=== PATIENT | male | born 1970 | race Caucasian/White ===

== ENCOUNTER 2023-03-02 14:59 | Inpatient (IN) ==
[2023-03-02] MEDS ORDERED: ONDANSETRON INJ 2 MG/ML 2 ML VIAL IV STA (15:50)
[2023-03-02] MEDS ORDERED: SODIUM CHLORIDE 0.9% 1000ML 500 ML IV ONE (15:50)
--- NOTE | 2023-03-02 15:52 | Emergency Department Note ---
Impression & Plan Abnormal weight loss ADMIT ED Provider Note HPI: The patient is a 52-year-old gentleman who presents emergency department with multiple issues. Patient states that over about the past month he has had issues with nausea and vomiting. States he has dysphagia. Patient states he has also had constipation and lower abdominal pain. Patient states that he has lost approximately 30 pounds during this time, he had a low BMI at baseline and states he went from about 120 pounds to 90 pounds. Patient states that he has a lesion to the left scalp that he states "has not been healing" over the past several months since he sustained an abrasion. On arrival here to the ED the patient is mildly hypotensive at 94/65, he is not tachycardic, he is afebrile on arrival, he is saturating well on room air. He is overall very frail and cachectic appearing. States he is not currently on any medications and does not currently follow with a doctor. ROS: - Per HPI *Outpatient medications and allergy history reviewed. *Pertinent external medical records reviewed. PE: General: Alert, frail-appearing, cachectic HEENT: Normocephalic, trachea midline Eyes: Extraocular eye movement is intact, no scleral erythema Pulmonary: Clear to auscultation bilaterally, no wheezing Cardio: Regular rate and rhythm GI: Abdomen is soft to palpation : No suprapubic tenderness MSK: No evidence of trauma or malformation of the extremities, no edema Skin: No evidence of rash, there is a lesion to the area overlying the left temporal region approximately 1 cm in diameter, firm to palpation, no active bleeding Neuro: Alert, no focal deficits Psychiatric: Cooperative equipment monitor phototypesetting: (As interpreted by myself): - An order was placed for continuous cardiac monitoring - Patient was noted to be in sinus rhythm with a rate of 60 EKG: (As interpreted by myself): Rate: 85 Rhythm: Normal sinus rhythm Intervals: Within normal limits ST changes: No ST elevation Time: 1512 Interventions provided in ED: -IV fluid bolus, IV Zofran Differential Diagnosis: Esophageal motility disorder, metastatic disease, small bowel obstruction, acute colitis, diverticulitis flare, malabsorption disorder, critical electrolyte abnormality, amongst other potential pathologies. Medical Decision Making: The patient is a 52-year-old gentleman who does not normally follow with PCP, presented to the ED today with rapid weight loss, generalized weakness, states he has had difficulty swallowing and constipation, states at times he also gets diarrhea. On arrival here to the ED the patient is alert and hemodynamically stable however he is very frail appearing cachectic, he only weighs 41 kg, states he believes he lost about 30 pounds in the past month. He states this was unintentional. IV was established and lab work obtained, patient was given IV fluid bolus as well as Zofran for nausea. CT imaging of the chest as well as CT imaging of the abdomen pelvis were obtained given the patient's multiple complaints, CT imaging of the chest does not show any obvious evidence of tumor or metastatic disease, CT imaging of the abdomen pelvis shows mucosal thickening of the bowel and also enlargement of retroperitoneal and mesenteric as well as thoracic lymph nodes raising the possibility of lymphoproliferative disorder or possible systemic disease such as Whipple disease. Patient's lab work does not show any critical findings, there is no leukocytosis, hemoglobin is stable at 12.2, platelet count is within normal limits, no critical electrolyte abnormalities are noted on CMP although sodium is slightly low at 132. Lipase is within normal limits. Patient was given IV fluids here in the ED and his blood pressure did uptrend into the 140s systolic. Given findings on CT imaging in addition to the patient's recent rapid weight loss and GI symptoms, I did discuss the case with on-call gastroenterology, Dr. Mensah, states that if patient is to be admitted they are agreeable for consultation for further management and possibly further work-up such as endoscopy /colonoscopy to determine whether or not the patient may have an underlying disorder such as Whipple disease. Patient and his significant other at the bedside are in agreement to this plan. [facility] hospitalist service was consulted for admission. Patient was placed for admission in stable condition. Consultants: - Gastroenterology, Dr. Mensah - Hospitalist, Dr. Angeles Disposition discussion held by myself with: - Patient Diagnosis: 1. Rapid unintentional weight loss with low BMI 2. Possible malabsorptive disorder 3. Bowel thickening on CT imaging, nonspecific 4. Nonspecific intra-abdominal lymphadenopathy Disposition: Admission Scott Shah DO Emergency Medicine Past Med/Surg History Social History Smoking Status: Never smoker Feels Safe at Home: Yes Allergies Allergies Allergy/AdvReac Type Severity Reaction Status Date / Time No Known Allergies Allergy Verified 03/02/23 16:40 Home Meds Home Medications Medication Instructions Recorded Confirmed [id number]-[id number] tablet 1 tab PO DAILY 03/02/23 03/02/23 Results & Data (ED) Vital Signs Vital Signs - 24 hr 03/02/23 15:02 03/02/23 16:15 03/02/23 16:18 Temperature 36.5 C Temperature Source Temporal Artery Scan Pulse Rate 88 73 Pulse Rate [Apical] 73 Pulse Rhythm Regular Pulse Rhythm [Apical] Regular Respiratory Rate 20 16 Respiratory Effort / Characteristics Non-Labored Spontaneous Non-Labored Respiratory Depth Normal Normal Respiratory Pattern Regular Blood Pressure 94/65 L Blood Pressure [Left Arm] 149/72 H Blood Pressure Mean 74 Blood Pressure Mean [Left Arm] 97 Pulse Oximetry 100 100 Oxygen Delivery Method Room Air Room Air Sepsis Recent Fever Within 48 Hours No Sepsis New/Unexplained Change in Mental Status No Sepsis Action Taken by Nursing No Action Required Laboratory Data 03/02/23 Unknown Lab Results 03/02/23 03/02/23 Range/Units 15:50 Unknown WBC 10.51 (4.8-10.8) K/ul RBC 4.32 L (4.70-6.10) M/uL Hgb 12.2 L (14.0-18.0) g/dl Hct 35.8 L (42.0-52.0) % MCV 82.9 (80.0-100.0) fL MCH 28.2 (25.0-34.0) pg MCHC 34.1 (32.0-36.0) g/dL RDW Std Deviation 40.9 (36.4-46.3) fL RDW Coeff of Kingsley 13.5 (11.5-14.5) % Plt Count 379 (130-400) K/uL MPV 10.3 (9.4-12.4) fL Immature Gran % (Auto) 1.0 % Neut % (Auto) 77.6 % Lymph % (Auto) 10.9 % Crawford % (Auto) 4.4 % Eos % (Auto) 5.4 % Baso % (Auto) 0.7 % Neut # (Auto) 8.15 H (1.40-6.50) K/uL Lymph # (Auto) 1.15 L (1.2-3.4) K/uL Crawford # (Auto) 0.46 (0.11-0.59) K/uL Eos # (Auto) 0.57 H (0-0.50) K/uL Baso # (Auto) 0.07 (0-0.2) K/uL Immature Gran # (Auto) 0.11 (0.01-0.20) K/uL Platelet Estimate Increased H (Normal) Echinocytes 1+ Sodium 132 L (136-145) mmol/L Potassium 4.2 (3.5-5.1) mmol/L Chloride 104 (98-107) mmol/L Carbon Dioxide 23 (21-32) mmol/L Anion Gap 5 (3-11) BUN 19 (6-23) mg/dl Creatinine 0.88 (0.6-1.4) mg/dl Est Cr Clr Drug Dosing 58.7 ml/min Est GFR ( Amer) 116.1 ml/min Est GFR (Non-Af Amer) 100.2 ml/min BUN/Creatinine Ratio 21.6 H (10-20) Glucose 79 (70-99(Fasting)) mg/dl Calcium 8.8 (8.6-10.3) mg/dl Total Bilirubin 0.2 (0.2-1.0) mg/dl AST 25 (13-39) U/L ALT 16 (7-52) U/L Alkaline Phosphatase 53 (34-104) U/L Total Protein 6.2 (6.0-8.3) gm/dl Albumin 3.0 L (3.4-5.0) gm/dl Globulin 3.2 (2.5-4.0) gm/dl Albumin/Globulin Ratio 0.9 (0.9-2) Lipase 19 (11-82) U/L Administered Medications Discontinued Medications Sodium Chloride (Nss 1000ml) 500 mls @ 999 mls/hr IV .Q31M ONE Stop: 03/02/23 16:20 Last Infusion: 03/02/23 16:50 Dose: 0 mls/hr Documented By: Admin: 03/02/23 16:10 Dose: 999 mls/hr Documented By: CONY Ioversol (Optiray 320 100ml) 90 ml IV ONCE ONE Stop: 03/02/23 16:34 Last Admin: 03/02/23 16:33 Dose: 90 ml Documented By: NADINE Ondansetron HCl (Ondansetron Inj 2 Mg/Ml 2 Ml Vial) 4 mg IV NOW STA Stop: 03/02/23 15:51 Last Admin: 03/02/23 16:10 Dose: 4 mg Documented By: [facility] Imaging Data Radiologist's Impression: Abdomen/Pelvis CT 03/02/23 15:[address] WITH IV CONTRAST CT DOSE: 473.29 mGy.cm HISTORY: rapid weight loss, N/V, lower abd pain TECHNIQUE: Multiaxial CT images of the abdomen and pelvis were performed following the use of intravenous contrast. A dose lowering technique was utilized adhering to the principles of ALARA. COMPARISON STUDY: None. FINDINGS: The lung bases will be reported on the same day chest CT. No pneumoperitoneum. No pneumatosis. No pneumoperitoneum. No pneumatosis. Mild thickening of the distal esophagus. There is mild distal thoracic periaortic lymphadenopathy measuring up to 13 mm in short axis diameter. There is mild retroperitoneal lymphadenopathy. Multiple enlarged mesenteric lymph nodes with the dominant lymph node measuring 17 mm. The bladder is unremarkable. No pelvic free fluid. Normal caliber abdominal aorta. The main portal vein is patent. The liver, spleen, adrenal glands, gallbladder, and kidneys are unremarkable. No hydronephrosis. Multiple fluid-filled nondilated loops of large small bowel seen throughout the abdomen. Suspect mild mucosal thickening throughout the majority of the large and small bowel. No transition point to suggest a bowel obstruction. Normal appendix. IMPRESSION: 1. Mild mucosal thickening throughout the majority of the large and small bowel. This may represent a nonspecific enterocolitis. 2. There is also retroperitoneal, mesenteric, and lower thoracic lymphadenopathy. This raises the possibility of a lymphoproliferative disorder or could represent a systemic process such as Whipple's disease given the small/large bowel mucosal thickening. 3. The lung bases will be reported on the same day chest CT. 4. Additional findings as described above. ACT 112: Negative or not required by law. Electronically signed by: Abdelrahman Rod M.D. 03/02/2023 5:[address] 03/02/23 15:49 CT OF THE CHEST WITH IV CONTRAST CLINICAL HISTORY: dysphagia, rapid weight loss, eval for CA COMPARISON STUDY: No previous studies for comparison. TECHNIQUE: Following IV administration of 90 mL of Optiray, helical axial images of the chest were obtained. Sagittal and coronal reconstructions were viewed as well as maximal intensity projections on an independent 3-D workstation. Automated exposure control was utilized for the study. A dose lowering technique was utilized adhering to the principles of ALARA. FINDINGS: There are prominent retrocrural lymph nodes. Index right retrocrural/paravertebral lymph node on image 211 of 245 measures 1.3 x 0.9 cm. There are also prominent supraclavicular and axillary lymph nodes. None of these are pathologically enlarged. Mesenteric lymphadenopathy is depicted on the CT of the abdomen and pelvis which will be reported separately. Size of the heart is normal. There is no pericardial effusion. No pneumothorax or pleural effusion. Mild upper lobe predominant emphysema is present. There are a few bilateral lower lobes subtle groundglass opacities that measure up to 2.2 cm. These contain central lucencies. No suspicious lesions within the bony thorax are noted. IMPRESSION: 1. Prominent hypodense retrocrural lymph nodes. These are nonspecific. Mesenteric lymphadenopathy is depicted on the CT of the abdomen and pelvis. Please see that report for further description. 2. A few subtle bilateral lower lobe groundglass densities which contain central lucencies. Although not highly suggestive of malignancy, these are nonspecific and a short-term follow-up chest CT in 3 months is recommended. 3. Mild emphysema. ACT 112: Negative or not required by law. Electronically signed by: Gary Chau M.D. 03/02/2023 5:08 PM Discharge Plan Visit Data Chief Complaint: Vomiting Stated Complaint: VOMITING,BLOODY STOOL ED Provider: Scott Shah Discharge Problem: Abnormal weight loss Forms Stand Alone Forms: [employer] Prescriptions Prescriptions: No Action Centrum Silver Tablet 1 tab PO DAILY Referrals Referrals: PCP,NO [Primary Care Provider] -
[2023-03-02 16:20] LABS: Albumin Globulin Ratio 0.9 (0.9-2); BUN Creatinine Ratio 21.6 (10-20); Bilirubin,Total 0.2 mg/dl (0.2-1.0); Calcium 8.8 mg/dl (8.6-10.3); Creatinine Clr Calc Pharmacy 58.7 ml/min; Est GFR (African American) 116.1 ml/min; Est GFR (Non-African American) 100.2 ml/min; Globulin 3.2 gm/dl (2.5-4.0); Potassium 4.2 mmol/L (3.5-5.1); Total Protein 6.2 gm/dl (6.0-8.3)
[2023-03-02 16:26] LABS: Basophils # (auto) 0.07 K/uL (0-0.2); Basophils % (auto) 0.7 %; Echinocytes 1+; Eosinophils # (auto) 0.57 K/uL (0-0.50); Eosinophils % (auto) 5.4 %; Hematocrit (blood only) 35.8 % (42.0-52.0); Hemoglobin 12.2 g/dl (14.0-18.0); Immature Granulocytes # (auto) 0.11 K/uL (0.01-0.20); Lymphocytes # (auto) 1.15 K/uL (1.2-3.4); Lymphocytes % (auto) 10.9 %; Mean Corpuscular Hemoglobin 28.2 pg (25.0-34.0); Mean Corpuscular Hgb Conc 34.1 g/dL (32.0-36.0); Mean Corpuscular Volume 82.9 fL (80.0-100.0); Mean Platelet Volume 10.3 fL (9.4-12.4); Monocytes # (auto) 0.46 K/uL (0.11-0.59); Monocytes % (auto) 4.4 %; Neutrophils # (auto) 8.15 K/uL (1.40-6.50); Neutrophils % (auto) 77.6 %; Platelet Count 379 K/uL (130-400); Platelet Estimate Increased (Normal); RDW Coefficient of Variation 13.5 % (11.5-14.5); RDW Standard Deviation 40.9 fL (36.4-46.3); Red Blood Count 4.32 M/uL (4.70-6.10); White Blood Count 10.51 K/ul (4.8-10.8)
[2023-03-02] MEDS ORDERED: OPTIRAY 320 100ml IV ONE (16:33)
--- NOTE | 2023-03-02 17:10 | CT Scan Report ---
CT OF THE CHEST WITH IV CONTRAST CLINICAL HISTORY: dysphagia, rapid weight loss, eval for CA COMPARISON STUDY: No previous studies for comparison. TECHNIQUE: Following IV administration of 90 mL of Optiray, helical axial images of the chest were o btained. Sagittal and coronal reconstructions were viewed as well as maximal intensity projections o n an independent 3-D workstation. Automated exposure control was utilized for the study. A dose low ering technique was utilized adhering to the principles of ALARA. FINDINGS: There are prominent retrocrural lymph nodes. Index right retrocrural/paravertebral lymph n ode on image 211 of 245 measures 1.3 x 0.9 cm. There are also prominent supraclavicular and axillary lymph nodes. None of these are pathologically enlarged. Mesenteric lymphadenopathy is depicted on the CT of the abdomen and pelvis which will be reported separately. Size of the heart is normal. There i s no pericardial effusion. No pneumothorax or pleural effusion. Mild upper lobe predominant emphysema is present. There are a few bilateral lower lobes subtle groundglass opacities that measure up to 2. 2 cm. These contain central lucencies. No suspicious lesions within the bony thorax are noted. IMPRESSION: 1. Prominent hypodense retrocrural lymph nodes. These are nonspecific. Mesenteric lymphadenopathy is depicted on the CT of the abdomen and pelvis. Please see that report for further description. 2. A few subtle bilateral lower lobe groundglass densities which contain central lucencies. Although not highly suggestive of malignancy, these are nonspecific and a short-term follow-up chest CT in 3 [facility] is recommended. 3. Mild emphysema. ACT 112: Negative or not required by law. Electronically signed by: Gary Chau M.D. 03/02/2023 5:08 PM
--- NOTE | 2023-03-02 17:10 | CT Scan Report ---
ABDOMEN AND PELVIS CT WITH IV CONTRAST CT DOSE: 473.29 mGy.cm HISTORY: rapid weight loss, N/V, lower abd pain TECHNIQUE: Multiaxial CT images of the abdomen and pelvis were performed following the use of intrave nous contrast. A dose lowering technique was utilized adhering to the principles of ALARA. COMPARISON STUDY: None. FINDINGS: The lung bases will be reported on the same day chest CT. No pneumoperitoneum. No pneumatos is. No pneumoperitoneum. No pneumatosis. Mild thickening of the distal esophagus. There is mild dista l thoracic periaortic lymphadenopathy measuring up to 13 mm in short axis diameter. There is mild ret roperitoneal lymphadenopathy. Multiple enlarged mesenteric lymph nodes with the dominant lymph node m easuring 17 mm. The bladder is unremarkable. No pelvic free fluid. Normal caliber abdominal aorta. Th e main portal vein is patent. The liver, spleen, adrenal glands, gallbladder, and kidneys are unremar kable. No hydronephrosis. Multiple fluid-filled nondilated loops of large small bowel seen throughout the abdomen. Suspect mild mucosal thickening throughout the majority of the large and small bowel. N o transition point to suggest a bowel obstruction. Normal appendix. IMPRESSION: 1. Mild mucosal thickening throughout the majority of the large and small bowel. This may represent a nonspecific enterocolitis. 2. There is also retroperitoneal, mesenteric, and lower thoracic lymphadenopathy. This raises the pos sibility of a lymphoproliferative disorder or could represent a systemic process such as Whipple's di sease given the small/large bowel mucosal thickening. 3. The lung bases will be reported on the same day chest CT. 4. Additional findings as described above. ACT 112: Negative or not required by law. Electronically signed by: Abdelrahman Rod M.D. 03/02/2023 5:09 PM
[2023-03-02] MEDS ORDERED: cefTRIAXone SODIUM 2,000 MG/70 ML BAG IV STA (17:33)
--- NOTE | 2023-03-02 18:19 | History & Physical Report ---
Date of Service March 02, 2023 Assessment & Plan (1) Abnormal weight loss: (2) Anemia: (3) Dark stools: (4) Diarrhea: Plan Konstantin Desir is a 52 year old male who presented to the ED after worsening weakness for the past month. He has no significant past medical history and is on no medications. He was admitted due to rapid weight loss, dark stools, and concern of underlying malignancy. Diarrhea/Dark Stool -CT Abdomen/Pelvis: Mild mucosal thickening, could represent nonspecific enterocolitis. Retroperitoneal/Mesenteric/Lower thoracic lymphadenopathy -In setting of significant family history of colorectal cancer, malignancy is high on the differential. CT read also suggests possibility of systemic process including Whipple's disease, although is rare. -GI consulted, planning for EGD, colonoscopy with biopsy tomorrow. NPO at midnight. -Received Ceftriaxone in ED, continue Ceftriaxone 2g q24h empirically -Blood cultures pending -Will order TTG IgA for completeness. Will monitor daily BMP. -Patient is hemodynamically stable, given ongoing dark stools will start Protonix (80 IV bolus now, start 40 BID tomorrow) -Will work on finding pathology results from colonoscopy 2 years ago ([facility] in ) Anemia -Will check Iron Panel, Ferritin, B12, Folate -Monitor daily CBC w/diff -Ordered peripheral smear given eosinophilia, results pending Dyspnea -30 pack year history of smoking -Chest CT: nonspecific findings of prominent retrocrural and mesenteric lymph nodes as well as bilateral lower lobe groundglass densities -No current symptoms of dyspnea at rest, oxygen saturation has been 99-100% on room air Weakness/Rapid Weight Loss -Will consult qa tester for nutritional assessment -Concern that underlying etiology is malignancy -Will order prealbumin Diet: Clears, NPO at midnight. LR 80mL/hr VTE Prophylaxis: Heparin 5000u q12h Dispo: Med/Surg Code Status: Full Code History of Present Illness Primary Care Provider: NO PCP Konstantin Desir is a 52 year old male who presented to the ED after worsening weakness for the past month. He has no significant past medical history and is on no medications. He notes that for the past 1 year he has had gradually worsening difficulties with swallowing- it initially was only with carbohydrates/bread but has worsened to even liquids- can cause pain in her esophagus and can trigger vomiting in the past month. He has also had worsening diarrhea over the past 2-3 weeks and now his bowel movements are "dark brown/black" and "sludge" in consistency. He also has episodes of sharp pain from his rectum to his groin. He has had significant fatigue- is sleeping 10-14 hours per night and is unable to walk the 1 mile to his work without many breaks due to feeling winded. He has lost 20-25 pounds in the past month and has also had about 1 month of night sweats. He has no specific joint pain, but his arms and legs feel heavy with intermittent numbness and tingling. He denies chest pain, dizziness, headache. Mr. Desir has a home in [place] (where his family/kids live) but commutes to [place] for work where he rents a room. He has been a 1ppd smoker for 30 years but stopped within the past week due to worsening shortness of breath. He was a "social drinker" and would have a beer on occasion but lost the taste for since his symptoms have worsened. He has significant past medical history in his paternal family with 4 uncles and his paternal grandfather dying of colon cancer in 40s-50s. The patient recalls he had a colonoscopy at [facility] in about 2 years ago but is unsure of the results. 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 His father also had significant exposure to Agent [place] in [place] prior to the patient's . Allergies Allergy/AdvReac Type Severity Reaction Status Date / Time No Known Allergies Allergy Verified 03/02/23 16:40 Home Medications Medication Instructions Recorded Confirmed Type [id number] tablet 1 tab PO DAILY 03/02/23 03/02/23 History Past Med/Surg History Family History (Updated 03/02/23 @ 20:22 by Jenny uLtz DO) Father Colorectal cancer Grandfather (Paternal) Colorectal cancer Uncle Colorectal cancer Uncle Colorectal cancer Uncle Colorectal cancer Social History (Updated 03/02/23 @ 20:23 by Jenny Lutz DO) Smoking Status: Current every day smoker Tobacco Type: Cigarettes Age Started Using Tobacco: 22; packs per day: 1; Feels Safe at Home: Yes Review of Systems Review of Systems: As per HPI Physical Exam Constitutional: + cachectic and + malnourished; no acute distress Eyes: PERRL, conjunctivae normal, anicteric sclerae ENMT: external ear and nose normal, oropharynx normal Neck: trachea midline, no thyromegaly Respiratory: normal respiratory effort; no respiratory distress Lungs clear to auscultation bilaterally Cardiovascular: RRR, no murmur, no edema Gastrointestinal (Abdomen): Inspection/Auscultation: abdomen normal to inspection and normal bowel sounds Percussion/Palpation: abdomen nontender Musculoskeletal: Moves all limbs independently. 4/5 strength for bilateral plantarflexion, remainder 5/5 strength lower extremities Skin: Raised crusted 4cm lesion at left yarsani, no drainage or bleeding. Neurologic: normal touch/pain/proprioception and awake Psychiatric: A+Ox3, euthymic affect Results & Data Results & Data Vital Signs (Past 12 Hours) Vital Signs Temp Pulse Pulse Resp BP BP Pulse Ox 03/02/23 18:02 83 23 97/61 L 99 03/02/23 16:18 73 03/02/23 16:15 73 16 149/72 H 100 03/02/23 15:02 36.5 C 88 20 94/65 L 100 O2 Del Method 03/02/23 18:02 03/02/23 16:18 03/02/23 16:15 Room Air 03/02/23 15:02 Room Air Laboratory Results 03/02/23 03/02/23 03/02/23 Range/Units Unknown 17:59 15:50 WBC 10.51 (4.8-10.8) K/ul RBC 4.32 L (4.70-6.10) M/uL Hgb 12.2 L (14.0-18.0) g/dl Hct 35.8 L (42.0-52.0) % MCV 82.9 (80.0-100.0) fL MCH 28.2 (25.0-34.0) pg MCHC 34.1 (32.0-36.0) g/dL RDW Std Deviation 40.9 (36.4-46.3) fL RDW Coeff of Kingsley 13.5 (11.5-14.5) % Plt Count 379 (130-400) K/uL MPV 10.3 (9.4-12.4) fL Immature Gran % (Auto) 1.0 % Neut % (Auto) 77.6 % Lymph % (Auto) 10.9 % Wheeler % (Auto) 4.4 % Eos % (Auto) 5.4 % Baso % (Auto) 0.7 % Neut # (Auto) 8.15 H (1.40-6.50) K/uL Lymph # (Auto) 1.15 L (1.2-3.4) K/uL Wheeler # (Auto) 0.46 (0.11-0.59) K/uL Eos # (Auto) 0.57 H (0-0.50) K/uL Baso # (Auto) 0.07 (0-0.2) K/uL Immature Gran # (Auto) 0.11 (0.01-0.20) K/uL Platelet Estimate Increased H (Normal) Echinocytes 1+ Sodium 132 L (136-145) mmol/L Potassium 4.2 (3.5-5.1) mmol/L Chloride 104 (98-107) mmol/L Carbon Dioxide 23 (21-32) mmol/L Anion Gap 5 (3-11) BUN 19 (6-23) mg/dl Creatinine 0.88 (0.6-1.4) mg/dl Est Cr Clr Drug Dosing 58.7 ml/min Est GFR ( Amer) 116.1 ml/min Est GFR (Non-Af Amer) 100.2 ml/min BUN/Creatinine Ratio 21.6 H (10-20) Glucose 79 (70-99(Fasting)) mg/dl Calcium 8.8 (8.6-10.3) mg/dl Total Bilirubin 0.2 (0.2-1.0) mg/dl AST 25 (13-39) U/L ALT 16 (7-52) U/L Alkaline Phosphatase 53 (34-104) U/L Total Protein 6.2 (6.0-8.3) gm/dl Albumin 3.0 L (3.4-5.0) gm/dl Globulin 3.2 (2.5-4.0) gm/dl Albumin/Globulin Ratio 0.9 (0.9-2) Lipase 19 (11-82) U/L SARS-CoV-2, RNA, NAAT NEGATIVE (NEGATIVE) Diagnostic Findings Abdomen/Pelvis CT 03/02/23 15:[address] WITH IV CONTRAST CT DOSE: 473.29 mGy.cm HISTORY: rapid weight loss, N/V, lower abd pain TECHNIQUE: Multiaxial CT images of the abdomen and pelvis were performed following the use of intravenous contrast. A dose lowering technique was utilized adhering to the principles of ALARA. COMPARISON STUDY: None. FINDINGS: The lung bases will be reported on the same day chest CT. No pneumoperitoneum. No pneumatosis. No pneumoperitoneum. No pneumatosis. Mild thickening of the distal esophagus. There is mild distal thoracic periaortic lymphadenopathy measuring up to 13 mm in short axis diameter. There is mild retroperitoneal lymphadenopathy. Multiple enlarged mesenteric lymph nodes with the dominant lymph node measuring 17 mm. The bladder is unremarkable. No pelvic free fluid. Normal caliber abdominal aorta. The main portal vein is patent. The liver, spleen, adrenal glands, gallbladder, and kidneys are unremarkable. No hydronephrosis. Multiple fluid-filled nondilated loops of large small bowel seen throughout the abdomen. Suspect mild mucosal thickening throughout the majority of the large and small bowel. No transition point to suggest a bowel obst ruction. Normal appendix. IMPRESSION: 1. Mild mucosal thickening throughout the majority of the large and small bowel. This may represent a nonspecific enterocolitis. 2. There is also retroperitoneal, mesenteric, and lower thoracic lymphadenopathy. This raises the possibility of a lymphoproliferative disorder or could represent a systemic process such as Whipple's disease given the small/large bowel mucosal thickening. 3. The lung bases will be reported on the same day chest CT. 4. Additional findings as described above. ACT 112: Negative or not required by law. Electronically signed by: Abdelrahman Rod M.D. 03/02/2023 5:[address] 03/02/23 15:49 CT OF THE CHEST WITH IV CONTRAST CLINICAL HISTORY: dysphagia, rapid weight loss, eval for CA COMPARISON STUDY: No previous studies for comparison. TECHNIQUE: Following IV administration of 90 mL of Optiray, helical axial images of the chest were obtained. Sagittal and coronal reconstructions were viewed as well as maximal intensity projections on an independent 3-D workstation. Automated exposure control was utilized for the study. A dose lowering technique was utilized adhering to the principles of ALARA. FINDINGS: There are prominent retrocrural lymph nodes. Index right retrocrural/paravertebral lymph node on image 211 of 245 measures 1.3 x 0.9 cm. There are also prominent supraclavicular and axillary lymph nodes. None of these are pathologically enlarged. Mesenteric lymphadenopathy is depicted on the CT of the abdomen and pelvis which will be reported separately. Size of the heart is normal. There is no pericardial effusion. No pneumothorax or pleural effusion. Mild upper lobe predominant emphysema is present. There are a few bilateral lower lobes subtle groundglass opacities that measure up to 2.2 cm. These contain central lucencies. No suspicious lesions within the bony thorax are noted. IMPRESSION: 1. Prominent hypodense retrocrural lymph nodes. These are nonspecific. Mesenteric lymphadenopathy is depicted on the CT of the abdomen and pelvis. Please see that report for further description. 2. A few subtle bilateral lower lobe groundglass densities which contain central lucencies. Although not highly suggestive of malignancy, these are nonspecific and a short-term follow-up chest CT in 3 months is recommended. 3. Mild emphysema. ACT 112: Negative or not required by law. Electronically signed by: Gary Chau M.D. 03/02/2023 5:08 PM Supervising Physician Co-Signing Physician Notes Patient seen and examined, chart reviewed, case discussed with Jenny Lutz, and I agree with the assessment and plan as above except as otherwise noted. Labs and images reviewed Konstantin is a 52yo M who does not follow with a PCP, intermittently in [place]. Dysphagia, intermittent constipation, intermittent diarrhea who presents with rapid weight loss in the last month, cachexia, 30lb weight loss in 1 month and weak globally. Started w/ dysphasia gradual onset over the last year but much worse in last 4 weeks, weight loss, +night sweats, has not checked a temp but has been with body aches and intermittent chills. +diarrhea daily for 3 weeks progressively dark now 'black and sludgy'. No chest pain, but progressive fatigue with exertion and exercise intolerance. No syncope. He reports that he has extensive family history "every male in my family "has some form of colon or rectal cancer. Records are pending from [facility] to see if pathology results at that time were available. CT-C: 1. Prominent hypodense retrocrural lymph nodes. These are nonspecific. Mesenteric lymphadenopathy is depicted on the CT of the abdomen and pelvis. Please see that report for further description. 2. A few subtle bilateral lower lobe groundglass densities which contain central lucencies. Although not highly suggestive of malignancy, these are nonspecific and a short-term follow-up chest CT in 3 months is recommended.3. Mild emphysema. CT-A/P: 1. Mild mucosal thickening throughout the majority of the large and small bowel. This may represent a nonspecific enterocolitis. 2. There is also retroperitoneal, mesenteric, and lower thoracic lymphadenopathy. This raises the possibility of a lymphoproliferative disorder or could represent a systemic process such as Whipple's disease given the small/large bowel mucosal thickening. . The lung bases will be reported on the same day chest CT. 4. Additional findings as described above. Rapid weight loss, dysphagia, his constipation/diarrhea Initial concern for Whipple disease based on CT read, based on family history and presentation suspect that patient has colorectal cancer. Patient has had rapid weight loss, abdominal pain, diarrhea, although overall incidence of this is low/rare and has for myalgias than arthralgias. GI is consulted and patient will have EGD with biopsy. In the meantime we will cover empirically with Rocephin. Patient does have been eosinophilia which can be associated with a significant vasculitic involvement of Whipple's disease. Differential includes malignancy/lymphoma, pt has ane xtensive family history of colorectal cancer as noted above. Peripheral smear pending for eosinophilia, continue follow-up based on above. If GI biopsy evaluation is not diagnostic consult IR for IR biopsy of lymph nodes. Recommend colonoscopy for findings and high risk of colon cancer. Last colo 2 years ago in [place] reportedly with indeterminate appearance of something, but does not know the results of the path and did no follow up after that until now. Patient is with anemia borderline microcytic. Iron levels pending. Blood cultures pending. CBC trended daily. TTG pending. Continue Rocephin which covers for tubuli and with good [employer] coverage. Nutrition consult placed due to global malnutrition, no transaminitis to suggest poor synthetic f unction prealbumin added for completion. N.p.o. pending EGD. Given reports of black tarry stool with anemia will also place on protonix IV 80mg IV bolus + BID IV, BUN is not elevated Resident Activity Tracking Resident Involvement: Resident Care Provided Care Provided: [facility]
[2023-03-02] MEDS ORDERED: PANTOprazole 80 MG in DEXTROSE 5% 100 ML IV STA (20:06)
[2023-03-02 22:01] LABS: Appearance Urine Clear (Clear); Bacteria Urine Automated Negative (Negative); Bilirubin Urine Negative (Negative); Blood Urine Negative (Negative); Color Urine Dark Yellow; Glucose Urine UA Negative (Negative); Ketones Urine Negative (Negative); Leukocyte Esterase Urine Negative (Negative); Nitrite Urine Negative (Negative); Protein Urine Trace (Negative); RBC Urine Automated 0-4 /hpf (0-4); Specific Gravity Urine > 1.045 (1.000-1.030); Urobilinogen Urine Negative (Negative)
[2023-03-02] MEDS ORDERED: ONDANSETRON INJ 2 MG/ML 2 ML VIAL IV PRN (22:04)
[2023-03-02] MEDS ORDERED: ACETAMINOPHEN 325 MG TAB PO PRN (22:04)
[2023-03-02] MEDS ORDERED: HEPARIN SOD 5,000 UNIT/0.5 ML VIAL SQ SCH (22:04)
[2023-03-02] MEDS: LACTATED RINGER'S 1,000 ML IV SCH (22:10)
[2023-03-02 23:36] LABS: Ferritin 66.1 ng/ml (8-388)
[2023-03-03 07:34] LABS: Basophils # (auto) 0.07 K/uL (0-0.2); Basophils % (auto) 0.5 %; Eosinophils # (auto) 0.42 K/uL (0-0.50); Eosinophils % (auto) 3.1 %; Hematocrit (blood only) 32.2 % (42.0-52.0); Immature Granulocytes # (auto) 0.09 K/uL (0.01-0.20); Immature Granulocytes % (auto) 0.7 %; Lymphocytes # (auto) 0.65 K/uL (1.2-3.4); Lymphocytes % (auto) 4.8 %; Mean Corpuscular Hemoglobin 28.1 pg (25.0-34.0); Mean Corpuscular Hgb Conc 34.2 g/dL (32.0-36.0); Mean Corpuscular Volume 82.1 fL (80.0-100.0); Mean Platelet Volume 9.9 fL (9.4-12.4); Monocytes # (auto) 0.34 K/uL (0.11-0.59); Monocytes % (auto) 2.5 %; Neutrophils # (auto) 12.08 K/uL (1.40-6.50); Neutrophils % (auto) 88.4 %; Platelet Count 320 K/uL (130-400); RDW Coefficient of Variation 13.5 % (11.5-14.5); RDW Standard Deviation 40.6 fL (36.4-46.3); Red Blood Count 3.92 M/uL (4.70-6.10); White Blood Count 13.65 K/ul (4.8-10.8)
[2023-03-03 07:59] LABS: BUN Creatinine Ratio 16.9 (10-20); Calcium 8.4 mg/dl (8.6-10.3); Creatinine Clr Calc Pharmacy 58.3 ml/min; Est GFR (African American) 115.6 ml/min; Est GFR (Non-African American) 99.7 ml/min
--- NOTE | 2023-03-03 08:13 | Hospitalist Progress Note ---
Date of Service March 03, 2023 Assessment & Plan (1) Weight loss: Plan: Konstantin Desir is a 52 year old male who presented to the ED after worsening weakness for the past month, worse over past two weeks. Recently w/ progressive dysphagia to even liquids, strong family history of colon ca. Reporting rapid weight loss, night sweats, progressive shortness of breath, weakness. Concerns for underlying malignancy given strong family history of such CTAP on admission w/ Mild mucosal thickening, could represent nonspecific enterocolitis. There is also retroperitoneal, mesenteric, and lower thoracic lymphadenopathy. This raises the possibility of a lymphoproliferative disorder or could represent a systemic process such as Whipple's disease given the small/large bowel mucosal thickening. Possible Whipple's disease noted, although rares On ceftriaxone given such, continue Blood cultures pending GI on consult -- hopefully able to do EGD/c-scope however appears only doing EGD at present. Messaged to see if able to do both NPO currently Added stool studies/cdiff, celiac profile ordered by GI. also check fecal occult. 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 Pre-albumin LOW Also consulted speech therapy given dysphagia ID consulted given possible Whipples rarity, on ceftriaxone Monitor labs on repeat (2) Dysphagia: Plan: 30 pack year history of smoking Chest CT: nonspecific findings of prominent retrocrural and mesenteric lymph nodes as well as bilateral lower lobe groundglass densities NEEDS OUTPATIENT MONITORING OF SUCH No current symptoms of dyspnea at rest, oxygen saturation stable on room air Speech consulted NPO currently for EGD IVF as ordered -Will work on finding pathology results from colonoscopy 2 years ago ([facility] in [place], [place]) (3) Diarrhea: Plan: progressive diarrhea, contributing to dehydration/weakness as well, also suspect malingancy vs whipples bicarb low on labs, likely from diarrheal losses stool studies ordered -- monitor IVF for dehydration ordered (4) Anemia: Plan: iron panel checked -- iron/trans sat LOW -- consider IV venofer but will hold off for now and ensure blood cultures negative b12/folate levels acceptable peripheral smear pending hgb stable on IVF, fecal occult for eval but no active bleeding at present tsh wnl cbc in AM (5) Dark stools: Plan: check fecal occult as above continue PPI BID (6) Malnourished: Plan: 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 Did note nodules which will need f/u Iron panel w/ iron deficiency -- will need replacement No chest pain reported, no EKG Can consider CT chest for PE but not hypoxia at this time and will monitor for now. Was Sinus tachy w/ sinus arrhtymia on EKG on admit. 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 peripheral smear ordered continues on ceftriaxone for abx, ID consulted as above (11) Abnormal CT of the abdomen: Plan: as above (12) Abnormal CT scan, chest: Plan: A few subtle bilateral lower lobe groundglass densities which contain central lucencies. Although not highly suggestive of malignancy, --> these are nonspecific and a short-term follow-up chest CT in 3 months is recommended. stable on RA at present Plan DVT proph: holding chemoproph in setting possible GI bleeding -- heparin placed on hold as ordered on admission, continue SCDs Admission and Anticipated Discharge Date Admission Date: March 02, 2023 Supervising Physician Co-Signing Physician Notes The patient was not seen by me. The chart was reviewed. Case discussed with FLORIN Gottlieb. Agree with assessment and plan Subjective patient eval this morning, doing alright. recent progressive weight loss, worse over the past 2 weeks. progressive dysphagia. no family hx IBD but strong family hx colon cancer. On both maternal and paternal side. He notes almost every male on his father's side has been diagnosed. Has been having ongoing diarrhea and loosened darkened stools, shortness of breath with ambulation which has been worse. Discussed iron levels low on check. He notes no matter how much he had been eating,weight loss progressed. Worsened w/ worsening ability for swallowing which started out breads and now on occasions with fluids. Discussed speech eval as well. Updated significant other on phone. They are inquiring about why not both EGD/c-scope as discussed w/ them in the ER. Discussed I would message GI to inquire but per message this am was to be deferred to Berta/Dr Ayala per Dr Mensah. He has had fevers as well as joint pains, worsening abilty for ambulation due to weakness/weight loss. Physical Exam Physical Exam: General: thin, malnourished, cachectic male laying in bed on phone, NAD HEENT: bitemporal wasting, mm dry, trachea midline, no lymphadenopathy noted Resp: CTA, diminished in bases w/ associated crackles, no w/c, on room air CV: slightly tachycardic (rates 90-100s),regular, no obvious m/r/g, no pitting edema/calf tenderness GI: +BS, thin, no overy tenderness : no dowell MSK/Neuro: strength equal bilaterally mild joint pain reported to hands/elbows, no obvious lesion Psych: AOx3, cooperative with exam Skin: warm Results & Data Results & Data Vital Signs (Past 12 Hours) Vital Signs Temp Pulse Pulse Resp BP BP Pulse Ox 03/03/23 07:57 37.5 C 104 H 16 95/57 L 93 03/02/23 21:30 03/02/23 21:30 36.5 C 77 18 100/65 98 03/02/23 21:02 36.8 C 85 18 96/52 L 97 O2 Del Method 03/03/23 07:57 Room Air 03/02/23 21:30 Room Air 03/02/23 21:30 Room Air 03/02/23 21:02 Room Air Laboratory Results 03/03/23 03/03/23 03/03/23 Range/Units 06:54 06:54 06:54 WBC 13.65 H (4.8-10.8) K/ul RBC 3.92 L (4.70-6.10) M/uL Hgb 11.0 L (14.0-18.0) g/dl Hct 32.2 L (42.0-52.0) % MCV 82.1 (80.0-100.0) fL MCH 28.1 (25.0-34.0) pg MCHC 34.2 (32.0-36.0) g/dL RDW Std Deviation 40.6 (36.4-46.3) fL RDW Coeff of Kingsley 13.5 (11.5-14.5) % Plt Count 320 (130-400) K/uL MPV 9.9 (9.4-12.4) fL Immature Gran % (Auto) 0.7 % Neut % (Auto) 88.4 % Lymph % (Auto) 4.8 % Mcmullen % (Auto) 2.5 % Eos % (Auto) 3.1 % Baso % (Auto) 0.5 % Neut # (Auto) 12.08 H (1.40-6.50) K/uL Lymph # (Auto) 0.65 L (1.2-3.4) K/uL Mcmullen # (Auto) 0.34 (0.11-0.59) K/uL Eos # (Auto) 0.42 (0-0.50) K/uL Baso # (Auto) 0.07 (0-0.2) K/uL Immature Gran # (Auto) 0.09 (0.01-0.20) K/uL Platelet Estimate (Normal) Echinocytes Peripher Smr Path Cons Sodium 131 L (136-145) mmol/L Potassium 4.0 (3.5-5.1) mmol/L Chloride 108 H (98-107) mmol/L Carbon Dioxide 17 L (21-32) mmol/L Anion Gap 6 (3-11) BUN 15 (6-23) mg/dl Creatinine 0.89 (0.6-1.4) mg/dl Est Cr Clr Drug Dosing 58.3 ml/min Est GFR ( Amer) 115.6 ml/min Est GFR (Non-Af Amer) 99.7 ml/min BUN/Creatinine Ratio 16.9 (10-20) Glucose 85 (70-99(Fasting)) mg/dl Calcium 8.4 L (8.6-10.3) mg/dl Iron (35-175) mcg/dl TIBC (250-450) mcg/dl Unsaturated IBC (155-355) mcg/dl Transferrin (200-360) mg/dl Transferrin % Sat (20-50) % Ferritin (8-388) ng/ml Total Bilirubin (0.2-1.0) mg/dl AST (13-39) U/L ALT (7-52) U/L Alkaline Phosphatase (34-104) U/L Total Protein (6.0-8.3) gm/dl Albumin (3.4-5.0) gm/dl Globulin (2.5-4.0) gm/dl Albumin/Globulin Ratio (0.9-2) Prealbumin Pending Lipase (11-82) U/L Vitamin B12 (180-914) pg/ml Folate (>5.38) ng/ml Urine Color Urine Appearance (Clear) Urine pH (4.5-7.5) Ur Specific [place] (1.000-1.030) Urine Protein (Negative) Urine Glucose (UA) (Negative) Urine Ketones (Negative) Urine Blood (Negative) Urine Nitrite (Negative) Urine Bilirubin (Negative) Urine Urobilinogen (Negative) Ur Leukocyte Esterase (Negative) Urine WBC (Auto) (0-5) /hpf Urine RBC (Auto) (0-4) /hpf U Hyaline Cast (Auto) (0-5) /lpf U Epithel Cells (Auto) (0-5) /lpf Urine Bacteria (Auto) (Negative) Tiss Transglutamin IgA Pending SARS-CoV-2, RNA, NAAT (NEGATIVE) 03/02/23 03/02/23 03/02/23 Range/Units Unknown 21:40 17:59 WBC 10.51 (4.8-10.8) K/ul RBC 4.32 L (4.70-6.10) M/uL Hgb 12.2 L (14.0-18.0) g/dl Hct 35.8 L (42.0-52.0) % MCV 82.9 (80.0-100.0) fL MCH 28.2 (25.0-34.0) pg MCHC 34.1 (32.0-36.0) g/dL RDW Std Deviation 40.9 (36.4-46.3) fL RDW Coeff of Kingsley 13.5 (11.5-14.5) % Plt Count 379 (130-400) K/uL MPV 10.3 (9.4-12.4) fL Immature Gran % (Auto) 1.0 % Neut % (Auto) 77.6 % Lymph % (Auto) 10.9 % Mcmullen % (Auto) 4.4 % Eos % (Auto) 5.4 % Baso % (Auto) 0.7 % Neut # (Auto) 8.15 H (1.40-6.50) K/uL Lymph # (Auto) 1.15 L (1.2-3.4) K/uL Mcmullen # (Auto) 0.46 (0.11-0.59) K/uL Eos # (Auto) 0.57 H (0-0.50) K/uL Baso # (Auto) 0.07 (0-0.2) K/uL Immature Gran # (Auto) 0.11 (0.01-0.20) K/uL Platelet Estimate Increased H (Normal) Echinocytes 1+ Peripher Smr Path Cons Sodium (136-145) mmol/L Potassium (3.5-5.1) mmol/L Chloride (98-107) mmol/L Carbon Dioxide (21-32) mmol/L Anion Gap (3-11) BUN (6-23) mg/dl Creatinine (0.6-1.4) mg/dl Est Cr Clr Drug Dosing ml/min Est GFR ( Amer) ml/min Est GFR (Non-Af Amer) ml/min BUN/Creatinine Ratio (10-20) Glucose (70-99(Fasting)) mg/dl Calcium (8.6-10.3) mg/dl Iron (35-175) mcg/dl TIBC (250-450) mcg/dl Unsaturated IBC (155-355) mcg/dl Transferrin (200-360) mg/dl Transferrin % Sat (20-50) % Ferritin (8-388) ng/ml Total Bilirubin (0.2-1.0) mg/dl AST (13-39) U/L ALT (7-52) U/L Alkaline Phosphatase (34-104) U/L Total Protein (6.0-8.3) gm/dl Albumin (3.4-5.0) gm/dl Globulin (2.5-4.0) gm/dl Albumin/Globulin Ratio (0.9-2) Prealbumin Lipase (11-82) U/L Vitamin B12 (180-914) pg/ml Folate (>5.38) ng/ml Urine Color Dark Yellow Urine Appearance Clear (Clear) Urine pH 5.0 (4.5-7.5) Ur Specific [place] > 1.045 H (1.000-1.030) Urine Protein Trace H (Negative) Urine Glucose (UA) Negative (Negative) Urine Ketones Negative (Negative) Urine Blood Negative (Negative) Urine Nitrite Negative (Negative) Urine Bilirubin Negative (Negative) Urine Urobilinogen Negative (Negative) Ur Leukocyte Esterase Negative (Negative) Urine WBC (Auto) 1-5 (0-5) /hpf Urine RBC (Auto) 0-4 (0-4) /hpf U Hyaline Cast (Auto) 1-5 (0-5) /lpf U Epithel Cells (Auto) 10-20 H (0-5) /lpf Urine Bacteria (Auto) Negative (Negative) Tiss Transglutamin IgA SARS-CoV-2, RNA, NAAT NEGATIVE (NEGATIVE) 03/02/23 03/02/23 03/02/23 Range/Units 15:53 15:53 15:50 WBC (4.8-10.8) K/ul RBC (4.70-6.10) M/uL Hgb (14.0-18.0) g/dl Hct (42.0-52.0) % MCV (80.0-100.0) fL MCH (25.0-34.0) pg MCHC (32.0-36.0) g/dL RDW Std Deviation (36.4-46.3) fL RDW Coeff of Kingsley (11.5-14.5) % Plt Count (130-400) K/uL MPV (9.4-12.4) fL Immature Gran % (Auto) % Neut % (Auto) % Lymph % (Auto) % Mcmullen % (Auto) % Eos % (Auto) % Baso % (Auto) % Neut # (Auto) (1.40-6.50) K/uL Lymph # (Auto) (1.2-3.4) K/uL Mcmullen # (Auto) (0.11-0.59) K/uL Eos # (Auto) (0-0.50) K/uL Baso # (Auto) (0-0.2) K/uL Immature Gran # (Auto) (0.01-0.20) K/uL Platelet Estimate (Normal) Echinocytes Peripher Smr Path Cons Pending Sodium 132 L (136-145) mmol/L Potassium 4.2 (3.5-5.1) mmol/L Chloride 104 (98-107) mmol/L Carbon Dioxide 23 (21-32) mmol/L Anion Gap 5 (3-11) BUN 19 (6-23) mg/dl Creatinine 0.88 (0.6-1.4) mg/dl Est Cr Clr Drug Dosing 58.7 ml/min Est GFR ( Amer) 116.1 ml/min Est GFR (Non-Af Amer) 100.2 ml/min BUN/Creatinine Ratio 21.6 H (10-20) Glucose 79 (70-99(Fasting)) mg/dl Calcium 8.8 (8.6-10.3) mg/dl Iron 15 L (35-175) mcg/dl TIBC 292 (250-450) mcg/dl Unsaturated IBC 277 (155-355) mcg/dl Transferrin 235 (200-360) mg/dl Transferrin % Sat 5 L (20-50) % Ferritin 66.1 (8-388) ng/ml Total Bilirubin 0.2 (0.2-1.0) mg/dl AST 25 (13-39) U/L ALT 16 (7-52) U/L Alkaline Phosphatase 53 (34-104) U/L Total Protein 6.2 (6.0-8.3) gm/dl Albumin 3.0 L (3.4-5.0) gm/dl Globulin 3.2 (2.5-4.0) gm/dl Albumin/Globulin Ratio 0.9 (0.9-2) Prealbumin Lipase 19 (11-82) U/L Vitamin B12 547 (180-914) pg/ml Folate 15.67 (>5.38) ng/ml Urine Color Urine Appearance (Clear) Urine pH (4.5-7.5) Ur Specific [place] (1.000-1.030) Urine Protein (Negative) Urine Glucose (UA) (Negative) Urine Ketones (Negative) Urine Blood (Negative) Urine Nitrite (Negative) Urine Bilirubin (Negative) Urine Urobilinogen (Negative) Ur Leukocyte Esterase (Negative) Urine WBC (Auto) (0-5) /hpf Urine RBC (Auto) (0-4) /hpf U Hyaline Cast (Auto) (0-5) /lpf U Epithel Cells (Auto) (0-5) /lpf Urine Bacteria (Auto) (Negative) Tiss Transglutamin IgA SARS-CoV-2, RNA, NAAT (NEGATIVE) Diagnostic Findings Abdomen/Pelvis CT 03/02/23 15:[address] WITH IV CONTRAST CT DOSE: 473.29 mGy.cm HISTORY: rapid weight loss, N/V, lower abd pain TECHNIQUE: Multiaxial CT images of the abdomen and pelvis were performed following the use of intravenous contrast. A dose lowering technique was utilized adhering to the principles of ALARA. COMPARISON STUDY: None. FINDINGS: The lung bases will be reported on the same day chest CT. No pneumoperitoneum. No pneumatosis. No pneumoperitoneum. No pneumatosis. Mild th ickening of the distal esophagus. There is mild distal thoracic periaortic lymphadenopathy measuring up to 13 mm in short axis diameter. There is mild retroperitoneal lymphadenopathy. Multiple enlarged mesenteric lymph nodes with the dominant lymph node measuring 17 mm. The bladder is unremarkable. No pelvic free fluid. Normal caliber abdominal aorta. The main portal vein is patent. The liver, spleen, adrenal glands, gallbladder, and kidneys are unremarkable. No hydronephrosis. Multiple fluid-filled nondilated loops of large small bowel seen throughout the abdomen. Suspect mild mucosal thickening throughout the majority of the large and small bowel. No transition point to suggest a bowel obstruction. Normal appendix. IMPRESSION: 1. Mild mucosal thickening throughout the majority of the large and small bowel. This may represent a nonspecific enterocolitis. 2. There is also retroperitoneal, mesenteric, and lower thoracic lymphadenopathy. This raises the possibility of a lymphoproliferative disorder or could represent a systemic process such as Whipple's disease given the small/large bowel mucosal thickening. 3. The lung bases will be reported on the same day chest CT. 4. Additional findings as described above. ACT 112: Negative or not required by law. Electronically signed by: Abdelrahman Rod M.D. 03/02/2023 5:[address] 03/02/23 15:49 CT OF THE CHEST WITH IV CONTRAST CLINICAL HISTORY: dysphagia, rapid weight loss, eval for CA COMPARISON STUDY: No previous studies for comparison. TECHNIQUE: Following IV administration of 90 mL of Optiray, helical axial images of the chest were obtained. Sagittal and coronal reconstructions were viewed as well as maximal intensity projections on an independent 3-D workstation. Automated exposure control was utilized for the study. A dose lowering technique was utilized adhering to the principles of ALARA. FINDINGS: There are prominent retrocrural lymph nodes. Index right retrocrural/paravertebral lymph node on image 211 of 245 measures 1.3 x 0.9 cm. There are also prominent supraclavicular and axillary lymph nodes. None of these are pathologically enlarged. Mesenteric lymphadenopathy is depicted on the CT of the abdomen and pelvis which will be reported separately. Size of the heart is normal. There is no pericardial effusion. No pneumothorax or pleural effusion. Mild upper lobe predominant emphysema is present. There are a few bilateral lower lobes subtle groundglass opacities that measure up to 2.2 cm. These contain central lucencies. No suspicious lesions within the bony thorax are noted. IMPRESSION: 1. Prominent hypodense retrocrural lymph nodes. These are nonspecific. Mesenteric lymphadenopathy is depicted on the CT of the abdomen and pelvis. Please see that report for further description. 2. A few subtle bilateral lower lobe groundglass densities which contain central lucencies. Although not highly suggestive of malignancy, these are nonspecific and a short-term follow-up chest CT in 3 months is recommended. 3. Mild emphysema. ACT 112: Negative or not required by law. Electronically signed by: Gary Chau M.D. 03/02/2023 5:08 PM PG Care Time/CCT Total # of Minutes Spent Total Time Spent with Patient: Total time spent is greater than 50% in coordination of care (as documented) at patient's floor/unit and/or counseling patient: Coding Level of Care Code 30945 SUB INP/OBS CARE 3/50MIN Diagnoses Weight loss R63.4 Dysphagia R13.10 Diarrhea R19.7 Anemia D64.9 Dark stools R19.5 Malnourished E46 Dyspnea R06.00 Iron deficiency E61.1 Hypomagnesemia E83.42 Whipple's disease K90.[address] of the abdomen R93.[address] scan, chest R93.89
[2023-03-03] MEDS: PANTOprazole 40 MG in SYRINGE 0 ML IV SCH ×2 (08:16→20:19)
[2023-03-03 09:01] LABS: Magnesium 1.3 mg/dl (1.7-2.4); Phosphorus 2.3 mg/dl (2.5-4.9)
[2023-03-03 09:38] LABS: Prealbumin 8.1 mg/dl (20-40)
--- NOTE | 2023-03-03 09:57 | Gastrointestinal Consultation ---
Date of Consultation March 03, 2023 Assessment & Plan (1) Abnormal weight loss: (2) Diarrhea: (3) Anemia: (4) Abnormal CT of the abdomen: Plan Diff dx: PUD vs lymphoma vs Sprue vs Whipple dx or other viral/bacterial enteritis vs IBD vs other. 1. NPO for now. 2. Proceed with diagnostic EGD by Dr. Ayala today for further evaluation. 3. Await stool studies and Celiac profile as ordered. 4. Continue Protonix 40 mg IV BID. 5. Further recommendations will be made pending results of endoscopy. Thank you for allowing us to participate in the care of this patient. If you have any questions or concerns, please do not hesitate to contact us. Supervising Physician Co-Signing Physician Notes Agree with ELENA Arriaga as above Abd: Soft, tender throughout, ND, +BS Continue current therapy EGD now History of Present Illness Reason for Consultation: Weight loss, abnormal CT, ?Whipple Requesting Physician: Dr. Shah Attending Physician: Ministerio Johnson MD History of Present Illness Patient is a 52 y.o. male who recently moved into the area from [place] to be with his fiancee. He was evaluated by a project coach ~2 years ago due to strong family history of colon cancer per his report. No records of the endoscopic procedures are available to review but he endorses having both EGD and colonoscopy at that time which were unremarkable. States he was in his usual state of health until one month ago. Since that time, he has been having severe diarrhea "dozens of times a day". The stools are light yellow to dark and black in color. States the stool is always liquid. No bright red rectal bleeding. Denies any nausea or vomiting. No bloating. +Abdominal cramping. Since the onset, he has sustained an approximate 15 pound weight loss. On arrival, he was found to have a mild anemia with H&H of 12.2/35.8, no leukocytosis. Mild hypokalemia of 132, normal potassium of 4.2. Renal panel was normal as well as liver panel and lipase. B12 and folate were normal. CT a/p was obtained and revealed the following: "IMPRESSION: 1. Mild mucosal thickening throughout the majority of the large and small bowel. This may represent a nonspecific enterocolitis. 2. There is also retroperitoneal, mesenteric, and lower thoracic lymphadenopathy. This raises the possibility of a lymphoproliferative disorder or could represent a systemic process such as Whipple's disease given the small/large bowel mucosal thickening." Due to this, Dr. Shah did speak with Dr. Mensah senior front end developer last evening. Patient was placed on NPO status and started on a PPI ggt. H&H was noted to be 11.0/32.2 this morning. He denies any family history of Celiac disease or IBD. Reports diffuse joint pain. No rashes, eye pain/redness. Allergies Allergy/AdvReac Type Severity Reaction Status Date / Time No Known Allergies Allergy Verified 03/03/23 11:36 Home Medications Medication Instructions Recorded Confirmed Type ykfzceknejsg-cmthwdfa-wzwtin tablet 1 tab PO DAILY 03/02/23 03/02/23 History Patient History Medical History (Updated 03/03/23 @ 11:[address] PA-C) Encounter for pre-operative examination Family History Father Colorectal cancer Grandfather (Paternal) Colorectal cancer Uncle Colorectal cancer Uncle Colorectal cancer Uncle Colorectal cancer Social History Smoking Status: Former smoker Tobacco Type: Cigarettes Age Started Using Tobacco: 22; packs per day: 1; Cigarettes Per Day: 1PPD; Smoking End Date: LAST WEEK; Hx Alcohol Use: Yes Alcohol type: beer Hx Substance Use: Yes Last Used Substance Other:: LAST USED Monday02/25/23 Preferred Language: Croatian 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 Ability: Effective Binder Lockstitch Required: No Beliefs That Will Affect Care: None Current Living Situation: Alone Feels Safe at Home: Yes Safety Concerns: Feels Safe At This Time Assistive Devices: None Review of Systems Review of Systems: All systems reviewed & are unremarkable except as noted in HPI & below Physical Exam Constitutional: + thin; no acute distress Eyes: + anicteric sclerae and EOM intact bilaterally Neck: normal visual inspection Respiratory: normal respiratory effort, lungs clear to auscultation Cardiovascular: RRR, no murmur, no edema Gastrointestinal (Abdomen): Inspection/Auscultation: abdomen normal to inspection and normal bowel sounds; abdomen not distended Percussion/Palpation: abdomen soft; abdomen nontender, no guarding and abdomen not rigid Musculoskeletal: Extremities: extremities normal to inspection Psychiatric: A+Ox3, euthymic affect Results & Data Vital Signs (Past 12 Hours) Vital Signs Temp Pulse Resp BP Pulse Ox O2 Del Method 03/03/23 07:57 37.5 C 104 H 16 95/57 L 93 Room Air Diagnostic Findings Laboratory Results WBC 13.65 K/ul (4.8-10.8) H 03/03/23 06:54 RBC 3.92 M/uL (4.70-6.10) L 03/03/23 06:54 Hgb 11.0 g/dl (14.0-18.0) L 03/03/23 06:54 Hct 32.2 % (42.0-52.0) L 03/03/23 06:54 MCV 82.1 fL (80.0-100.0) 03/03/23 06:54 MCH 28.1 pg (25.0-34.0) 03/03/23 06:54 MCHC 34.2 g/dL (32.0-36.0) 03/03/23 06:54 RDW Std Deviation 40.6 fL (36.4-46.3) 03/03/23 06:54 RDW Coeff of Kingsley 13.5 % (11.5-14.5) 03/03/23 06:54 Plt Count 320 K/uL (130-400) 03/03/23 06:54 MPV 9.9 fL (9.4-12.4) 03/03/23 06:54 Immature Gran % (Auto) 0.7 % 03/03/23 06:54 Neut % (Auto) 88.4 % 03/03/23 06:54 Lymph % (Auto) 4.8 % 03/03/23 06:54 Kinney % (Auto) 2.5 % 03/03/23 06:54 Eos % (Auto) 3.1 % 03/03/23 06:54 Baso % (Auto) 0.5 % 03/03/23 06:54 Neut # (Auto) 12.08 K/uL (1.40-6.50) H 03/03/23 06:54 Lymph # (Auto) 0.65 K/uL (1.2-3.4) L 03/03/23 06:54 Kinney # (Auto) 0.34 K/uL (0.11-0.59) 03/03/23 06:54 Eos # (Auto) 0.42 K/uL (0-0.50) 03/03/23 06:54 Baso # (Auto) 0.07 K/uL (0-0.2) 03/03/23 06:54 Immature Gran # (Auto) 0.09 K/uL (0.01-0.20) 03/03/23 06:54 Platelet Estimate Increased (Normal) H 03/02/23 Unknown Echinocytes 1+ 03/02/23 Unknown Sodium 131 mmol/L (136-145) L 03/03/23 06:54 Potassium 4.0 mmol/L (3.5-5.1) 03/03/23 06:54 Chloride 108 mmol/L (98-107) H 03/03/23 06:54 Carbon Dioxide 17 mmol/L (21-32) L 03/03/23 06:54 Anion Gap 6 (3-11) 03/03/23 06:54 BUN 15 mg/dl (6-23) 03/03/23 06:54 Creatinine 0.89 mg/dl (0.6-1.4) 03/03/23 06:54 Est Cr Clr Drug Dosing 58.3 ml/min 03/03/23 06:54 Est GFR ( Amer) 115.6 ml/min 03/03/23 06:54 Est GFR (Non-Af Amer) 99.7 ml/min 03/03/23 06:54 BUN/Creatinine Ratio 16.9 (10-20) 03/03/23 06:54 Glucose 85 mg/dl (70-99(Fasting)) 03/03/23 06:54 Lactate 0.7 mmol/L (0.4-2.0) 03/03/23 08:17 Calcium 8.4 mg/dl (8.6-10.3) L 03/03/23 06:54 Phosphorus 2.3 mg/dl (2.5-4.9) L 03/03/23 08:17 Magnesium 1.3 mg/dl (1.7-2.4) L 03/03/23 08:17 Iron 15 mcg/dl (35-175) L 03/02/23 15:50 TIBC 292 mcg/dl (250-450) 03/02/23 15:50 Unsaturated IBC 277 mcg/dl (155-355) 03/02/23 15:50 Transferrin 235 mg/dl (200-360) 03/02/23 15:50 Transferrin % Sat 5 % (20-50) L 03/02/23 15:50 Ferritin 66.1 ng/ml (8-388) 03/02/23 15:50 Total Bilirubin 0.2 mg/dl (0.2-1.0) 03/02/23 15:50 AST 25 U/L (13-39) 03/02/23 15:50 ALT 16 U/L (7-52) 03/02/23 15:50 Alkaline Phosphatase 53 U/L (34-104) 03/02/23 15:50 Total Protein 6.2 gm/dl (6.0-8.3) 03/02/23 15:50 Albumin 3.0 gm/dl (3.4-5.0) L 03/02/23 15:50 Globulin 3.2 gm/dl (2.5-4.0) 03/02/23 15:50 Albumin/Globulin Ratio 0.9 (0.9-2) 03/02/23 15:50 Prealbumin 8.1 mg/dl (20-40) L 03/03/23 06:54 Lipase 19 U/L (11-82) 03/02/23 15:50 Carcinoembryonic Ag 2.4 ng/ml (0-2.5) 03/03/23 08:17 Vitamin B12 547 pg/ml (180-914) 03/02/23 15:53 Folate 15.67 ng/ml (>5.38) 03/02/23 15:53 Urine Color Dark Yellow 03/02/23 21:40 Urine Appearance Clear (Clear) 03/02/23 21:40 Urine pH 5.0 (4.5-7.5) 03/02/23 21:40 Ur Specific [place] > 1.045 (1.000-1.030) H 03/02/23 21:40 Urine Protein Trace (Negative) H 03/02/23 21:40 Urine Glucose (UA) Negative (Negative) 03/02/23 21:40 Urine Ketones Negative (Negative) 03/02/23 21:40 Urine Blood Negative (Negative) 03/02/23 21:40 Urine Nitrite Negative (Negative) 03/02/23 21:40 Urine Bilirubin Negative (Negative) 03/02/23 21:40 Urine Urobilinogen Negative (Negative) 03/02/23 21:40 Ur Leukocyte Esterase Negative (Negative) 03/02/23 21:40 Urine WBC (Auto) 1-5 /hpf (0-5) 03/02/23 21:40 Urine RBC (Auto) 0-4 /hpf (0-4) 03/02/23 21:40 U Hyaline Cast (Auto) 1-5 /lpf (0-5) 03/02/23 21:40 U Epithel Cells (Auto) 10-20 /lpf (0-5) H 03/02/23 21:40 Urine Bacteria (Auto) Negative (Negative) 03/02/23 21:40 SARS-CoV-2, RNA, NAAT NEGATIVE (NEGATIVE) 03/02/23 17:59 Impressions Abdomen/Pelvis CT 03/02/23 15:[address] WITH IV CONTRAST CT DOSE: 473.29 mGy.cm HISTORY: rapid weight loss, N/V, lower abd pain TECHNIQUE: Multiaxial CT images of the abdomen and pelvis were performed following the use of intravenous contrast. A dose lowering technique was utilized adhering to the principles of ALARA. COMPARISON STUDY: None. FINDINGS: The lung bases will be reported on the same day chest CT. No pneumoperitoneum. No pneumatosis. No pneumoperitoneum. No pneumatosis. Mild thickening of the distal esophagus. There is mild distal thoracic periaortic lymphadenopathy measuring up to 13 mm in short axis diameter. There is mild retroperitoneal lymphadenopathy. Multiple enlarged mesenteric lymph nodes with the dominant lymph node measuring 17 mm. The bladder is unremarkable. No pelvic free fluid. Normal caliber abdominal aorta. The main portal vein is patent. The liver, spleen, adrenal glands, gallbladder, and kidneys are unremarkable. No hydronephrosis. Multiple fluid-filled nondilated loops of large small bowel seen throughout the abdomen. Suspect mild mucosal thickening throughout the majority of the large and small bowel. No transition point to suggest a bowel obstruction. Normal appendix. IMPRESSION: 1. Mild mucosal thickening throughout the majority of the large and small bowel. This may represent a nonspecific enterocolitis. 2. There is also retroperitoneal, mesenteric, and lower thoracic lymphadenopathy. This raises the possibility of a lymphoproliferative disorder or could represent a systemic process such as Whipple's disease given the small/large bowel mucosal thickening. 3. The lung bases will be reported on the same day chest CT. 4. Additional findings as described above. ACT 112: Negative or not required by law. Electronically signed by: Abdelrahman Rod M.D. 03/02/2023 5:[address] 03/02/23 15:49 CT OF THE CHEST WITH IV CONTRAST CLINICAL HISTORY: dysphagia, rapid weight loss, eval for CA COMPARISON STUDY: No previous studies for comparison. TECHNIQUE: Following IV administration of 90 mL of Optiray, helical axial images of the chest were obtained. Sagittal and coronal reconstructions were viewed as well as maximal intensity projections on an independent 3-D workstation. Automated exposure control was utilized for the study. A dose lowering technique was utilized adhering to the principles of ALARA. FINDINGS: There are prominent retrocrural lymph nodes. Index right retrocrural/paravertebral lymph node on image 211 of 245 measures 1.3 x 0.9 cm. There are also prominent supraclavicular and axillary lymph nodes. None of these are pathologically enlarged. Mesenteric lymphadenopathy is depicted on the CT of the abdomen and pelvis which will be reported separately. Size of the heart is normal. There is no pericardial effusion. No pneumothorax or pleural effusion. Mild upper lobe predominant emphysema is present. There are a few bilateral lower lobes subtle groundglass opacities that measure up to 2.2 cm. These contain central lucencies. No suspicious lesions within the bony thorax are noted. IMPRESSION: 1. Prominent hypodense retrocrural lymph nodes. These are nonspecific. Mesenteric lymphadenopathy is depicted on the CT of the abdomen and pelvis. Please see that report for further description. 2. A few subtle bilateral lower lobe groundglass densities which contain central lucencies. Although not highly suggestive of malignancy, these are nonspecific and a short-term follow-up chest CT in 3 months is recommended. 3. Mild emphysema. ACT 112: Negative or not required by law. Electronically signed by: Gary Chau M.D. 03/02/2023 5:08 PM PG Care Time/CCT Total # of Minutes Spent Total Time Spent with Patient: Total time spent is greater than 50% in coordination of care (as documented) at patient's floor/unit and/or counseling patient: Coding Level of Care Code 83318 IN/OBS CONSULT LVL 3,45M Diagnoses Abnormal weight loss R63.4 Diarrhea R19.[address] of the abdomen R93.5
[2023-03-03] MEDS: MAGNESIUM SULFATE / D5W 1 GM/100 ML BAG IV SCH ×4 (10:02→21:05)
--- NOTE | 2023-03-03 10:13 | Anesthesiology Consultation ---
Date of Service March 03, 2023 Assessment & Plan (1) Encounter for pre-operative examination: Chart Review Chart Review: Acceptable Risk for Surgery, Patient NOT seen in Pre Admission Testing and tapper shank initiated Consults Requested none History Surgery Operation Date: 03/03/23 17:40 Proposed Procedures p Esophagogastroduodenoscopy Dr Jamie Felder Case, DO Height/Weight Height: 5 ft 5 in Weight: 41.5 kg Allergies Allergy/AdvReac Type Severity Reaction Status Date / Time No Known Allergies Allergy Verified 03/02/23 16:40 Medications Home Medications Medication Instructions Recorded Confirmed Last Taken wznvhdqgdhzp-hlhgryku-aloulp tablet 1 tab PO DAILY 03/02/23 03/02/23 03/02/23 Active Medications Generic Name Dose Route Start Last Admin Trade Name Freq PRN Reason Stop Dose Admin Heparin Sodium (Porcine) 5,000 units 03/02/23 22:04 03/02/23 22:40 Heparin Sod 5,000 Unit/0.5 Ml Vial SQ 04/01/23 22:03 5,000 units Q12 VIOLETA Administration Lactated Ringer's 1,000 mls @ 80 mls/hr 03/02/23 19:45 03/02/23 22:10 Lr IV 04/01/23 19:44 80 mls/hr .[id number] VIOLETA Administration Pantoprazole Sodium 40 mg/ 10 mls @ 5 mls/min 03/03/23 09:00 03/03/23 08:16 Syringe IV 04/02/23 08:59 5 mls/min BID VIOLETA Administration Magnesium Sulfate/Dextrose 1 gm in 100 mls @ 50 mls/hr 03/03/23 09:15 03/03/23 10:02 Magnesium Sulfate / D5w IV 03/03/23 17:14 50 mls/hr Q2H VIOLETA Administration Past Medical History Medical History (Updated 03/03/23 @ 10:10 by Finn Davis MD) Encounter for pre-operative examination Past Family History Family History Father Colorectal cancer Grandfather (Paternal) Colorectal cancer Uncle Colorectal cancer Uncle Colorectal cancer Uncle Colorectal cancer Social History Smoking Status: Former smoker tobacco type: cigarettes Smoking cigarettes per day: 1PPD Smoking End Date: LAST WEEK Hx Alcohol Use: Yes Alcohol type: beer alcohol intake frequency: a few times a month Hx Substance Use: Yes substance use type: marijuana Last Used Substance Other:: LAST USED Monday02/25/23 Physical Exam Vital Signs Last Vital Signs Temp 37.5 C 03/03/23 07:57 Pulse 104 H 03/03/23 07:57 Resp 16 03/03/23 07:57 BP 95/57 L 03/03/23 07:57 Pulse Ox 93 03/03/23 07:57 O2 Del Method Room Air 03/03/23 07:57 Testing Laboratory Results 03/03/23 06:54 03/03/23 06:54 Urine Color Dark Yellow 03/02/23 21:40 Urine Appearance Clear (Clear) 03/02/23 21:40 Urine pH 5.0 (4.5-7.5) 03/02/23 21:40 Ur Specific [place] > 1.045 (1.000-1.030) H 03/02/23 21:40 Urine Protein Trace (Negative) H 03/02/23 21:40 Urine Glucose (UA) Negative (Negative) 03/02/23 21:40 Urine Ketones Negative (Negative) 03/02/23 21:40 Urine Nitrite Negative (Negative) 03/02/23 21:40 Ur Leukocyte Esterase Negative (Negative) 03/02/23 21:40 Urine WBC (Auto) 1-5 /hpf (0-5) 03/02/23 21:40 Urine RBC (Auto) 0-4 /hpf (0-4) 03/02/23 21:40 U Hyaline Cast (Auto) 1-5 /lpf (0-5) 03/02/23 21:40 U Epithel Cells (Auto) 10-20 /lpf (0-5) H 03/02/23 21:40 Urine Bacteria (Auto) Negative (Negative) 03/02/23 21:40 Electrocardiogram Date: 03/02/2302-Mar-2023 15:12:12 [facility]-EDSTAT ROUTINE RETRIEVAL Normal sinus rhythm with sinus arrhythmia Normal ECG No previous ECGs available 25mm/s10mm/[id number] .0.912SL 243CID: 24Unconfirmed Vent. rate 85 BPM SD interval 132 ms QRS duration 90 ms QT/QTc 360/428 ms.
[2023-03-03] MEDS ORDERED: LIDOCAINE 2% 2 ML VIAL/AMP(20MG/ML) INFIL ONE (12:30)
[2023-03-03] MEDS ORDERED: PROPOFOL IV EMULSION 10 MG/ML 20 ML VIAL IV ONE (12:30)
--- NOTE | 2023-03-03 13:13 | GI REPORT ---
Patient Name: Konstantin Desir Procedure Date: 03/03/2023 12:26 PM Date of : 1970 Admit Type: Inpatient Age: 52 Gender: Male Attending MD: Syed Ayala DO, Procedure: Upper GI endoscopy Providers: Syed Ayala DO Referring MD: Ministerio Johnson Indications: Generalized abdominal pain, Weight loss Medicines: Monitored Anesthesia Care Complications: No immediate complications. Estimated Blood Loss: Estimated blood loss: none. Procedure: Pre-Anesthesia Assessment: - Prior to the procedure, a History and Physical was performed, and patient medications and allergies were reviewed. The patient's tolerance of previous anesthesia was also reviewed. The risks and benefits of the procedure and the sedation options and risks were discussed with the patient. All questions were answered, and informed consent was obtained. Prior Anticoagulants: The patient has taken no anticoagulant or antiplatelet agents. ASA Grade Assessment: III - A patient with severe systemic disease. After reviewing the risks and benefits, the patient was deemed in satisfactory condition to undergo the procedure. After obtaining informed consent, the endoscope was passed under direct vision. Throughout the procedure, the patient's blood pressure, pulse, and oxygen saturations were monitored continuously. The Endoscope was introduced through the mouth, and advanced to the second part of duodenum. The upper GI endoscopy was accomplished without difficulty. The patient tolerated the procedure well. Findings: A single 10 mm mucosal nodule with a localized distribution was found at the gastroesophageal junction, 38 cm from the incisors. Biopsies were taken with a cold forceps for histology. A small hiatal hernia was present. The entire examined stomach was normal. Biopsies were taken with a cold forceps for histology. The examined duodenum was normal. Biopsies for histology were taken with a cold forceps for evaluation of celiac disease. Impression: - Mucosal nodule found in the esophagus. Biopsied. - Small hiatal hernia. - Normal stomach. Biopsied. - Normal examined duodenum. Biopsied. Recommendation: - Return patient to [facility] for ongoing care. - Advance diet as tolerated. - Continue present medications. - Await pathology results. Syed Ayala DO 03/03/2023 1:12:25 PM This report has been signed electronically. Note Initiated On: 03/03/2023 12:26 PM Number of Addenda: 0 I attest to the content of the Intraoperative Record and orders documented therein, exceptions below {[id number]}
--- NOTE | 2023-03-03 13:35 | Infectious Disease Consult ---
Date of Consultation March 03, 2023 Assessment & Plan (1) Dysphagia: (2) Diarrhea: (3) Abnormal weight loss: (4) Lymphadenopathy: (5) Anemia: Plan 52 yo M with no significant PMH who presented on 03/02 with dysphagia, diarrhea, weight loss, lower abdominal pain, fatigue for the last month, with CT showing mild mucosal thickening throughout large and small bowel, mild thickening of distal esophagus, retroperitoneal, mesenteric, thoracic lymphadenopathy, raising concern for a lymphoproliferative disorder, Whipple's disease. On presentation, he was afebrile, VSS, WBC 10.5, HB 12.2, normal Cr and LFTs. 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 Denies fever, coughing, rash. S/p EGD 03/03 which showed mucosal nodule at gastroesophageal junction, normal stomach and duodenum. Biopsies sent for histology. tTG-IgA pending to evaluate for celiac disease. Micro: 03/02 BCx x2: pending Abx: Ceftriaxone 03/02 - present Problems: #Diarrhea #Dysphagia #Weight loss #Large/small bowel mucosal thickening #Lymphadenopathy #Anemia Recommendations: -Follow-up EGD biopsies for T. whipplei -Follow-up stool testing for infection: C diff, culture, O&P -Can continue ceftriaxone for now Will continue to follow. Please note that there will be no ID notes over the weekend. If questions or concerns arise, please contact the Infectious Disease Call Center and ask to speak with the covering ID physician. I will be back on service on Monday. Consultation Information Consultation was provided via telemedicine using two-way real-time interactive telecommunication between the patient and the telemedicine provider. For the duration of the visit, the provider was performing the assessment from a different facility than the patient. This includesuse of bluetooth stethoscope forauscultationperformed by the telepresenter that the telemedicine provider can hear if described in the physical exam. Education Assistant contact information: Please call [facility] . (Phone Number For Physician Use Only) After establishing a telemedicine visit, patient was: Patient was verified with two unique identifiers, Patient/authorized rep acknowledged consent and understanding and Gave permission to continue telehealth session Time Spent with Patient: Initial => 40 min History of Present Illness Reason for Consultation: Concern for Whipple's disease Requesting Physician: FLORIN Gottlieb Attending Physician: Ministerio Johnson MD History of Present Illness 52 yo M with no significant PMH who presented on 03/02 with nausea, dysphagia, diarrhea, lower abdominal pain, weight loss, fatigue for the last month. Pt reports that he has not been able to hold down food, and has not had a solid bowel movement in 3 weeks. He has noted some blood in his diarrhea at times, but the blood is on the tissue, he thinks from the frequency of his stools. Food goes right through him. He has also had difficulty swallowing over the last few weeks (both solids and liquids), and he can get violent chest pains while trying to swallow, such that he vomits. Has been having pain in his groin/rectum, which feels like an electric pulse shooting through him. He has lost ~25 lbs over the last few months. Has been very lethargic, sleeping 10-14 hours a day, and he gets winded from short walks--this is unlike him, as he used to be a very high energy person. He had a month of night sweats in November/December, which is now resolved. Denies coughing. He states he has had "stomach bugs" with bouts of diarrhea on/off since the holidays. 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 He has noted heaviness in his legs the last few weeks, feeling like pins/needles. Denies fevers, rash. On presentation, he was afebrile, VSS. Labs showed WBC 10.51, Hb 12.2, normal Cr and LFTs. CT A/P with contrast showed mild mucosal thickening throughout majority of large and small bowel, mild thickening of distal esophagus, retroperitoneal, mesenteric, and lower thoracic lymphadenopathy--raising possibility of a lymphoproliferative disorder or could represent a systemic process such as Whipple's disease. CT chest with contrast showed prominent hypodense retrocrural lymph nodes, a few subtle bilateral lower lobe groundglass densities which contain central lucencies. Pt spent his childhood up and down the [facility], because his parent was in the [place]. 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 Has also traveled outside of the country to [place]. He was a 1 ppd smoker for 30 years, but stopped within the past week due to worsening shortness of breath. 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 Allergies Allergy/AdvReac Type Severity Reaction Status Date / Time No Known Allergies Allergy Verified 03/03/23 11:36 Home Medications Medication Instructions Recorded Confirmed Type cyiiaagcnpfs-rjulreee-skgnts tablet 1 tab PO DAILY 03/02/23 03/02/23 History Patient History Medical History (Updated 03/03/23 @ 15:46 by Marely Garcia MD) Encounter for pre-operative examination Family History Father Colorectal cancer Grandfather (Paternal) Colorectal cancer Uncle Colorectal cancer Uncle Colorectal cancer Uncle Colorectal cancer Social History Smoking Status: Former smoker Tobacco Type: Cigarettes Age Started Using Tobacco: 22; packs per day: 1; Cigarettes Per Day: 1PPD; Smoking End Date: LAST WEEK; Hx Alcohol Use: Yes Alcohol type: beer Hx Substance Use: Yes Last Used Substance Other:: LAST USED Monday02/25/23 Preferred Language: Slovenian 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 Ability: Effective Can Runner Required: No Beliefs That Will Affect Care: None Current Living Situation: Alone Feels Safe at Home: Yes Safety Concerns: Feels Safe At This Time Assistive Devices: None Review of System A complete ROS was performed and is negative except as mentioned in the HPI. Physical Exam Physical Exam: GEN: very thin man sitting up in NAD HEENT: Raised lesion on L jain. Abrasion posterior to L ear. RESP: No increased work of breathing ABD: Soft, non-distended. Non-tender to palpation. EXT: No LE edema. Warm, well-perfused. SKIN: No areas of rash/hyperpigmentation seen. NEURO: Alert and oriented. Answers all questions appropriately. Speech not slurred. PSYCH: Normal mood, affect appropriate. Results & Data Vital Signs (Past 12 Hours) Vital Signs Temp Pulse Pulse Resp BP Pulse Ox O2 Del Method 03/03/23 11:28 37.3 C 99 H 16 97/53 L 94 Room Air 03/03/23 07:57 37.5 C 104 H 16 95/57 L 93 Room Air Laboratory Results Short CBC 03/02/23 03/03/23 Range/Units Unknown 06:54 WBC 10.51 13.65 H (4.8-10.8) K/ul Hgb 12.2 L 11.0 L (14.0-18.0) g/dl Hct 35.8 L 32.2 L (42.0-52.0) % Plt Count 379 320 (130-400) K/uL BMP 03/02/23 03/03/23 15:50 06:54 Sodium 132 L 131 L Potassium 4.2 4.0 Chloride 104 108 H Carbon Dioxide 23 17 L BUN 19 15 Creatinine 0.88 0.89 Glucose 79 85 Calcium 8.8 8.4 L Liver Function 03/02/23 Range/Units 15:50 Total Bilirubin 0.2 (0.2-1.0) mg/dl AST 25 (13-39) U/L ALT 16 (7-52) U/L Alkaline Phosphatase 53 (34-104) U/L Albumin 3.0 L (3.4-5.0) gm/dl Urine 03/02/23 Range/Units 21:40 Urine Color Dark Yellow Urine Appearance Clear (Clear) Urine pH 5.0 (4.5-7.5) Ur Specific Murray > 1.045 H (1.000-1.030) Urine Protein Trace H (Negative) Urine Glucose (UA) Negative (Negative) Diagnostic Findings Abdomen/Pelvis CT 03/02/23 15:[address] WITH IV CONTRAST CT DOSE: 473.29 mGy.cm HISTORY: rapid weight loss, N/V, lower abd pain TECHNIQUE: Multiaxial CT images of the abdomen and pelvis were performed following the use of intravenous contrast. A dose lowering technique was utilized adhering to the principles of ALARA. COMPARISON STUDY: None. FINDINGS: The lung bases will be reported on the same day chest CT. No pneum operitoneum. No pneumatosis. No pneumoperitoneum. No pneumatosis. Mild thickening of the distal esophagus. There is mild distal thoracic periaortic lymphadenopathy measuring up to 13 mm in short axis diameter. There is mild retroperitoneal lymphadenopathy. Multiple enlarged mesenteric lymph nodes with the dominant lymph node measuring 17 mm. The bladder is unremarkable. No pelvic free fluid. Normal caliber abdominal aorta. The main portal vein is patent. The liver, spleen, adrenal glands, gallbladder, and kidneys are unremarkable. No hydronephrosis. Multiple fluid-filled nondilated loops of large small bowel seen throughout the abdomen. Suspect mild mucosal thickening throughout the majority of the large and small bowel. No transition point to suggest a bowel obstruction. Normal appendix. IMPRESSION: 1. Mild mucosal thickening throughout the majority of the large and small bowel. This may represent a nonspecific enterocolitis. 2. There is also retroperitoneal, mesenteric, and lower thoracic lymphadenopathy. This raises the possibility of a lymphoproliferative disorder or could represent a systemic process such as Whipple's disease given the small/large bowel mucosal thickening. 3. The lung bases will be reported on the same day chest CT. 4. Additional findings as described above. ACT 112: Negative or not required by law. Electronically signed by: Abdelrahman Rod M.D. 03/02/2023 5:[address] 03/02/23 15:49 CT OF THE CHEST WITH IV CONTRAST CLINICAL HISTORY: dysphagia, rapid weight loss, eval for CA COMPARISON STUDY: No previous studies for comparison. TECHNIQUE: Following IV administration of 90 mL of Optiray, helical axial images of the chest were obtained. Sagittal and coronal reconstructions were viewed as well as maximal intensity projections on an independent 3-D workstation. Automated exposure control was utilized for the study. A dose lowering technique was utilized adhering to the principles of ALARA. FINDINGS: There are prominent retrocrural lymph nodes. Index right retrocrural/paravertebral lymph node on image 211 of 245 measures 1.3 x 0.9 cm. There are also prominent supraclavicular and axillary lymph nodes. None of these are pathologically enlarged. Mesenteric lymphadenopathy is depicted on the CT of the abdomen and pelvis which will be reported separately. Size of the heart is normal. There is no pericardial effusion. No pneumothorax or pleural effusion. Mild upper lobe predominant emphysema is present. There are a few bilateral lower lobes subtle groundglass opacities that measure up to 2.2 cm. These contain central lucencies. No suspicious lesions within the bony thorax are noted. IMPRESSION: 1. Prominent hypodense retrocrural lymph nodes. These are nonspecific. Me senteric lymphadenopathy is depicted on the CT of the abdomen and pelvis. Please see that report for further description. 2. A few subtle bilateral lower lobe groundglass densities which contain central lucencies. Although not highly suggestive of malignancy, these are nonspecific and a short-term follow-up chest CT in 3 months is recommended. 3. Mild emphysema. ACT 112: Negative or not required by law. Electronically signed by: Gary Chau M.D. 03/02/2023 5:08 PM Medications Administered Current Inpatient Medications Acetaminophen (Acetaminophen 325 Mg Tab) 650 mg PO Q4H PRN PRN Reason: pain/fever Stop: 04/01/23 22:03 Heparin Sodium (Porcine) (Heparin Sod 5,000 Unit/0.5 Ml Vial) 5,000 units SQ Q12 VIOLETA Stop: 04/01/23 22:03 Last Admin: 03/02/23 22:40 Dose: 5,000 units Lactated Ringer's (Lr) 1,000 mls @ 80 mls/hr IV .[id number] VIOLETA Stop: 04/01/23 19:44 Last Admin: 03/02/23 22:10 Dose: 80 mls/hr Ceftriaxone Sodium 2,000 mg/ (Dextrose) 70 mls @ 100 mls/hr IV Q24H VIOLETA; Protocol Stop: 03/05/23 17:59 Pantoprazole Sodium 40 mg/ (Syringe) 10 mls @ 5 mls/min IV BID VIOLETA Stop: 04/02/23 08:59 Last Admin: 03/03/23 08:16 Dose: 5 mls/min Magnesium Sulfate/Dextrose (Magnesium Sulfate / D5w) 1 gm in 100 mls @ 50 mls/hr IV Q2H VIOLETA Stop: 03/03/23 17:14 Last Infusion: 03/03/23 11:25 Dose: 0 mls/hr Ondansetron HCl (Ondansetron Inj 2 Mg/Ml 2 Ml Vial) 4 mg IV Q6H PRN PRN Reason: Nausea Stop: 04/01/23 22:03
[2023-03-03] MEDS: LACTATED RINGER'S 1,000 ML IV SCH (14:24)
--- NOTE | 2023-03-03 14:41 | Anesthesiology Progress Note ---
Date of Service March 03, 2023 Anesthesia Post Procedure Vital Signs Vital Signs: Temp Pulse Pulse Pulse Pulse Resp BP 03/03/23 14:07 37.2 C 94 H 16 03/03/23 13:43 87 16 03/03/23 13:28 89 16 03/03/23 13:21 101 H 16 03/03/23 11:28 37.3 C 99 H 16 03/03/23 07:57 37.5 C 104 H 16 03/02/23 21:30 03/02/23 21:30 36.5 C 77 18 03/02/23 21:02 36.8 C 85 18 96/52 L 03/02/23 18:30 95 H 18 96/72 L 03/02/23 18:02 83 23 97/61 L 03/02/23 16:18 73 03/02/23 16:15 73 16 03/02/23 15:02 36.5 C 88 20 94/65 L BP BP Pulse Ox O2 Del Method 03/03/23 14:07 93/61 L 96 Room Air 03/03/23 13:43 85/52 L 95 Room Air 03/03/23 13:28 85/53 L 96 Room Air 03/03/23 13:21 101/63 96 Room Air 03/03/23 11:28 97/53 L 94 Room Air 03/03/23 07:57 95/57 L 93 Room Air 03/02/23 21:30 Room Air 03/02/23 21:30 100/65 98 Room Air 03/02/23 21:02 97 Room Air 03/02/23 18:30 99 03/02/23 18:02 99 03/02/23 16:18 03/02/23 16:15 149/72 H 100 Room Air 03/02/23 15:02 100 Room Air Transfer of Care Handoff Completed per policy Notes Mental Status: alert / awake / arousable and participated in evaluation Patient Amnestic to Procedure: Yes Nausea / Vomiting: adequately controlled Pain: adequately controlled Airway Patency, RR, SpO2: stable & adequate BP & HR: stable & adequate Hydration State: stable & adequate Anesthetic Complications: no major complications apparent
--- NOTE | 2023-03-03 15:20 | Electrocardiogram Report ---
Test Reason : Blood Pressure : / mmHG Vent. Rate : 085 BPM Atrial Rate : 085 BPM P-R Int : 132 ms QRS Dur : 090 ms QT Int : 360 ms P-R-T Axes : 071 082 060 degrees QTc Int : 428 ms Normal sinus rhythm with sinus arrhythmia Normal ECG No previous ECGs available Confirmed by Finn Downey ([id number]) on 03/03/2023 3:19:52 PM Referred By: Confirmed By:Beka Downey
[2023-03-03] MEDS ORDERED: ACETAMINOPHEN 1,000 MG/100 ML VIAL IV PRN (16:32)
[2023-03-03 16:53] LABS: Adenovirus F 40/41 PCR Not Detected (NotDetected); Astrovirus PCR Not Detected (NotDetected); Campylobacter PCR Not Detected (NotDetected); Cryptosporidium PCR Not Detected (NotDetected); Cyclospora cayetanensis PCR Not Detected (NotDetected); Entamoeba histolytica PCR Not Detected (NotDetected); Enteroaggregative E.coli(EAEC) Not Detected (NotDetected); Enteropathogenic E.coli (EPEC) Not Detected (NotDetected); Enterotoxigenic E.coli (ETEC) Not Detected (NotDetected); Giardia lamblia PCR Not Detected (NotDetected); Norovirus GI/GII PCR Not Detected (NotDetected); Plesiomonas shigelloides PCR Not Detected (NotDetected); Rotavirus A PCR Not Detected (NotDetected); Salmonella PCR Not Detected (NotDetected); Sapovirus PCR Not Detected (NotDetected); Shiga-like Toxin E.coli (STEC) Not Detected (NotDetected); Shigella/Enteroinvasive E.coli Not Detected (NotDetected); Vibrio cholerae PCR Not Detected (NotDetected); Vibrio species PCR Not Detected (NotDetected); Yersinia enterocolitica PCR Not Detected (NotDetected)
[2023-03-03] MEDS ORDERED: ACETAMINOPHEN IV PRN ×2 (17:00)
[2023-03-03] MEDS: cefTRIAXone SODIUM 2,000 MG in DEXTROSE 5% 50 ML IV SCH (17:45)
[2023-03-03] MEDS: IRON SUCROSE 200 MG in 0.9 % SODIUM CHLORIDE 100 ML IV SCH (20:19)
[2023-03-04 06:40] LABS: Basophils # (auto) 0.04 K/uL (0-0.2); Basophils % (auto) 0.8 %; Eosinophils # (auto) 0.32 K/uL (0-0.50); Eosinophils % (auto) 6.3 %; Hematocrit (blood only) 28.7 % (42.0-52.0); Hemoglobin 9.9 g/dl (14.0-18.0); Immature Granulocytes # (auto) 0.06 K/uL (0.01-0.20); Immature Granulocytes % (auto) 1.2 %; Lymphocytes # (auto) 0.57 K/uL (1.2-3.4); Lymphocytes % (auto) 11.3 %; Mean Corpuscular Hemoglobin 27.6 pg (25.0-34.0); Mean Corpuscular Hgb Conc 34.5 g/dL (32.0-36.0); Mean Corpuscular Volume 79.9 fL (80.0-100.0); Monocytes # (auto) 0.48 K/uL (0.11-0.59); Monocytes % (auto) 9.5 %; Neutrophils # (auto) 3.57 K/uL (1.40-6.50); Neutrophils % (auto) 70.9 %; Platelet Count 250 K/uL (130-400); RDW Coefficient of Variation 13.2 % (11.5-14.5); RDW Standard Deviation 38.7 fL (36.4-46.3); Red Blood Count 3.59 M/uL (4.70-6.10); White Blood Count 5.04 K/ul (4.8-10.8)
[2023-03-04 06:52] LABS: BUN Creatinine Ratio 14.6 (10-20); Calcium 7.6 mg/dl (8.6-10.3); Est GFR (African American) 106.4 ml/min; Est GFR (Non-African American) 91.8 ml/min; Magnesium 1.9 mg/dl (1.7-2.4); Potassium 4.3 mmol/L (3.5-5.1)
--- NOTE | 2023-03-04 08:18 | Hospitalist Progress Note ---
Date of Service March 04, 2023 Assessment & Plan (1) Weight loss: Plan: Konstantin Desir is a 52 year old male who presented to the ED after worsening weakness for the past month, worse over past two weeks. Recently w/ progressive dysphagia to even liquids, strong family history of colon ca. CEA level obtained and only 2.4 Reporting rapid weight loss, night sweats, progressive shortness of breath, weakness. Concerns for underlying malignancy given strong family history of such CTAP on admission w/ Mild mucosal thickening, could represent nonspecific enterocolitis. There is also retroperitoneal, mesenteric, and lower thoracic lymphadenopathy. This raises the possibility of a lymphoproliferative disorder or could represent a systemic process such as Whipple's disease given the small/large bowel mucosal thickening. 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 ID consulted Blood cultures pending GI consulted s/p EGD on 03/03 w/ Dr Case which showed single 10mm mucosal nodule w/ localized distribution found at [facility]. Biopsy taken. Small hiatal hernia. Bx of duodenum for celiac obtained Stool PCR, cdiff negative +fecal occult blood holding heparin SQ for now, ambulation encouraged Iron panel w/ RENAE -- Venofer IV started while inpatient (day 2) PPI BID continued, convert to PO BID and would continue at d/c Guest Services Lead on consult Speech consulted for dysphagia -- diet modified. Can plan barrium swallow on Monday Will need outpt c-scope CM setting up new PCP at ar Remaining inpatient through the weekend EKG w/ sinus tachy/sinus arrhythmia on admission. Will check CTA for PE to r/o PE given hypotensive/tachycardia on admission. Na low, BNP elevated. +systolic murmur on exam. NO CHEST pain, but labored breathing at times. Check ECHO to r/o valvular heart disease (?murmur from anemia) (2) Dyspnea: Plan: CT chest w/o pneumonia or volume overload. Did note nodules which will need f/u Suspect combination of dysphagia/iron deficiency/likely malignancy but also w/ nodules on CT chest that will need follow up. Iron replacement w/ Venofer as above, hgb stable on repeat on IVF CHECKING CT Chest for PE for completeness given complaints of pressure w/ inspiration but no true pain but was hypotensive/tachy on admit w/ sinus arrythmia and given likely underlying malignancy risk for clot, but wanting to a void chemoproph if negative given positive fecal occult blood (3) Dysphagia: Plan: 30 pack year history of smoking Chest CT: nonspecific findings of prominent retrocrural and mesenteric lymph nodes as well as bilateral lower lobe groundglass densities NEEDS OUTPATIENT MONITORING OF SUCH No current symptoms of dyspnea at rest, oxygen saturation stable on room air Speech consulted, possible barium swallow for monday s/p EGD, pathology pending possible need ENT f/u pending pathology results IVF stopped as has been eating/drinking, BNP elevated as above (4) Diarrhea: Plan: progressive diarrhea, contributing to dehydration/weakness as well, also suspect malingancy vs whipples bicarb low on labs, likely from diarrheal losses -- improved w/ less diarrhea w/ abx treatment as above stool pcr/cdiff negative celiac panel pending (5) Anemia: Plan: iron panel checked -- iron/trans sat LOW --> started Venofer IV, continue while inpatient B12/folate wnl Peripheral smear w/o neoplastic or hemolytic process TSH wnl Hgb 11--> 9.9 on repeat, and while fecal occult positive he did receive continuous IVF while NPO for scope and will monitor on repeat now that he is off IVF and continue Venofer as above CBC in AM (6) Dark stools: Plan: check fecal occult as above -- POSITIVE continue PPI BID (7) Malnourished: Plan: edi analyst on consult, appreciate recs (8) Iron deficiency: Plan: on iron studies -- iron LOW 15, trans % sat 5--> venofer as above (9) Hypomagnesemia: Plan: checked w/ am labs -- 1.3 -- IV replacement ordered and normalized on repeat 1.9 (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 peripheral smear ordered continues on ceftriaxone for abx, ID consulted as above (11) Abnormal CT of the abdomen: Plan: as above (12) Abnormal CT scan, chest: Plan: A few subtle bilateral lower lobe groundglass densities which contain central lucencies. Although not highly suggestive of malignancy, --> these are nonspecific and a short-term follow-up chest CT in 3 months is recommended. stable on RA at present but getting ct to r/o PE given susp for malignancy (13) Hyponatremia: Plan: Na on admit 132, placed on continuous IVF while NPO --> 131 yesterday while aw aiting EGD and had been continued on fluids given prior poor PO intake 2nd to dysphagia Na lower at 128 today, no lightheaded/dizziness TSH wnl BNP checked and slightly elevated 158. Will check echo given murmur. Check urine/serum osm, urine na levels (14) Lymphadenopathy: Plan check ct chest r/o PE continued inpatient stay, continuing IV ceftriaxone and monitoring cultures. will touch base ID in AM continue venofer, monitor blood counts in AM diet advanced and tolerating will plan barium swallow for monday cm asssiting w/ new PCP at d/c Admission and Anticipated Discharge Date Admission Date: March 02, 2023 Supervising Physician Co-Signing Physician Notes The patient was not seen by me. The chart was reviewed. Case discussed with FLORIN Gottlieb. Agree with assessment and plan Subjective Eval this afternoon, finished his complete lunch, manicotti with sauce. Feeling much better than on admission. Actually had what appears like a possible formed bowel movement this morning. No lightheaded/dizziness, chest pain. Less SOB w/ activity but does feel a little labored. Seen by speech this morning, barium swallow if inpatient Monday. Discussed staying on IV abx and monitoring cultures through weekend and reaching back out to ID on Monday for recs/possible dc. Working on arranging PCP at dc for coordination of care. Questions/concerns addressed at this time. Physical Exam Physical Exam: General: thin, malnourished, cachectic male sitting up in bed, appears improved, NAD, eating lunch HEENT: bitemporal wasting, mm improved, trachea midline, no lymphadenopathy noted lesion to left gnosticism Resp: CTA, diminished in bases w/ associated crackles, no w/c, on room air CV: regular rate/rhythm, +systolic murmur, no rub/gallop, no pitting edema/calf tenderness GI: +BS, thin, no overt tenderness : no dowell MSK/Neuro: strength equal bilaterally, no focal deficit Psych: AOx3, cooperative with exam Skin: warm, perfused Results & Data Results & Data Vital Signs (Past 12 Hours) Vital Signs Temp Pulse Resp BP Pulse Ox O2 Del Method 03/03/23 23:23 37.5 C 90 16 91/54 L 95 Room Air 03/03/23 21:07 36.4 C L 79 18 81/45 L 98 Room Air 03/03/23 20:28 36.6 C 80 16 83/48 L 98 Room Air Laboratory Results 03/04/23 03/04/23 03/03/23 Range/Units 06:08 06:08 21:22 WBC 5.04 (4.8-10.8) K/ul RBC 3.59 L (4.70-6.10) M/uL Hgb 9.9 L (14.0-18.0) g/dl Hct 28.7 L (42.0-52.0) % MCV 79.9 L (80.0-100.0) fL MCH 27.6 (25.0-34.0) pg MCHC 34.5 (32.0-36.0) g/dL RDW Std Deviation 38.7 (36.4-46.3) fL RDW Coeff of Kingsley 13.2 (11.5-14.5) % Plt Count 250 (130-400) K/uL MPV 10.0 (9.4-12.4) fL Immature Gran % (Auto) 1.2 % Neut % (Auto) 70.9 % Lymph % (Auto) 11.3 % [place] % (Auto) 9.5 % Eos % (Auto) 6.3 % Baso % (Auto) 0.8 % Neut # (Auto) 3.57 (1.40-6.50) K/uL Lymph # (Auto) 0.57 L (1.2-3.4) K/uL [place] # (Auto) 0.48 (0.11-0.59) K/uL Eos # (Auto) 0.32 (0-0.50) K/uL Baso # (Auto) 0.04 (0-0.2) K/uL Immature Gran # (Auto) 0.06 (0.01-0.20) K/uL Peripher Smr Path Cons Sodium 128 L (136-145) mmol/L Potassium 4.3 (3.5-5.1) mmol/L Chloride 103 (98-107) mmol/L Carbon Dioxide 21 (21-32) mmol/L Anion Gap 4 (3-11) BUN 14 (6-23) mg/dl Creatinine 0.96 (0.6-1.4) mg/dl Est Cr Clr Drug Dosing 54.0 ml/min Est GFR ( Amer) 106.4 ml/min Est GFR (Non-Af Amer) 91.8 ml/min BUN/Creatinine Ratio 14.6 (10-20) Glucose 86 (70-99(Fasting)) mg/dl Lactate (0.4-2.0) mmol/L Calcium 7.6 L (8.6-10.3) mg/dl Phosphorus (2.5-4.9) mg/dl Magnesium 1.9 (1.7-2.4) mg/dl Prealbumin (20-40) mg/dl Carcinoembryonic Ag (0-2.5) ng/ml TSH (0.300-4.500) uIu/ml Stool Occult Bld Scrn Positive A Stl C. cayetanensis PCR (NotDetected) Stool Rotavirus A PCR (NotDetected) Stl Adenov F 40/41 PCR (NotDetected) Stool Astrovirus (PCR) (NotDetected) Stool Campylobacter PCR (NotDetected) Stl C. diff Tox B Gene (Neg) Stool Cryptosporidium PCR (NotDetected) Stl E.coli Shiga Tox PCR (NotDetected) Stl Enterotoxigenic E PCR (NotDetected) Stool EPEC (PCR) (NotDetected) Stool EAEC (PCR) (NotDetected) Stl E. histolytica PCR (NotDetected) Stool Giardia Lamblia PCR (NotDetected) Stool Salmonella PCR (NotDetected) Stool Sapovirus (PCR) (NotDetected) Stl P. shigelloides PCR (NotDetected) Stl Shigella/EIEC PCR (NotDetected) St Y.enterocolitica PCR (NotDetected) Stool Vibrio (PCR) (NotDetected) Stl Vibrio cholerae PCR (NotDetected) Stl Norovirus GI/GII PCR (NotDetected) Stool Comments 03/03/23 03/03/23 03/03/23 Range/Units 15:15 15:15 15:15 WBC (4.8-10.8) K/ul RBC (4.70-6.10) M/uL Hgb (14.0-18.0) g/dl Hct (42.0-52.0) % MCV (80.0-100.0) fL MCH (25.0-34.0) pg MCHC (32.0-36.0) g/dL RDW Std Deviation (36.4-46.3) fL RDW Coeff of Kingsley (11.5-14.5) % Plt Count (130-400) K/uL MPV (9.4-12.4) fL Immature Gran % (Auto) % Neut % (Auto) % Lymph % (Auto) % [place] % (Auto) % Eos % (Auto) % Baso % (Auto) % Neut # (Auto) (1.40-6.50) K/uL Lymph # (Auto) (1.2-3.4) K/uL [place] # (Auto) (0.11-0.59) K/uL Eos # (Auto) (0-0.50) K/uL Baso # (Auto) (0-0.2) K/uL Immature Gran # (Auto) (0.01-0.20) K/uL Peripher Smr Path Cons Sodium (136-145) mmol/L Potassium (3.5-5.1) mmol/L Chloride (98-107) mmol/L Carbon Dioxide (21-32) mmol/L Anion Gap (3-11) BUN (6-23) mg/dl Creatinine (0.6-1.4) mg/dl Est Cr Clr Drug Dosing ml/min Est GFR ( Amer) ml/min Est GFR (Non-Af Amer) ml/min BUN/Creatinine Ratio (10-20) Glucose (70-99(Fasting)) mg/dl Lactate (0.4-2.0) mmol/L Calcium (8.6-10.3) mg/dl Phosphorus (2.5-4.9) mg/dl Magnesium (1.7-2.4) mg/dl Prealbumin (20-40) mg/dl Carcinoembryonic Ag (0-2.5) ng/ml TSH (0.300-4.500) uIu/ml Stool Occult Bld Scrn Cancelled Stl C. cayetanensis PCR Not Detected (NotDetected) Stool Rotavirus A PCR Not Detected (NotDetected) Stl Adenov F 40/41 PCR Not Detected (NotDetected) Stool Astrovirus (PCR) Not Detected (NotDetected) Stool Campylobacter PCR Not Detected (NotDetected) Stl C. diff Tox B Gene (Neg) Stool Cryptosporidium PCR Not Detected (NotDetected) Stl E.coli Shiga Tox PCR Not Detected (NotDetected) Stl Enterotoxigenic E PCR Not Detected (NotDetected) Stool EPEC (PCR) Not Detected (NotDetected) Stool EAEC (PCR) Not Detected (NotDetected) Stl E. histolytica PCR Not Detected (NotDetected) Stool Giardia Lamblia PCR Not Detected (NotDetected) Stool Salmonella PCR Not Detected (NotDetected) Stool Sapovirus (PCR) Not Detected (NotDetected) Stl P. shigelloides PCR Not Detected (NotDetected) Stl Shigella/EIEC PCR Not Detected (NotDetected) St Y.enterocolitica PCR Not Detected (NotDetected) Stool Vibrio (PCR) Not Detected (NotDetected) Stl Vibrio cholerae PCR Not Detected (NotDetected) Stl Norovirus GI/GII PCR Not Detected (NotDetected) Stool Comments Pending 03/03/23 03/03/23 03/03/23 Range/Units 15:15 08:17 08:17 WBC (4.8-10.8) K/ul RBC (4.70-6.10) M/uL Hgb (14.0-18.0) g/dl Hct (42.0-52.0) % MCV (80.0-100.0) fL MCH (25.0-34.0) pg MCHC (32.0-36.0) g/dL RDW Std Deviation (36.4-46.3) fL RDW Coeff of Kingsley (11.5-14.5) % Plt Count (130-400) K/uL MPV (9.4-12.4) fL Immature Gran % (Auto) % Neut % (Auto) % Lymph % (Auto) % [place] % (Auto) % Eos % (Auto) % Baso % (Auto) % Neut # (Auto) (1.40-6.50) K/uL Lymph # (Auto) (1.2-3.4) K/uL [place] # (Auto) (0.11-0.59) K/uL Eos # (Auto) (0-0.50) K/uL Baso # (Auto) (0-0.2) K/uL Immature Gran # (Auto) (0.01-0.20) K/uL Peripher Smr Path Cons Sodium (136-145) mmol/L Potassium (3.5-5.1) mmol/L Chloride (98-107) mmol/L Carbon Dioxide (21-32) mmol/L Anion Gap (3-11) BUN (6-23) mg/dl Creatinine (0.6-1.4) mg/dl Est Cr Clr Drug Dosing ml/min Est GFR ( Amer) ml/min Est GFR (Non-Af Amer) ml/min BUN/Creatinine Ratio (10-20) Glucose (70-99(Fasting)) mg/dl Lactate (0.4-2.0) mmol/L Calcium (8.6-10.3) mg/dl Phosphorus (2.5-4.9) mg/dl Magnesium (1.7-2.4) mg/dl Prealbumin (20-40) mg/dl Carcinoembryonic Ag 2.4 (0-2.5) ng/ml TSH 2.847 (0.300-4.500) uIu/ml Stool Occult Bld Scrn Stl C. cayetanensis PCR (NotDetected) Stool Rotavirus A PCR (NotDetected) Stl Adenov F 40/41 PCR (NotDetected) Stool Astrovirus (PCR) (NotDetected) Stool Campylobacter PCR (NotDetected) Stl C. diff Tox B Gene Negative Cdiff Gene (Neg) Stool Cryptosporidium PCR (NotDetected) Stl E.coli Shiga Tox PCR (NotDetected) Stl Enterotoxigenic E PCR (NotDetected) Stool EPEC (PCR) (NotDetected) Stool EAEC (PCR) (NotDetected) Stl E. histolytica PCR (NotDetected) Stool Giardia Lamblia PCR (NotDetected) Stool Salmonella PCR (NotDetected) Stool Sapovirus (PCR) (NotDetected) Stl P. shigelloides PCR (NotDetected) Stl Shigella/EIEC PCR (NotDetected) St Y.enterocolitica PCR (NotDetected) Stool Vibrio (PCR) (NotDetected) Stl Vibrio cholerae PCR (NotDetected) Stl Norovirus GI/GII PCR (NotDetected) Stool Comments 03/03/23 03/03/23 03/03/23 Range/Units 08:17 08:17 06:54 WBC (4.8-10.8) K/ul RBC (4.70-6.10) M/uL Hgb (14.0-18.0) g/dl Hct (42.0-52.0) % MCV (80.0-100.0) fL MCH (25.0-34.0) pg MCHC (32.0-36.0) g/dL RDW Std Deviation (36.4-46.3) fL RDW Coeff of Kingsley (11.5-14.5) % Plt Count (130-400) K/uL MPV (9.4-12.4) fL Immature Gran % (Auto) % Neut % (Auto) % Lymph % (Auto) % [place] % (Auto) % Eos % (Auto) % Baso % (Auto) % Neut # (Auto) (1.40-6.50) K/uL Lymph # (Auto) (1.2-3.4) K/uL [place] # (Auto) (0.11-0.59) K/uL Eos # (Auto) (0-0.50) K/uL Baso # (Auto) (0-0.2) K/uL Immature Gran # (Auto) (0.01-0.20) K/uL Peripher Smr Path Cons Sodium (136-145) mmol/L Potassium (3.5-5.1) mmol/L Chloride (98-107) mmol/L Carbon Dioxide (21-32) mmol/L Anion Gap (3-11) BUN (6-23) mg/dl Creatinine (0.6-1.4) mg/dl Est Cr Clr Drug Dosing ml/min Est GFR ( Amer) ml/min Est GFR (Non-Af Amer) ml/min BUN/Creatinine Ratio (10-20) Glucose (70-99(Fasting)) mg/dl Lactate 0.7 (0.4-2.0) mmol/L Calcium (8.6-10.3) mg/dl Phosphorus 2.3 L (2.5-4.9) mg/dl Magnesium 1.3 L (1.7-2.4) mg/dl Prealbumin 8.1 L (20-40) mg/dl Carcinoembryonic Ag (0-2.5) ng/ml TSH (0.300-4.500) uIu/ml Stool Occult Bld Scrn Stl C. cayetanensis PCR (NotDetected) Stool Rotavirus A PCR (NotDetected) Stl Adenov F PCR (NotDetected) Stool Astrovirus (PCR) (NotDetected) Stool Campylobacter PCR (NotDetected) Stl C. diff Tox B Gene (Neg) Stool Cryptosporidium PCR (NotDetected) Stl E.coli Shiga Tox PCR (NotDetected) Stl Enterotoxigenic E PCR (NotDetected) Stool EPEC (PCR) (NotDetected) Stool EAEC (PCR) (NotDetected) Stl E. histolytica PCR (NotDetected) Stool Giardia Lamblia PCR (NotDetected) Stool Salmonella PCR (NotDetected) Stool Sapovirus (PCR) (NotDetected) Stl P. shigelloides PCR (NotDetected) Stl Shigella/EIEC PCR (NotDetected) St Y.enterocolitica PCR (NotDetected) Stool Vibrio (PCR) (NotDetected) Stl Vibrio cholerae PCR (NotDetected) Stl Norovirus GI/GII PCR (NotDetected) Stool Comments 03/03/23 Range/Units 06:54 WBC (4.8-10.8) K/ul RBC (4.70-6.10) M/uL Hgb (14.0-18.0) g/dl Hct (42.0-52.0) % MCV (80.0-100.0) fL MCH (25.0-34.0) pg MCHC (32.0-36.0) g/dL RDW Std Deviation (36.4-46.3) fL RDW Coeff of Kingsley (11.5-14.5) % Plt Count (130-400) K/uL MPV (9.4-12.4) fL Immature Gran % (Auto) % Neut % (Auto) % Lymph % (Auto) % [place] % (Auto) % Eos % (Auto) % Baso % (Auto) % Neut # (Auto) (1.40-6.50) K/uL Lymph # (Auto) (1.2-3.4) K/uL [place] # (Auto) (0.11-0.59) K/uL Eos # (Auto) (0-0.50) K/uL Baso # (Auto) (0-0.2) K/uL Immature Gran # (Auto) (0.01-0.20) K/uL Peripher Smr Path Cons Sodium (136-145) mmol/L Potassium (3.5-5.1) mmol/L Chloride (98-107) mmol/L Carbon Dioxide (21-32) mmol/L Anion Gap (3-11) BUN (6-23) mg/dl Creatinine (0.6-1.4) mg/dl Est Cr Clr Drug Dosing ml/min Est GFR ( Amer) ml/min Est GFR (Non-Af Amer) ml/min BUN/Creatinine Ratio (10-20) Glucose (70-99(Fasting)) mg/dl Lactate (0.4-2.0) mmol/L Calcium (8.6-10.3) mg/dl Phosphorus (2.5-4.9) mg/dl Magnesium (1.7-2.4) mg/dl Prealbumin (20-40) mg/dl Carcinoembryonic Ag (0-2.5) ng/ml TSH (0.300-4.500) uIu/ml Stool Occult Bld Scrn Stl C. cayetanensis PCR (NotDetected) Stool Rotavirus A PCR (NotDetected) Stl Adenov F 40/41 PCR (NotDetected) Stool Astrovirus (PCR) (NotDetected) Stool Campylobacter PCR (NotDetected) Stl C. diff Tox B Gene (Neg) Stool Cryptosporidium PCR (NotDetected) Stl E.coli Shiga Tox PCR (NotDetected) Stl Enterotoxigenic E PCR (NotDetected) Stool EPEC (PCR) (NotDetected) Stool EAEC (PCR) (NotDetected) Stl E. histolytica PCR (NotDetected) Stool Giardia Lamblia PCR (NotDetected) Stool Salmonella PCR (NotDetected) Stool Sapovirus (PCR) (NotDetected) Stl P. shigelloides PCR (NotDetected) Stl Shigella/EIEC PCR (NotDetected) St Y.enterocolitica PCR (NotDetected) Stool Vibrio (PCR) (NotDetected) Stl Vibrio cholerae PCR (NotDetected) Stl Norovirus GI/GII PCR (NotDetected) Stool Comments PG Care Time/CCT Total # of Minutes Spent Total Time Spent with Patient: Total time spent is greater than 50% in coordination of care (as documented) at patient's floor/unit and/or counseling patient: Coding Level of Care Code 57181 SUB INP/OBS CARE 3/50MIN Diagnoses Weight loss R63.4 Dyspnea R06.00 Dysphagia R13.10 Diarrhea R19.7 Anemia D64.9 Dark stools R19.5 Malnourished E46 Iron deficiency E61.1 Hypomagnesemia E83.42 Whipple's disease K90.[address] of the abdomen R93.[address] scan, chest R93.89 Hyponatremia E87.1 Lymphadenopathy R59.1
[2023-03-04] MEDS: LACTATED RINGER'S 1,000 ML IV SCH (08:24)
[2023-03-04] MEDS: PANTOprazole 40 MG in SYRINGE 0 ML IV SCH ×2 (08:43→19:43)
[2023-03-04] MEDS ORDERED: FUROSEMIDE INJ 20 MG/2 ML VIAL IV ONE ×3 (09:26→17:17)
[2023-03-04] MEDS: IRON SUCROSE 200 MG in 0.9 % SODIUM CHLORIDE 100 ML IV SCH (10:14)
[2023-03-04] MEDS ORDERED: OPTIRAY 320 500ml IV ONE (15:27)
--- NOTE | 2023-03-04 15:46 | CT Scan Report ---
CHEST CTA for PULMONARY ARTERIES CT DOSE: 272.86 mGy.cm HISTORY: Atypical chest pain. TECHNIQUE: Multiaxial CT images of the chest were performed following the intravenous administration of contrast to evaluate the pulmonary arteries. Maximal intensity projection images were also obtaine d. A dose lowering technique was utilized adhering to the principles of ALARA. COMPARISON STUDY: Chest CT 03/02/2023. FINDINGS: Normal caliber thoracic aorta with no evidence for a dissection. No filling defects within the pulmonary arteries to suggest a pulmonary embolus. No acute fractures identified. No suspicious l ytic or blastic osseous lesions. The central airways are patent. No pneumothorax. Subtle groundglass densities with central lucency within the left lower lobe measuring up to 1.9 cm on images 90 and 98 are again noted. Interval development of trace bilateral pleural effusions. Patchy densities within t he lungs posteriorly favor subsegmental atelectasis. No evidence for pulmonary edema. There is mild e mphysema. Redemonstration of the low density mildly enlarged retrocrural lymph nodes. This is similar to the prior study. The thyroid gland enhances normally. There are multiple prominent axillary lymph nodes, unchanged. No hilar lymphadenopathy. The heart is normal in size. No pericardial effusion. IMPRESSION: 1. No evidence for a pulmonary embolus. 2. Interval development of trace bilateral pleural effusions. 3. Subtle groundglass densities with central lucency within the left lower lobe which measure up to 1 .9 cm. 3-[address] follow-up recommended to exclude the possibility of a low-grade malignancy. 4. Mild emphysema. 5. Mildly enlarged hypodense retrocrural lymph nodes again noted. ACT 112: Negative or not required by law. Electronically signed by: Abdelrahman Rod M.D. 03/04/2023 3:44 PM
[2023-03-04] MEDS: cefTRIAXone SODIUM 2,000 MG in DEXTROSE 5% 50 ML IV SCH (17:34)
--- NOTE | 2023-03-04 20:23 | XCELERA ---
[id number]
[2023-03-05 07:36] LABS: Basophils # (auto) 0.06 K/uL (0-0.2); Basophils % (auto) 1.1 %; Eosinophils # (auto) 0.78 K/uL (0-0.50); Eosinophils % (auto) 14.9 %; Hematocrit (blood only) 31.1 % (42.0-52.0); Hemoglobin 10.5 g/dl (14.0-18.0); Immature Granulocytes # (auto) 0.07 K/uL (0.01-0.20); Immature Granulocytes % (auto) 1.3 %; Lymphocytes # (auto) 1.16 K/uL (1.2-3.4); Lymphocytes % (auto) 22.2 %; Mean Corpuscular Hemoglobin 27.7 pg (25.0-34.0); Mean Corpuscular Hgb Conc 33.8 g/dL (32.0-36.0); Mean Corpuscular Volume 82.1 fL (80.0-100.0); Mean Platelet Volume 10.3 fL (9.4-12.4); Monocytes # (auto) 0.55 K/uL (0.11-0.59); Monocytes % (auto) 10.5 %; Platelet Count 267 K/uL (130-400); RDW Coefficient of Variation 13.8 % (11.5-14.5); RDW Standard Deviation 41.1 fL (36.4-46.3); Red Blood Count 3.79 M/uL (4.70-6.10); White Blood Count 5.22 K/ul (4.8-10.8)
[2023-03-05 07:47] LABS: BUN Creatinine Ratio 23.7 (10-20); Calcium 8.2 mg/dl (8.6-10.3); Creatinine Clr Calc Pharmacy 68.3 ml/min; Est GFR (African American) 123.3 ml/min; Est GFR (Non-African American) 106.4 ml/min; Magnesium 1.7 mg/dl (1.7-2.4)
--- NOTE | 2023-03-05 08:00 | Hospitalist Progress Note ---
Date of Service March 05, 2023 Assessment & Plan (1) Weight loss: Plan: Konstantin Desir is a 52 year old male who presented to the ED after worsening weakness for the past month, worse over past two weeks. Recently w/ progressive dysphagia to even liquids, strong family history of colon ca. CEA level obtained and only 2.4 Reporting rapid weight loss, night sweats, progressive shortness of breath, weakness. Concerns for underlying malignancy given strong family history of such CTAP on admission w/ Mild mucosal thickening, could represent nonspecific enterocolitis. There is also retroperitoneal, mesenteric, and lower thoracic lymphadenopathy. This raises the possibility of a lymphoproliferative disorder or could represent a systemic process such as Whipple's disease given the small/large bowel mucosal thickening. 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 Biopsy taken. Small hiatal hernia. * Bx of duodenum for celiac obtained Blood cultures pending -- NGTD Stool PCR, cdiff negative POSITIVE fecal occult blood --> holding heparin SQ for now, ambulation encouraged. No evidence for DVT. Hgb stable after lasix provided Iron panel w/ RENAE -- Venofer IV started while inpatient (day 35) PPI BID continued Bowel prep ordered for today, as was unable to complete c-scope on monday as was not given prep. NPO at midnight GI re-consulted for AM Insurance Claims Adjuster on consult Monitor results from endoscopy CM arranging outpt PCP for follow up. Needs new PCP. Also will need f/u derm for skin lesion, GI, heme/onc pending pathology Monitor labs on repeat (2) Anemia: Plan: iron panel checked -- iron/trans sat LOW --> started Venofer IV, continue while inpatient (day 3/5) B12/folate wnl Peripheral smear w/o neoplastic or hemolytic process TSH wnl Hgb 11--> 9.9 on repeat, and while fecal occult positive he did receive continuous IVF while NPO for scope and elevated BNP/effusions on imaging which have resolved w/ lasix and hgb stable at 10.5 Holding chemoproph given positive fecal occult blood. No evidence for DVT on exam, CT chest NEGATIVE for PE yesterday GI on consult Remains on PPI BID NPO at midnight for c-scope eval, prep ordered to start today STRONG family hx colon ca, but could be esophageal/lung/skin possibly based on exam but CTAP findings warranting c-scope as discussed w/ provider air conditioning engineer over the weekend and will plan for scope tomorrow as GI allows in their schedule as he will now be prepped He has a VERY strong family history of colon ca. Interestingly his CEA level is normal however which raises suspicion for alternative primary source Monitor CBC (3) Dysphagia: Plan: 30 pack year history of smoking CT chest imaging w/ concerns for malignancy and will need f/u outpatient / possible pulm consultation and repeat imaging. NEGATIVE for DVT Speech consulted - diet modified Tolerating diet at present Can plan for barium swallow tomorrow along w/ c-scope -- NPO at midnight (4) Dyspnea: Plan: CT chest w/o pneumonia or volume overload. Did note nodules which will need f/u Given hypotension/tachycaria, EKG w/ sinus tachy/sinus arrythmia on admission w/o trop, CTA for PE obtained: CT chest for PE NEGATIVE (does note subtle groundglass densities with central lucency within the left lower lobe which measure up to 1.9 cm. 3-[address] follow-up recommended to exclude the possibility of a low-grade malignancy) -- can have pulm f/u arranged as well Suspect dyspnea multifactoral due to RENAE, hx smoking/possible underlying malignancy, pulm overload from IVF yesterday which has improved w/ dose lasix (na also normalized w/ such) Iron panel w/ significant iron deficiency -- ordered 200mg daily given low BPs and on day 3/5 currently. Would complete course while inpatient ECHO w/o wma or significant valvular heart disease Monitor on exam, no further lasix at present (5) Diarrhea: Plan: progressive diarrhea, contributing to dehydration/weakness as well, also suspect malingancy vs whipples bicarb low on labs, likely from diarrheal losses -- improved w/ less diarrhea w/ abx treatment as above stool pcr/cdiff negative celiac panel pending (6) Dark stools: Plan: check fecal occult as above -- POSITIVE holding off chemoprophylaxis at present given such continue PPI BID (7) Malnourished: Plan: laser cutter on consult, appreciate recs (8) Iron deficiency: Plan: on iron studies -- iron LOW 15, trans % sat 5--> venofer as above (9) Hypomagnesemia: Plan: checked w/ am labs -- 1.3 -- IV replacement ordered and normalized on repeat 1.9 --> 1.7 and will monitor given PPI use (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 peripheral smear ordered -- no evidence at present continues on ceftriaxone for abx, ID consulted as above (11) Abnormal CT of the abdomen: Plan: as above (12) Abnormal CT scan, chest: Plan: A few subtle bilateral lower lobe groundglass densities which contain central lucencies. Although not highly suggestive of malignancy does have raised suspcision on CTA chest obtained to r/o PE which was negative Will need outpt f/u Messaged CM navigator to help arrange for at discharge (13) Hyponatremia: Plan: Na on admit 132, placed on continuous IVF while NPO --> 131 5/20 while awaiting EGD and had been continued on fluids given prior poor PO intake 2nd to dysphagia and Na dropped to 128 Chest imaging w/ effusions/congestion, Lasix IV x 1 provided, improvement in breathing and Na level improved to 136 TSH wnl (14) Lymphadenopathy: Plan continued inpatient stay bowel prep, NPO at midnight hopeful c-scope tomorrow, speech on for barium swallow as able as well (if not could be done monday) continue venofer IV, PPI BID CM helping to arrange for new PCP at d/c as well as Derm (skin lesion to L scalp/buddhism concerning for malignancy) as well as pulm for nodules concerning for low grade malignancy as well). Will need outpt GI f/u as well Admission and Anticipated Discharge Date Admission Date: March 02, 2023 Supervising Physician Co-Signing Physician Notes The patient was not seen by me. The chart was reviewed. Case discussed with FLORIN Gottlieb. Agree with assessment and plan Subjective eval this morning, doing alright breathing improved with lasix.. no CP. CT negative for PE tolerating diet. stools forming up. discussed bowel prep for tonight in hopes for c-scope tomorrow. will also see about dermatology followup for the lesion to his left buddhism. Physical Exam Physical Exam: General: thin, malnourished, cachectic male sitting up in bed, appears improved, NAD HEENT: bitemporal wasting, lesion to left scalp approximately 3-4mm in diameter, ?squamous cell carcinoma in appearance, no cervical lymphadenopathy appreciated Resp: CTA, improvement in air entry, slightly diminished in the bases, on room air, no w/c CV: regular rate/rhythm, +faint systolic murmur more difficult to hear today, no rub/gallop, no pitting edema/calf tenderness GI: +BS, thin, no overt tenderness : no dowell MSK/Neuro: strength equal bilaterally, no focal deficit Psych: AOx3, cooperative with exam Skin: warm, perfused Results & Data Results & Data Vital Signs (Past 12 Hours) Vital Signs Temp Pulse Pulse Resp BP Pulse Ox O2 Del Method 03/05/23 07:40 36.9 C 72 16 91/52 L 94 Room Air 03/04/23 21:28 37.1 C 89 18 97/61 L 94 Room Air Laboratory Results 03/05/23 03/05/23 03/05/23 Range/Units 06:36 06:36 06:36 WBC 5.22 (4.8-10.8) K/ul RBC 3.79 L (4.70-6.10) M/uL Hgb 10.5 L (14.0-18.0) g/dl Hct 31.1 L (42.0-52.0) % MCV 82.1 (80.0-100.0) fL MCH 27.7 (25.0-34.0) pg MCHC 33.8 (32.0-36.0) g/dL RDW Std Deviation 41.1 (36.4-46.3) fL RDW Coeff of Kingsley 13.8 (11.5-14.5) % Plt Count 267 (130-400) K/uL MPV 10.3 (9.4-12.4) fL Immature Gran % (Auto) 1.3 % Neut % (Auto) 50.0 % Lymph % (Auto) 22.2 % Jack % (Auto) 10.5 % Eos % (Auto) 14.9 % Baso % (Auto) 1.1 % Neut # (Auto) 2.60 (1.40-6.50) K/uL Lymph # (Auto) 1.16 L (1.2-3.4) K/uL Jack # (Auto) 0.55 (0.11-0.59) K/uL Eos # (Auto) 0.78 H (0-0.50) K/uL Baso # (Auto) 0.06 (0-0.2) K/uL Immature Gran # (Auto) 0.07 (0.01-0.20) K/uL Sodium 136 (136-145) mmol/L Potassium 4.0 (3.5-5.1) mmol/L Chloride 105 (98-107) mmol/L Carbon Dioxide 27 (21-32) mmol/L Anion Gap 4 (3-11) BUN 18 (6-23) mg/dl Creatinine 0.76 (0.6-1.4) mg/dl Est Cr Clr Drug Dosing 68.3 ml/min Est GFR ( Amer) 123.3 ml/min Est GFR (Non-Af Amer) 106.4 ml/min BUN/Creatinine Ratio 23.7 H (10-20) Glucose 95 (70-99(Fasting)) mg/dl Osmolality (280-300) mOsm/kg Calcium 8.2 L (8.6-10.3) mg/dl Ionized Calcium (1.12-1.32) mmol/L Magnesium 1.7 (1.7-2.4) mg/dl B-Natriuretic Peptide (0-100) pg/ml Cortisol AM Sample 11.80 (6.2-22.6) mcg/dl Urine Osmolality (500-800) mOsm/kg Ur Random Sodium mmol/L 03/04/23 03/04/23 03/04/23 Range/Units 13:40 13:40 09:58 WBC (4.8-10.8) K/ul RBC (4.70-6.10) M/uL Hgb (14.0-18.0) g/dl Hct (42.0-52.0) % MCV (80.0-100.0) fL MCH (25.0-34.0) pg MCHC (32.0-36.0) g/dL RDW Std Deviation (36.4-46.3) fL RDW Coeff of Kingsley (11.5-14.5) % Plt Count (130-400) K/uL MPV (9.4-12.4) fL Immature Gran % (Auto) % Neut % (Auto) % Lymph % (Auto) % Jack % (Auto) % Eos % (Auto) % Baso % (Auto) % Neut # (Auto) (1.40-6.50) K/uL Lymph # (Auto) (1.2-3.4) K/uL Jack # (Auto) (0.11-0.59) K/uL Eos # (Auto) (0-0.50) K/uL Baso # (Auto) (0-0.2) K/uL Immature Gran # (Auto) (0.01-0.20) K/uL Sodium (136-145) mmol/L Potassium (3.5-5.1) mmol/L Chloride (98-107) mmol/L Carbon Dioxide (21-32) mmol/L Anion Gap (3-11) BUN (6-23) mg/dl Creatinine (0.6-1.4) mg/dl Est Cr Clr Drug Dosing ml/min Est GFR ( Amer) ml/min Est GFR (Non-Af Amer) ml/min BUN/Creatinine Ratio (10-20) Glucose (70-99(Fasting)) mg/dl Osmolality (280-300) mOsm/kg Calcium (8.6-10.3) mg/dl Ionized Calcium (1.12-1.32) mmol/L Magnesium (1.7-2.4) mg/dl B-Natriuretic Peptide 158 H (0-100) pg/ml Cortisol AM Sample (6.2-22.6) mcg/dl Urine Osmolality 425 L (500-800) mOsm/kg Ur Random Sodium 62 mmol/L 03/04/23 03/04/23 Range/Units 08:26 08:26 WBC (4.8-10.8) K/ul RBC (4.70-6.10) M/uL Hgb (14.0-18.0) g/dl Hct (42.0-52.0) % MCV (80.0-100.0) fL MCH (25.0-34.0) pg MCHC (32.0-36.0) g/dL RDW Std Deviation (36.4-46.3) fL RDW Coeff of Kingsley (11.5-14.5) % Plt Count (130-400) K/uL MPV (9.4-12.4) fL Immature Gran % (Auto) % Neut % (Auto) % Lymph % (Auto) % Jack % (Auto) % Eos % (Auto) % Baso % (Auto) % Neut # (Auto) (1.40-6.50) K/uL Lymph # (Auto) (1.2-3.4) K/uL Jack # (Auto) (0.11-0.59) K/uL Eos # (Auto) (0-0.50) K/uL Baso # (Auto) (0-0.2) K/uL Immature Gran # (Auto) (0.01-0.20) K/uL Sodium (136-145) mmol/L Potassium (3.5-5.1) mmol/L Chloride (98-107) mmol/L Carbon Dioxide (21-32) mmol/L Anion Gap (3-11) BUN (6-23) mg/dl Creatinine (0.6-1.4) mg/dl Est Cr Clr Drug Dosing ml/min Est GFR ( Amer) ml/min Est GFR (Non-Af Amer) ml/min BUN/Creatinine Ratio (10-20) Glucose (70-99(Fasting)) mg/dl Osmolality 273 L (280-300) mOsm/kg Calcium (8.6-10.3) mg/dl Ionized Calcium 1.22 (1.12-1.32) mmol/L Magnesium (1.7-2.4) mg/dl B-Natriuretic Peptide (0-100) pg/ml Cortisol AM Sample (6.2-22.6) mcg/dl Urine Osmolality (500-800) mOsm/kg Ur Random Sodium mmol/L Diagnostic Findings Chest CTA 03/04/23 13:06 CHEST CTA for PULMONARY ARTERIES CT DOSE: 272.86 mGy.cm HISTORY: Atypical chest pain. TECHNIQUE: Multiaxial CT images of the chest were performed following the intravenous administration of contrast to evaluate the pulmonary arteries. Maximal intensity projection images were also obtained. A dose lowering technique was utilized adhering to the principles of ALARA. COMPARISON STUDY: Chest CT 03/02/2023. FINDINGS: Normal caliber thoracic aorta with no evidence for a dissection. No filling defects within the pulmonary arteries to suggest a pulmonary embolus. No acute fractures identified. No suspicious lytic or blastic osseous lesions. The central airways are patent. No pneumothorax. Subtle groundglass densities with central lucency within the left lower lobe measuring up to 1.9 cm on images 90 and 98 are again noted. Interval development of trace bilateral pleural effusions. Patchy densities within the lungs posteriorly favor subsegmental atelectasis. No evidence for pulmonary edema. There is mild emphysema. Redemonstration of the low density mildly enlarged retrocrural lymph nodes. This is similar to the prior study. The thyroid gland enhances normally. There are multiple prominent axillary lymph nodes, unchanged. No hilar lymphadenopathy. The heart is normal in size. No pericardial effusion. IMPRESSION: 1. No evidence for a pulmonary embolus. 2. Interval development of trace bilateral pleural effusions. 3. Subtle groundglass densities with central lucency within the left lower lobe which measure up to 1.9 cm. 3-[address] follow-up recommended to exclude the possibility of a low-grade malignancy. 4. Mild emphysema. 5. Mildly enlarged hypodense retrocrural lymph nodes again noted. ACT 112: Negative or not required by law. Electronically signed by: Abdelrahman Rod M.D. 03/04/2023 3:44 PM PG Care Time/CCT Total # of Minutes Spent Total Time Spent with Patient: Total time spent is greater than 50% in coordination of care (as documented) at patient's floor/unit and/or counseling patient: Coding Level of Care Code 13645 SUB INP/OBS CARE 3/50MIN Diagnoses Weight loss R63.4 Anemia D64.9 Dysphagia R13.10 Dyspnea R06.00 Diarrhea R19.7 Dark stools R19.5 Malnourished E46 Iron deficiency E61.1 Hypomagnesemia E83.42 Whipple's disease K90.[address] of the abdomen R93.[address] scan, chest R93.89 Hyponatremia E87.1 Lymphadenopathy R59.1
[2023-03-05] MEDS: IRON SUCROSE 200 MG in 0.9 % SODIUM CHLORIDE 100 ML IV SCH (09:04)
[2023-03-05] MEDS: PANTOprazole 40 MG in SYRINGE 0 ML IV SCH ×2 (11:29→20:48)
[2023-03-05] MEDS ORDERED: POLYETHYLENE (MIRALAX) 17 GM PACK PO SCH (18:00)
[2023-03-05] MEDS ORDERED: LAVAGE SOLUTION 4000ML PO SCH (18:00)
[2023-03-05] MEDS: POLYETHYLENE (MIRALAX) 17 GM PACK PO SCH (18:24)
[2023-03-06] MEDS: POLYETHYLENE (MIRALAX) 17 GM PACK PO SCH (05:51)
[2023-03-06 06:22] LABS: Basophils # (auto) 0.06 K/uL (0-0.2); Basophils % (auto) 0.8 %; Eosinophils # (auto) 0.96 K/uL (0-0.50); Eosinophils % (auto) 12.3 %; Hemoglobin 10.3 g/dl (14.0-18.0); Immature Granulocytes # (auto) 0.08 K/uL (0.01-0.20); Lymphocytes # (auto) 1.49 K/uL (1.2-3.4); Lymphocytes % (auto) 19.1 %; Mean Corpuscular Hemoglobin 27.4 pg (25.0-34.0); Mean Corpuscular Hgb Conc 34.3 g/dL (32.0-36.0); Mean Corpuscular Volume 79.8 fL (80.0-100.0); Mean Platelet Volume 10.2 fL (9.4-12.4); Monocytes # (auto) 0.52 K/uL (0.11-0.59); Monocytes % (auto) 6.7 %; Neutrophils # (auto) 4.69 K/uL (1.40-6.50); Neutrophils % (auto) 60.1 %; Platelet Count 315 K/uL (130-400); RDW Coefficient of Variation 13.5 % (11.5-14.5); Red Blood Count 3.76 M/uL (4.70-6.10)
[2023-03-06 06:33] LABS: BUN Creatinine Ratio 24.1 (10-20); Calcium 8.4 mg/dl (8.6-10.3); Creatinine Clr Calc Pharmacy 65.7 ml/min; Est GFR (African American) 121.4 ml/min; Est GFR (Non-African American) 104.7 ml/min; Magnesium 1.5 mg/dl (1.7-2.4); Potassium 4.1 mmol/L (3.5-5.1)
[2023-03-06] MEDS: PANTOprazole 40 MG in SYRINGE 0 ML IV SCH ×2 (08:34→21:40)
[2023-03-06] MEDS: IRON SUCROSE 200 MG in 0.9 % SODIUM CHLORIDE 100 ML IV SCH (08:34)
--- NOTE | 2023-03-06 09:42 | Fluoroscopy Report ---
FL barium swallow CLINICAL HISTORY: Assess for esophageal dysfunction COMPARISON STUDY: Chest CT March 04, 2023. FLUOROSCOPY TIME: 1.21 minutes FLUOROSCOPY IMAGES: 14. Ka,r: 7.87 mGy FINDINGS: Esophageal motility was within normal limits. No esophageal mass or stricture was identifie d. However, there was transient holdup of a 13 mm barium tablet within the midesophagus and persisten t holdup within the distal esophagus/GE junction. The pill did not pass into the stomach during this examination with holdup at the distal cervical esophagus/GE junction. No hiatal hernia was identified . No reflux was elicited. IMPRESSION: 1. Normal esophageal motility. 2. Transient holdup of a 13 mm barium tablet within the midesophagus and persistent holdup of the tab let within the distal esophagus/GE junction. Although no definite stricture identified on the remaind er of the images, GI consultation for consideration for endoscopy to exclude a stricture is recommend ed. ACT 112: Negative or not required by law. Electronically signed by: Gary Chau M.D. 03/06/2023 9:41 AM
[2023-03-06] MEDS: cefTRIAXone SODIUM 2,000 MG in DEXTROSE 5% 50 ML IV SCH (09:43)
--- NOTE | 2023-03-06 10:07 | Hospitalist Progress Note ---
Date of Service March 06, 2023 Assessment & Plan (1) Weight loss: Plan: Konstantin Desir is a 52 year old male who presented to the ED after worsening weakness for the past month, worse over past two weeks. Recently w/ progressive dysphagia to even liquids, strong family history of colon ca. CEA level obtained and only 2.4 Reporting rapid weight loss, night sweats, progressive shortness of breath, weakness. Concerns for underlying malignancy given strong family history of such CTAP on admission w/ Mild mucosal thickening, could represent nonspecific enterocolitis. There is also retroperitoneal, mesenteric, and lower thoracic lymphadenopathy. This raises the possibility of a lymphoproliferative disorder or could represent a systemic process such as Whipple's disease given the small/large bowel mucosal thickening. Possible Whipple's disease noted, although rare --> On ceftriaxone to cover for Whipplei (diarrhea slowing since starting and will continue) --> ID consulted, f/u Monday Awaiting the biopsy results to look for T. whipplei If + will need LP and treatment is usually 2 weeks IV ceftriaxone followed by one year oral therapy GI consulted * s/p EGD on 03/03 w/ Dr Case which showed single 10mm mucosal nodule (biopsied) w/ localized distribution found at GEJ. Biopsy taken. Small hiatal hernia. * Bx of duodenum for celiac obtained * tTG-IgA pending to evaluate for celiac disease. Blood cultures pending -- NGTD Stool PCR, cdiff negative POSITIVE fecal occult blood --> holding heparin SQ for now, ambulation encouraged. No evidence for DVT. 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 Needs new PCP. Also will need f/u derm for skin lesion, GI, heme/onc pending pathology Did place a derm consult since awaiting bx results and continuing with IV ceftriaxone Monitor labs on repeat (2) Anemia: Plan: iron panel checked -- iron/trans sat LOW --> started Venofer IV, continue while inpatient (day 3/5) B12/folate wnl Peripheral smear w/o neoplastic or hemolytic process TSH wnl Hgb 11--> 9.9 on repeat, and while fecal occult positive he did receive continuous IVF while NPO for scope and elevated BNP/effusions on imaging which have resolved w/ lasix and hgb stable at 10.5 Holding chemoproph given positive fecal occult blood. No evidence for DVT on exam, CT chest NEGATIVE for PE yesterday GI on consult Remains on PPI BID STRONG family hx colon ca, but could be esophageal/lung/skin possibly based on exam but CTAP findings warranting c-scope Spoke today with [facility] and they stated they want to wait until the results of the biopsy are back before proceeding with a colonoscopy. I spoke then with patient and his girlfriend Ana via the phone regarding this He has a VERY strong family history of colon ca. Interestingly his CEA level is normal however which raises suspicion for alternative primary source Monitor CBC (3) Dysphagia: Plan: 30 pack year history of smoking CT chest imaging w/ concerns for malignancy and will need f/u outpatient / possible pulm consultation and repeat imaging. NEGATIVE for DVT Speech consulted - diet modified Tolerating diet at present (4) Dyspnea: Plan: CT chest w/o pneumonia or volume overload. Did note nodules which will need f/u Given hypotension/tachycaria, EKG w/ sinus tachy/sinus arrythmia on admission w/o trop, CTA for PE obtained: CT chest for PE NEGATIVE (does note subtle groundglass densities with central lucency within the left lower lobe which measure up to 1.9 cm. 3-[address] follow-up recommended to exclude the possibility of a low-grade malignancy) -- can have pulm f/u arranged as well Suspect dyspnea multifactoral due to RENAE, hx smoking/possible underlying malignancy, pulm overload from IVF yesterday which has improved w/ dose lasix (na also normalized w/ such) Iron panel w/ significant iron deficiency -- ordered 200mg daily given low BPs and on day 3/5 currently. 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 peripheral smear ordered -- no evidence at present continues on ceftriaxone for abx, ID consulted as above (11) Abnormal CT of the abdomen: Plan: as above (12) Abnormal CT scan, chest: Plan: A few subtle bilateral lower lobe groundglass densities which contain central lucencies. Although not highly suggestive of malignancy does have raised suspcision on CTA chest obtained to r/o PE which was negative Will need outpt f/u Messaged CM navigator to help arrange for at discharge (13) Hyponatremia: Plan: Chest imaging w/ effusions/congestion, Lasix IV x 1 provided, improvement in breathing and Na level improved to 136 Currently Na 134, will repeat in AM TSH wnl Plan continued inpatient stay continue venofer IV, PPI BID continue IV ceftriaxone and wait for biopsy results CM helping to arrange for new PCP at d/c as well as Derm (skin lesion to L scalp/shinto concerning for malignancy) as well as pulm for nodules concerning for low grade malignancy as well). Will need outpt GI f/u as well Admission and Anticipated Discharge Date Admission Date: March 02, 2023 Subjective Patient seen this afternoon. He ia awake and restin in bed in NAD, but appears cachectic and thin He states he is upset that he had a colon prep and did not get a colonoscopy today. I spoke with [facility] who stated that they awant to wait for the biopsy results from the EGD before proceeding with a colonoscopy. They feel since he had improvement in his diarrhea with the IV Ceftriaxone he may in fact have Whipples although extremely rare. I also spoke with ID Dr Umaña today who stated we should continue the IV Ceftriaxone until we have the path results andif + will need 2 weeks of the IV ceftriaxone, also a LP and then oral therapy for up to a year. I placed a dermatology consult for the lesion to his left shinto. Review of Systems Constitutional: + fatigue, + malaise, + weakness and + weight loss Eyes: + corrective lenses; no blind spots, no diplopia, no loss of peripheral vision and no problem reported Ear, Nose, Mouth, Throat: + facial pain; no hearing loss and no epistaxis Respiratory: no cough, no chest congestion and no hemoptysis Cardiovascular: no chest pain, no syncope, no edema and no calf pain Gastrointestinal: + diarrhea/loose stools; no nausea and no vomiting Integumentary: + lesions and + new lesions lesion left shinto per patient began with a contusion cut, now sore and question of Whipple Psychiatric: no confusion, no hallucinations and no problem reported Physical Exam Constitutional: + ill appearing, + thin and + frail appearing Neck: trachea midline, no thyromegaly Cardiovascular: Rate/Rhythm: regular rate and regular rhythm Heart Sounds: normal S1, normal S2 and + murmur Extremities: normal capillary refill; no calf tenderness and no edema Skin: 10mm hard raised irregular boarder lesion tender to palpation Psychiatric: A+Ox3, euthymic affect Lymphatic: no cervical or axillary lymphadenopathy Results & Data Results & Data Vital Signs (Past 12 Hours) Vital Signs Temp Pulse Resp BP Pulse Ox O2 Del Method 03/06/23 07:27 36.6 C 54 L 18 99/60 L 100 Room Air Laboratory Results Abnormal lab results 03/06/23 03/06/23 Range/Units 05:53 05:53 RBC 3.76 L (4.70-6.10) M/uL Hgb 10.3 L (14.0-18.0) g/dl Hct 30.0 L (42.0-52.0) % MCV 79.8 L (80.0-100.0) fL Eos # (Auto) 0.96 H (0-0.50) K/uL Sodium 134 L (136-145) mmol/L Anion Gap 2 L (3-11) BUN/Creatinine Ratio 24.1 H (10-20) Calcium 8.4 L (8.6-10.3) mg/dl Magnesium 1.5 L (1.7-2.4) mg/dl Diagnostic Findings Barium Swallow X-Ray 03/06/23 09:22 FL barium swallow CLINICAL HISTORY: Assess for esophageal dysfunction COMPARISON STUDY: Chest CT March 04, 2023. FLUOROSCOPY TIME: 1.21 minutes FLUOROSCOPY IMAGES: 14. Ka,r: 7.87 mGy FINDINGS: Esophageal motility was within normal limits. No esophageal mass or stricture was identified. However, there was transient holdup of a 13 mm barium tablet within the midesophagus and persistent holdup within the distal esophagus/GE junction. The pill did not pass into the stomach during this examination with holdup at the distal cervical esophagus/GE junction. No hiatal hernia was identified. No reflux was elicited. IMPRESSION: 1. Normal esophageal motility. 2. Transient holdup of a 13 mm barium tablet within the midesophagus and persistent holdup of the tablet within the distal esophagus/GE junction. Although no definite stricture identified on the remainder of the images, GI consultation for consideration for endoscopy to exclude a stricture is recommended. ACT 112: Negative or not required by law. Electronically signed by: Gary Chau M.D. 03/06/2023 9:41 AM PG Care Time/CCT Total # of Minutes Spent Total Time Spent with Patient: Total time spent is greater than 50% in coordination of care (as documented) at patient's floor/unit and/or counseling patient: Coding Level of Care Code 83748 SUB INP/OBS CARE 2/35MIN Diagnoses Weight loss R63.4 Anemia D64.9 Dysphagia R13.10 Dyspnea R06.00 Diarrhea R19.7 Dark stools R19.5 Malnourished E46 Iron deficiency E61.1 Hypomagnesemia E83.42 Whipple's disease K90.[address] of the abdomen R93.[address] scan, chest R93.89 Hyponatremia E87.1
--- NOTE | 2023-03-06 10:50 | Gastroenterology Progress Note ---
Date of Service March 06, 2023 Assessment & Plan (1) Diarrhea: (2) Anemia: (3) Abnormal CT of the abdomen: (4) Abnormal weight loss: Plan Discussed case with Dr. Mensah who advised on plan. Patient is feeling better at this time. hgb stable. diarrhea resolved prior to being given bowel prep. - discussed with Dr. Mensah, no plan for inpatient colonoscopy at this time since the patient has had improvement in symptoms. hgb stable. Would recommend outpatient colonoscopy. - await pathology from EGD. - continue with protonix 40mg IV BID. - continue with zofran 4mg q 6 hours prn nausea. Admission and Anticipated Discharge Date Admission Date: March 02, 2023 Subjective Patient tells me that he is feeling much better today. He feels that over the weekend that stools were forming until he was given a bowel prep. he feels nausea has improved as well. He admits to doing better with oral intake. he denies any heartburn, abdominal pain, brbpr, or melena. hgb stable at 10.3. Physical Exam Constitutional: thin appearing Respiratory: normal respiratory effort, lungs clear to auscultation Cardiovascular: RRR, no murmur, no edema Gastrointestinal (Abdomen): normal bowel sounds, soft, nontender, no hepatosplenomegaly Skin: no rashes, warm and dry Psychiatric: Orientation: alert and oriented x 3 Affect: euthymic affect Results & Data Results & Data Vital Signs (Past 12 Hours) Vital Signs Temp Pulse Resp BP Pulse Ox O2 Del Method 03/06/23 07:27 97.9 F 54 L 18 99/60 L 100 Room Air PG Care Time/CCT Total # of Minutes Spent Total Time Spent with Patient: Total time spent is greater than 50% in coordination of care (as documented) at patient's floor/unit and/or counseling patient: Coding Level of Care Code 01795 SUB INP/OBS CARE 1/25MIN Diagnoses Diarrhea R19.[address] of the abdomen R93.5 Abnormal weight loss R63.4 Time Spent (min) 30
--- NOTE | 2023-03-06 14:54 | Infectious Disease Progress Nt ---
Date of Service March 06, 2023 No plan for inpatient colonoscopy given improvement Path is pending Assessment & Plan (1) Dysphagia: (2) Diarrhea: (3) Abnormal weight loss: (4) Lymphadenopathy: (5) Anemia: Plan 52 yo M with no significant PMH who presented on 03/02 with dysphagia, diarrhea, weight loss, lower abdominal pain, fatigue for the last month, with CT showing mild mucosal thickening throughout large and small bowel, mild thickening of distal esophagus, retroperitoneal, mesenteric, thoracic lymphadenopathy, raising concern for a lymphoproliferative disorder, Whipple's disease. On presentation, he was afebrile, VSS, WBC 10.5, HB 12.2, normal Cr and LFTs. 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 Denies fever, coughing, rash. S/p EGD 03/03 which showed mucosal nodule at gastroesophageal junction, normal stomach and duodenum. Biopsies sent for histology. tTG-IgA pending to evaluate for celiac disease. Micro: 03/02 BCx x2: NG Abx: Ceftriaxone 03/02 - present Problems: #Diarrhea #Dysphagia #Weight loss #Large/small bowel mucosal thickening #Lymphadenopathy #Anemia Recommendations: -Follow-up EGD biopsies for T. whipplei -Follow-up stool testing for infection: C diff, culture, O&P--> none sent -Can continue ceftriaxone for now, While Whipples is uncommon, he has had improvement on Ceftriaxone, Typical therapy includes 2 weeks of IV followed by oral regimen for a year. Saira Xavier MD Admission and Anticipated Discharge Date Admission Date: March 02, 2023 Subjective This patient recommendation is based on a telemedicine consult request which was completed asynchronously through chart review and information provided by the primary physician. The patient was not seen or examined today. The evaluation is consultative in nature and all patient care and treatment decisions can either be accepted or rejected by the patient's primary hospital-based treating physician using their own independent medical judgment for their patient. Time Spent Reviewing Chart: 31+ minutes Results & Data Vital Signs (Past 12 Hours) Vital Signs Temp Pulse Resp BP Pulse Ox O2 Del Method 03/06/23 07:27 36.6 C 54 L 18 99/60 L 100 Room Air Laboratory Results Laboratory Results - last 48 hr 03/05/23 03/05/23 03/05/23 06:36 06:36 06:36 WBC 5.22 RBC 3.79 L Hgb 10.5 L Hct 31.1 L MCV 82.1 MCH 27.7 MCHC 33.8 RDW Std Deviation 41.1 RDW Coeff of Kingsley 13.8 Plt Count 267 MPV 10.3 Immature Gran % (Auto) 1.3 Neut % (Auto) 50.0 Lymph % (Auto) 22.2 [place] % (Auto) 10.5 Eos % (Auto) 14.9 Baso % (Auto) 1.1 Neut # (Auto) 2.60 Lymph # (Auto) 1.16 L [place] # (Auto) 0.55 Eos # (Auto) 0.78 H Baso # (Auto) 0.06 Immature Gran # (Auto) 0.07 Sodium 136 Potassium 4.0 Chloride 105 Carbon Dioxide 27 Anion Gap 4 BUN 18 Creatinine 0.76 Est Cr Clr Drug Dosing 68.3 Est GFR ( Amer) 123.3 Est GFR (Non-Af Amer) 106.4 BUN/Creatinine Ratio 23.7 H Glucose 95 Calcium 8.2 L Magnesium 1.7 Cortisol AM Sample 11.80 03/06/23 03/06/23 05:53 05:53 WBC 7.80 RBC 3.76 L Hgb 10.3 L Hct 30.0 L MCV 79.8 L MCH 27.4 MCHC 34.3 RDW Std Deviation 39.0 RDW Coeff of Kingsley 13.5 Plt Count 315 MPV 10.2 Immature Gran % (Auto) 1.0 Neut % (Auto) 60.1 Lymph % (Auto) 19.1 [place] % (Auto) 6.7 Eos % (Auto) 12.3 Baso % (Auto) 0.8 Neut # (Auto) 4.69 Lymph # (Auto) 1.49 [place] # (Auto) 0.52 Eos # (Auto) 0.96 H Baso # (Auto) 0.06 Immature Gran # (Auto) 0.08 Sodium 134 L Potassium 4.1 Chloride 105 Carbon Dioxide 27 Anion Gap 2 L BUN 19 Creatinine 0.79 Est Cr Clr Drug Dosing 65.7 Est GFR ( Amer) 121.4 Est GFR (Non-Af Amer) 104.7 BUN/Creatinine Ratio 24.1 H Glucose 86 Calcium 8.4 L Magnesium 1.5 L Cortisol AM Sample
[2023-03-06] MEDS: MAGNESIUM SULFATE / D5W 1 GM/100 ML BAG IV SCH ×2 (17:05→20:21)
[2023-03-07 07:07] LABS: Basophils # (auto) 0.06 K/uL (0-0.2); Basophils % (auto) 0.6 %; Eosinophils # (auto) 0.98 K/uL (0-0.50); Eosinophils % (auto) 10.5 %; Hematocrit (blood only) 32.9 % (42.0-52.0); Hemoglobin 11.1 g/dl (14.0-18.0); Immature Granulocytes # (auto) 0.06 K/uL (0.01-0.20); Immature Granulocytes % (auto) 0.6 %; Lymphocytes # (auto) 1.34 K/uL (1.2-3.4); Lymphocytes % (auto) 14.4 %; Mean Corpuscular Hemoglobin 27.3 pg (25.0-34.0); Mean Corpuscular Hgb Conc 33.7 g/dL (32.0-36.0); Mean Corpuscular Volume 80.8 fL (80.0-100.0); Mean Platelet Volume 10.1 fL (9.4-12.4); Monocytes % (auto) 6.5 %; Neutrophils # (auto) 6.25 K/uL (1.40-6.50); Neutrophils % (auto) 67.4 %; Platelet Count 364 K/uL (130-400); RDW Coefficient of Variation 13.5 % (11.5-14.5); RDW Standard Deviation 39.8 fL (36.4-46.3); Red Blood Count 4.07 M/uL (4.70-6.10); White Blood Count 9.29 K/ul (4.8-10.8)
[2023-03-07 07:31] LABS: BUN Creatinine Ratio 22.4 (10-20); Calcium 8.4 mg/dl (8.6-10.3); Creatinine Clr Calc Pharmacy 68.3 ml/min; Est GFR (African American) 123.3 ml/min; Est GFR (Non-African American) 106.4 ml/min; Magnesium 1.9 mg/dl (1.7-2.4); Potassium 4.3 mmol/L (3.5-5.1)
--- NOTE | 2023-03-07 09:11 | 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 Note ---
Date of Service: March 07, 2023 Pathology returned from his EGD suggesting whipple disease. He has been feeling better since starting ceftriaxone therapy. He feels he has more energy. stools solid now. Discussed case with Dr. Mensah who helped advise on plan. - Will defer to ID on treatment for Whipple. Per ID note, suspect he will need two weeks of IV antibiotics and then a year of oral. - would recommend that he have a colonoscopy done as an outpatient given family history of CRC. It is reassuring that recent CEA was normal. Can be done in a few weeks once he is better recovered. - patient requested I contact his girlfriend Ana Silvestre ([phone]) however there was no answer when I called.
[2023-03-07] MEDS: cefTRIAXone SODIUM 2,000 MG in DEXTROSE 5% 50 ML IV SCH (09:14)
[2023-03-07] MEDS: PANTOprazole 40 MG in SYRINGE 0 ML IV SCH ×2 (09:15→20:27)
[2023-03-07] MEDS: IRON SUCROSE 200 MG in 0.9 % SODIUM CHLORIDE 100 ML IV SCH (10:05)
--- NOTE | 2023-03-07 12:53 | Dermatology Consultation ---
Date of Consultation March 07, 2023 Assessment & Plan (1) Neoplasm of unspecified behavior of bone, soft tissue, and skin: Neoplasm of uncertain behavior on the left baptism, left upper cutaneous lip, nasal dorsum - Likely SCC vs. BCC. - D/w patient that these are likely non-melanoma skin cancers. They are not related to his current diagnosis of Whipple's disease. They need to be biopsied to confirm diagnosis for definitive treatment plan. This can be done as an outpatient once his overall health is stabilized and he has been discharged from the hospital. Patient is agreeable. Please set up outpatient follow-up with dermatology at the time of discharge. Thank you for the consult. Call with any questions. 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 I have been consulted for evaluation of a few skin lesions on the face. They have been present for months, but they have increased in size slightly over time. They are sometimes sensitive. No bleeding. No prior treatment. He denies any prior history of skin cancer. There is a family history of unknown type of skin cancer in his father. He reports a history of sun exposure in the past while in the . He currently works at Work in [employer] in [employer]. He is concerned that his skin lesions are related to his Whipple's disease. No other complaints today. Allergies Allergy/AdvReac Type Severity Reaction Status Date / Time No Known Allergies Allergy Verified 03/03/23 11:36 Home Medications Medication Instructions Recorded Confirmed Type lkbscdiczhgm-iqikidho-piaewk tablet 1 tab PO DAILY 03/02/23 03/02/23 History Patient History Medical History (Updated 03/07/23 @ 12:49 by Keanu Hartman MD) Encounter for pre-operative examination Neoplasm of unspecified behavior of bone, soft tissue, and skin Family History Father Colorectal cancer Grandfather (Paternal) Colorectal cancer Uncle Colorectal cancer Uncle Colorectal cancer Uncle Colorectal cancer Social History Smoking Status: Former smoker Tobacco Type: Cigarettes Age Started Using Tobacco: 22; packs per day: 1; Cigarettes Per Day: 1PPD; Smoking End Date: LAST WEEK; Hx Alcohol Use: Yes Alcohol type: beer Hx Substance Use: Yes Last Used Substance Other:: LAST USED Monday02/25/23 Preferred Language: Central African 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 Ability: Effective Trimmer And Reinforcer Required: No Beliefs That Will Affect Care: None Current Living Situation: Alone Feels Safe at Home: Yes Safety Concerns: Feels Safe At This Time Assistive Devices: None Review of Systems Review of Systems: All systems reviewed & are unremarkable except as noted in HPI & below Constitutional: no fever and no chills Integumentary: as per Subjective / HPI Hematologic / Lymphatic: no easy bleeding and no easy bruising Physical Exam Physical Exam: General Appearance:Cachectic and in no acute distress Psych:Alert, Oriented and Appropriate Skin Type:2 Face: [id number] hyperkeratotic plaque on the left baptism; hyperkeratotic plaque on the nasal dorsum Eyelids/Ocular Mucosa: no abnormalities noted. Lips/Teeth/Gums: 12x8mm eroded, erythematous plaque with pearly border on the left upper cutaneous lip Results & Data Vital Signs (Past 12 Hours) Vital Signs Temp Pulse Resp BP Pulse Ox O2 Del Method 03/07/23 07:45 Room Air 03/07/23 08:20 36.5 C 77 18 95/57 L 96 Room Air PG Care Time/CCT Total # of Minutes Spent Total Time Spent with Patient: Total time spent is greater than 50% in coordination of care (as documented) at patient's floor/unit and/or counseling patient: Coding Level of Care Code 00704 IN/OBS CONSULT LVL 2,35M Diagnoses Neoplasm of unspecified behavior of bone, soft tissue, and skin D49.2
--- NOTE | 2023-03-07 17:15 | Infectious Disease Progress Nt ---
Date of Service March 07, 2023 Assessment & Plan (1) Dysphagia: (2) Diarrhea: (3) Abnormal weight loss: (4) Lymphadenopathy: (5) Anemia: Plan 52 yo M with no significant PMH who presented on 03/02 with dysphagia, diarrhea, weight loss, lower abdominal pain, fatigue for the last month, with CT showing mild mucosal thickening throughout large and small bowel, mild thickening of distal esophagus, retroperitoneal, mesenteric, thoracic lymphadenopathy, raising concern for a lymphoproliferative disorder, Whipple's disease. On presentation, he was afebrile, VSS, WBC 10.5, HB 12.2, normal Cr and LFTs. 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 Denies fever, coughing, rash. S/p EGD 03/03 which showed mucosal nodule at gastroesophageal junction, normal stomach and duodenum. Biopsies sent for histology. tTG-IgA pending to evaluate for celiac disease. Duodenal biopsy: diffuse staining with CD163, PAS and PASD consistent with whipples. Micro: 03/02 BCx x2: NG Abx: Ceftriaxone 03/02 - present Problems: #Diarrhea #Dysphagia #Weight loss #Large/small bowel mucosal thickening #Lymphadenopathy #Anemia Discussion: Whipples diagnosis based on duodenal biopsy will need to evaluate for CASHIER GAMBLING involvement. Patient will need T. whippleiPCR on blood specimens and CSF, will need a LP cell count diff/glucose/protein gram stain, culture, observation that PCR of the cerebrospinal fluid is often positive in patients without neurologic symptoms suggests that late CASHIER GAMBLING symptoms probably reflect progression of initially occult infection Recommendations: -Continue with Ceftriaxone, Typical therapy includes 2 weeks of IV followed by oral regimen for a year. Spoke with primary team. Saira Xavier MD Admission and Anticipated Discharge Date Admission Date: March 02, 2023 Subjective This patient recommendation is based on a telemedicine consult request which was completed asynchronously through chart review and information provided by the primary physician. The patient was not seen or examined today. The evaluation is consultative in nature and all patient care and treatment decisions can either be accepted or rejected by the patient's primary hospital-based treating physician using their own independent medical judgment for their patient. Time Spent Reviewing Chart: 31+ minutes Results & Data Vital Signs (Past 12 Hours) Vital Signs Temp Pulse Resp BP Pulse Ox O2 Del Method 05/23/23 14:19 36.6 C 84 18 91/53 L 94 Room Air 03/07/23 07:45 Room Air 03/07/23 08:20 36.5 C 77 18 95/57 L 96 Room Air
--- NOTE | 2023-03-07 21:32 | Hospitalist Progress Note ---
Date of Service March 07, 2023 Assessment & Plan (1) Weight loss: Plan: Konstantin Desir is a 52 year old male who presented to the ED after worsening weakness for the past month, worse over past two weeks. Recently w/ progressive dysphagia to even liquids, strong family history of colon ca. CEA level obtained and only 2.4 Reporting rapid weight loss, night sweats, progressive shortness of breath, weakness. Concerns for underlying malignancy given strong family history of such CTAP on admission w/ Mild mucosal thickening, could represent nonspecific enterocolitis. There is also retroperitoneal, mesenteric, and lower thoracic lymphadenopathy. This raises the possibility of a lymphoproliferative disorder or could represent a systemic process such as Whipple's disease given the small/large bowel mucosal thickening. Possible Whipple's disease noted, although rare --> On ceftriaxone to cover for Whipplei (diarrhea slowing since starting and will continue) --> ID consulted, f/u Monday Awaiting the biopsy results to look for T. whipplei LP will be ordered, patient has positive Whipple Disease. D/W ID GI consulted * s/p EGD on 03/03 w/ Dr Case which showed single 10mm mucosal nodule (biopsied) w/ localized distribution found at GEJ. Biopsy taken. Small hiatal hernia. * Bx of duodenum for celiac obtained * tTG-IgA pending to evaluate for celiac disease. Blood cultures pending -- NGTD Stool PCR, cdiff negative POSITIVE fecal occult blood --> holding heparin SQ for now, ambulation encouraged. No evidence for DVT. Hgb stable after lasix provided Iron panel w/ RENAE -- Venofer IV started while inpatient (day 4/5) PPI BID continued GI re-consulted this AM and stated they want to wait until after the path reports are back from EGD before proceeding with a colonoscopy Construction Consultant on consult Monitor results from endoscopy CM arranging outpt PCP for follow up. Needs new PCP. Also will need f/u derm for skin lesion, GI, heme/onc pending pathology Did place a derm consult since awaiting bx results and continuing with IV ceftriaxone Monitor labs on repeat (2) Anemia: Plan: iron panel checked -- iron/trans sat LOW --> started Venofer IV, continue while inpatient (day 3/5) B12/folate wnl Peripheral smear w/o neoplastic or hemolytic process TSH wnl Hgb 11--> 9.9 on repeat, and while fecal occult positive he did receive continuous IVF while NPO for scope and elevated BNP/effusions on imaging which have resolved w/ lasix and hgb stable at 10.5 Holding chemoproph given positive fecal occult blood. No evidence for DVT on exam, CT chest NEGATIVE for PE yesterday GI on consult Remains on PPI BID STRONG family hx colon ca, but could be esophageal/lung/skin possibly based on exam but CTAP findings warranting c-scope Spoke today with JOHNNY and they stated they want to wait until the results of the biopsy are back before proceeding with a colonoscopy. I spoke then with patient and his girlfriend Ana via the phone regarding this He has a VERY strong family history of colon ca. Interestingly his CEA level is normal however which raises suspicion for alternative primary source Monitor CBC (3) Dysphagia: Plan: 30 pack year history of smoking CT chest imaging w/ concerns for malignancy and will need f/u outpatient / possible pulm consultation and repeat imaging. NEGATIVE for DVT Speech consulted - diet modified Tolerating diet at present (4) Dyspnea: Plan: CT chest w/o pneumonia or volume overload. Did note nodules which will need f/u Given hypotension/tachycaria, EKG w/ sinus tachy/sinus arrythmia on admission w/o trop, CTA for PE obtained: CT chest for PE NEGATIVE (does note subtle groundglass densities with central lucency within the left lower lobe which measure up to 1.9 cm. 3-[address] follow-up recommended to exclude the possibility of a low-grade malignancy) -- can have pulm f/u arranged as well Suspect dyspnea multifactoral due to RENAE, hx smoking/possible underlying malignancy, pulm overload from IVF yesterday which has improved w/ dose lasix (na also normalized w/ such) Iron panel w/ significant iron deficiency -- ordered 200mg daily given low BPs and on day 3/5 currently. 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 peripheral smear ordered -- no evidence at present continues on ceftriaxone for abx, ID consulted as above (11) Abnormal CT of the abdomen: Plan: as above (12) Abnormal CT scan, chest: Plan: A few subtle bilateral lower lobe groundglass densities which contain central lucencies. Although not highly suggestive of malignancy does have raised suspcision on CTA chest obtained to r/o PE which was negative Will need outpt f/u Messaged CM navigator to help arrange for at discharge (13) Hyponatremia: Plan: Chest imaging w/ effusions/congestion, Lasix IV x 1 provided, improvement in breathing and Na level improved to 136 Currently Na 134, will repeat in AM TSH wnl Plan continued inpatient stay continue venofer IV, PPI BID continue IV ceftriaxone and wait for biopsy results CM helping to arrange for new PCP at d/c as well as Derm (skin lesion to L scalp/confucianism concerning for malignancy) as well as pulm for nodules concerning for low grade malignancy as well). Will need outpt GI f/u as well Admission and Anticipated Discharge Date Admission Date: March 02, 2023 Subjective 52 yo male reports feeling well. Review of Systems Review of Systems: All systems reviewed & are unremarkable except as noted in HPI & below Physical Exam Physical Exam: Constitutional: comfortable, lying in bed, + thin and + frail appearing Neck: trachea midline, no thyromegaly Cardiovascular: Rate/Rhythm: regular rate and regular rhythm Heart Sounds: normal S1, normal S2 and + murmur Extremities: normal capillary refill; no calf tenderness and no edema Skin: 10mm hard raised irregular boarder lesion tender to palpation Psychiatric: A+Ox3, euthymic affect Lymphatic: no cervical or axillary lymphadenopathy Results & Data Results & Data Vital Signs (Past 12 Hours) Vital Signs Temp Pulse Resp BP Pulse Ox O2 Del Method 03/07/23 20:05 36.8 C 42 L 16 94/57 L 97 Room Air 03/07/23 14:19 36.6 C 84 18 91/53 L 94 Room Air PG Care Time/CCT Total # of Minutes Spent Total Time Spent with Patient: Total time spent is greater than 50% in coordination of care (as documented) at patient's floor/unit and/or counseling patient: Coding Level of Care Code 13738 SUB INP/OBS CARE 3/50MIN Diagnoses Weight loss R63.4 Anemia D64.9 Dysphagia R13.10 Dyspnea R06.00 Diarrhea R19.7 Dark stools R19.5 Malnourished E46 Iron deficiency E61.1 Hypomagnesemia E83.42 Whipple's disease K90.[address] of the abdomen R93.[address] scan, chest R93.89 Hyponatremia E87.1 Time Spent (min) 50
[2023-03-08 08:24] LABS: Hematocrit (blood only) 32.1 % (42.0-52.0); Hemoglobin 10.8 g/dl (14.0-18.0); Mean Corpuscular Hemoglobin 27.9 pg (25.0-34.0); Mean Corpuscular Hgb Conc 33.6 g/dL (32.0-36.0); Mean Corpuscular Volume 82.9 fL (80.0-100.0); Mean Platelet Volume 10.1 fL (9.4-12.4); Platelet Count 358 K/uL (130-400); RDW Standard Deviation 41.3 fL (36.4-46.3); Red Blood Count 3.87 M/uL (4.70-6.10); White Blood Count 11.08 K/ul (4.8-10.8)
[2023-03-08 08:38] LABS: BUN Creatinine Ratio 18.5 (10-20); Calcium 8.6 mg/dl (8.6-10.3); Est GFR (African American) 120.1 ml/min; Est GFR (Non-African American) 103.6 ml/min; Potassium 4.3 mmol/L (3.5-5.1)
[2023-03-08 08:45] LABS: Total Protein CSF 35.2 mg/dl (15-45)
[2023-03-08 08:57] LABS: Appearance CSF Clear; CSF Count Tube # 3; CSF Xanthrochromic No xanthochromia; Color CSF Colorless
[2023-03-08] MEDS: cefTRIAXone SODIUM 2,000 MG in DEXTROSE 5% 50 ML IV SCH (08:57)
[2023-03-08] MEDS: PANTOprazole 40 MG in SYRINGE 0 ML IV SCH ×2 (08:57→21:59)
[2023-03-08] MEDS: IRON SUCROSE 200 MG in 0.9 % SODIUM CHLORIDE 100 ML IV SCH (09:50)
--- NOTE | 2023-03-08 09:55 | Infectious Disease Progress Nt ---
Date of Service March 08, 2023 24 hours GREG IV Ceftriaxone S/P Lumbar puncture today - Assessment & Plan (1) Dysphagia: (2) Diarrhea: (3) Abnormal weight loss: (4) Lymphadenopathy: (5) Anemia: Plan 52 yo M with no significant PMH who presented on 03/02 with dysphagia, diarrhea, weight loss, lower abdominal pain, fatigue for the last month, Symptoms; Chronic diarrhea, weight loss, diffuse arthralgias, decreased concentration/focus, night sweats CT showing mild mucosal thickening throughout large and small bowel, mild thickening of distal esophagus, retroperitoneal, mesenteric, thoracic lymphadenopathy, raising concern for a lymphoproliferative disorder, Whipple's disease. On presentation, he was afebrile, VSS, WBC 10.5, HB 12.2, normal Cr and LFTs. 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 Denies fever, coughing, rash. 2DE shows no valvular or heard dysfunction S/p EGD 03/03 which showed mucosal nodule at gastroesophageal junction, normal stomach and duodenum. Biopsies sent for histology. tTG-IgA pending to evaluate for celiac disease. Duodenal biopsy: diffuse staining with CD163, PAS and PASD consistent with whipples. Micro: 03/02 BCx x2: NG Abx: Ceftriaxone 03/02 - present Problems: #Diarrhea #Dysphagia #Weight loss #Large/small bowel mucosal thickening #Lymphadenopathy #Anemia Discussion: Whipples disease is a relatively rare diagnosis but is associated with bowel thickening, Lymphadenopathy, arthralgias, weight loss. Disease can affect GI tract, Lymph nodes, Heart and SUPERVISOR PAINTING. In addition to several other organs. Diagnosis based on duodenal biopsy and we will need to evaluate for SUPERVIS[employer] involvement s/p LP 03/08. Duodenal Biopsy results with PAS+ and CT imaging suggests Whipples disease is likely diagnosis. I am asking Pathology to see if they can run PCR test on tissue. We have ordered T. whippleiPCR on blood specimens and CSF. On 03/08 he underwent LP cell count diff/glucose/protein gram stain, culture, observation that PCR of the cerebrospinal fluid is often positive in patients without neurologic symptoms suggests that late SUPER[employer] symptoms probably reflect progression of initially occult infection Follow up: He will need Infectious diseases follow up in outpatient setting - Pending: CSF T whipplei PCR, Serum T whipplei PCR I have tried to contact Pathology several times to add T whipplei PCR to duodental tissue He will need a repeat CT Chest Abd Pelvis in 4 weeks Treatment includes at least 2 weeks of IV Ceftriaxone 2G IV daily (rather than BID dosing). Given we dont have follow up with ID and CSF labs adrian be pending Recommend extending Ceftriaxone for 4 weeks (this can be dcd sooner when results are abck and he has seen ID) after IV Ceftriaxone he needs to transitioned to oral abx such as Bactrim. Recommendations: -Continue with Ceftriaxone, Plan for 4 weeks at this time 03/06- 04/03/23 -Weekly CBCD, CMP -Follow T Whipplei PCR on serum, csf (I am trying to add PCR to duodenal tissue) At end of IV therapy he will need to be changed to po regimen, typically Bactrim for at least 1 year -Recommend repeat CT C/A/P in 1 month with IV contrast to follow LAD to ensure improvement and no underlying lymphoproliferative disorder I spoke with patient in depth of diagnosis as well as Primary, I have paged Pathology service re PCR of tissue Saira Xavier MD Infectious Diseases Saira Xavier MD Admission and Anticipated Discharge Date Admission Date: March 02, 2023 Subjective Subsequent visit was provided via telemedicine using two-way real-time interactive telecommunication between the patient and the telemedicine provider. For the duration of the visit, the provider was performing the assessment from a different facility than the patient. This includesuse of bluetooth stethoscope forauscultationperformed by the telepresenter that the telemedicine provider can hear if described in the physical exam. Web 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s Specialist contact information: Please call [facility] Call Center . (Phone Number For Physician Use Only) After establishing a telemedicine visit, patient was: Patient was verified with two unique identifiers, Patient/authorized rep acknowledged consent and understanding and Gave permission to continue telehealth session Time Spent with Patient: Subsequent => 35 min Patient is feeling better Results & Data Vital Signs (Past 12 Hours) Vital Signs Temp Pulse Resp BP Pulse Ox O2 Del Method 03/08/23 08:50 36.6 C 75 18 92/53 L 96 Room Air 03/08/23 08:20 36.8 C 80 18 95/61 L 94 Room Air 03/07/23 23:30 Room Air Laboratory Results Laboratory Results - last 48 hr 03/03/23 03/07/23 03/07/23 06:54 06:41 06:41 WBC 9.29 RBC 4.07 L Hgb 11.1 L Hct 32.9 L MCV 80.8 MCH 27.3 MCHC 33.7 RDW Std Deviation 39.8 RDW Coeff of Kingsley 13.5 Plt Count 364 MPV 10.1 Immature Gran % (Auto) 0.6 Neut % (Auto) 67.4 Lymph % (Auto) 14.4 [place] % (Auto) 6.5 Eos % (Auto) 10.5 Baso % (Auto) 0.6 Neut # (Auto) 6.25 Lymph # (Auto) 1.34 [place] # (Auto) 0.60 H Eos # (Auto) 0.98 H Baso # (Auto) 0.06 Immature Gran # (Auto) 0.06 Sodium 134 L Potassium 4.3 Chloride 101 Carbon Dioxide 30 Anion Gap 3 BUN 17 Creatinine 0.76 Est Cr Clr Drug Dosing 68.3 Est GFR ( Amer) 123.3 Est GFR (Non-Af Amer) 106.4 BUN/Creatinine Ratio 22.4 H Glucose 95 Calcium 8.4 L Magnesium 1.9 Fluid Comment CSF Appearance CSF Color Xanthrochromic CSF WBC CSF RBC CSF Cell Count Tube # CSF Chemistry Tube # CSF Glucose CSF Total Protein Tiss Transglutamin IgA <1.0 Miscellaneous Test 03/07/23 03/08/23 03/08/23 12:27 07:31 07:31 WBC 11.08 H RBC 3.87 L Hgb 10.8 L Hct 32.1 L MCV 82.9 MCH 27.9 MCHC 33.6 RDW Std Deviation 41.3 RDW Coeff of [place] 14.0 Plt Count 358 MPV 10.1 Immature Gran % (Auto) Neut % (Auto) Lymph % (Auto) [place] % (Auto) Eos % (Auto) Baso % (Auto) Neut # (Auto) Lymph # (Auto) [place] # (Auto) Eos # (Auto) Baso # (Auto) Immature Gran # (Auto) Sodium 137 Potassium 4.3 Chloride 104 Carbon Dioxide 30 Anion Gap 3 BUN 15 Creatinine 0.81 Est Cr Clr Drug Dosing 64.0 Est GFR ( Amer) 120.1 Est GFR (Non-Af Amer) 103.6 BUN/Creatinine Ratio 18.5 Glucose 85 95 Calcium 8.6 Magnesium Fluid Comment CSF Appearance CSF Color Xanthrochromic CSF WBC CSF RBC CSF Cell Count Tube # CSF Chemistry Tube # CSF Glucose CSF Total Protein Tiss Transglutamin IgA Miscellaneous Test 03/08/23 03/08/23 03/08/23 08:03 08:03 08:03 WBC RBC Hgb Hct MCV MCH MCHC RDW Std Deviation RDW Coeff of [place] Plt Count MPV Immature Gran % (Auto) Neut % (Auto) Lymph % (Auto) [place] % (Auto) Eos % (Auto) Baso % (Auto) Neut # (Auto) Lymph # (Auto) [place] # (Auto) Eos # (Auto) Baso # (Auto) Immature Gran # (Auto) Sodium Potassium Chloride Carbon Dioxide Anion Gap BUN Creatinine Est Cr Clr Drug Dosing Est GFR ( Amer) Est GFR (Non-Af Amer) BUN/Creatinine Ratio Glucose Calcium Magnesium Fluid Comment CSF Appearance Clear CSF Color Colorless Xanthrochromic No xanthochromia CSF WBC 1 CSF RBC 0 CSF Cell Count Tube # 3 CSF Chemistry Tube # 1 CSF Glucose 61 CSF Total Protein 35.2 Tiss Transglutamin IgA Miscellaneous Test Cancelled 03/08/23 08:03 WBC RBC Hgb Hct MCV MCH MCHC RDW Std Deviation RDW Coeff of [place] Plt Count MPV Immature Gran % (Auto) Neut % (Auto) Lymph % (Auto) [place] % (Auto) Eos % (Auto) Baso % (Auto) Neut # (Auto) Lymph # (Auto) [place] # (Auto) Eos # (Auto) Baso # (Auto) Immature Gran # (Auto) Sodium Potassium Chloride Carbon Dioxide Anion Gap BUN Creatinine Est Cr Clr Drug Dosing Est GFR ( Amer) Est GFR (Non-Af Amer) BUN/Creatinine Ratio Glucose Calcium Magnesium Fluid Comment CSF Appearance CSF Color Xanthrochromic CSF WBC CSF RBC CSF Cell Count Tube # CSF Chemistry Tube # CSF Glucose CSF Total Protein Cancelled Tiss Transglutamin IgA Miscellaneous Test Diagnostic Findings Barium Swallow X-Ray 03/06/23 09:22 FL barium swallow CLINICAL HISTORY: Assess for esophageal dysfunction COMPARISON STUDY: Chest CT March 04, 2023. FLUOROSCOPY TIME: 1.21 minutes FLUOROSCOPY IMAGES: 14. Ka,r: 7.87 mGy FINDINGS: Esophageal motility was within normal limits. No esophageal mass or stricture was identified. However, there was transient holdup of a 13 mm barium tablet within the midesophagus and persistent holdup within the distal esophagus/GE junction. The pill did not pass into the stomach during this examination with holdup at the distal cervical esophagus/GE junction. No hiatal hernia was identified. No reflux was elicited. IMPRESSION: 1. Normal esophageal motility. 2. Transient holdup of a 13 mm barium tablet within the midesophagus and persistent holdup of the tablet within the distal esophagus/GE junction. Although no definite stricture identified on the remainder of the images, GI consultation for consideration for endoscopy to exclude a stricture is recomm ended. ACT 112: Negative or not required by law. Electronically signed by: Gary Chau M.D. 03/06/2023 9:41 AM
--- NOTE | 2023-03-08 10:08 | Infectious Disease Consult ---
Date of Consultation March 08, 2023 Consultation Information This patient recommendation is based on a telemedicine consult request which was completed asynchronously through chart review and information provided by the primary physician. The patient was not seen or examined today. The evaluation is consultative in nature and all patient care and treatment decisions can either be accepted or rejected by the patient's primary hospital-based treating physician using their own independent medical judgment for their patient. Drop Pit Worker contact information: Please call [facility] Call Center . (Phone Number For Physician Use Only) History of Present Illness Attending Physician: Dov Martinez Allergies Allergy/AdvReac Type Severity Reaction Status Date / Time No Known Allergies Allergy Verified 03/03/23 11:36 Home Medications Medication Instructions Recorded Confirmed Type jvnzjuvumzcp-ewvtdiwl-drochv tablet 1 tab PO DAILY 03/02/23 03/02/23 History Patient History Medical History (Updated 03/07/23 @ 12:49 by Keanu Hartman MD) Encounter for pre-operative examination Neoplasm of unspecified behavior of bone, soft tissue, and skin Family History Father Colorectal cancer Grandfather (Paternal) Colorectal cancer Uncle Colorectal cancer Uncle Colorectal cancer Uncle Colorectal cancer Social History Smoking Status: Former smoker Tobacco Type: Cigarettes Age Started Using Tobacco: 22; packs per day: 1; Cigarettes Per Day: 1PPD; Smoking End Date: LAST WEEK; Hx Alcohol Use: Yes Alcohol type: beer Hx Substance Use: Yes Last Used Substance Other:: LAST USED Monday02/25/23 Preferred Language: Malay 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 Ability: Effective Consumer Safety Officer Required: No Beliefs That Will Affect Care: None Current Living Situation: Alone Feels Safe at Home: Yes Safety Concerns: Feels Safe At This Time Assistive Devices: None Results & Data Vital Signs (Past 12 Hours) Vital Signs Temp Pulse Resp BP Pulse Ox O2 Del Method 03/08/23 08:50 36.6 C 75 18 92/53 L 96 Room Air 03/08/23 08:20 36.8 C 80 18 95/61 L 94 Room Air 03/07/23 23:30 Room Air
--- NOTE | 2023-03-08 15:01 | Fluoroscopy Report ---
Lumbar puncture under fluoroscopy INDICATION: Evaluate for Whipple's disease PROCEDURE: Procedure and risks were explained. Informed consent was obtained. A final timeout was com pleted. The patient was placed prone on the fluoroscopic exam table. The lower lumbar region was prep ped and draped in sterile fashion. 1% buffered lidocaine was utilized for skin anesthesia. Utilizing fluoroscopic guidance, a 22-gauge spinal needle was advanced into the intrathecal space at the L4-5 disc space level. 2 spot images were obtained. Approximately 8 mL of clear CSF was removed a nd sent to the lab for analysis. The needle was removed and Band-Aid applied. The patient tolerated t he procedure well. Total fluoroscopy time was 25 seconds. DAP is 3.51 mcGy/m2. IMPRESSION: Lumbar puncture as above. Performed, dictated, and signed by Keanu Fowler PA-C; to be co-signed by Dr. Edin Sanabria. Electronically signed by: Edin Sanabria M.D. 03/08/2023 4:55 PM
--- NOTE | 2023-03-08 23:06 | Hospitalist Progress Note ---
Date of Service March 08, 2023 Assessment & Plan (1) Weight loss: Plan: Konstantin Desir is a 52 year old male who presented to the ED after worsening weakness for the past month, worse over past two weeks. Recently w/ progressive dysphagia to even liquids, strong family history of colon ca. CEA level obtained and only 2.4 Reporting rapid weight loss, night sweats, progressive shortness of breath, weakness. Concerns for underlying malignancy given strong family history of such CTAP on admission w/ Mild mucosal thickening, could represent nonspecific enterocolitis. There is also retroperitoneal, mesenteric, and lower thoracic lymphadenopathy. This raises the possibility of a lymphoproliferative disorder or could represent a systemic process such as Whipple's disease given the small/large bowel mucosal thickening. 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 Patient has positive Whipple Disease. D/W ID: will complete 4 weeks of IV ceftriaxone starting from 03/06. Last dose will be 04/02 US guided peripheral line is placed. set up with ID. GI consulted * s/p EGD on 03/03 w/ Dr Case which showed single 10mm mucosal nodule (biopsied) w/ localized distribution found at GE[facility]. Biopsy taken. Small hiatal hernia. * Bx of duodenum for celiac obtained * tTG-IgA pending to evaluate for celiac disease. Blood cultures pending -- NGTD Stool PCR, cdiff negative POSITIVE fecal occult blood --> holding heparin SQ for now, ambulation encouraged. No evidence for DVT. Hgb stable after lasix provided Iron panel w/ RENAE -- Venofer IV started while inpatient (day 4/5) PPI BID continued Plan for outpatient GI appointment, given his symptoms likely due to Whipple. Radio Message Router on consult Monitor results from endoscopy CM arranging outpt PCP for follow up. Needs new PCP. Also will need f/u derm for skin lesion, GI, heme/onc pending pathology Did place a derm consult since awaiting bx results and continuing with IV ceftriaxone (2) Anemia: Plan: iron panel checked -- iron/trans sat LOW --> started Venofer IV, continue while inpatient (day 3/5) B12/folate wnl Peripheral smear w/o neoplastic or hemolytic process TSH wnl Hgb 11--> 9.9 on repeat, and while fecal occult positive he did receive continuous IVF while NPO for scope and elevated BNP/effusions on imaging which have resolved w/ lasix and hgb stable at 10.5 Holding chemoproph given positive fecal occult blood. No evidence for DVT on exam, CT chest NEGATIVE for PE yesterday GI on consult Remains on PPI BID STRONG family hx colon ca Outpatient colonoscopy (3) Dysphagia: Plan: 30 pack year history of smoking CT chest imaging w/ concerns for malignancy and will need f/u outpatient / possible pulm consultation and repeat imaging. NEGATIVE for DVT Speech consulted - diet modified Tolerating diet at present (4) Dyspnea: Plan: CT chest w/o pneumonia or volume overload. Did note nodules which will need f/u Given hypotension/tachycaria, EKG w/ sinus tachy/sinus arrythmia on admission w/o trop, CTA for PE obtained: CT chest for PE NEGATIVE (does note subtle groundglass densities with central lucency within the left lower lobe which measure up to 1.9 cm. 3-[address] follow-up recommended to exclude the possibility of a low-grade malignancy) -- can have pulm f/u arranged as well Suspect dyspnea multifactoral due to RENAE, hx smoking/possible underlying malignancy, pulm overload from IVF yesterday which has improved w/ dose lasix (na also normalized w/ such) Iron panel w/ significant iron deficiency -- ordered 200mg daily given low BPs and on day 3/5 currently. Would complete course while inpatient ECHO w/o wma or significant valvular heart disease Monitor on exam, no further lasix at present (5) Diarrhea: Plan: progressive diarrhea, contributing to dehydration/weakness as well, also suspect malingancy vs whipples bicarb low on labs, likely from diarrheal losses -- improved w/ less diarrhea w/ abx treatment as above stool pcr/cdiff negative (6) Dark stools: Plan: check fecal occult as above -- POSITIVE holding off chemoprophylaxis at present given such continue PPI BID (7) Malnourished: Plan: psychiatry physician on consult, appreciate recs (8) Iron deficiency: Plan: on iron studies -- iron LOW 15, trans % sat 5--> venofer as above (9) Hypomagnesemia: Plan: 1.5 today replace with IV x 2 bags (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 peripheral smear ordered -- no evidence at present continues on ceftriaxone for abx, ID consulted as above (11) Abnormal CT of the abdomen: Plan: as above (12) Abnormal CT scan, chest: Plan: A few subtle bilateral lower lobe groundglass densities which contain central lucencies. Although not highly suggestive of malignancy does have raised suspcision on CTA chest obtained to r/o PE which was negative Will need outpt f/u Messaged CM navigator to help arrange for at discharge (13) Hyponatremia: Plan: Chest imaging w/ effusions/congestion, Lasix IV x 1 provided, improvement in breathing and Na level improved to 136 Currently Na 134, will repeat in AM TSH wnl Plan continued inpatient stay continue venofer IV, PPI BID continue IV ceftriaxone and wait for biopsy results CM helping to arrange for new PCP at d/c as well as Derm (skin lesion to L scalp/mormon concerning for malignancy) as well as pulm for nodules concerning for low grade malignancy as well). Will need outpt GI f/u as well Admission and Anticipated Discharge Date Admission Date: March 02, 2023 Subjective Patient reports feeling well, has no new complaints. Review of Systems Review of Systems: All systems reviewed & are unremarkable except as noted in HPI & below Physical Exam Physical Exam: Constitutional: comfortable, lying in bed, + thin and + frail appearing Neck: trachea midline, no thyromegaly Cardiovascular: Rate/Rhythm: regular rate and regular rhythm Heart Sounds: normal S1, normal S2 and + murmur Extremities: normal capillary refill; no calf tenderness and no edema Skin: 10mm hard raised irregular boarder lesion tender to palpation Psychiatric: A+Ox3, euthymic affect Lymphatic: no cervical or axillary lymphadenopathy Results & Data Results & Data Vital Signs (Past 12 Hours) Vital Signs Temp Pulse Resp BP Pulse Ox O2 Del Method 03/08/23 20:00 37.0 C 89 18 95/59 L 96 Room Air 03/08/23 15:46 36.6 C 84 18 105/70 94 Room Air PG Care Time/CCT Total # of Minutes Spent Total Time Spent with Patient: Total time spent is greater than 50% in coordination of care (as documented) at patient's floor/unit and/or counseling patient: Prolonged Care Time Prolonged Care Time: Yes Total Prolonged Care Time: 65 15:30 to 16:35 Coding Level of Care Code 77034 SUB INP/OBS CARE 3/50MIN (25 - SIGNIFICANT, SEPARATELY IDENTIFIABLE ) Diagnoses Weight loss R63.4 Anemia D64.9 Dysphagia R13.10 Dyspnea R06.00 Diarrhea R19.7 Dark stools R19.5 Malnourished E46 Iron deficiency E61.1 Hypomagnesemia E83.42 Whipple's disease K90.[address] of the abdomen R93.[address] scan, chest R93.89 Hyponatremia E87.1 Additional Codes Prolonged Care Time - Prolonged Care Time: Yes ([id number]) Time Spent (min) 65
[2023-03-08] MEDS ORDERED: ACETAMINOPHEN 325 MG TAB PO PRN (23:34)
--- NOTE | 2023-03-09 01:25 | Ultrasound Report ---
Exam(s): US VENOUS RIGHT UPPER EXTREMITY EXAM: US Duplex Right Upper Extremity Veins CLINICAL HISTORY: r/o DVT. TECHNIQUE: Real-time duplex ultrasound scan of the right upper extremity veins integrating B-mode two-dimensional vascular structure, Doppler spectral analysis, color flow Doppler imaging and compression. COMPARISON: No relevant prior studies available. FINDINGS: Deep veins: Unremarkable. No DVT in the internal jugular, subclavian, axillary, or brachial veins. The veins demonstrate normal color flow, are normally compressible, with normal phasic flow and/or augmentation response. Superficial veins: Eccentric echogenic material noted in the mid to distal right cephalic vein, presumably in the region of the reported venous access site. No thrombus in the visualized basilic vein. Soft tissues: No acute findings. IMPRESSION: 1. Eccentric echogenic material noted in the mid to distal right cephalic vein, presumably in the region of the reported venous access site. Findings are most consistent with superficial thrombosis of the distal right cephalic vein. 2. No evidence for deep vein thrombosis of the right upper extremity. Electronically signed by: Keanu Rendon MD 03/09/23 01:24 AM
--- NOTE | 2023-03-09 08:22 | Infectious Disease Progress Nt ---
Date of Service March 09, 2023 24 hours No acute events I spoke with Pathology and they will attempt to add T whipplei PCR to duodenal tissue Assessment & Plan (1) Dysphagia: (2) Diarrhea: (3) Abnormal weight loss: (4) Lymphadenopathy: (5) Anemia: Plan 52 yo M with no significant PMH who presented on 03/02 with dysphagia, diarrhea, weight loss, lower abdominal pain, fatigue for the last month, Symptoms; Chronic diarrhea, weight loss, diffuse arthralgias, decreased concentration/focus, night sweats CT showing mild mucosal thickening throughout large and small bowel, mild thickening of distal esophagus, retroperitoneal, mesenteric, thoracic lymphadenopathy, raising concern for a lymphoproliferative disorder, Whipple's disease. On presentation, he was afebrile, VSS, WBC 10.5, HB 12.2, normal Cr and LFTs. 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 Denies fever, coughing, rash. 2DE shows no valvular or heard dysfunction S/p EGD 03/03 which showed mucosal nodule at gastroesophageal junction, normal stomach and duodenum. Biopsies sent for histology. tTG-IgA pending to evaluate for celiac disease. Duodenal biopsy: diffuse staining with CD163, PAS and PASD consistent with whipples. Micro: 03/02 BCx x2: NG Abx: Ceftriaxone 03/02 - present Problems: #Diarrhea #Dysphagia #Weight loss #Large/small bowel mucosal thickening #Lymphadenopathy #Anemia Discussion: Whipples disease is a relatively rare diagnosis but is associated with bowel thickening, Lymphadenopathy, arthralgias, weight loss. Disease can affect GI tract, Lymph nodes, Heart and MATERIAL PLANNER. In addition to several other organs. Diagnosis based on duodenal biopsy and we will need to evaluate for MATERIAL PLANNER involvement s/p LP 03/08 with T whipplei PCR sent out to [facility] for evaluation. Duodenal Biopsy results with PAS+ and CT imaging suggests Whipples disease is likely diagnosis. I spoke with Pathology 03/08 and they will attemptto run PCR test on tissue. We have ordered T. whippleiPCR on blood specimens and CSF. On 03/08 he underwent LP cell count diff/glucose/protein gram stain, culture, observation that PCR of the cerebrospinal fluid is often positive in patients without neurologic symptoms suggests that late MATERIAL PLANNER symptoms probably reflect progression of initially occult infection Treatment typically involves 2-4 weeks of IV Ceftriaxone followed by oral regimen for at least 1 year. Follow up: He will need Infectious diseases follow up in outpatient setting - Pending: CSF T whipplei PCR, Serum T whipplei PCR He will need a repeat CT Chest Abd Pelvis in 4 weeks Treatment includes at least 2 weeks of IV Ceftriaxone 2G IV daily (rather than BID dosing). Given we dont have follow up with ID and CSF labs may be pending Recommend extending Ceftriaxone for 4 weeks (this can be dcd sooner when results are abck and he has seen ID) after IV Ceftriaxone he needs to transitioned to oral abx such as Bactrim. Recommendations: -Continue with Ceftriaxone, Plan for 4 weeks at this time 03/06- 04/03/23 -Weekly CBCD, CMP -Follow T Whipplei PCR on serum, csf (I am trying to add PCR to duodenal tissue) At end of IV therapy he will need to be changed to po regimen, typically Bactrim for at least 1 year -Recommend repeat CT C/A/P in 1 month with IV contrast to follow LAD to ensure improvement and no underlying lymphoproliferative disorder I spoke with patient in depth of diagnosis as well as Primary and answered patients questions Saira Xavier MD Infectious Diseases [facility], [facility] Admission and Anticipated Discharge Date Admission Date: March 02, 2023 Subjective This patient recommendation is based on a telemedicine consult request which was completed asynchronously through chart review and information provided by the primary physician. The patient was not seen or examined today. The evaluation is consultative in nature and all patient care and treatment decisions can either be accepted or rejected by the patient's primary hospital-based treating physician using their own independent medical judgment for their patient. Time Spent Reviewing Chart: 21 - 30 minutes Results & Data Vital Signs (Past 12 Hours) Vital Signs Temp Pulse Resp BP Pulse Ox O2 Del Method 03/09/23 07:20 Room Air 03/09/23 07:41 36.9 C 83 18 91/54 L 95 Room Air Laboratory Results Laboratory Results - last 48 hr 03/03/23 03/07/23 03/08/23 06:54 12:27 07:31 WBC 11.08 H RBC 3.87 L Hgb 10.8 L Hct 32.1 L MCV 82.9 MCH 27.9 MCHC 33.6 RDW Std Deviation 41.3 RDW Coeff of Kingsley 14.0 Plt Count 358 MPV 10.1 Sodium Potassium Chloride Carbon Dioxide Anion Gap BUN Creatinine Est Cr Clr Drug Dosing Est GFR ( Amer) Est GFR (Non-Af Amer) BUN/Creatinine Ratio Glucose 85 Calcium Fluid Comment CSF Appearance CSF Color Xanthrochromic CSF WBC CSF RBC CSF Cell Count Tube # CSF Chemistry Tube # CSF Glucose CSF Total Protein Tiss Transglutamin IgA <1.0 Miscellaneous Test 03/08/23 03/08/23 03/08/23 07:31 08:03 08:03 WBC RBC Hgb Hct MCV MCH MCHC RDW Std Deviation RDW Coeff of Kingsley Plt Count MPV Sodium 137 Potassium 4.3 Chloride 104 Carbon Dioxide 30 Anion Gap 3 BUN 15 Creatinine 0.81 Est Cr Clr Drug Dosing 64.0 Est GFR ( Amer) 120.1 Est GFR (Non-Af Amer) 103.6 BUN/Creatinine Ratio 18.5 Glucose 95 Calcium 8.6 Fluid Comment CSF Appearance Clear CSF Color Colorless Xanthrochromic No xanthochromia CSF WBC 1 CSF RBC 0 CSF Cell Count Tube # 3 CSF Chemistry Tube # 1 CSF Glucose 61 CSF Total Protein 35.2 Tiss Transglutamin IgA Miscellaneous Test 03/08/23 03/08/23 08:03 08:03 WBC RBC Hgb Hct MCV MCH MCHC RDW Std Deviation RDW Coeff of Kingsley Plt Count MPV Sodium Potassium Chloride Carbon Dioxide Anion Gap BUN Creatinine Est Cr Clr Drug Dosing Est GFR ( Amer) Est GFR (Non-Af Amer) BUN/Creatinine Ratio Glucose Calcium Fluid Comment CSF Appearance CSF Color Xanthrochromic CSF WBC CSF RBC CSF Cell Count Tube # CSF Chemistry Tube # CSF Glucose CSF Total Protein Cancelled Tiss Transglutamin IgA Miscellaneous Test Cancelled Microbiology 03/08/23 08:03 Cerebral Spinal Fluid Gram Stain - Final 03/02/23 17:49 Blood Aerobic Blood Culture - Final No growth in Aerobic bottle after 5 days. 03/02/23 17:49 Blood Anaerobic Blood Culture - Final No growth in Anaerobic bottle after 5 days. 03/02/23 17:49 Blood Aerobic Blood Culture - Final No growth in Aerobic bottle after 5 days. 03/02/23 17:49 Blood Anaerobic Blood Culture - Final No growth in Anaerobic bottle after 5 days. Diagnostic Findings Barium Swallow X-Ray 03/06/23 09:22 FL barium swallow CLINICAL HISTORY: Assess for esophageal dysfunction COMPARISON STUDY: Chest CT March 04, 2023. FLUOROSCOPY TIME: 1.21 minutes FLUOROSCOPY IMAGES: 14. Ka,r: 7.87 mGy FINDINGS: Esophageal motility was within normal limits. No esophageal mass or stricture was identified. However, there was transient holdup of a 13 mm barium tablet within the midesophagus and persistent holdup within the distal esophagus/GE junction. The pill did not pass into the stomach during this examination with holdup at the distal cervical esophagus/GE junction. No hiatal hernia was identified. No reflux was elicited. IMPRESSION: 1. Normal esophageal motility. 2. Transient holdup of a 13 mm barium tablet within the midesophagus and persistent holdup of the tablet within the distal esophagus/GE junction. Although no definite stricture identified on the remainder of the images, GI consultation for consideration for endoscopy to exclude a stricture is recommended. ACT 112: Negative or not required by law. Electronically signed by: Gary Chau M.D. 03/06/2023 9:41 AM Lumbar Puncture 03/08/23 07:45 Lumbar puncture under fluoroscopy INDICATION: Evaluate for Whipple's disease PROCEDURE: Procedure and risks were explained. Informed consent was obtained. A final timeout was completed. The patient was placed prone on the fluoroscopic exam table. The lower lumbar region was prepped and draped in sterile fashion. 1% buffered lidocaine was utilized for skin anesthesia. Utilizing fluoroscopic guidance, a 22-gauge spinal needle was advanced into the intrathecal space at the L4-5 disc space level. 2 spot images were obtained. Approximately 8 mL of clear CSF was removed and sent to the lab for analysis. The needle was removed and Band-Aid applied. The patient tolerated the procedure well. Total fluoroscopy time was 25 seconds. DAP is 3.51 mcGy/m2. IMPRESSION: Lumbar puncture as above. Performed, dictated, and signed by Keanu Fowler PA-C; to be co-signed by Dr. Edin Sanabria. Electronically signed by: Edin Sanabria M.D. 03/08/2023 4:55 PM Venous Doppler Study 03/08/23 23:29 Exam(s): US VENOUS RIGHT UPPER EXTREMITY EXAM: US Duplex Right Upper Extremity Veins CLINICAL HISTORY: r/o DVT. TECHNIQUE: Real-time duplex ultrasound scan of the right upper extremity veins integrating B-mode two-dimensional vascular structure, Doppler spectral analysis, color flow Doppler imaging and compression. COMPARISON: No relevant prior studies available. FINDINGS: Deep veins: Unremarkable. No DVT in the internal jugular, subclavian, axillary, or brachial veins. The veins demonstrate normal color flow, are normally compressible, with normal phasic flow and/or augmentation response. Superficial veins: Eccentric echogenic material noted in the mid to distal right cephalic vein, presumably in the region of the reported venous access site. No thrombus in the visualized basilic vein. Soft tissues: No acute findings. IMPRESSION: 1. Eccentric echogenic material noted in the mid to distal right cephalic vein, presumably in the region of the reported venous access site. Findings are most consistent with superficial thrombosis of the distal right cephalic vein. 2. No evidence for deep vein thrombosis of the right upper extremity. Electronically signed by: Keanu Rendon MD 03/09/23 01:24 AM
[2023-03-09] MEDS: PANTOprazole 40 MG in SYRINGE 0 ML IV SCH ×2 (09:22→19:47)
[2023-03-09] MEDS: cefTRIAXone SODIUM 2,000 MG in DEXTROSE 5% 50 ML IV SCH (09:22)
--- NOTE | 2023-03-09 15:52 | Hospitalist Progress Note ---
Date of Service March 09, 2023 Assessment & Plan (1) Weight loss: Plan: Acute/unstable with profound protein calorie malnutrition - Reporting rapid weight loss, night sweats, progressive shortness of breath, weakness. - CTAP on admission w/ Mild mucosal thickening, could represent nonspecific enterocolitis. There is also retroperitoneal, mesenteric, and lower thoracic lymphadenopathy. This raises the possibility of a lymphoproliferative disorder or could represent a systemic process such as Whipple's disease given the small/large bowel mucosal thickening. - Whipple's disease noted on EGD biopsy - On ceftriaxone 2g IV daily to cover for T. whipplei (diarrhea slowing since starting and will continue) - LP completed to exclude HEEL COVER SOFTENER involvement - ID consulted, literature recommends minimum of 2 weeks up to 4 weeks and ID supports but main concern is f/u with ID as outpatient & waiting for HEEL COVER SOFTENER PCR to come back followed by one year of oral abx (typically Bactrim) - ultrasound guided line is in place - Will need outpatient GI follow up - Gill Net Stringer on consult (2) Anemia: Plan: Unspecified chronicity - stable - iron panel checked -- iron/trans sat LOW, completed 5 days of IV Venofer - B12/folate wnl - Peripheral smear w/o neoplastic or hemolytic process - TSH wnl - GI on consult, completed EGD, will need o/p colo given strong fmhx of colon ca - Remains on PPI BID - Did have a positive fecal occult blood but H&H remains stable - no evidence of gross bleeding - avoiding chemoppx for DVT (3) Dysphagia: Plan: Acute/stable - 30 pack year history of smoking - CT chest imaging w/ concerns for malignancy and will need f/u outpatient / possible pulm consultation and repeat imaging. NEGATIVE for DVT - Speech consulted - diet modified, tolerating (4) Dyspnea: Plan: Acute/stable - resolved - Given hypotension/tachycaria, EKG w/ sinus tachy/sinus arrhythmia on admission w/o trop, CTA for PE obtained: - CT chest for PE NEGATIVE (does note subtle groundglass densities with central lucency within the left lower lobe which measure up to 1.9 cm. 3-[address] follow-up recommended to exclude the possibility of a low-grade malignancy) - can have pulm f/u arranged as well - Suspect dyspnea multifactoral due to RENAE, hx smoking/possible underlying malignancy, pulm overload from IVF yesterday which has improved w/ dose lasix (na also normalized w/ such) - ECHO w/o wma or significant valvular heart disease - Sats 95% on room air (5) Diarrhea: Plan: Acute/stable - low to moderate risk - progressive diarrhea, contributing to dehydration/weakness as well, also suspect malignancy vs whipples - bicarb low on labs, likely from diarrheal losses -- improved w/ less diarrhea w/ abx treatment as above - stool pcr/cdiff negative (6) Hypomagnesemia: Plan: Acute/stable - resolved - 1.5 on 03/06, replaced with 2g of Mag Sulfate - Repeat mag 1.9 on 03/07 Plan CM helping to arrange for new PCP at d/c as well as Derm (skin lesion to L scalp/bahai concerning for malignancy) as well as pulm for nodules concerning for low grade malignancy as well). Will need outpt GI f/u as well. There are multiple logistical issues regarding his discharge. His GF is unwilling to transport him daily to [facility] for Rocephin. Home health agency unwilling to accept due to insurance with exception of [facility] home health but will not accept until he is seen by a PCP. He is not old enough to be eligible for free or reduced public transport and is unwilling to pay for an uber. Will reach out to critical access hospital to determine if they would be agreeable to having the patient be taught in house how to hook himself up to IV antibiotic and he would only require transport to the hospital once a week for labs and dressing changes. MAHESH is working on this. Hopefully will also having an accepting ID physician and appt tomorrow. Hopeful to arrange dc home tomorrow. Plan d/w Dr. Villar. Admission and Anticipated Discharge Date Admission Date: March 02, 2023 Subjective Patient was seen on rounds this morning. He is resting comfortably in bed and offers no complaints. Denies n/v/d, f/c, headache, or gu symptoms. No abd pain, chest pain, or dyspnea. Physical Exam Physical Exam: GENERAL: 52 yo well-developed but thin/frail severely underweight M. AAOx4. NAD. LUNGS: Clear to auscultation bilaterally w/o w/r/r. CARDIOVASCULAR: Regular rate and rhythm. ABDOMEN: Soft, non-tender and non-distended. No palpable masses. BS normoactive x 4 quad. EXTREMITIES: No edema. Non-tender. Peripheral pulses +2/4. NEUROLOGIC: Nonfocal. CN II-XII grossly intact. Results & Data Results & Data Vital Signs (Past 12 Hours) Vital Signs Temp Pulse Resp BP BP Pulse Ox O2 Del Method 03/09/23 15:01 36.9 C 94 H 16 96/55 L 95 Room Air 03/09/23 07:20 Room Air 03/09/23 07:41 36.9 C 83 18 91/54 L 95 Room Air Laboratory Results 03/08/23 07:31 03/08/23 07:31 PG Care Time/CCT Total # of Minutes Spent Total Time Spent with Patient: Total time spent is greater than 50% in coordination of care (as documented) at patient's floor/unit and/or counseling patient: Coding Level of Care Code 36746 SUB INP/OBS CARE 2/35MIN Diagnoses Weight loss R63.4 Anemia D64.9 Dysphagia R13.10 Dyspnea R06.00 Diarrhea R19.7 Hypomagnesemia E83.42
[2023-03-10 07:36] LABS: Basophils % (auto) 0.8 %; Eosinophils # (auto) 0.86 K/uL (0-0.50); Eosinophils % (auto) 7.2 %; Immature Granulocytes # (auto) 0.18 K/uL (0.01-0.20); Immature Granulocytes % (auto) 1.5 %; Lymphocytes # (auto) 1.52 K/uL (1.2-3.4); Lymphocytes % (auto) 12.8 %; Mean Corpuscular Hemoglobin 27.6 pg (25.0-34.0); Mean Corpuscular Hgb Conc 33.3 g/dL (32.0-36.0); Mean Corpuscular Volume 82.9 fL (80.0-100.0); Mean Platelet Volume 9.8 fL (9.4-12.4); Monocytes # (auto) 0.92 K/uL (0.11-0.59); Monocytes % (auto) 7.7 %; Neutrophils # (auto) 8.32 K/uL (1.40-6.50); Platelet Count 410 K/uL (130-400); RDW Coefficient of Variation 14.5 % (11.5-14.5); RDW Standard Deviation 41.1 fL (36.4-46.3); Red Blood Count 3.62 M/uL (4.70-6.10)
[2023-03-10 08:02] LABS: BUN Creatinine Ratio 15.7 (10-20); Calcium 8.7 mg/dl (8.6-10.3); Creatinine Clr Calc Pharmacy 62.5 ml/min; Est GFR (African American) 118.9 ml/min; Est GFR (Non-African American) 102.6 ml/min; Magnesium 1.8 mg/dl (1.7-2.4); Potassium 4.1 mmol/L (3.5-5.1)
[2023-03-10] MEDS: PANTOprazole 40 MG in SYRINGE 0 ML IV SCH (08:26)
[2023-03-10] MEDS: cefTRIAXone SODIUM 2,000 MG in DEXTROSE 5% 50 ML IV SCH (08:59)
--- NOTE | 2023-03-10 16:19 | Discharge Summary ---
Date of Service March 10, 2023 Admission HPI Per Admitting Provider Konstantin Desir is a 52 year old male who presented to the ED after worsening weakness for the past month. He has no significant past medical history and is on no medications. He notes that for the past 1 year he has had gradually worsening difficulties with swallowing- it initially was only with carbohydrates/bread but has worsened to even liquids- can cause pain in her esophagus and can trigger vomiting in the past month. He has also had worsening diarrhea over the past 2-3 weeks and now his bowel movements are "dark brown/black" and "sludge" in consistency. He also has episodes of sharp pain from his rectum to his groin. He has had significant fatigue- is sleeping 10-14 hours per night and is unable to walk the 1 mile to his work without many breaks due to feeling winded. He has lost 20-25 pounds in the past month and has also had about 1 month of night sweats. He has no specific joint pain, but his arms and legs feel heavy with intermittent numbness and tingling. He denies chest pain, dizziness, headache. Mr. Desir has a home in [place] (where his family/kids live) but commutes to [employer] for work where he rents a room. He has been a 1ppd smoker for 30 years but stopped within the past week due to worsening shortness of breath. He was a "social drinker" and would have a beer on occasion but lost the taste for since his symptoms have worsened. He has significant past medical history in his paternal family with 4 uncles and his paternal grandfather dying of colon cancer in 40s-50s. The patient recalls he had a colonoscopy at [facility] in [place], [place] about 2 years ago but is unsure of the results. 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 His father also had significant exposure to Agent [place] in [place] prior to the patient's . Principal Diagnosis Whipple's Disease Discharge Exam GENERAL: 52 yo cachectic appearing/severely underweight M. AAOx4. NAD. LUNGS: Clear to auscultation bilaterally w/o w/r/r. CARDIOVASCULAR: Regular rate and rhythm. ABDOMEN: Soft, non-tender and non-distended. No palpable masses. BS normoactive x 4 quad. EXTREMITIES: No edema. Non-tender. Peripheral pulses +2/4. NEUROLOGIC: Nonfocal. Discharge Data Allergies Allergy/AdvReac Type Severity Reaction Status Date / Time No Known Allergies Allergy Verified 03/03/23 11:36 Consultations 03/02/23 17:43 ED Decision to Admit Stat 03/02/23 17:44 Consult Gastroenterology Routine 03/03/23 09:11 Consult Infectious Diseases Routine 03/06/23 07:00 Consult Gastroenterology Routine 03/06/23 14:52 Consult Dermatology Routine 03/07/23 19:14 Consult Gastroenterology Routine Procedures Performed Operation Date: 03/03/23 17:40 Actual Procedures p EGD Biopsy Cytology - Syed G. Case, DO Ordered Studies Abdomen/Pelvis CT 03/02/23 15:[address] WITH IV CONTRAST CT DOSE: 473.29 mGy.cm HISTORY: rapid weight loss, N/V, lower abd pain TECHNIQUE: Multiaxial CT images of the abdomen and pelvis were performed following the use of intravenous contrast. A dose lowering technique was utilized adhering to the principles of ALARA. COMPARISON STUDY: None. FINDINGS: The lung bases will be reported on the same day chest CT. No pneumoperitoneum. No pneumatosis. No pneumoperitoneum. No pneumatosis. Mild thickening of the distal esophagus. There is mild distal thoracic periaortic lymphadenopathy measuring up to 13 mm in short axis diameter. There is mild retroperitoneal lymphadenopathy. Multiple enlarged mesenteric lymph nodes with the dominant lymph node measuring 17 mm. The bladder is unremarkable. No pelvic free fluid. Normal caliber abdominal aorta. The main portal vein is patent. The liver, spleen, adrenal glands, gallbladder, and kidneys are unremarkable. No hydronephrosis. Multiple fluid-filled nondilated loops of large small bowel seen throughout the abdomen. Suspect mild mucosal thickening throughout the majority of the large and small bowel. No transition point to suggest a bowel obstruction. Normal appendix. IMPRESSION: 1. Mild mucosal thickening throughout the majority of the large and small bowel. This may represent a nonspecific enterocolitis. 2. There is also retroperitoneal, mesenteric, and lower thoracic lymphadenopathy. This raises the possibility of a lymphoproliferative disorder or could represent a systemic process such as Whipple's disease given the small/large bowel mucosal thickening. 3. The lung bases will be reported on the same day chest CT. 4. Additional findings as described above. ACT 112: Negative or not required by law. Electronically signed by: Abdelrahman Rod M.D. 03/02/2023 5:[address] 03/02/23 15:49 CT OF THE CHEST WITH IV CONTRAST CLINICAL HISTORY: dysphagia, rapid weight loss, eval for CA COMPARISON STUDY: No previous studies for comparison. TECHNIQUE: Following IV administration of 90 mL of Optiray, helical axial images of the chest were obtained. Sagittal and coronal reconstructions were viewed as well as maximal intensity projections on an independent 3-D workstation. Automated exposure control was utilized for the study. A dose lowering technique was utilized adhering to the principles of ALARA. FINDINGS: There are prominent retrocrural lymph nodes. Index right retrocrural/paravertebral lymph node on image 211 of 245 measures 1.3 x 0.9 cm. There are also prominent supraclavicular and axillary lymph nodes. None of these are pathologically enlarged. Mesenteric lymphadenopathy is depicted on the CT of the abdomen and pelvis which will be reported separately. Size of the heart is normal. There is no pericardial effusion. No pneumothorax or pleural effusion. Mild upper lobe predominant emphysema is present. There are a few bilateral lower lobes subtle groundglass opacities that measure up to 2.2 cm. These contain central lucencies. No suspicious lesions within the bony thorax are noted. IMPRESSION: 1. Prominent hypodense retrocrural lymph nodes. These are nonspecific. Mesenteric lymphadenopathy is depicted on the CT of the abdomen and pelvis. Please see that report for further description. 2. A few subtle bilateral lower lobe groundglass densities which contain central lucencies. Although not highly suggestive of malignancy, these are nonspecific and a short-term follow-up chest CT in 3 months is recommended. 3. Mild emphysema. ACT 112: Negative or not required by law. Electronically signed by: Gary Chau M.D. 03/02/2023 5:08 PM Chest CTA 03/04/23 13:06 CHEST CTA for PULMONARY ARTERIES CT DOSE: 272.86 mGy.cm HISTORY: Atypical chest pain. TECHNIQUE: Multiaxial CT images of the chest were performed following the intravenous administration of contrast to evaluate the pulmonary arteries. Maximal intensity projection images were also obtained. A dose lowering technique was utilized adhering to the principles of ALARA. COMPARISON STUDY: Chest CT 03/02/2023. FINDINGS: Normal caliber thoracic aorta with no evidence for a dissection. No filling defects within the pulmonary arteries to suggest a pulmonary embolus. No acute fractures identified. No suspicious lytic or blastic osseous lesions. The central airways are patent. No pneumothorax. Subtle groundglass densities with central lucency within the left lower lobe measuring up to 1.9 cm on images 90 and 98 are again noted. Interval development of trace bilateral pleural effusions. Patchy densities within the lungs posteriorly favor subsegmental atelectasis. No evidence for pulmonary edema. There is mild emphysema. Redemonstration of the low density mildly enlarged retrocrural lymph nodes. This is similar to the prior study. The thyroid gland enhances normally. There are multiple prominent axillary lymph nodes, unchanged. No hilar lymphadenopathy. The heart is normal in size. No pericardial effusion. IMPRESSION: 1. No evidence for a pulmonary embolus. 2. Interval development of trace bilateral pleural effusions. 3. Subtle groundglass densities with central lucency within the left lower lobe which measure up to 1.9 cm. 3-[address] follow-up recommended to exclude the possibility of a low-grade malignancy. 4. Mild emphysema. 5. Mildly enlarged hypodense retrocrural lymph nodes again noted. ACT 112: Negative or not required by law. Electronically signed by: Abdelrahman Rod M.D. 03/04/2023 3:44 PM Barium Swallow X-Ray 03/06/23 09:22 FL barium swallow CLINICAL HISTORY: Assess for esophageal dysfunction COMPARISON STUDY: Chest CT March 04, 2023. FLUOROSCOPY TIME: 1.21 minutes FLUOROSCOPY IMAGES: 14. Ka,r: 7.87 mGy FINDINGS: Esophageal motility was within normal limits. No esophageal mass or stricture was identified. However, there was transient holdup of a 13 mm barium tablet within the midesophagus and persistent holdup within the distal e sophagus/GE junction. The pill did not pass into the stomach during this examination with holdup at the distal cervical esophagus/GE junction. No hiatal hernia was identified. No reflux was elicited. IMPRESSION: 1. Normal esophageal motility. 2. Transient holdup of a 13 mm barium tablet within the midesophagus and persistent holdup of the tablet within the distal esophagus/GE junction. Alth ough no definite stricture identified on the remainder of the images, GI consultation for consideration for endoscopy to exclude a stricture is recommended. ACT 112: Negative or not required by law. Electronically signed by: Gary Chau M.D. 03/06/2023 9:41 AM Lumbar Puncture 03/08/23 07:45 Lumbar puncture under fluoroscopy INDICATION: Evaluate for Whipple's disease PROCEDURE: Procedure and risks were explained. Informed consent was obtained. A final timeout was completed. The patient was placed prone on the fluoroscopic exam table. The lower lumbar region was prepped and draped in sterile fashion. 1% buffered lidocaine was utilized for skin anesthesia. Utilizing fluoroscopic guidance, a 22-gauge spinal needle was advanced into the intrathecal space at the L4-5 disc space level. 2 spot images were obtained. Approximately 8 mL of clear CSF was removed and sent to the lab for analysis. The needle was removed and Band-Aid applied. The patient tolerated the procedure well. Total fluoroscopy time was 25 seconds. DAP is 3.51 mcGy/m2. IMPRESSION: Lumbar puncture as above. Performed, dictated, and signed by Keanu Fowler PA-C; to be co-signed by Dr. Edin Sanabria. Electronically signed by: Edin Sanabria M.D. 03/08/2023 4:55 PM Venous Doppler Study 03/08/23 23:29 Exam(s): US VENOUS RIGHT UPPER EXTREMITY EXAM: US Duplex Right Upper Extremity Veins CLINICAL HISTORY: r/o DVT. TECHNIQUE: Real-time duplex ultrasound scan of the right upper extremity veins integrating B-mode two-dimensional vascular structure, Doppler spectral analysis, color flow Doppler imaging and compression. COMPARISON: No relevant prior studies available. FINDINGS: Deep veins: Unremarkable. No DVT in the internal jugular, subclavian, axillary, or brachial veins. The veins demonstrate normal color flow, are normally compressible, with normal phasic flow and/or augmentation response. Superficial veins: Eccentric echogenic material noted in the mid to distal right cephalic vein, presumably in the region of the reported venous access site. No thrombus in the visualized basilic vein. Soft tissues: No acute findings. IMPRESSION: 1. Eccentric echogenic material noted in the mid to distal right cephalic vein, presumably in the region of the reported venous access site. Findings are most consistent with superficial thrombosis of the distal right cephalic vein. 2. No evidence for deep vein thrombosis of the right upper extremity. Electronically signed by: Keanu Rendon MD 03/09/23 01:24 AM Hospital Course (1) Weight loss: Acute/unstable with profound protein calorie malnutrition - Reporting rapid weight loss, night sweats, progressive shortness of breath, weakness. - CTAP on admission w/ Mild mucosal thickening, could represent nonspecific enterocolitis. There is also retroperitoneal, mesenteric, and lower thoracic lymphadenopathy. This raises the possibility of a lymphoproliferative disorder or could represent a systemic process such as Whipple's disease given the small/large bowel mucosal thickening. - Whipple's disease noted on EGD biopsy - On ceftriaxone 2g IV daily to cover for T. whipplei (diarrhea slowing since starting and will continue) - LP completed to exclude BLIND HOOKER involvement - ID consulted, literature recommends minimum of 2 weeks up to 4 weeks and ID supports but main concern is f/u with ID as outpatient & waiting for BL[facility] HOOKER PCR to come back followed by one year of oral abx (typically Bactrim) - ultrasound guided line is in place - Will follow up closely with PCP, scheduled appt on 03/14 who will monitor weekly labs and also f/u on the CSF PCR for t. whipplei which will dictate longer duration of IV abx therapy (2) Anemia: Unspecified chronicity - stable - iron panel checked -- iron/trans sat LOW, completed 5 days of IV Venofer - B12/folate wnl - Peripheral smear w/o neoplastic or hemolytic process - TSH wnl - GI on consult, completed EGD, will need o/p colo given strong fmhx of colon ca - Remains on PPI BID - Did have a positive fecal occult blood but H&H remains stable - no evidence of gross bleeding (3) Dysphagia: Acute/stable - 30 pack year history of smoking - CT chest imaging w/ concerns for malignancy and will need f/u outpatient - Speech consulted - diet modified simply as "easy to chew" would continue this at home (4) Dyspnea: Acute/stable - resolved - Given hypotension/tachycaria, EKG w/ sinus tachy/sinus arrhythmia on admission w/o trop, CTA for PE obtained: - CT chest for PE NEGATIVE (does note subtle groundglass densities with central lucency within the left lower lobe which measure up to 1.9 cm. 3-[address] follow-up recommended to exclude the possibility of a low-grade malignancy) - can have pulm f/u arranged as well - Suspect dyspnea multifactoral due to RENAE, hx smoking/possible underlying malignancy, pulm overload from IVF yesterday which has improved w/ dose lasix (na also normalized w/ such) - ECHO w/o wma or significant valvular heart disease - Sats 95% on room air (5) Diarrhea: Acute/stable - low to moderate risk - progressive diarrhea, contributing to dehydration/weakness as well, also suspect malignancy vs whipples - bicarb low on labs, likely from diarrheal losses -- improved w/ less diarrhea w/ abx treatment as above - stool pcr/cdiff negative (6) Hypomagnesemia: Acute/stable - resolved - 1.5 on 03/06, replaced with 2g of Mag Sulfate - Repeat mag 1.9 on 03/07 Plan Patient has an appointment scheduled with new PCP, Dr. Greenfield with [facility] on Wednesday 03/14. GF is adamant that they stay with [facility] providers. Subsequently, since he is becoming established with [facility] PCP, will leave to her discretion regarding pulmonology referral and GI. Patient received teaching regarding administering self IV infusions of Rocephin and feels comfortable doing so. [facility] to deliver IV abx and supplies to patient's home either this evening or tomorrow. He will come to [facility] weekly for labs and IV dressing changes. He is medically and hemodynamically stable for discharge home today. Plan has been d/w Dr. Villar who is in agreement with aforementioned. Total Time Total Time Spent Total Time Spent (In Minutes): 45 minutes Discharge Plan Discharge Items Patient Disposition: Home - Self-Care Reason For Visit: WEAKNESS Discharge Diagnosis: whipple disease Activity: Resume your previous activity Non-emergency contact: Primary Care Provider Call non-emergency contact if: you have any medication questions Follow-up/Referrals: Nhi Greenfield MD [Outside Practitioners] - 03/14/23 11:00 am (Please arrive 15 minutes prior to appointment time. Please bring ID and insurance cards) Keanu Hartman MD [Physician] - (Dermatology office is aware of appointment need- They will reach out directly to you to schedule. If you do not hear anything by MondayMarch 14 please call the office directly. ) Deejay Coffman MD [Physician] - (Office will reach out to you to schedule. Also if you don't hear anything by March 14 please call the office) PCP,NO [Primary Care Provider] - Diet: Regular Addtl Attending Provider Instructions: You were hospitalized due to weakness with weight loss and diarrhea. You were found to have a rare disorder called Whipple disease which is a rare bacterial infection that most often affects your joints and digestive system. In order to appropriately treat this, you will require 2 weeks up to 4 weeks of IV Rocephin which is an antibiotic to eradicate the bacteria that is causing your symptoms. The total duration will be dependent on labs and at the discretion of your primary care physician. You will need to keep your weekly appointments at [facility] at [facility] to change the dressing on/around your IV as well as obtain lab work which will be faxed for monitoring to your primary care provider's office. Please keep your scheduled appointment with Dr. Greenfield on 03/14/23 as scheduled. Failure to show up to this appointment could alter your current treatment course. Please keep your appointment as scheduled with Dr. Coffman from the [facility] Infectious Disease team. You will be followed along closely by their group. Following completion of your IV antibiotics, you will be placed on oral antibiotics for a minimum of one year to suppress recurrent bacterial growth. Compliance to these medications is of the utmost importance. If you have any questions or concerns following your discharge from the hospital, please call the nonemergency number listed on your discharge paperwork. In the event of a medical emergency, call 911. Pending Studies at Discharge: No Stand-Alone Forms: My [facility], Smoking Cessation Medications and DC Order Prescriptions: New ceftriaxone 2 gram recon soln 2 g IV DAILY Qty: 10 0RF Rx Instructions: x2-4 weeks. Complete duration will be at discretion of primary care. Continued Centrum Silver Tablet 1 tab PO DAILY Discharge Orders: Discharge Order (Routine); Ordered 03/10/23 Ordered By: Eve Castillo Admission Data Admit Date/Time: 03/02/23 19:38 Attending Provider: Stu Villar Admit Provider: Jenny Lutz Primary Care Provider: PCP,NO Other Providers: Bao Aragon ; Eligio Mensah ; Charlene Olivarez ; Ramiro Stallworth ; Marely Garcia ; Ashlee De Los Santos ; Lori Cortez ; Saira Xavier ; Sarah Causey ; Iva Moyer ; Angela Cote ; Syed Ayala ; Deb Jacobs ; Keanu Hartman ; Juan A Peraza ; Rema Dillon ; Hallie Redd ; Berta Galvan ; Patti Hansen ; Jamal Loera ; Kaya Whitfield ; Beatris Lujan ; Marko Avila ; Hanh Casas ; Denice Sanchez ; Darling Pulliam ; Alicia Lara ; Luz Palmer ; Sj Coyle ; Srinivas Thompson ; Catherine Cyr ; Lance Ybarra Jr ; [facility] ; [facility] Other Interventions: Discharge Summary Assessment (RN) Last Done: 03/03/23 13:37 Coding Level of Care Code 51411 INP/OBS DISCH >30 MIN Diagnoses Weight loss R63.4 Anemia D64.9 Dysphagia R13.10 Dyspnea R06.00 Diarrhea R19.7 Hypomagnesemia E83.42
--- NOTE | 2023-03-11 06:40 | Coding Query ---
MALNUTRITION To promote full compliance with coding requirements relating to patient care, physician participation is requested in all cases of rubber insulator uncertainty. Please assist us with the question(s) below: Please place an X within the parenthesis (x). If other, please document: "Malnutrition" is documented in this record. If possible, please check the box that provides a more specific diagnosis: ( ) Mild malnutrition ( xx) Moderate malnutrition ( ) Severe malnutrition ( ) Protein malnutrition (kwashiorkor) ( ) Severe protein calorie malnutrition ( ) Protein calorie malnutrition, unspecified ( ) Other (please specify): Was this diagnosis present on admission? Please place an X within the parenthesis (x). ( ) Present on admission ( ) Not present on admission ( ) Unable to be clinically determined Thank you RAGHU Valle [facility]
== END 2023-03-10 17:55 | disposition home or self-care (01) | DRG 394 ==
LOC: ED 14:59 → 3N 19:38 → SUATTDRO 19:38 → 3N 21:02

== ENCOUNTER 2023-04-04 16:42 | Inpatient (IN) ==
[2023-04-04 18:05] LABS: Albumin Globulin Ratio 0.7 (0.9-2); Albumin Level 3.8 gm/dl (3.4-5.0); BUN Creatinine Ratio 19.4 (10-20); Bilirubin,Total 0.3 mg/dl (0.2-1.0); Calcium 9.7 mg/dl (8.6-10.3); Creatinine Clr Calc Pharmacy 22.5 ml/min; Est GFR (African American) 38.6 ml/min; Est GFR (Non-African American) 33.3 ml/min; Globulin 5.6 gm/dl (2.5-4.0); Potassium 3.3 mmol/L (3.5-5.1); Total Protein 9.4 gm/dl (6.0-8.3)
[2023-04-04 18:16] LABS: Hematocrit (blood only) 38.7 % (42.0-52.0); Hemoglobin 13.3 g/dl (14.0-18.0); Mean Corpuscular Hemoglobin 28.5 pg (25.0-34.0); Mean Corpuscular Hgb Conc 34.4 g/dL (32.0-36.0); Mean Corpuscular Volume 82.9 fL (80.0-100.0); Platelet Count 392 K/uL (130-400); RDW Coefficient of Variation 16.4 % (11.5-14.5); RDW Standard Deviation 49.5 fL (36.4-46.3); Red Blood Count 4.67 M/uL (4.70-6.10)
[2023-04-04 18:17] LABS: Basophils # (auto) 0.11 K/uL (0-0.2); Basophils % (auto) 0.4 %; Immature Granulocytes # (auto) 0.52 K/uL (0.01-0.20); Immature Granulocytes % (auto) 1.7 %; Lymphocytes # (auto) 0.93 K/uL (1.2-3.4); Monocytes # (auto) 1.27 K/uL (0.11-0.59); Monocytes % (auto) 4.1 %; Neutrophils # (auto) 28.17 K/uL (1.40-6.50); Neutrophils % (auto) 90.8 %
[2023-04-04] MEDS ORDERED: SODIUM CHLORIDE 0.9% 1000ML 2,000 ML IV ONE (18:19)
[2023-04-04] MEDS ORDERED: PIPERACILLIN/TAZOBACTAM 4.5 GM/120 ML BAG IV ONE (18:26)
[2023-04-04] MEDS ORDERED: ONDANSETRON INJ 2 MG/ML 2 ML VIAL IV STA (18:26)
[2023-04-04] MEDS ORDERED: fentaNYL citrate PF 100 MCG/2 ML VIAL IV STA (18:29)
--- NOTE | 2023-04-04 18:34 | Emergency Department Note ---
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 Patient spent approximately 8 days in the hospital was receiving IV fluids had a GI consult and was discharged home past few days he has Been complaining of upper abdominal pain and a sore throat occasional left rib pain and decreased p.o. intake. Patient also states diarrhea patient denies fever. Patient states that he is losing weight rapidly. Patient's is at bedside and is very concerned due to the fact that she feels that he was dehydrated and is worse than he was last week. Home Medications Medication Instructions Recorded Confirmed Type [id number]-dklxxbnw-[id number] tablet 1 tab PO DAILY 03/02/23 04/04/23 History ceftriaxone 2 gram intravenous 2 g IV DAILY #10 ea 03/10/23 04/04/23 Rx solution sodium sul 1.479 gram-potas ch See Rx Instructions PO .COMPLEX 03/16/23 04/04/23 Rx 0.188 gram-magnes sul 0.225 gram #24 tabs tablet (Sutab) omeprazole 20 mg capsule,delayed 20 mg PO DAILYBB 04/04/23 04/04/23 History release sulfamethoxazole 800 1 tab PO AMHS 04/04/23 04/04/23 History mg-trimethoprim 160 mg tablet Allergies Allergy/AdvReac Type Severity Reaction Status Date / Time No Known Allergies Allergy Verified 03/16/23 11:11 Past Med/Surg History Medical History Bipolar 1 disorder Encounter for pre-operative examination Neoplasm of unspecified behavior of bone, soft tissue, and skin Surgical History No history of previous surgery Family History Father Colorectal cancer Grandfather (Paternal) Colorectal cancer Uncle Colorectal cancer Uncle Colorectal cancer Uncle Colorectal cancer Social History Smoking Status: Former smoker Tobacco Type: Cigarettes Age Started Using Tobacco: 22; packs per day: 1; Cigarettes Per Day: 1PPD; Hx Alcohol Use: Yes Alcohol type: beer Hx Substance Use: Yes Last Used Substance Other:: LAST USED Monday02/25/23 Preferred Language: Argentine 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 Ability: Effective 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 Beliefs That Will Affect Care: None Current Living Situation: Alone Feels Safe at Home: Yes Assistive Devices: None Review of Systems A total of 10 systems reviewed and were otherwise negative Constitutional: no fever Respiratory: no cough Gastrointestinal: + nausea, + vomiting and + diarrhea/loose stools Musculoskeletal: + muscle weakness; no myalgia Physical Exam Vital Signs Vital Signs - 24 hr 04/04/23 16:52 04/04/23 18:20 04/04/23 19:00 Temperature 36.3 C L Temperature Source Temporal Artery Scan Pulse Rate 110 H 83 82 Pulse Rate from SpO2 Sensor 82 Respiratory Rate 18 23 Respiratory Effort / Characteristics Non-Labored Blood Pressure 106/72 102/67 Blood Pressure Mean 83 78 Pulse Oximetry 98 99 Oxygen Delivery Method Room Air Room Air Sepsis Recent Fever Within 48 Hours No Sepsis New/Unexplained Change in Mental Status N/A Sepsis Action Taken by Nursing No Action Required GENERAL: Patient is awake alert; appears very cachectic EYES: The conjunctivae are clear. The pupils are round and reactive. EARS, NOSE, MOUTH AND THROAT: The nose is without any evidence of any deformity. Mucous membranes are moist. Tongue is midline. Oropharynx mild uvula edema NECK: The neck is nontender and supple. No meningismus RESPIRATORY: Normal respiratory effort is noted there is no evidence of wheezing rhonchi or rales CARDIOVASCULAR: Regular rate and rhythm noted there no murmurs rubs or gallops normal S1 normal S2. GASTROINTESTINAL: The abdomen is soft. Abdomen is tenderness in the midepigastrium; decreased bowel sounds BACK: No midline tenderness or or step-off noted range of motion in flexion extension as well as rotation no signs of muscle spasm noted MUSCULOSKELETAL/EXTREMITIES: There is no evidence of gross deformity full range of motion is noted in the hips and shoulders. SKIN: There is no obvious evidence of any rash. There are no petechiae, pallor or cyanosis noted. Very cachectic NEUROLOGIC: Patient is awake alert and oriented x3 strength is symmetric Course Reevaluation(s) Reevaluation #1: Patient was started on IV fluids IV Zofran IV opiates, patient had a CT, patient is dehydrated has new LISS hyponatremia and leukocytosis Time: 19:28 Consultations [facility] #1: [facility] Time: : Administered Medications Discontinued Medications Fentanyl Citrate (Fentanyl Citrate Pf 100 Mcg/2 Ml Vial) 50 mcg IV NOW STA Stop: 04/04/23 18:30 Last Admin: 04/04/23 19:15 Dose: 50 mcg Documented By: CLINTON Sodium Chloride (Nss 1000ml) 2,000 mls @ 999 mls/hr IV .Q2H1M ONE Stop: 04/04/23 20:19 Last Admin: 04/04/23 19:16 Dose: 999 mls/hr Documented By: CLINTON Piperacillin Sod/Tazobactam Sod (Zosyn) 4.5 gm in 120 mls @ 240 mls/hr IV NOW ONE Stop: 04/04/23 18:55 Last Admin: 04/04/23 19:16 Dose: 240 mls/hr Documented By: CLINTON Ondansetron HCl (Ondansetron Inj 2 Mg/Ml 2 Ml Vial) 4 mg IV NOW STA Stop: 04/04/23 18:27 Last Admin: 04/04/23 18:55 Dose: 4 mg Documented By: CLINTON Critical Care Time Critical Care Time: Yes Total Critical Care Time: 35 I have personally spent greater than 35 minutes of critical care time in the direct management of this patient. This includes bedside care, interpretation of diagnostic studies, and testing, discussion with consultants, patient, and family members, and other required patient management activities. These minutes are in excess of all separately billable procedures. Medical Decision Making Medical Records Attestation: I reviewed the patient's medical records. Home Medications Current Medication List: was personally reviewed by me Laboratory Data Attestation: I reviewed the patient's lab results. Patient has an elevated white blood cell count, low sodium, increased BUN and creatinine in comparison to prior with interpretation by me of severe dehydration hyponatremia and leukocytosis 04/04/23 17:28 04/04/23 17:28 Lab Results 04/04/23 04/04/23 04/04/23 Range/Units 17:28 17:28 18:15 WBC 31.00 H* (4.8-10.8) K/ul RBC 4.67 L (4.70-6.10) M/uL Hgb 13.3 L (14.0-18.0) g/dl Hct 38.7 L (42.0-52.0) % MCV 82.9 (80.0-100.0) fL MCH 28.5 (25.0-34.0) pg MCHC 34.4 (32.0-36.0) g/dL RDW Std Deviation 49.5 H (36.4-46.3) fL RDW Coeff of Kingsley 16.4 H (11.5-14.5) % Plt Count 392 (130-400) K/uL MPV 10.0 (9.4-12.4) fL Immature Gran % (Auto) 1.7 % Neut % (Auto) 90.8 % Lymph % (Auto) 3.0 % Carroll % (Auto) 4.1 % Eos % (Auto) 0.0 % Baso % (Auto) 0.4 % Neut # (Auto) 28.17 H (1.40-6.50) K/uL Lymph # (Auto) 0.93 L (1.2-3.4) K/uL Carroll # (Auto) 1.27 H (0.11-0.59) K/uL Eos # (Auto) 0.00 (0-0.50) K/uL Baso # (Auto) 0.11 (0-0.2) K/uL Immature Gran # (Auto) 0.52 H (0.01-0.20) K/uL Sodium 124 L (136-145) mmol/L Potassium 3.3 L (3.5-5.1) mmol/L Chloride 93 L (98-107) mmol/L Carbon Dioxide 17 L (21-32) mmol/L Anion Gap 14 H (3-11) BUN 43 H (6-23) mg/dl Creatinine 2.22 H (0.6-1.4) mg/dl Est Cr Clr Drug Dosing 22.5 ml/min Est GFR ( Amer) 38.6 ml/min Est GFR (Non-Af Amer) 33.3 ml/min BUN/Creatinine Ratio 19.4 (10-20) Glucose 114 H (70-99(Fasting)) mg/dl Lactate (0.4-2.0) mmol/L Calcium 9.7 (8.6-10.3) mg/dl Magnesium 2.5 H (1.7-2.4) mg/dl Total Bilirubin 0.3 (0.2-1.0) mg/dl AST 25 (13-39) U/L ALT 17 (7-52) U/L Alkaline Phosphatase 87 (34-104) U/L Total Protein 9.4 H (6.0-8.3) gm/dl Albumin 3.8 (3.4-5.0) gm/dl Globulin 5.6 H (2.5-4.0) gm/dl Albumin/Globulin Ratio 0.7 L (0.9-2) SARS-CoV-2, RNA, NAAT (NEGATIVE) Group A Strep (PCR) NOT DETECTED (NotDetected) 04/04/23 04/04/23 Range/Units 19:00 19:10 WBC (4.8-10.8) K/ul RBC (4.70-6.10) M/uL Hgb (14.0-18.0) g/dl Hct (42.0-52.0) % MCV (80.0-100.0) fL MCH (25.0-34.0) pg MCHC (32.0-36.0) g/dL RDW Std Deviation (36.4-46.3) fL RDW Coeff of Kingsley (11.5-14.5) % Plt Count (130-400) K/uL MPV (9.4-12.4) fL Immature Gran % (Auto) % Neut % (Auto) % Lymph % (Auto) % Carroll % (Auto) % Eos % (Auto) % Baso % (Auto) % Neut # (Auto) (1.40-6.50) K/uL Lymph # (Auto) (1.2-3.4) K/uL Carroll # (Auto) (0.11-0.59) K/uL Eos # (Auto) (0-0.50) K/uL Baso # (Auto) (0-0.2) K/uL Immature Gran # (Auto) (0.01-0.20) K/uL Sodium (136-145) mmol/L Potassium (3.5-5.1) mmol/L Chloride (98-107) mmol/L Carbon Dioxide (21-32) mmol/L Anion Gap (3-11) BUN (6-23) mg/dl Creatinine (0.6-1.4) mg/dl Est Cr Clr Drug Dosing ml/min Est GFR ( Amer) ml/min Est GFR (Non-Af Amer) ml/min BUN/Creatinine Ratio (10-20) Glucose (70-99(Fasting)) mg/dl Lactate 1.6 (0.4-2.0) mmol/L Calcium (8.6-10.3) mg/dl Magnesium (1.7-2.4) mg/dl Total Bilirubin (0.2-1.0) mg/dl AST (13-39) U/L ALT (7-52) U/L Alkaline Phosphatase (34-104) U/L Total Protein (6.0-8.3) gm/dl Albumin (3.4-5.0) gm/dl Globulin (2.5-4.0) gm/dl Albumin/Globulin Ratio (0.9-2) SARS-CoV-2, RNA, NAAT NEGATIVE (NEGATIVE) Group A Strep (PCR) (NotDetected) Imaging Data Attestation: I personally reviewed and interpreted this imaging study as follows: My Impression: CT abdomen pelvis interpreted by me negative for bowel obstruction Radiologist's Impression: Abdomen/Pelvis CT 04/04/23 18:[address] WITHOUT CONTRAST CT DOSE: 379.94 mGy.cm HISTORY: Acute generalized abdominal pain abd pain TECHNIQUE: Multiaxial CT images of the abdomen and pelvis were performed without contrast. A dose lowering technique was utilized adhering to the principles of ALARA. COMPARISON STUDY: 03/02/2023 FINDINGS: The lung bases. No pneumatosis or pneumoperitoneum. Study without the use of contrast. The unenhanced spleen, pancreas, adrenal glands contracted gallbladder and liver appear unremarkable. Kidneys are within normal limits. No hydronephrosis. Urinary bladder wall thickening with partial distention. Prostatomegaly. Atherosclerosis of the aorta. There is persistent lymphadenopathy identified within the lower chest, retroperitoneum and mesentery with a 1.6 cm index mesenteric node on image 161. Stable from prior. No bowel obstruction. Fluid-filled loops of large and small bowel without obstruction or significant wall thickening. The visualized appendix is noninflamed. No acute fracture. No destructive bone lesion. IMPRESSION: 1. Large and small bowel air-fluid levels may be physiologic or represent a nonspecific enteritis/diarrheal illness. 2. There is improvement of the previously described bowel wall thickening. 3. Persistent adenopathy of the lower chest, retroperitoneum and mesentery, stable from 03/02/2023. 4. Normal appendix. ACT 112: Negative or not required by law. The above report was generated using voice recognition software. It may contain grammatical, syntax or spelling errors. Electronically signed by: Mukul Martinez M.D. 04/04/2023 7:02 PM ECG Data Attestation: I personally reviewed and interpreted this ECG as follows: Additional Comments: EKG interpreted by me normal sinus rhythm rate of [address]-T abnormality no obvious ST segment elevation or depression normal intervals normal axis Telemetry was ordered by me interpreted as normal sinus rhythm rate of 80 MDM Narrative Medical decision making differential diagnosis includes sepsis, metabolic derangement, dehydration, electrolyte abnormality, viral syndrome Plan is to check labs, CT, give IV fluids, Zofran, pain medicine, admit External medical records were reviewed the patient's prior presentation Case was discussed at bedside with the family was provided me history as well Patient has an elevated white blood cell count elevated creatinine which is new, low sodium, patient will be started on IV fluids, patient could be septic he was started empirically on Zosyn. The case was discussed with the [facility] hospitalist for admission Impression & Plan Sepsis, LISS (acute kidney injury), Acute hyponatremia, Abdominal pain Discharge Plan Visit Data Chief Complaint: Illness Stated Complaint: WHIPPLE'S DISEASE,GETTING WORSE ED Provider: Francisco Beebe Discharge Problem: Sepsis, LISS (acute kidney injury), Acute hyponatremia, Abdominal pain Patient Disposition: Admitted As Inpatient Forms Stand Alone Forms: My [place] Prescriptions Prescriptions: No Action Sutab 1.479-0.188- 0.225 gram tablet See Rx Instructions PO .COMPLEX Qty: 24 0RF Rx Instructions: TAKE DIRECTED PER SPLIT DOSE INSTRUCTIONS. PLEASE USE COUPON BIN: [id number] PCN: ZENIA GROUP#: [id number] Tablet 1 tab PO DAILY ceftriaxone 2 gram recon soln 2 g IV DAILY Qty: 10 0RF Rx Instructions: x2-4 weeks. Complete duration will be at discretion of primary care. sulfamethoxazole-trimethoprim 800-160 mg tablet 1 tab PO AMHS omeprazole 20 mg capsule,delayed release(DR/EC) 20 mg PO DAILYBB Referrals Referrals: Nhi Greenfield MD [Primary Care Provider] -
--- NOTE | 2023-04-04 19:04 | CT Scan Report ---
ABDOMEN AND PELVIS CT WITHOUT CONTRAST CT DOSE: 379.94 mGy.cm HISTORY: Acute generalized abdominal pain abd pain TECHNIQUE: Multiaxial CT images of the abdomen and pelvis were performed without contrast. A dose lo wering technique was utilized adhering to the principles of ALARA. COMPARISON STUDY: 03/02/2023 FINDINGS: The lung bases. No pneumatosis or pneumoperitoneum. Study without the use of contrast. The unenhanced spleen, pancreas, adrenal glands contracted gallbladder and liver appear unremarkable. Kid neys are within normal limits. No hydronephrosis. Urinary bladder wall thickening with partial disten tion. Prostatomegaly. Atherosclerosis of the aorta. There is persistent lymphadenopathy identified wi thin the lower chest, retroperitoneum and mesentery with a 1.6 cm index mesenteric node on image 161. Stable from prior. No bowel obstruction. Fluid-filled loops of large and small bowel without obstruction or significant wall thickening. The visualized appendix is noninflamed. No acute fracture. No destructive bone lesio n. IMPRESSION: 1. Large and small bowel air-fluid levels may be physiologic or represent a nonspecific enteritis/lloyd rrheal illness. 2. There is improvement of the previously described bowel wall thickening. 3. Persistent adenopathy of the lower chest, retroperitoneum and mesentery, stable from 03/02/2023. 4. Normal appendix. ACT 112: Negative or not required by law. The above report was generated using voice recognition software. It may contain grammatical, syntax o r spelling errors. Electronically signed by: Mukul Martinez M.D. 04/04/2023 7:02 PM
[2023-04-04 19:13] LABS: Magnesium 2.5 mg/dl (1.7-2.4)
[2023-04-04] MEDS ORDERED: POTASSIUM CHLORIDE PWD 20 MEQ PACK PO STA (19:31)
[2023-04-04] MEDS ORDERED: LACTATED RINGER'S 1,000 ML IV ONE (19:45)
[2023-04-04] MEDS ORDERED: PROMETHAZINE HCL 6.25 MG in SODIUM CHLORIDE 0.9% 50 ML IV PRN (20:40)
[2023-04-04] MEDS ORDERED: metroNIDAZOLE 500 MG/100 ML BAG IV STA (20:49)
[2023-04-04] MEDS ORDERED: PROMETHAZINE 6.25 MG/50.25 ML NSS IV ONE (20:59)
[2023-04-04] MEDS ORDERED: PANTOprazole 80 MG in DEXTROSE 5% 100 ML IV ONE (21:00)
[2023-04-04 22:21] LABS: Appearance Urine Cloudy (Clear); Bacteria Urine Automated Negative (Negative); Bilirubin Urine Negative (Negative); Blood Urine Negative (Negative); Color Urine Dark Yellow; Epithelial Cell Urine Auto >30 /lpf (0-5); Glucose Urine UA Negative (Negative); Ketones Urine Negative (Negative); Leukocyte Esterase Urine Negative (Negative); Nitrite Urine Negative (Negative); Protein Urine 2+ (Negative); RBC Urine Automated 0-4 /hpf (0-4); Specific Gravity Urine 1.024 (1.000-1.030); Urobilinogen Urine Negative (Negative); pH Urine 5.5 (4.5-7.5)
[2023-04-04 22:40] LABS: Estimated Average Glucose 111 mg/dl; Hemoglobin A1C 5.5 % (4.5-5.6)
[2023-04-04] MEDS ORDERED: DOXYCYCLINE HYCLATE 100 MG in DEXTROSE 5% 100 ML IV STA (22:43)
[2023-04-04 23:14] LABS: HCO3 VBG 18 mmol/L; Oxygen Saturation VBG < 60.0 %; PCO2 VBG 42 mmHg (38-50); PO2 VBG 21 mmHg; pH VBG 7.24 (7.36-7.41)
[2023-04-04 23:35] LABS: BUN Creatinine Ratio 21.7 (10-20); Calcium 8.4 mg/dl (8.6-10.3); Creatinine Clr Calc Pharmacy 27.8 ml/min; Est GFR (African American) 49.8 ml/min; Est GFR (Non-African American) 42.9 ml/min; Potassium 3.6 mmol/L (3.5-5.1)
[2023-04-05] MEDS: HYDROXYCHLOROQUINE SULFATE 200 MG TAB PO SCH ×4 (00:05→19:59)
[2023-04-05] MEDS: PIPERACILLIN/TAZOBACTAM 4.5 GM in DEXTROSE 5% 100 ML IV SCH ×3 (03:11→18:01)
[2023-04-05] MEDS: ACETAMINOPHEN 325 MG TAB PO PRN (03:11)
[2023-04-05] MEDS: SODIUM CHLORIDE 0.9% 1000ML 1,000 ML IV ONE ×2 (03:16→05:52)
--- NOTE | 2023-04-05 03:30 | History & Physical Report ---
Date of Service April 04, 2023 Assessment & Plan (1) Severe sepsis: Plan: SIRS plus ARF Elevated procalcitonin History Whipple disease status post ceftriaxone Rx ongoing antibiotic Rx ? Complicated UTI Rule out C. difficile given recent antibiotic Rx/recent endoscopic procedure/hospital stay Hypovolemic hyponatremia AGMA secondary to kidney dysfunction UGIB secondary to emesis History GERD Patient's hemoglobin better than baseline likely secondary to hemoconcentration skin cancer, outpatient Dermatology work-up and management contemplated anxiety/mood disorder, at baseline Hyperglycemia rule out DM Malnutrition RE low BMI past tobacco abuse Medical telemetry CS, stool C. difficile Flagyl 1 dose for presumptive C. difficile given sepsis criteria oral vancomycin if stool C. difficile positive Monitor creatinine response to IVF Hold Bactrim for now Consider Doxycycline and Hydroxychloroquine for Whipple disease while Bactrim on hold due to kidney dysfunction [facility] ID consult Re: Whipple disease on Bactrim Rx, currently with kidney dysfunction (Case discussed with Dr. Taylor who agrees with Doxycycline and hydroxychloroquine for patient's Whipple disease while Bactrim on hold. He recommends consulting nephrology for patient's kidney dysfunction and continuing Zosyn given patient's sepsis and elevated procalcitonin.) IV PPI for UGIB Clear liquid for now, n.p.o. if with gilda hematemesis/coffee-ground emesis/melanotic stools GI consult re: UGIB Check hemoglobin A1c Nutrition consult Re: Low BMI DVT prophylaxis. SCDs Re: GI bleed Full code Patient partner requesting updates from providers. Ms. Ana Castano, contact #[phone]. Text document was generated using [employer] voice recognition software. It may contain grammatical or spelling errors. Kindly contact undersigned for clarification of any documentation item in question. History of Present Illness Chief Complaint: Abdominal pain, hematemesis, diarrhea Primary Care Provider: Nhi Greenfield MD History obtained from patient, family, and records. 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 Recent confinement March 02 to 2022 for Whipple disease. Patient presented with 1 month history of weight loss,, night sweats and diarrhea symptoms. CT imaging showed enterocolitis, possible disease. CT chest showed subtle groundglass densities left lower lobe for which 3 to 6- month chest CT follow-up recommended to exclude possibility of low-grade malignancy. Whipple disease noted on EGD biopsy. CSF PCR obtained via LP excluded BACK LINE COOK involvement. ID recommended 4 week course of IV ceftriaxone and 1 year course of Bactrim. Repeat CT chest abdomen pelvis recommended after 1 month to follow-up on lymphadenopathy on imaging. Diarrhea symptoms resolved at time of discharge. Arrangements made to follow-up with [facility] specialists on discharge as per patient/family preference. Inpatient Dermatology consultation for skin lesion on patient's left hoahaoism done during confinement. Impression was nonmelanoma skin cancer unrelated to patient's Whipple disease. Outpatient dermatology recommended. Patient currently scheduled to see local [facility] garment looper June,. [facility] ID specialist on consultation 3 weeks ago recommended stopping ceftriaxone after completing 3 weeks of therapy with subsequent removal of midline catheter. Outpatient screening colonoscopy at [facility] 2 weeks ago showed internal hemorrhoids. Few days ago, patient noted achy upper abdominal pain with nausea, blood-tinged emesis and watery diarrhea. Poor appetite. No fever, some chills. No chest pain, no cough, no SOB. No OTC NSAID intake. Patient brought to the ER for evaluation. IV Zosyn administered for sepsis. 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 Allergies Allergy/AdvReac Type Severity Reaction Status Date / Time No Known Allergies Allergy Verified 03/16/23 11:11 Home Medications Medication Instructions Recorded Confirmed Type [id number] tablet 1 tab PO DAILY 03/02/23 04/04/23 History sodium sul 1.479 gram-potas ch See Rx Instructions PO .COMPLEX 03/16/23 04/04/23 Rx 0.188 gram-magnes sul 0.225 gram #24 tabs tablet (Sutab) omeprazole 20 mg capsule,delayed 20 mg PO DAILYBB 04/04/23 04/04/23 History release sulfamethoxazole 800 1 tab PO AMHS 04/04/23 04/04/23 History mg-trimethoprim 160 mg tablet Past Med/Surg History Medical History Bipolar 1 disorder Encounter for pre-operative examination Neoplasm of unspecified behavior of bone, soft tissue, and skin Surgical History No history of previous surgery Family History Father Colorectal cancer Grandfather (Paternal) Colorectal cancer Uncle Colorectal cancer Uncle Colorectal cancer Uncle Colorectal cancer Social History Smoking Status: Former smoker Tobacco Type: Cigarettes Age Started Using Tobacco: 22; packs per day: 1; Cigarettes Per Day: 1PPD; Hx Alcohol Use: No Hx Substance Use: No Preferred Language: Setswana 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 Ability: Effective Cassandra Architect Required: No Beliefs That Will Affect Care: None Current Living Situation: Alone Other Information That Helps Us Care for You: No Feels Safe at Home: Yes Safety Concerns: Feels Safe At This Time Assistive Devices: Glasses Review of Systems Review of Systems: As per HPI, all other systems reviewed and negative Physical Exam Physical Exam: GENERAL: Comfortable, pleasant, underweight, no respiratory distress SKIN: Pallor, warm HEENT: Bespectacled, pink palpebral conjunctivae, no ptosis, dry buccal mucosa, crusty lesion left hoahaoism NECK : Supple, no tenderness CHEST : Decreased breath sounds, no tenderness HEART : RRR, no obvious murmurs ABDOMEN: Some distention, minimal epigastric tenderness EXTREMITIES : No LE swelling/tenderness, no other conspicuous deformities noted NEUROLOGIC : Coherent, no facial asymmetry, no other gross focality Results & Data Results & Data Vital Signs (Past 12 Hours) Vital Signs Temp Pulse Resp BP Pulse Ox O2 Del Method 04/04/23 20:00 86 19 99/62 L 97 04/04/23 19:00 82 23 102/67 99 Room Air 04/04/23 18:20 83 04/04/23 16:52 36.3 C L 110 H 18 106/72 98 Room Air Diagnostic Findings 04/04/23 04/04/23 04/04/23 17:28 17:28 17:28 WBC 31.00 H* RBC 4.67 L Hgb 13.3 L Hct 38.7 L MCV 82.9 MCH 28.5 MCHC 34.4 RDW Std Deviation 49.5 H RDW Coeff of Kingsley 16.4 H Plt Count 392 MPV 10.0 Immature Gran % (Auto) 1.7 Neut % (Auto) 90.8 Lymph % (Auto) 3.0 [place] % (Auto) 4.1 Eos % (Auto) 0.0 Baso % (Auto) 0.4 Neut # (Auto) 28.17 H Lymph # (Auto) 0.93 L [place] # (Auto) 1.27 H Eos # (Auto) 0.00 Baso # (Auto) 0.11 Immature Gran # (Auto) 0.52 H VBG pH VBG pCO2 VBG pO2 VBG HCO3 VBG O2 Saturation VBG Base Excess Sodium 124 L Potassium 3.3 L Chloride 93 L Carbon Dioxide 17 L Anion Gap 14 H BUN 43 H Creatinine 2.22 H Est Cr Clr Drug Dosing 22.5 Est GFR ( Amer) 38.6 Est GFR (Non-Af Amer) 33.3 BUN/Creatinine Ratio 19.4 Glucose 114 H Estimat Average Glucose Hemoglobin A1c Osmolality Lactate Calcium 9.7 Magnesium 2.5 H Total Bilirubin 0.3 AST 25 ALT 17 Alkaline Phosphatase 87 Total Protein 9.4 H Albumin 3.8 Globulin 5.6 H Albumin/Globulin Ratio 0.7 L Procalcitonin 6.48 H Urine Color Urine Appearance Urine pH Ur Specific [place] Urine Protein Urine Glucose (UA) Urine Ketones Urine Blood Urine Nitrite Urine Bilirubin Urine Urobilinogen Ur Leukocyte Esterase Urine WBC (Auto) Urine RBC (Auto) U Hyaline Cast (Auto) U Epithel Cells (Auto) Urine Bacteria (Auto) Ur Renal Epithelial Cell Granular Casts Urine Yeast Urine Osmolality Ur Random Sodium SARS-CoV-2, RNA, NAAT Group A Strep (PCR) Blood Type Antibody Screen 04/04/23 04/04/23 04/04/23 17:28 17:28 18:15 WBC RBC Hgb Hct MCV MCH MCHC RDW Std Deviation RDW Coeff of Kingsley Plt Count MPV Immature Gran % (Auto) Neut % (Auto) Lymph % (Auto) [place] % (Auto) Eos % (Auto) Baso % (Auto) Neut # (Auto) Lymph # (Auto) [place] # (Auto) Eos # (Auto) Baso # (Auto) Immature Gran # (Auto) VBG pH VBG pCO2 VBG pO2 VBG HCO3 VBG O2 Saturation VBG Base Excess Sodium Potassium Chloride Carbon Dioxide Anion Gap BUN Creatinine Est Cr Clr Drug Dosing Est GFR ( Amer) Est GFR (Non-Af Amer) BUN/Creatinine Ratio Glucose Estimat Average Glucose 111 Hemoglobin A1c 5.5 Osmolality 281 Lactate Calcium Magnesium Total Bilirubin AST ALT Alkaline Phosphatase Total Protein Albumin Globulin Albumin/Globulin Ratio Procalcitonin Urine Color Urine Appearance Urine pH Ur Specific [place] Urine Protein Urine Glucose (UA) Urine Ketones Urine Blood Urine Nitrite Urine Bilirubin Urine Urobilinogen Ur Leukocyte Esterase Urine WBC (Auto) Urine RBC (Auto) U Hyaline Cast (Auto) U Epithel Cells (Auto) Urine Bacteria (Auto) Ur Renal Epithelial Cell Granular Casts Urine Yeast Urine Osmolality Ur Random Sodium SARS-CoV-2, RNA, NAAT Group A Strep (PCR) NOT DETECTED Blood Type Antibody Screen 04/04/23 04/04/23 04/04/23 19:00 19:10 21:40 WBC RBC Hgb Hct MCV MCH MCHC RDW Std Deviation RDW Coeff of Kingsley Plt Count MPV Immature Gran % (Auto) Neut % (Auto) Lymph % (Auto) [place] % (Auto) Eos % (Auto) Baso % (Auto) Neut # (Auto) Lymph # (Auto) [place] # (Auto) Eos # (Auto) Baso # (Auto) Immature Gran # (Auto) VBG pH VBG pCO2 VBG pO2 VBG HCO3 VBG O2 Saturation VBG Base Excess Sodium Potassium Chloride Carbon Dioxide Anion Gap BUN Creatinine Est Cr Clr Drug Dosing Est GFR ( Amer) Est GFR (Non-Af Amer) BUN/Creatinine Ratio Glucose Estimat Average Glucose Hemoglobin A1c Osmolality Lactate 1.6 Calcium Magnesium Total Bilirubin AST ALT Alkaline Phosphatase Total Protein Albumin Globulin Albumin/Globulin Ratio Procalcitonin Urine Color Dark Yellow Urine Appearance Cloudy A Urine pH 5.5 Ur Specific [place] 1.024 Urine Protein 2+ H Urine Glucose (UA) Negative Urine Ketones Negative Urine Blood Negative Urine Nitrite Negative Urine Bilirubin Negative Urine Urobilinogen Negative Ur Leukocyte Esterase Negative Urine WBC (Auto) 5-10 H Urine RBC (Auto) 0-4 U Hyaline Cast (Auto) 1-5 U Epithel Cells (Auto) >30 H Urine Bacteria (Auto) Negative Ur Renal Epithelial Cell Not Reportable Granular Casts 5-10 H Urine Yeast Not Reportable Urine Osmolality Ur Random Sodium SARS-CoV-2, RNA, NAAT NEGATIVE Group A Strep (PCR) Blood Type Antibody Screen 04/04/23 04/04/23 04/04/23 21:40 21:40 22:49 WBC RBC Hgb Hct MCV MCH MCHC RDW Std Deviation RDW Coeff of Kingsley Plt Count MPV Immature Gran % (Auto) Neut % (Auto) Lymph % (Auto) [place] % (Auto) Eos % (Auto) Baso % (Auto) Neut # (Auto) Lymph # (Auto) [place] # (Auto) Eos # (Auto) Baso # (Auto) Immature Gran # (Auto) VBG pH VBG pCO2 VBG pO2 VBG HCO3 VBG O2 Saturation VBG Base Excess Sodium Potassium Chloride Carbon Dioxide Anion Gap BUN Creatinine Est Cr Clr Drug Dosing Est GFR ( Amer) Est GFR (Non-Af Amer) BUN/Creatinine Ratio Glucose Estimat Average Glucose Hemoglobin A1c Osmolality Lactate Calcium Magnesium Total Bilirubin AST ALT Alkaline Phosphatase Total Protein Albumin Globulin Albumin/Globulin Ratio Procalcitonin Urine Color Urine Appearance Urine pH Ur Specific [place] Urine Protein Urine Glucose (UA) Urine Ketones Urine Blood Urine Nitrite Urine Bilirubin Urine Urobilinogen Ur Leukocyte Esterase Urine WBC (Auto) Urine RBC (Auto) U Hyaline Cast (Auto) U Epithel Cells (Auto) Urine Bacteria (Auto) Ur Renal Epithelial Cell Granular Casts Urine Yeast Urine Osmolality 615 Ur Random Sodium 36 SARS-CoV-2, RNA, NAAT Group A Strep (PCR) Blood Type A Positive Antibody Screen NEGATIVE 04/04/23 04/04/23 04/04/23 22:49 22:49 22:49 WBC RBC Hgb 11.0 L Hct 32.0 L MCV MCH MCHC RDW Std Deviation RDW Coeff of Kingsley Plt Count MPV Immature Gran % (Auto) Neut % (Auto) Lymph % (Auto) [place] % (Auto) Eos % (Auto) Baso % (Auto) Neut # (Auto) Lymph # (Auto) [place] # (Auto) Eos # (Auto) Baso # (Auto) Immature Gran # (Auto) VBG pH 7.24 L VBG pCO2 42 VBG pO2 21 VBG HCO3 18 VBG O2 Saturation < 60.0 VBG Base Excess -9.0 Sodium 127 L Potassium 3.6 Chloride 101 Carbon Dioxide 17 L Anion Gap 9 BUN 39 H Creatinine 1.80 H D Est Cr Clr Drug Dosing 27.8 Est GFR ( Amer) 49.8 Est GFR (Non-Af Amer) 42.9 BUN/Creatinine Ratio 21.7 H Glucose 109 H Estimat Average Glucose Hemoglobin A1c Osmolality Lactate Calcium 8.4 L Magnesium Total Bilirubin AST ALT Alkaline Phosphatase Total Protein Albumin Globulin Albumin/Globulin Ratio Procalcitonin Urine Color Urine Appearance Urine pH Ur Specific [place] Urine Protein Urine Glucose (UA) Urine Ketones Urine Blood Urine Nitrite Urine Bilirubin Urine Urobilinogen Ur Leukocyte Esterase Urine WBC (Auto) Urine RBC (Auto) U Hyaline Cast (Auto) U Epithel Cells (Auto) Urine Bacteria (Auto) Ur Renal Epithelial Cell Granular Casts Urine Yeast Urine Osmolality Ur Random Sodium SARS-CoV-2, RNA, NAAT Group A Strep (PCR) Blood Type Antibody Screen CT abdomen pelvis: 1. Large and small bowel air-fluid levels may be physiologic or represent a nonspecific enteritis/diarrheal illness. 2. There is improvement of the previously described bowel wall thickening. 3. Persistent adenopathy of the lower chest, retroperitoneum and mesentery, stable from 03/02/2023. 4. Normal appendix Chest x-ray as per my interpretation hyperinflation EKG as per my interpretation : Rate 80, NSR, normal axis, T wave abnormalities septal leads
[2023-04-05 07:13] LABS: Hematocrit (blood only) 30.4 % (42.0-52.0); Hemoglobin 10.3 g/dl (14.0-18.0); Mean Corpuscular Hemoglobin 28.5 pg (25.0-34.0); Mean Corpuscular Hgb Conc 33.9 g/dL (32.0-36.0); Mean Platelet Volume 10.4 fL (9.4-12.4); Platelet Count 316 K/uL (130-400); RDW Coefficient of Variation 16.6 % (11.5-14.5); RDW Standard Deviation 51.3 fL (36.4-46.3); Red Blood Count 3.62 M/uL (4.70-6.10); White Blood Count 25.64 K/ul (4.8-10.8)
[2023-04-05 07:33] LABS: Calcium 8.7 mg/dl (8.6-10.3); Creatinine Clr Calc Pharmacy 34.5 ml/min; Est GFR (African American) 59.6 ml/min; Est GFR (Non-African American) 51.4 ml/min; Potassium 3.4 mmol/L (3.5-5.1)
[2023-04-05 07:42] LABS: Basophils % (auto) 0.4 %; Echinocytes 2+; Eosinophils # (auto) 0.08 K/uL (0-0.50); Eosinophils % (auto) 0.3 %; Immature Granulocytes # (auto) 0.45 K/uL (0.01-0.20); Immature Granulocytes % (auto) 1.8 %; Lymphocytes # (auto) 1.24 K/uL (1.2-3.4); Lymphocytes % (auto) 4.8 %; Monocytes # (auto) 1.38 K/uL (0.11-0.59); Monocytes % (auto) 5.4 %; Neutrophils # (auto) 22.39 K/uL (1.40-6.50); Neutrophils % (auto) 87.3 %; Polychromasia 1+
--- NOTE | 2023-04-05 07:43 | XRay Report ---
XR chest 1V portable HISTORY: 52 years-old Male renal failure acute shortness breath with renal failure COMPARISON: CTA chest 03/04/2023 TECHNIQUE: AP view of the chest FINDINGS: Cardiomediastinal and hilar silhouettes are within normal limits. No pneumothorax, large pleural effu rudy, or overt pulmonary edema or lobar airspace consolidation. Mild levoscoliosis of the upper thora cic spine. Bones appear grossly intact. IMPRESSION: No acute process. ACT 112: Negative or not required by law. The above report was generated using voice recognition software. It may contain grammatical, syntax o r spelling errors. Electronically signed by: Mukul Martinez M.D. 04/05/2023 7:42 AM
[2023-04-05] MEDS ORDERED: POTASSIUM CHLORIDE CRTAB 20 MEQ TABCR PO ONE (07:55)
[2023-04-05] MEDS: CEROVITE ADV FORMULA TAB PO SCH (07:59)
[2023-04-05] MEDS: DOXYCYCLINE HYCLATE 100 MG CAP PO SCH ×2 (07:59→19:59)
--- NOTE | 2023-04-05 09:36 | Gastrointestinal Consultation ---
Date of Consultation April 05, 2023 Assessment & Plan (1) Anemia: Patient recently diagnosed with Whipple's Disease. No overt GI bleeding at present. He had an EGD on 03/03/23 and reports a colonoscopy last week with a different GI group. After the visit, I was able to obtain a colonoscopy report from 03/24/2023 that indicated an unremarkable colon and ileum. This was performed by [facility]. -Continue to monitor for overt GI bleeding -Continue to monitor H/H -See #2 regarding ruling out C diff infection -Patient has a known reason to have anemia and has not completed his treatment at this point. EGD & colonoscopy unremarkable for acute GI bleeding within the past 1 month. (2) Abnormal CT of the abdomen: CT shows concern for diarrheal illness. -Given recent antibiotic use, would advise C diff study. Will also obtain stool PCR for other infectious etiologies. Plan Moving forward, patient needs to determine who will be providing his GI care as he was initially diagnosed with Whipple's by our group, but then proceeded with a colonoscopy with [facility] last week. Our group has now been involved for this hospitalization. This is poor continuity of care and it would benefit him to pick a GI group and stay with them. Supervising Physician Co-Signing Physician Notes Agree with AURELIA Mejia as above Gen: Ill-appearing, cachectic Abd: Soft, NT, ND, +BS Continue current therapy and supportive care ID following via telehealth History of Present Illness Reason for Consultation: Anemia Attending Physician: Ryne Starkey MD History of Present Illness Patient is a 52 yo male with known anemia found to be related to Whipple's Disease on duodenal biopsy on 03/03/23. He is currently undergoing treatment guided by infectious disease. Current H/H 10.3/30.4. No overt GI bleeding. GI consulted due to concern for GI bleeding. Patient reported abdominal discomfort. A CTabd/pelvis from 04/04/23 showed improvement of his bowel thickening, but noted fluid levels suspicious of a diarrheal illness. He notes frequent diarrhea worsening over the past week. He notes midabdominal pain. WBC count was 31,000 on admission. He was taking Bactrim at home for his Whipple's Disease. Procalcitonin is 6.48. He was admitted with severe sepsis. Patient notes he had a colonoscopy last week with a different GI group (he says [facility]) and that the colonoscopy was unremarkable. I did not have records of this at the time of the patient's visit. Allergies Allergy/AdvReac Type Severity Reaction Status Date / Time No Known Allergies Allergy Verified 03/16/23 11:11 Home Medications Medication Instructions Recorded Confirmed Type ptmsgfquripk-pcnhsqas-trqzlx tablet 1 tab PO DAILY 03/02/23 04/04/23 History sodium sul 1.479 gram-potas ch See Rx Instructions PO .COMPLEX 03/16/23 04/04/23 Rx 0.188 gram-magnes sul 0.225 gram #24 tabs tablet (Sutab) omeprazole 20 mg capsule,delayed 20 mg PO DAILYBB 04/04/23 04/04/23 History release sulfamethoxazole 800 1 tab PO AMHS 04/04/23 04/04/23 History mg-trimethoprim 160 mg tablet Patient History Medical History (Updated 04/05/23 @ 13:12 by Christina Rogel MD, PhD) Bipolar 1 disorder Encounter for pre-operative examination Neoplasm of unspecified behavior of bone, soft tissue, and skin Whipple's disease Surgical History No history of previous surgery Family History Father Colorectal cancer Grandfather (Paternal) Colorectal cancer Uncle Colorectal cancer Uncle Colorectal cancer Uncle Colorectal cancer Social History Smoking Status: Former smoker Tobacco Type: Cigarettes Age Started Using Tobacco: 22; packs per day: 1; Cigarettes Per Day: 1PPD; Hx Alcohol Use: No Hx Substance Use: No Preferred Language: Austrian 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 Ability: Effective Purler Required: No Beliefs That Will Affect Care: None Current Living Situation: Alone Other Information That Helps Us Care for You: No Feels Safe at Home: Yes Safety Concerns: Feels Safe At This Time Assistive Devices: None Review of Systems Constitutional: no fever and no chills Respiratory: no cough and no dyspnea Cardiovascular: no chest pain Gastrointestinal: + abdominal pain and + change in bowel habits Psychiatric: no problem reported Hematologic / Lymphatic: no unexplained weight loss Physical Exam Constitutional: well developed Respiratory: normal respiratory effort Cardiovascular: Rate/Rhythm: regular rate Gastrointestinal (Abdomen): normal bowel sounds, soft, nontender, no hepatosplenomegaly Psychiatric: Orientation: alert and oriented x 3 Results & Data Vital Signs (Past 12 Hours) Vital Signs Temp Pulse Pulse Resp BP Pulse Ox O2 Del Method 04/05/23 07:46 36.4 C L 67 16 93/56 L 99 Room Air 04/05/23 03:19 38.2 C H 96 H 18 102/60 95 Room Air 04/04/23 22:00 36.9 C 77 18 95/59 L 99 Room Air 04/04/23 22:55 86 PG Care Time/CCT Total # of Minutes Spent Total Time Spent with Patient: Total time spent is greater than 50% in coordination of care (as documented) at patient's floor/unit and/or counseling patient: Coding Level of Care Code 42777 IN/OBS CONSULT LVL 4,60M Diagnoses Anemia D64.[address] of the abdomen R93.5
[2023-04-05] MEDS: PANTOprazole 40 MG in SYRINGE 0 ML IV SCH ×2 (09:42→19:58)
[2023-04-05 11:47] LABS: Adenovirus F 40/41 PCR Not Detected (NotDetected); Astrovirus PCR Not Detected (NotDetected); Campylobacter PCR Not Detected (NotDetected); Cryptosporidium PCR Not Detected (NotDetected); Cyclospora cayetanensis PCR Not Detected (NotDetected); Entamoeba histolytica PCR Not Detected (NotDetected); Enteroaggregative E.coli(EAEC) Not Detected (NotDetected); Enteropathogenic E.coli (EPEC) Not Detected (NotDetected); Enterotoxigenic E.coli (ETEC) Not Detected (NotDetected); Giardia lamblia PCR Not Detected (NotDetected); Norovirus GI/GII PCR Not Detected (NotDetected); Plesiomonas shigelloides PCR Not Detected (NotDetected); Rotavirus A PCR Not Detected (NotDetected); Salmonella PCR Not Detected (NotDetected); Sapovirus PCR Not Detected (NotDetected); Shiga-like Toxin E.coli (STEC) Not Detected (NotDetected); Shigella/Enteroinvasive E.coli Not Detected (NotDetected); Vibrio cholerae PCR Not Detected (NotDetected); Vibrio species PCR Not Detected (NotDetected); Yersinia enterocolitica PCR Not Detected (NotDetected)
[2023-04-05] MEDS: oxyCODONE HCL IR 5 MG TAB (IMMEDIATE RELEASE) PO PRN (12:12)
[2023-04-05 13:15] LABS: Hematocrit (blood only) 34.1 % (42.0-52.0); Hemoglobin 11.4 g/dl (14.0-18.0)
--- NOTE | 2023-04-05 13:17 | Nephrology Consultation ---
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 He presented with a few days of upper abdominal pain, watery diarrhea, blood tinged emesis; inability to swallow solid food. 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 Also noted to have LLL ground glass pulmonary densities on CT for 3-6 mo f/u imaging; LAD on CT scans last month for [address] a/p. He completed 3 wks of ceftriaxone therapy for Whipples and was prior to admissoin on bactrim w/ 1 year course planned. His d/c creatinine was 0.8; presented w/ creatinine 2.2 and w/ sNa 124 last evening 1800. This AM sNa is 128, creatinine is 1.6. He is receiving NS at 60 mL hourly as well as zosyn, as well as doxycycline and plaquenil. C diff studies are negative as is a stool PCR for multiple other pathogens. Ongoing signficant diarrhea w/ "dozens" of BM in first half of day today adn w/ urgency. Denies f/c, chest pain, palptiations, cough, dyspnea. ongoing poor appetite and inbility to swallow d/t neck/throat pain. has several emerging les ions on his scalp no curren voiding sx but hx of strainging to empty and remote hx of gross hemauria. signfiicant wt loss w/ in a few days. no F. Allergies Allergy/AdvReac Type Severity Reaction Status Date / Time No Known Allergies Allergy Verified 03/16/23 11:11 Home Medications Medication Instructions Recorded Confirmed Type wbgimoonrode-vppcutqx-clqvps tablet 1 tab PO DAILY 03/02/23 04/04/23 History sodium sul 1.479 gram-potas ch See Rx Instructions PO .COMPLEX 03/16/23 04/04/23 Rx 0.188 gram-magnes sul 0.225 gram #24 tabs tablet (Sutab) omeprazole 20 mg capsule,delayed 20 mg PO DAILYBB 04/04/23 04/04/23 History release sulfamethoxazole 800 1 tab PO AMHS 04/04/23 04/04/23 History mg-trimethoprim 160 mg tablet Patient History Medical History (Updated 04/05/23 @ 13:12 by Christina Rogel MD, PhD) Bipolar 1 disorder Encounter for pre-operative examination Neoplasm of unspecified behavior of bone, soft tissue, and skin Whipple's disease Surgical History No history of previous surgery Family History Father Colorectal cancer Grandfather (Paternal) Colorectal cancer Uncle Colorectal cancer Uncle Colorectal cancer Uncle Colorectal cancer Social History Smoking Status: Former smoker Tobacco Type: Cigarettes Age Started Using Tobacco: 22; packs per day: 1; Cigarettes Per Day: 1PPD; Hx Alcohol Use: No Hx Substance Use: No Preferred Language: Cambodian 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 Ability: Effective Logistics Support Required: No Beliefs That Will Affect Care: None Current Living Situation: Alone Other Information That Helps Us Care for You: No Feels Safe at Home: Yes Safety Concerns: Feels Safe At This Time Assistive Devices: Glasses Review of Systems Review of Systems: All systems reviewed & are unremarkable except as noted in HPI & below Physical Exam Constitutional: well developed, + cachectic, + frail appearing and cooperative; no acute distress Eyes: EOM intact bilaterally ENMT: Ears: no external ear abnormality Nose: no external nose abnormality Mouth: + dry oral mucous membranes Neck: no nuchal rigidity tender lymphadenopathy ant/post cervical chains, submental Respiratory: normal respiratory effort Auscultation: + diminished lung sounds and + crackles (fine bibasilar) Cardiovascular: RRR, no murmur, no edema Gastrointestinal (Abdomen): Inspection/Auscultation: normal bowel sounds Percussion/Palpation: abdomen soft; abdomen nontender Musculoskeletal: Extremities: strength 5/5 throughout Skin: no rashes, warm and dry dime sized cornified oval 3 x 2 cm lesion L spiritism Neurologic: abad, fluent speech, no tremor Psychiatric: Orientation: alert and oriented x 3 Results & Data Vital Signs (Past 12 Hours) Vital Signs Temp Pulse Pulse Resp BP Pulse Ox O2 Del Method 04/05/23 11:57 36.4 C L 93 H 18 91/54 L 96 Room Air 04/05/23 07:00 65 04/05/23 07:46 36.4 C L 67 16 93/56 L 99 Room Air 04/05/23 03:19 38.2 C H 96 H 18 102/60 95 Room Air Laboratory Results 04/05/23 06:15 Dark yellow cloudy urine specific gravity 1024 with 2+ protein and granular casts and greater than 30 epithelial cells per low powered field; other indices negative Urine osmolality 615, urine sodium 36 urine, blood cxs pending Diagnostic Findings CT a/p FINDINGS: The lung bases. No pneumatosis or pneumoperitoneum. Study without the use of contrast. The unenhanced spleen, pancreas, adrenal glands contracted gallbladder and liver appear unremarkable. Kidneys are within normal limits. No hydronephrosis. Urinary bladder wall thickening with partial distention. Prostatomegaly. Atherosclerosis of the aorta. There is persistent l ymphadenopathy identified within the lower chest, retroperitoneum and mesentery with a 1.6 cm index mesenteric node on image 161. Stable from prior. No bowel obstruction. Fluid-filled loops of large and small bowel without obstruction or significant wall thickening. The visualized appendix is noninf lamed. No acute fracture. No destructive bone lesion. IMPRESSION: 1. Large and small bowel air-fluid levels may be physiologic or represent a nonspecific enteritis/diarrheal illness. 2. There is improvement of the previously described bowel wall thickening. 3. Persistent adenopathy of the lower chest, retroperitoneum and mesentery, stable from 03/02/2023. 4. Normal appendix. cxr no acute process
--- NOTE | 2023-04-05 14:25 | Hospitalist Progress Note ---
Date of Service April 05, 2023 Assessment & Plan (1) Severe sepsis: Plan: Severe Sepsis Possible sources: Enteritis H/O Whipple disease ongoing antibiotic Rx with Bactrim --CT ABD:Large and small bowel air-fluid levels may be physiologic or represent a nonspecific enteritis/diarrheal illness. There is improvement of the previously described bowel wall thickening. Persistent adenopathy of the lower chest, retroperitoneum and mesentery, stable from 03/02/2023. Normal appendix. --Elevated procalcitonin --CXR:No acute process. --Blood Cx:pending --Urine Cx:Negative to date --Stool PCR:Negative Continue Zosyn, Doxy for now ID consult pending Whipple's disease Severe protein calorie malnutrition BMI 15.7 on Bactrim chronically ? Bactrim failure Continue doxycycline, hydroxychloroquine per ID Dietitian consulted ID Consulted Acute kidney injury Anion gap metabolic acidosis Cr:2.2>1.8>1.5 Continue bicarbonate drip as per nephrology Monitor renal function Avoid nephrotoxic agents as able Appreciate nephrology input Acute on chronic hypovolemic hypoosmolar hyponatremia Urine osmolality 615, urine sodium 36 Sodium levels 128 today Monitor sodium levels Appreciate nephrology input Suspected upper GI bleed -EGD On 03/03/23:Mucosal nodule found in the esophagus. Biopsied. Small hiatal hernia. Normal stomach. Biopsied. Normal examined duodenum. Biopsied. (Path negative for H. pylori, malignancy) -Continue PPI Monitor H&H and transfuse as needed GI on board Dysphagia H/O GERD Patient reports having dysphagia predominantly to solids On clear liquid diet currently Speech therapy consulted GI following as well Continue PPI H/O Skin cancer Follows with dermatology as outpatient Anxiety/mood disorder Currently not on any meds DVT Px: SCDs for now Code Status Full code Admission and Anticipated Discharge Date Admission Date: April 04, 2023 Subjective Patient is seen and examined at bedside States having chills, left lower quadrant abdominal pain, nausea associated with diarrhea, Also reports having dysphagia to solids Admits to having low BP usually Denies any chest pain, dyspnea, dizziness No other complaints Review of Systems Review of Systems: All systems reviewed & are unremarkable except as noted in Subjective Physical Exam Physical Exam: Physical Exam: Vitals signs as noted above General Appearance:Thin, frail, ill appearing, no apparent distress Head: normocephalic, Atraumatic Eyes: normal inspection, EOMI Neck: supple, Trachea midline Respiratory/Chest: Normal breath sounds, CTA, No accessory muscle use Cardiovascular: S1, S2, No murmur Abdomen/GI:Soft, Non tender, Bowel sounds present Extremities/Musculoskeletal:normal inspection, no edema Neurologic/Psych:AAOX3, grossly no focal neurological deficits Skin: normal color, warm Results & Data Results & Data Vital Signs (Past 12 Hours) Vital Signs Temp Pulse Pulse Resp BP Pulse Ox O2 Del Method 04/05/23 11:57 36.4 C L 93 H 18 91/54 L 96 Room Air 04/05/23 07:00 65 04/05/23 07:46 36.4 C L 67 16 93/56 L 99 Room Air 04/05/23 03:19 38.2 C H 96 H 18 102/60 95 Room Air Laboratory Results Short CBC 04/04/23 04/04/23 04/05/23 Range/Units 17:28 22:49 06:15 WBC 31.00 H* 25.64 H (4.8-10.8) K/ul Hgb 13.3 L 11.0 L 10.3 L (14.0-18.0) g/dl Hct 38.7 L 32.0 L 30.4 L (42.0-52.0) % Plt Count 392 316 (130-400) K/uL 04/05/23 Range/Units 12:41 WBC (4.8-10.8) K/ul Hgb 11.4 L (14.0-18.0) g/dl Hct 34.1 L (42.0-52.0) % Plt Count (130-400) K/uL BMP 04/04/23 04/04/23 04/05/23 17:28 22:49 06:15 Sodium 124 L 127 L 128 L Potassium 3.3 L 3.6 3.4 L Chloride 93 L 101 104 Carbon Dioxide 17 L 17 L 18 L BUN 43 H 39 H 31 H Creatinine 2.22 H 1.80 H D 1.55 H Glucose 114 H 109 H 109 H Calcium 9.7 8.4 L 8.7 Liver Function 04/04/23 Range/Units 17:28 Total Bilirubin 0.3 (0.2-1.0) mg/dl AST 25 (13-39) U/L ALT 17 (7-52) U/L Alkaline Phosphatase 87 (34-104) U/L Albumin 3.8 (3.4-5.0) gm/dl Urine 04/04/23 Range/Units 21:40 Urine Color Dark Yellow Urine Appearance Cloudy A (Clear) Urine pH 5.5 (4.5-7.5) Ur Specific [place] 1.024 (1.000-1.030) Urine Protein 2+ H (Negative) Urine Glucose (UA) Negative (Negative)
[2023-04-05] MEDS: D5W IV SCH (15:10)
[2023-04-05] MEDS: POTASSIUM CHLORIDE IV SCH (15:10)
[2023-04-05] MEDS: [UNRECOGNIZED DRUG - OTHER] IV SCH (15:10)
[2023-04-05] MEDS: SODIUM BICARBONATE IV SCH (15:10)
--- NOTE | 2023-04-05 15:35 | Electrocardiogram Report ---
Test Reason : Blood Pressure : / mmHG Vent. Rate : 080 BPM Atrial Rate : 080 BPM P-R Int : 136 ms QRS Dur : 100 ms QT Int : 370 ms P-R-T Axes : 064 086 063 degrees QTc Int : 426 ms Normal sinus rhythm Nonspecific ST abnormality Abnormal ECG When compared with ECG of 02-MAR-2023 15:12, No significant change was found Confirmed by Chaim Rivera [id number]) on 04/05/2023 3:35:08 PM Referred By: REFERRED SELF Confirmed By:Chaim Rivera
[2023-04-05] MEDS ORDERED: COUGH DROP (SUGAR FREE) LOZ 24 LOZ/1 BOX BUCCAL PRN (20:09)
[2023-04-05 20:27] LABS: Hematocrit (blood only) 30.1 % (42.0-52.0); Hemoglobin 10.2 g/dl (14.0-18.0)
[2023-04-05 20:43] LABS: BUN Creatinine Ratio 16.1 (10-20); Calcium 8.2 mg/dl (8.6-10.3); Creatinine Clr Calc Pharmacy 47.8 ml/min; Est GFR (African American) 88.3 ml/min; Est GFR (Non-African American) 76.2 ml/min; Potassium 3.1 mmol/L (3.5-5.1)
[2023-04-06] MEDS: PIPERACILLIN/TAZOBACTAM 4.5 GM in DEXTROSE 5% 100 ML IV SCH ×3 (01:41→18:17)
[2023-04-06] MEDS: POTASSIUM CHLORIDE IV SCH (03:30)
[2023-04-06] MEDS: SODIUM BICARBONATE IV SCH (03:30)
[2023-04-06] MEDS: [UNRECOGNIZED DRUG - OTHER] IV SCH (03:30)
[2023-04-06] MEDS: D5W IV SCH (03:30)
[2023-04-06 07:29] LABS: Basophils # (auto) 0.09 K/uL (0-0.2); Basophils % (auto) 0.5 %; Eosinophils # (auto) 0.17 K/uL (0-0.50); Eosinophils % (auto) 0.9 %; Hematocrit (blood only) 27.7 % (42.0-52.0); Hemoglobin 9.6 g/dl (14.0-18.0); Immature Granulocytes # (auto) 0.23 K/uL (0.01-0.20); Immature Granulocytes % (auto) 1.2 %; Lymphocytes # (auto) 1.18 K/uL (1.2-3.4); Lymphocytes % (auto) 6.3 %; Mean Corpuscular Hemoglobin 28.7 pg (25.0-34.0); Mean Corpuscular Hgb Conc 34.7 g/dL (32.0-36.0); Mean Corpuscular Volume 82.9 fL (80.0-100.0); Mean Platelet Volume 9.9 fL (9.4-12.4); Monocytes # (auto) 1.16 K/uL (0.11-0.59); Monocytes % (auto) 6.2 %; Neutrophils % (auto) 84.9 %; Platelet Count 345 K/uL (130-400); RDW Coefficient of Variation 16.9 % (11.5-14.5); Red Blood Count 3.34 M/uL (4.70-6.10); White Blood Count 18.83 K/ul (4.8-10.8)
[2023-04-06 07:50] LABS: BUN Creatinine Ratio 10.1 (10-20); Calcium 8.6 mg/dl (8.6-10.3); Est GFR (African American) 102.5 ml/min; Est GFR (Non-African American) 88.4 ml/min; Magnesium 1.6 mg/dl (1.7-2.4)
[2023-04-06] MEDS ORDERED: MAGNESIUM SULFATE / D5W 1 GM/100 ML BAG IV ONE (08:33)
[2023-04-06] MEDS: POTASSIUM CHLORIDE / WTR 10 MEQ/100 ML PLCT IV SCH ×4 (08:51→13:29)
[2023-04-06] MEDS: HYDROXYCHLOROQUINE SULFATE 200 MG TAB PO SCH ×3 (08:52→19:16)
[2023-04-06] MEDS: PANTOprazole 40 MG in SYRINGE 0 ML IV SCH ×2 (08:52→19:17)
[2023-04-06] MEDS: CEROVITE ADV FORMULA TAB PO SCH (08:52)
[2023-04-06] MEDS: DOXYCYCLINE HYCLATE 100 MG CAP PO SCH ×2 (08:52→19:16)
[2023-04-06] MEDS: POTASSIUM CHLORIDE 20 MEQ/15 ML UDC PO ONE ×2 (10:03→10:51)
--- NOTE | 2023-04-06 10:51 | Nephrology Progress Note ---
Date of Service April 06, 2023 Assessment & Plan (1) Hyponatremia: Plan: improving; responded initially as hypovolemic now more a euvolemic picture >>must have eukalemia to correct this >> gave 20 mEq IV K more in addition to 20 mEq already ordered IV and 40 mEq po he took this am; will also continue K rich fluids and d/c bicarb -recheck bmp 1800 ordered -would not start lasix yet given hypotension but may need to -consider urea (2) LISS (acute kidney injury): Plan: resolved nonoliguric stage 2 LISS > prerenal versus ATN (granular casts noted) in the setting of severe sepsis w/ NAGMA and hypokalemia -f/u pending blood /urine cxs > NGTD -Assess proteinuria status when more stable clinically -consider HIV test (3) Whipple's disease: Plan: per inf dzs; low threshold for oncology eval if not done last admission ? LN biopsy and/or neck CT Admission and Anticipated Discharge Date Admission Date: April 04, 2023 Subjective moved to PCU for K; very tired; N; no po Review of Systems Review of Systems: All systems reviewed & are unremarkable except as noted in Subjective Physical Exam Constitutional: well developed, + cachectic, + frail appearing and cooperative; no acute distress Eyes: EOM intact bilaterally ENMT: Ears: no external ear abnormality Nose: no external nose abnormality Mouth: + dry oral mucous membranes Neck: no nuchal rigidity Respiratory: normal respiratory effort Auscultation: + diminished lung s ounds and + crackles (fine bibasilar) Cardiovascular: RRR, no murmur, no edema Gastrointestinal (Abdomen): Inspection/Auscultation: normal bowel sounds Percussion/Palpation: abdomen soft; abdomen nontender Musculoskeletal: Extremities: strength 5/5 throughout Skin: no rashes, warm and dry Psychiatric: Orientation: alert and oriented x 3 Results & Data Vital Signs (Past 12 Hours) Vital Signs Temp Pulse Pulse Resp BP Pulse Ox O2 Del Method 04/06/23 07:09 36.9 C 96 H 18 94/58 L 98 Room Air 04/06/23 07:37 Room Air 04/06/23 07:22 83 04/06/23 04:00 37.7 C H 89 18 101/61 95 Room Air Laboratory Results 04/06/23 07:14 04/06/23 07:14
[2023-04-06] MEDS: POTASSIUM CHLORIDE 40 MEQ in LACTATED RINGER'S 1,000 ML IV SCH ×2 (12:29→23:52)
--- NOTE | 2023-04-06 13:41 | CT Scan Report ---
CT soft tissue neck wo con HISTORY: 52 years-old Male dysphagia COMPARISON: Chest CT 03/02/2023 TECHNIQUE: Multiple axial CT images of the soft tissues of the neck were obtained without the use of IV contrast. A dose lowering technique was used consistent with the principals of ALARA. FINDINGS: The imaged intracranial structures demonstrate no acute abnormality. Unremarkable orbits. Patent airw ay. Preserved parapharyngeal fat planes without acute inflammatory changes. Unremarkable appearance o f the parotid, subarticular and thyroid glands. Subcentimeter upper mediastinal lymph nodes. Supracla vicular and cervical chain lymph nodes measure up to 8-9 mm. No pathologically enlarged lymph nodes i dentified. Unremarkable appearance of the glottis and subglottic airway. No pneumothorax. Mild pulmonary emphysema. No acute fracture. Mastoid air cells are clear. Minimal mu cosal thickening of the paranasal sinuses. Leftward bowing and spurring of the nasal septum. Numerous dental caries with periapical cysts. IMPRESSION: 1. No acute inflammatory changes. 2. Subcentimeter lymph nodes of the neck and upper chest. 3. Extensive odontogenic disease. 4. Mild pulmonary emphysema. ACT 112: Negative or not required by law. The above report was generated using voice recognition software. It may contain grammatical, syntax o r spelling errors. Electronically signed by: Mukul Martinez M.D. 04/06/2023 1:38 PM
--- NOTE | 2023-04-06 15:20 | Hospitalist Progress Note ---
Date of Service April 06, 2023 Assessment & Plan (1) Severe sepsis: Plan: Severe Sepsis Possible sources: Enteritis H/O Whipple disease ongoing antibiotic Rx with Bactrim --CT ABD:Large and small bowel air-fluid levels may be physiologic or represent a nonspecific enteritis/diarrheal illness. There is improvement of the previously described bowel wall thickening. Persistent adenopathy of the lower chest, retroperitoneum and mesentery, stable from 03/02/2023. Normal appendix. --Elevated procalcitonin --CXR:No acute process. --Blood Cx: No growth to date --Urine Cx:Negative --Stool PCR:Negative Continue Zosyn, Doxy for now Appreciate ID input: Recommends to continue Zosyn, doxycycline, hydroxychloroquine. If clinically deteriorates, plan to start on vancomycin or daptomycin HIV screen pending Given persistent lymphadenopathy, consulted IR for US biopsy to rule out malignancy Leukocytosis trending down Whipple's disease Severe protein calorie malnutrition BMI 15.7 on Bactrim chronically ? Bactrim failure Continue doxycycline, hydroxychloroquine per ID Dietitian consulted Appreciate ID input Acute kidney injury Anion gap metabolic acidosis Cr:2.2>1.8>1.5>0.99 Continue IV fluids as per nephrology Monitor renal function Avoid nephrotoxic agents as able Appreciate nephrology input Metabolic acidosis resolved Hypokalemia Replete electrolytes as needed Acute on chronic hypovolemic hypoosmolar hyponatremia Urine osmolality 615, urine sodium 36 Sodium levels 129 today Monitor sodium levels Appreciate nephrology input Suspected upper GI bleed -EGD On 03/03/23:Mucosal nodule found in the esophagus. Biopsied. Small hiatal hernia. Normal stomach. Biopsied. Normal examined duodenum. Biopsied. (Path negative for H. pylori, malignancy) -Continue PPI Monitor H&H and transfuse as needed GI on board Dysphagia H/O GERD --CT neck:No acute inflammatory changes. Subcentimeter lymph nodes of the neck and upper chest. Extensive odontogenic disease. Patient reports having dysphagia predominantly to solids Speech therapy consulted Continue PPI Advance diet as tolerated Consider barium swallow if needed H/O Skin cancer Follows with dermatology as outpatient Anxiety/mood disorder Currently not on any meds DVT Px: SCDs for now Code Status Full code Admission and Anticipated Discharge Date Admission Date: April 04, 2023 Subjective Patient is seen and examined at bedside States feeling better today Was nauseous earlier today, later improved Reports having diarrhea Denies any significant abdominal pain today Chills resolved Discussed with nephrology, GI and interventional radiology today Denies any chest pain, dyspnea, dizziness Review of Systems Review of Systems: All systems reviewed & are unremarkable except as noted in Subjective Physical Exam Physical Exam: Physical Exam: Vitals signs as noted above General Appearance:Thin, frail, ill appearing, no apparent distress Head: normocephalic, Atraumatic Eyes: normal inspection, EOMI Neck: supple, Trachea midline Respiratory/Chest: Normal breath sounds, CTA, No accessory muscle use Cardiovascular: S1, S2, No murmur Abdomen/GI:Soft, Non tender, Bowel sounds present Extremities/Musculoskeletal:normal inspection, no edema Neurologic/Psych:AAOX3, grossly no focal neurological deficits Skin: normal color, warm Results & Data Results & Data Vital Signs (Past 12 Hours) Vital Signs Temp Pulse Pulse Resp BP Pulse Ox O2 Del Method 04/06/23 12:34 91 H 04/06/23 12:33 36.8 C 87 20 95/53 L 99 Room Air 04/06/23 11:19 36.7 C 93 H 16 104/66 97 Room Air 04/06/23 07:09 36.9 C 96 H 18 94/58 L 98 Room Air 04/06/23 07:37 Room Air 04/06/23 07:22 83 04/06/23 04:00 37.7 C H 89 18 101/61 95 Room Air Laboratory Results Short CBC 04/05/23 04/06/23 Range/Units 19:57 07:14 WBC 18.83 H (4.8-10.8) K/ul Hgb 10.2 L 9.6 L (14.0-18.0) g/dl Hct 30.1 L 27.7 L (42.0-52.0) % Plt Count 345 (130-400) K/uL BMP 04/05/23 04/06/23 19:57 07:14 Sodium 129 L 129 L Potassium 3.1 L 3.0 L Chloride 103 102 Carbon Dioxide 19 L 21 BUN 18 10 Creatinine 1.12 D 0.99 Glucose 88 128 H Calcium 8.2 L 8.6
[2023-04-06 18:34] LABS: BUN Creatinine Ratio 8.4 (10-20); Calcium 9.3 mg/dl (8.6-10.3); Creatinine Clr Calc Pharmacy 64.5 ml/min; Est GFR (African American) 118.9 ml/min; Est GFR (Non-African American) 102.6 ml/min; Potassium 3.4 mmol/L (3.5-5.1)
[2023-04-07] MEDS: PIPERACILLIN/TAZOBACTAM 4.5 GM in DEXTROSE 5% 100 ML IV SCH ×2 (03:12→09:04)
[2023-04-07] MEDS: ACETAMINOPHEN 325 MG TAB PO PRN (04:06)
[2023-04-07 07:26] LABS: Hematocrit (blood only) 29.9 % (42.0-52.0); Hemoglobin 10.2 g/dl (14.0-18.0); Mean Corpuscular Hemoglobin 27.9 pg (25.0-34.0); Mean Corpuscular Hgb Conc 34.1 g/dL (32.0-36.0); Mean Corpuscular Volume 81.7 fL (80.0-100.0); Mean Platelet Volume 9.9 fL (9.4-12.4); Platelet Count 437 K/uL (130-400); RDW Coefficient of Variation 17.2 % (11.5-14.5); RDW Standard Deviation 51.2 fL (36.4-46.3); Red Blood Count 3.66 M/uL (4.70-6.10)
--- NOTE | 2023-04-07 07:30 | Nephrology Progress Note ---
Date of Service April 07, 2023 Assessment & Plan (1) Hyponatremia: Plan: improving; responded initially as hypovolemic now more a euvolemic picture c/w emphysema/COPD hx. >>must have eukalemia to correct this >> gave 20 mEq IV K more in addition to 80 mEq already given po; will also continue K rich fluids -recheck bmp in AM -would not start lasix yet given hypotension but may need to -continues to behave as hypovolemic (2) LISS (acute kidney injury): Plan: resolved nonoliguric stage 2 LISS > prerenal versus ATN (granular casts noted) in the setting of severe sepsis w/ NAGMA and hypokalemia -f/u pending blood /urine cxs > NGTD -Assess proteinuria status when more stable clinically >> 2+ dipstick proteinuria; will quantify (pending) (3) Whipple's disease: Plan: per inf dzs and hospitalist; abtx changed 04/07; low threshold for oncology eval if not done last admission ? LN biopsy and/or neck CT -f/u LN Bx > deferred; ?gen surg eval for same -f/u HIV test Admission and Anticipated Discharge Date Admission Date: April 04, 2023 Subjective febrile HS again 38.4 tmax; had 40 mEQ x 2 doses po k; hsoptialist adjusting abtx in conjuenction w/ ID; throat pain better; >20 bm daily; ongoing struggle w/ po Review of Systems Review of Systems: All systems reviewed & are unremarkable except as noted in Subjective Physical Exam Constitutional: well developed, + cachectic, + frail appearing and cooperative; no acute distress Eyes: EOM intact bilaterally ENMT: Ears: no external ear abnormality Nose: no external nose abnormality Mouth: + dry oral mucous membranes Neck: no nuchal rigidity Respiratory: normal respiratory effort Auscultation: + diminished lung sounds and + crackles (fine bibasilar) Cardiovascular: Rate/Rhythm: regular rhythm and + tachycardic Extremities: no edema Gastrointestinal (Abdomen): Inspection/Auscultation: normal bowel sounds Percussion/Palpation: abdomen soft; abdomen nontender Musculoskeletal: Extremities: strength 5/5 throughout Skin: no rashes, warm and dry Neurologic: abad, fluent speech, no tremor Psychiatric: Orientation: alert and oriented x 3 Results & Data Vital Signs (Past 12 Hours) Vital Signs Temp Pulse Pulse Resp BP Pulse Ox O2 Del Method 04/07/23 03:00 38.3 C H 90 29 H 81/55 L 98 Room Air 04/07/23 01:17 96 H 04/06/23 23:00 38.3 C H 100 H 27 H 91/61 L 97 Room Air Laboratory Results 04/07/23 06:39 04/07/23 06:[address] neck reviewed
[2023-04-07] MEDS ORDERED: SODIUM CHLORIDE 0.9% 1000ML 500 ML IV ONE (07:40)
--- NOTE | 2023-04-07 07:40 | Hospitalist Progress Note ---
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 There is improvement of the previously described bowel wall thickening. Persistent adenopathy of the lower chest, retroperitoneum and mesentery, stable from 03/02/2023. Normal appendix. --Leukocytosis with left shift and elevated procalcitonin on admission in support of bacterial sepsis --CXR:No acute process. --Blood Cx: No growth to date --Urine Cx:Negative --Stool PCR:Negative Zosyn was started empirically and per ID doxycycline and HCQ were added in place of Bactrim which also may have somewhat contributed to LISS HIV screen pending but per patient this was negative just 6 months ago. Given persistent lymphadenopathy, consulted IR for US biopsy to rule out malignancy which was unsuccessful today. No clear inciting infection at this time. Transitioning Zosyn to Rocephin which is helpful in the initial phase for relapse of Whipples Holding Doxycycline and HCQQ at this time to see how the Rocephin helps him If he worsens, consider carbapenem. Reconsult ID if no improvement after the weekend. Severe protein calorie malnutrition 2/2 poor PO intake in the last few weeks and ongoing diarrhea (poor absorption) BMI 15.7 Nutrition is following Acute kidney injury Cr:2.2>1.8>1.5>0.99 Continue IV fluids as per nephrology Monitor renal function Avoid nephrotoxic agents as able LISS resolved NAGMA 2/2 ongoing diarrhea that is severe. Cont supportive IVF and electrolyte replacement/bicarbonate drip per nephro as needed Importantly, he is now starting to tolerate food and this will help Started some Imodium and Powerade PO Gave phosphate replacement and potassium supplements today Cont treatment of #1 which is likely driving the diarrhea Probiotics started, also. Hypokalemia/Hypophosphatemia Replete electrolytes as needed Anemia-likely related to chronic disease and recent hospitalization with frequent phlebotomy. Suspected upper GI bleed -EGD On 03/03/23:Mucosal nodule found in the esophagus. Biopsied. Small hiatal hernia. Normal stomach. Biopsied. Normal examined duodenum. Biopsied. (Path negative for H. pylori, malignancy) -Continue PPI Monitor H&H and transfuse as needed No active bleeding or further workup per [facility] who was initially consulted. Dysphagia H/O GERD --CT neck:No acute inflammatory changes. Subcentimeter lymph nodes of the neck and upper chest. Extensive odontogenic disease. Patient reports having dysphagia predominantly to solids Speech therapy consulted Continue PPI Advance diet as tolerated Patient feels this is improving but likes the idea of trying some Chloroseptic for pain Painful LAD noted today in submandibular region poss 2/2 dental disease? vs other. ENT exam is otherwise unremarkable. H/O Skin cancer Follows with dermatology as outpatient DVT Px: No active bleeding to date and anemia is present but stable. Given high risk of DVT in setting of pro-inflammatory disorder will start chemoprophylaxis with heparin now Full Code Dispo-to home once tolerating food and diarrheal illness has resolved/stabilized. I spoke with spouse by phone who shared her concerns, also. All questions were answered to her satisfaction. Maria E Sanchez DO [facility] Hospitalist Admission and Anticipated Discharge Date Admission Date: April 04, 2023 Subjective 52 yo M admitted for sepsis 2/2 GI illness. Known Whipples infection and has been on Bactrim since diagnosis in late February Was doing well on the Bactrim and was eating but went for a c-scope, describes coming out of anesthesia with a sore throat Approx 1 week later ate chilk [place] A and developed diarrheal illness after this limiting his PO intake He reported still taking meds on an empty stomach which caused things to be poor in his his mind Throat pain and swollen submandibular lymph nodes are ongoing Diarrhea is ongoing at 10-20 BMs daily including today. He is not able to get sleep because of so many BMs. Febrile overnight Underwent an attempt at LN biopsy this afternoon which was unable to be performed. Review of Systems Review of Systems: All systems were reviewed and negative except as indicated on HPI above. Physical Exam Physical Exam: CONSTITUTIONAL: thin, cachectic, vitals as above, generally well-appearing EYES: EOMI bilaterally, PERRL, normal conjunctivae, no scleral icterus ENT: external ear and nose normal, oropharynx clear, no TM abnormality on the left, right external auditory canal was blocked wtih cerumen, no maxillary or ethmoid sinus tenderness, painful LAD in bilateral submandibular area. Poor dentition wtih multiple cracked/chipped teeth and decay present. NECK: trachea midline RESPIRATORY: clear to auscultation bilaterally, no crackles, rales or wheezes, normal respiratory effort CARDIOVASCULAR: regular rate and rhythm, S1 and 2 heard without murmurs, gallops or rubs, no JVD, no peripheral edema CHEST: inspection of chest was normal GASTROINTESTINAL: soft, generalized TTP throughout R>L, no hepatomegaly, no guarding, ND MUSCULOSKELETAL: strength 5/5 throughout, head is normocephalic and atraumatic, neck supple SKIN: warm and dry, erythematous raised rash along upper back without any confl uent redness, Papular but no pustules seen. NEUROLOGIC: CN 2-12 grossly intact, no sensory deficit, normal cognition, normal speech, no tremor PSYCHIATRIC: alert cooperative and oriented to person, place and time. Euthymic mood, makes good eye contact, language grossly intact, recent and remote memory grossly intact. Results & Data Results & Data Vital Signs (Past 12 Hours) Vital Signs Temp Pulse Pulse Resp BP Pulse Ox O2 Del Method 04/07/23 03:00 38.3 C H 90 29 H 81/55 L 98 Room Air 04/07/23 01:17 96 H 04/06/23 23:00 38.3 C H 100 H 27 H 91/61 L 97 Room Air Laboratory Results Short CBC 04/07/23 Range/Units 06:39 WBC 21.60 H (4.8-10.8) K/ul Hgb 10.2 L (14.0-18.0) g/dl Hct 29.9 L (42.0-52.0) % Plt Count 437 H (130-400) K/uL BMP 04/06/23 04/06/23 07:14 17:47 Sodium 129 L 129 L Potassium 3.0 L 3.4 L Chloride 102 101 Carbon Dioxide 21 20 L BUN 10 7 Creatinine 0.99 0.83 Glucose 128 H 133 H Calcium 8.6 9.3 Medications Administered Current Inpatient Medications Acetaminophen (Acetaminophen 325 Mg Tab) 650 mg PO Q4H PRN PRN Reason: Pain or Fever Stop: 05/04/23 22:03 Last Admin: 04/07/23 04:06 Dose: 650 mg Doxycycline Hyclate (Doxycycline Hyclate 100 Mg Cap) 100 mg PO BID [facility] Stop: 04/15/23 08:59 Last Admin: 04/06/23 19:16 Dose: 100 mg Hydroxychloroquine Sulfate (Hydroxychloroquine Sulfate 200 Mg Tab) 200 mg PO TID [facility] Stop: 05/04/23 22:44 Last Admin: 04/06/23 19:16 Dose: 200 mg Promethazine HCl 6.25 mg/ (Sodium Chloride) 50.25 mls @ 201 mls/hr IV Q6H PRN PRN Reason: Nausea And Vomiting Stop: 05/04/23 20:39 Pantoprazole Sodium 40 mg/ (Syringe) 10 mls @ 5 mls/min IV BID [facility] Stop: 05/05/23 08:59 Last Admin: 04/06/23 19:17 Dose: 5 mls/min Piperacillin Sod/Tazobactam (Sod 4.5 gm/ Dextrose) 120 mls @ 30 mls/hr IV Q8H [facility]; Protocol Stop: 04/15/23 01:59 Last Admin: 04/07/23 03:12 Dose: 30 mls/hr Potassium Chloride 40 meq/ (Lactated Ringer's) 1,020 mls @ 80 mls/hr IV .[id number] [facility] Stop: 05/06/23 10:59 Last Admin: 04/06/23 23:52 Dose: 80 mls/hr Menthol (Cough Drop (Sugar Free) Darren 24 Darren/1 Box) 1 darren BUCCAL Q8H PRN PRN Reason: Sore Throat Stop: 05/05/23 20:08 Last Admin: 04/05/23 20:32 Dose: 1 darren Multivitamins/Minerals (Cerovite Adv Formula Tab) 1 tab PO DAILY [facility] Stop: 05/05/23 08:59 Last Admin: 04/06/23 08:52 Dose: 1 tab Oxycodone HCl (Oxycodone Hcl Ir 5 Mg Tab (Immediate Release)) 5 mg PO Q4H PRN PRN Reason: Pain Stop: 04/18/23 20:39 Last Admin: 04/05/23 12:12 Dose: 5 mg
[2023-04-07 07:58] LABS: Basophils # (auto) 0.08 K/uL (0-0.2); Basophils % (auto) 0.4 %; Eosinophils # (auto) 0.28 K/uL (0-0.50); Eosinophils % (auto) 1.3 %; Immature Granulocytes # (auto) 0.37 K/uL (0.01-0.20); Immature Granulocytes % (auto) 1.7 %; Lymphocytes # (auto) 1.79 K/uL (1.2-3.4); Lymphocytes % (auto) 8.3 %; Monocytes # (auto) 1.32 K/uL (0.11-0.59); Monocytes % (auto) 6.1 %; Neutrophils # (auto) 17.76 K/uL (1.40-6.50); Neutrophils % (auto) 82.2 %
[2023-04-07 08:00] LABS: Calcium 8.8 mg/dl (8.6-10.3); Creatinine Clr Calc Pharmacy 62.6 ml/min; Est GFR (African American) 116.6 ml/min; Est GFR (Non-African American) 100.6 ml/min; Magnesium 1.7 mg/dl (1.7-2.4); Phosphorus 1.8 mg/dl (2.5-4.9); Potassium 3.2 mmol/L (3.5-5.1)
[2023-04-07] MEDS: DOXYCYCLINE HYCLATE 100 MG CAP PO SCH (09:00)
[2023-04-07] MEDS: HYDROXYCHLOROQUINE SULFATE 200 MG TAB PO SCH ×2 (09:01→15:30)
[2023-04-07] MEDS: PANTOprazole 40 MG in SYRINGE 0 ML IV SCH ×2 (09:01→21:13)
[2023-04-07] MEDS: CEROVITE ADV FORMULA TAB PO SCH (09:01)
[2023-04-07] MEDS: POTASSIUM CHLORIDE CRTAB 20 MEQ TABCR PO SCH ×2 (10:02→15:31)
[2023-04-07] MEDS: POT PHOSPHATE MONOBASIC W/ SOD TAB PO SCH ×3 (12:25→21:12)
[2023-04-07] MEDS: POTASSIUM CHLORIDE 40 MEQ in LACTATED RINGER'S 1,000 ML IV SCH (12:25)
--- NOTE | 2023-04-07 14:05 | Ultrasound Report ---
LEFT AXILLARY ULTRASOUND CLINICAL HISTORY: Lymphadenopathy. COMPARISON STUDY: Chest CT March 04, 2023. FINDINGS: The patient presented today for possible biopsy of left axillary lymph nodes. Sonography of the left axilla demonstrated several benign-appearing left axillary lymph nodes. Each node contained a fatty hilum. Index node measured 1.1 x 0.5 x 0.9 cm. No suspicious nodes were identified by sonogr aphy. Therefore, no biopsy was performed at this time. This was discussed with the patient. IMPRESSION: No suspicious left axillary lymph nodes, as described above. Therefore, no biopsy was per formed. These nodes can be assessed on follow-up exams to ensure stability. ACT 112: Negative or not required by law. Electronically signed by: Gary Chau M.D. 04/07/2023 2:04 PM
[2023-04-07] MEDS: CHLORASEPTIC 1.4% SOLN 180 ML BTL MT SCH ×2 (16:37→21:14)
[2023-04-07] MEDS: LOPERAMIDE HCL 2 MG CAP PO PRN ×2 (16:39→21:13)
[2023-04-07] MEDS: cefTRIAXone SODIUM 2,000 MG in DEXTROSE 5% 50 ML IV SCH (17:30)
[2023-04-07] MEDS: SACCHAROMYCES BOULARDII 250 MG CAP PO SCH (17:51)
[2023-04-07] MEDS: oxyCODONE HCL IR 5 MG TAB (IMMEDIATE RELEASE) PO PRN (21:11)
[2023-04-07] MEDS: HEPARIN SOD 5,000 UNIT/0.5 ML VIAL SQ SCH (21:14)
[2023-04-08] MEDS: POTASSIUM CHLORIDE 40 MEQ in LACTATED RINGER'S 1,000 ML IV SCH ×2 (05:09→15:41)
--- NOTE | 2023-04-08 07:17 | Hospitalist Progress Note ---
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 There is improvement of the previously described bowel wall thickening. Persistent adenopathy of the lower chest, retroperitoneum and mesentery, stable from 03/02/2023. Normal appendix. --Leukocytosis with left shift and elevated procalcitonin on admission in support of bacterial sepsis --CXR:No acute process. --Blood Cx: No growth to date --Urine Cx:Negative --Stool PCR:Negative Zosyn was started empirically and per ID doxycycline and HCQ were added in place of Bactrim which also may have somewhat contributed to LISS HIV screen pending but per patient this was negative just 6 months ago. Given persistent lymphadenopathy, consulted IR for US biopsy to rule out malignancy which was unsuccessful today. No clear inciting infection at this time. Transitioning Zosyn to Rocephin which is helpful in the initial phase for relapse of Whipples Holding Doxycycline and HCQ at this time to see how the Rocephin helps him If he worsens, consider carbapenem. Reconsult ID if no improvement after the weekend. At discharge may want to reconsider Bactrim for maintenance phase with close treatment versus doxycycline/hydroxychloroquine Severe protein calorie malnutrition 2/2 poor PO intake in the last few weeks and ongoing diarrhea (poor absorption) BMI 15.7 Patient is now reliably eating and diarrhea has slowed down. Nutrition is following Acute kidney injury Cr:2.2>1.8>1.5>0.99 Continue IV fluids as per nephrology Monitor renal function Avoid nephrotoxic agents as able LISS resolved NAGMA 2/2 ongoing diarrhea that is severe. resolved Cont supportive IVF and electrolyte replacement/bicarbonate drip per nephro as needed Importantly, he is now starting to tolerate food and this will help Started some Imodium and Powerade PO Gave phosphate replacement and potassium supplements today Cont treatment of #1 which is likely driving the diarrhea Probiotics started, also. Hypokalemia/Hypophosphatemia Replete electrolytes as needed Anemia-likely related to chronic disease and recent hospitalization with frequent phlebotomy. Suspected upper GI bleed -EGD On 03/03/23:Mucosal nodule found in the esophagus. Biopsied. Small hiatal hernia. Normal stomach. Biopsied. Normal examined duodenum. Biopsied. (Path negative for H. pylori, malignancy) -Continue PPI Monitor H&H and transfuse as needed No active bleeding or further workup per [facility] who was initially consulted. Dysphagia H/O GERD --CT neck:No acute inflammatory changes. Subcentimeter lymph nodes of the neck and upper chest. Extensive odontogenic disease. Patient reports having dysphagia predominantly to solids Speech therapy consulted Continue PPI Advance diet as tolerated Patient feels this is improving but likes the idea of trying some Chloroseptic for pain Painful LAD noted today in submandibular region poss 2/2 dental disease? vs other. ENT exam is otherwise unremarkable. H/O Skin cancer Follows with dermatology as outpatient DVT Px: Heparin Full Code Dispo-to home once tolerating food and diarrheal illness has re solved/stabilized. Although patient had an unsuccessful lymph node biopsy on Monday, if lymph node sampling is desired, may consider performing this as outpatient. Maria E Sanchez DO [facility] Hospitalist Admission and Anticipated Discharge Date Admission Date: April 04, 2023 Subjective 52 yo M admitted for sepsis 2/2 GI illness. Diarrhea is improved Throat pain improved with improvement in submandibular LAD. He was able to sleep overnight last night Tolerating p.o. pretty reliably today Tmax overnight was 39.1 C at 8 PM Review of Systems Review of Systems: All systems were reviewed and negative except as indicated on HPI above. Physical Exam Physical Exam: CONSTITUTIONAL: thin, cachectic, vitals as above, generally well-appearing EYES: normal conjunctivae, no scleral icterus ENT: external ear and nose normal, oropharynx clear, painful LAD in bilateral submandibular area has resolved. Poor dentition wtih multiple cracked/chipped teeth and decay present. NECK: trachea midline RESPIRATORY: clear to auscultation bilaterally, no crackles, rales or wheezes, normal respiratory effort CARDIOVASCULAR: regular rate and rhythm, S1 and 2 heard without murmurs, gallops or rubs, no JVD, no peripheral edema CHEST: inspection of chest was normal GASTROINTESTINAL: soft, generalized TTP throughout R>L, no hepatomegaly, no guarding, ND MUSCULOSKELETAL: strength 5/5 throughout, head is normocephalic and atraumatic, neck supple SKIN: warm and dry, erythematous raised rash along upper back without any confluent redness, Papular but no pustules seen-seen but not course today. NEUROLOGIC: CN 2-12 grossly intact, no sensory deficit, normal cognition, normal speech, no tremor PSYCHIATRIC: alert cooperative and oriented to person, place and time. Euthymic mood, makes good eye contact, language grossly intact, recent and remote memory grossly intact. Results & Data Results & Data Vital Signs (Past 12 Hours) Vital Signs Temp Pulse Pulse Resp BP Pulse Ox Pulse Ox 04/07/23 22:04 99 H 04/08/23 05:50 98/62 L 04/08/23 02:32 36.7 C 84 16 90/56 L 98 04/07/23 22:00 96 04/07/23 21:14 37.2 C 04/07/23 23:00 36.5 C 95 H 20 99/61 L 96 04/07/23 20:08 39.1 C H 107 H 20 101/62 97 O2 Del Method O2 Del Method 04/07/23 22:04 04/08/23 05:50 04/08/23 02:32 Room Air 04/07/23 22:00 Room Air 04/07/23 21:14 04/07/23 23:00 Room Air 04/07/23 20:08 Room Air Laboratory Results Short CBC 04/07/23 Range/Units 06:39 WBC 21.60 H (4.8-10.8) K/ul Hgb 10.2 L (14.0-18.0) g/dl Hct 29.9 L (42.0-52.0) % Plt Count 437 H (130-400) K/uL BMP 04/07/23 06:39 Sodium 131 L Potassium 3.2 L Chloride 105 Carbon Dioxide 19 L BUN 7 Creatinine 0.87 Glucose 94 Calcium 8.8 Medications Administered Current Inpatient Medications Acetaminophen (Acetaminophen 325 Mg Tab) 650 mg PO Q4H PRN PRN Reason: Pain or Fever Stop: 05/04/23 22:03 Last Admin: 04/07/23 04:06 Dose: 650 mg Doxycycline Hyclate (Doxycycline Hyclate 100 Mg Cap) 100 mg PO BID [facility] Stop: 04/15/23 08:59 Last Admin: 04/07/23 09:00 Dose: 100 mg Heparin Sodium (Porcine) (Heparin Sod 5,000 Unit/0.5 Ml Vial) 5,000 units SQ Q12 [facility] Stop: 05/07/23 20:59 Last Admin: 04/07/23 21:14 Dose: 5,000 units Hydroxychloroquine Sulfate (Hydroxychloroquine Sulfate 200 Mg Tab) 200 mg PO TID [facility] Stop: 05/04/23 22:44 Last Admin: 04/07/23 15:30 Dose: 200 mg Promethazine HCl 6.25 mg/ (Sodium Chloride) 50.25 mls @ 201 mls/hr IV Q6H PRN PRN Reason: Nausea And Vomiting Stop: 05/04/23 20:39 Pantoprazole Sodium 40 mg/ (Syringe) 10 mls @ 5 mls/min IV BID [facility] Stop: 05/05/23 08:59 Last Admin: 04/07/23 21:13 Dose: 5 mls/min Potassium Chloride 40 meq/ (Lactated Ringer's) 1,020 mls @ 80 mls/hr IV .[id number] [facility] Stop: 05/06/23 10:59 Last Admin: 04/08/23 05:09 Dose: 80 mls/hr Ceftriaxone Sodium 2,000 mg/ (Dextrose) 70 mls @ 100 mls/hr IV Q24H [facility]; Protocol Stop: 04/17/23 16:59 Last Infusion: 04/07/23 20:10 Dose: Infused Loperamide HCl (Loperamide Hcl 2 Mg Cap) 2 mg PO UD PRN PRN Reason: Diarrhea Stop: 05/07/23 15:50 Last Admin: 04/07/23 21:13 Dose: 2 mg Menthol (Cough Drop (Sugar Free) Darren 24 Darren/1 Box) 1 darren BUCCAL Q8H PRN PRN Reason: Sore Throat Stop: 05/05/23 20:08 Last Admin: 04/05/23 20:32 Dose: 1 darren Multivitamins/Minerals (Cerovite Adv Formula Tab) 1 tab PO DAILY [facility] Stop: 05/05/23 08:59 Last Admin: 04/07/23 09:01 Dose: 1 tab Oxycodone HCl (Oxycodone Hcl Ir 5 Mg Tab (Immediate Release)) 5 mg PO Q4H PRN PRN Reason: Pain Stop: 04/18/23 20:39 Last Admin: 04/07/23 21:11 Dose: 5 mg Phenol (Chloraseptic 1.4% Soln 180 Ml Btl) 2 sprays MT QID [facility] Stop: 05/07/23 16:59 Last Admin: 04/07/23 21:14 Dose: 2 sprays Potassium Phosphate (Pot Phosphate Monobasic W/ Sod Tab) 2 tab PO QID [facility] Stop: 04/09/23 12:59 Last Admin: 04/07/23 21:12 Dose: 2 tab Saccharomyces Boulardii (Saccharomyces Boulardii 250 Mg Cap) 250 mg PO Q24H [facility] Stop: 05/07/23 16:59 Last Admin: 04/07/23 17:51 Dose: 250 mg
[2023-04-08 07:22] LABS: BUN Creatinine Ratio 7.1 (10-20); C Reactive Protein 15.31 mg/dl (0-0.5); Calcium 8.6 mg/dl (8.6-10.3); Creatinine Clr Calc Pharmacy 64.9 ml/min; Est GFR (African American) 118.3 ml/min; Est GFR (Non-African American) 102.1 ml/min; Magnesium 1.4 mg/dl (1.7-2.4); Phosphorus 2.5 mg/dl (2.5-4.9); Potassium 3.6 mmol/L (3.5-5.1)
[2023-04-08 08:55] LABS: Basophils % (auto) 0.6 %; Eosinophils # (auto) 0.64 K/uL (0-0.50); Eosinophils % (auto) 3.6 %; Hematocrit (blood only) 29.4 % (42.0-52.0); Immature Granulocytes % (auto) 2.3 %; Lymphocytes # (auto) 1.78 K/uL (1.2-3.4); Lymphocytes % (auto) 10.1 %; Mean Corpuscular Volume 85.2 fL (80.0-100.0); Mean Platelet Volume 9.9 fL (9.4-12.4); Monocytes % (auto) 6.2 %; Neutrophils # (auto) 13.59 K/uL (1.40-6.50); Neutrophils % (auto) 77.2 %; Platelet Count 518 K/uL (130-400); RDW Standard Deviation 55.4 fL (36.4-46.3); Red Blood Count 3.45 M/uL (4.70-6.10); White Blood Count 17.61 K/ul (4.8-10.8)
[2023-04-08] MEDS: HEPARIN SOD 5,000 UNIT/0.5 ML VIAL SQ SCH ×2 (09:11→21:03)
[2023-04-08] MEDS: CEROVITE ADV FORMULA TAB PO SCH (09:11)
[2023-04-08] MEDS: PANTOprazole 40 MG in SYRINGE 0 ML IV SCH ×2 (09:11→21:06)
[2023-04-08] MEDS: CHLORASEPTIC 1.4% SOLN 180 ML BTL MT SCH ×4 (09:12→21:07)
[2023-04-08] MEDS: MAGNESIUM SULFATE / D5W 1 GM/100 ML BAG IV SCH ×4 (09:17→15:41)
[2023-04-08] MEDS: LOPERAMIDE HCL 2 MG CAP PO PRN ×3 (09:17→21:07)
[2023-04-08] MEDS: SACCHAROMYCES BOULARDII 250 MG CAP PO SCH (16:39)
[2023-04-08] MEDS: cefTRIAXone SODIUM 2,000 MG in DEXTROSE 5% 50 ML IV SCH (16:43)
[2023-04-08] MEDS: oxyCODONE HCL IR 5 MG TAB (IMMEDIATE RELEASE) PO PRN (21:06)
[2023-04-08] MEDS: ACETAMINOPHEN 325 MG TAB PO PRN (23:08)
[2023-04-09] MEDS: POTASSIUM CHLORIDE 40 MEQ in LACTATED RINGER'S 1,000 ML IV SCH ×2 (05:16→17:11)
[2023-04-09 06:38] LABS: Basophils # (auto) 0.08 K/uL (0-0.2); Basophils % (auto) 0.6 %; Eosinophils # (auto) 0.73 K/uL (0-0.50); Eosinophils % (auto) 5.9 %; Hematocrit (blood only) 31.2 % (42.0-52.0); Hemoglobin 10.5 g/dl (14.0-18.0); Immature Granulocytes # (auto) 0.28 K/uL (0.01-0.20); Immature Granulocytes % (auto) 2.3 %; Lymphocytes # (auto) 2.18 K/uL (1.2-3.4); Lymphocytes % (auto) 17.7 %; Mean Corpuscular Hemoglobin 28.3 pg (25.0-34.0); Mean Corpuscular Hgb Conc 33.7 g/dL (32.0-36.0); Mean Corpuscular Volume 84.1 fL (80.0-100.0); Mean Platelet Volume 9.4 fL (9.4-12.4); Monocytes # (auto) 0.91 K/uL (0.11-0.59); Monocytes % (auto) 7.4 %; Neutrophils # (auto) 8.15 K/uL (1.40-6.50); Neutrophils % (auto) 66.1 %; Platelet Count 546 K/uL (130-400); RDW Coefficient of Variation 17.9 % (11.5-14.5); RDW Standard Deviation 54.9 fL (36.4-46.3); Red Blood Count 3.71 M/uL (4.70-6.10); White Blood Count 12.33 K/ul (4.8-10.8)
[2023-04-09 07:03] LABS: BUN Creatinine Ratio 6.8 (10-20); C Reactive Protein 11.76 mg/dl (0-0.5); Calcium 8.2 mg/dl (8.6-10.3); Creatinine Clr Calc Pharmacy 74.5 ml/min; Est GFR (African American) 125.4 ml/min; Est GFR (Non-African American) 108.2 ml/min; Potassium 4.7 mmol/L (3.5-5.1)
[2023-04-09] MEDS: busPIRone 5 MG TAB PO SCH ×2 (08:58→21:20)
[2023-04-09] MEDS: HEPARIN SOD 5,000 UNIT/0.5 ML VIAL SQ SCH ×2 (08:59→21:19)
[2023-04-09] MEDS: PANTOprazole 40 MG in SYRINGE 0 ML IV SCH ×2 (08:59→21:19)
[2023-04-09] MEDS: CEROVITE ADV FORMULA TAB PO SCH (08:59)
[2023-04-09] MEDS: CHLORASEPTIC 1.4% SOLN 180 ML BTL MT SCH ×4 (08:59→21:21)
--- NOTE | 2023-04-09 13:28 | Hospitalist Progress Note ---
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 There is improvement of the previously described bowel wall thickening. Persistent adenopathy of the lower chest, retroperitoneum and mesentery, stable from 03/02/2023. Normal appendix. --Leukocytosis with left shift and elevated procalcitonin on admission in support of bacterial sepsis --CXR:No acute process. --Blood Cx: No growth to date --Urine Cx:Negative --Stool PCR:Negative --HIV: Nonreactive Zosyn was started empirically and per ID doxycycline and HCQ were added in place of Bactrim which also may have somewhat contributed to LISS Given persistent lymphadenopathy, consulted IR for US biopsy to rule out malignancy which was unsuccessful 04/08 No clear inciting infection at this time. Transitioning Zosyn, Doxy and hydroxychloroquine-> Rocephin 04/08; If he worsens, consider carbapenem. Reconsult ID if no improvement after the weekend. At discharge may want to reconsider Bactrim for maintenance phase with close treatment versus doxycycline/hydroxychloroquine Severe protein calorie malnutrition 2/2 poor PO intake in the last few weeks and ongoing diarrhea (poor absorption) BMI now 16, Patient is now reliably eating and diarrhea has slowed down. Acute kidney injury-resolved, creatinine back to baseline Cr:2.2>1.8>1.5>0.99 NAGMA 2/2 ongoing diarrhea- resolved Anemia-likely related to chronic disease and recent hospitalization with frequent phlebotomy. Hb relatively stable -EGD On 03/03/23: Mucosal nodule found in the esophagus. Biopsied. Small hiatal hernia. Normal stomach. Biopsied. Normal examined duodenum. Biopsied. (Path negative for H. pylori, malignancy) H/O Skin cancer- Follows with dermatology as outpatient DVT Px: sc Heparin Dispo-to home once tolerating food and diarrheal illness has resolved/stabilized. Although patient had an unsuccessful lymph node biopsy on Monday, if lymph node sampling is desired, may consider performing this as o utpatient. Admission and Anticipated Discharge Date Admission Date: April 04, 2023 Subjective Patient was seen and examined at bedside. He is feeling better. His appetite is improved. He is eating solid food. Had regular bowel movement. No fever today. No nausea, vomiting, shortness of breath chest pain. Review of Systems Review of Systems: All systems reviewed & are unremarkable except as noted in Subjective Physical Exam Physical Exam: General: Thin, cachectic, sitting comfortably in bed, not in distress, on room air HEENT: EOMI, KAREN, MMM, poor dentition Chest: Clear breath sounds bilaterally, no wheezes or crackles CVS: Regular rate and rhythm, normal heart sounds, no murmur Abdomen: Soft, tender, not distended, normal bowel sounds Neuro: Awake, alert, oriented, conversing well, non focal Extremities: No cyanosis, clubbing or edema Results & Data Results & Data Vital Signs (Past 12 Hours) Vital Signs Temp Pulse Pulse Resp BP Pulse Ox O2 Del Method 04/09/23 12:42 36.7 C 75 18 87/55 L 96 Room Air 04/09/23 08:33 36.8 C 76 18 94/60 L 96 Room Air 04/09/23 08:03 69 04/09/23 02:56 36.6 C 64 18 90/56 L 97 Room Air Laboratory Results Short CBC 04/09/23 Range/Units 06:07 WBC 12.33 H (4.8-10.8) K/ul Hgb 10.5 L (14.0-18.0) g/dl Hct 31.2 L (42.0-52.0) % Plt Count 546 H (130-400) K/uL [facility] 04/09/23 06:07 Sodium 132 L Potassium 4.7 D Chloride 102 Carbon Dioxide 25 BUN 5 L Creatinine 0.73 Glucose 96 Calcium 8.2 L Medications Administered Current Inpatient Medications Acetaminophen (Acetaminophen 325 Mg Tab) 650 mg PO Q4H PRN PRN Reason: Pain or Fever Stop: 05/04/23 22:03 Last Admin: 04/08/23 23:08 Dose: 650 mg Buspirone HCl (Buspirone 5 Mg Tab) 10 mg PO BID [facility] Stop: 05/09/23 08:59 Last Admin: 04/09/23 08:58 Dose: 10 mg Doxycycline Hyclate (Doxycycline Hyclate 100 Mg Cap) 100 mg PO BID [facility] Stop: 04/15/23 08:59 Last Admin: 04/07/23 09:00 Dose: 100 mg Heparin Sodium (Porcine) (Heparin Sod 5,000 Unit/0.5 Ml Vial) 5,000 units SQ Q12 [facility] Stop: 05/07/23 20:59 Last Admin: 04/09/23 08:59 Dose: 5,000 units Hydroxychloroquine Sulfate (Hydroxychloroquine Sulfate 200 Mg Tab) 200 mg PO TID [facility] Stop: 05/04/23 22:44 Last Admin: 04/07/23 15:30 Dose: 200 mg Promethazine HCl 6.25 mg/ (Sodium Chloride) 50.25 mls @ 201 mls/hr IV Q6H PRN PRN Reason: Nausea And Vomiting Stop: 05/04/23 20:39 Pantoprazole Sodium 40 mg/ (Syringe) 10 mls @ 5 mls/min IV BID [facility] Stop: 05/05/23 08:59 Last Admin: 04/09/23 08:59 Dose: 5 mls/min Potassium Chloride 40 meq/ (Lactated Ringer's) 1,020 mls @ 80 mls/hr IV .[id number] [facility] Stop: 05/06/23 10:59 Last Admin: 04/09/23 05:16 Dose: 80 mls/hr Ceftriaxone Sodium 2,000 mg/ (Dextrose) 70 mls @ 100 mls/hr IV Q24H [facility]; Protocol Stop: 04/17/23 16:59 Last Infusion: 04/08/23 17:31 Dose: Infused Lamotrigine (Lamotrigine 25 Mg Tab) 25 mg PO HS [facility] Stop: 05/09/23 20:59 Loperamide HCl (Loperamide Hcl 2 Mg Cap) 2 mg PO UD PRN PRN Reason: Diarrhea Stop: 05/07/23 15:50 Last Admin: 04/08/23 21:07 Dose: 2 mg Menthol (Cough Drop (Sugar Free) Darren 24 Darren/1 Box) 1 darren BUCCAL Q8H PRN PRN Reason: Sore Throat Stop: 05/05/23 20:08 Last Admin: 04/05/23 20:32 Dose: 1 darren Mirtazapine (Mirtazapine Tab 15 Mg Tab) 30 mg PO HS [facility] Stop: 07/25/23 20:59 Multivitamins/Minerals (Cerovite Adv Formula Tab) 1 tab PO DAILY [facility] Stop: 05/05/23 08:59 Last Admin: 04/09/23 08:59 Dose: 1 tab Oxycodone HCl (Oxycodone Hcl Ir 5 Mg Tab (Immediate Release)) 5 mg PO Q4H PRN PRN Reason: Pain Stop: 04/18/23 20:39 Last Admin: 04/08/23 21:06 Dose: 5 mg Phenol (Chloraseptic 1.4% Soln 180 Ml Btl) 2 sprays MT QID [facility] Stop: 05/07/23 16:59 Last Admin: 04/09/23 12:31 Dose: 2 sprays Saccharomyces Boulardii (Saccharomyces Boulardii 250 Mg Cap) 250 mg PO Q24H [facility] Stop: 05/07/23 16:59 Last Admin: 04/08/23 16:39 Dose: 250 mg
[2023-04-09] MEDS: cefTRIAXone SODIUM 2,000 MG in DEXTROSE 5% 50 ML IV SCH (17:10)
[2023-04-09] MEDS: SACCHAROMYCES BOULARDII 250 MG CAP PO SCH (17:11)
[2023-04-09] MEDS: lamoTRIgine 25 MG TAB PO SCH (21:20)
[2023-04-09] MEDS: MIRTAZAPINE TAB 15 MG TAB PO SCH (21:20)
[2023-04-09] MEDS: oxyCODONE HCL IR 5 MG TAB (IMMEDIATE RELEASE) PO PRN (22:12)
[2023-04-10 04:35] LABS: Total Protein Urine Random < 4.0 mg/dl (0-11.9)
[2023-04-10 04:41] LABS: Creatinine Urine Random 41.1 mg/dl
[2023-04-10] MEDS: POTASSIUM CHLORIDE 40 MEQ in LACTATED RINGER'S 1,000 ML IV SCH (06:59)
[2023-04-10 07:03] LABS: Hematocrit (blood only) 29.7 % (42.0-52.0); Hemoglobin 9.8 g/dl (14.0-18.0); Mean Corpuscular Volume 84.9 fL (80.0-100.0); Platelet Count 627 K/uL (130-400); RDW Coefficient of Variation 18.2 % (11.5-14.5); RDW Standard Deviation 54.6 fL (36.4-46.3); White Blood Count 12.37 K/ul (4.8-10.8)
[2023-04-10 07:50] LABS: Albumin Globulin Ratio 0.7 (0.9-2); Albumin Level 2.3 gm/dl (3.4-5.0); BUN Creatinine Ratio 8.5 (10-20); Bilirubin,Total 0.1 mg/dl (0.2-1.0); C Reactive Protein 8.41 mg/dl (0-0.5); Calcium 8.4 mg/dl (8.6-10.3); Creatinine Clr Calc Pharmacy 57.7 ml/min; Est GFR (African American) 109.1 ml/min; Est GFR (Non-African American) 94.2 ml/min; Globulin 3.5 gm/dl (2.5-4.0); Magnesium 1.7 mg/dl (1.7-2.4); Potassium 4.6 mmol/L (3.5-5.1); Total Protein 5.8 gm/dl (6.0-8.3)
[2023-04-10] MEDS: busPIRone 5 MG TAB PO SCH ×2 (09:06→20:47)
[2023-04-10] MEDS: CHLORASEPTIC 1.4% SOLN 180 ML BTL MT SCH ×4 (09:06→20:47)
[2023-04-10] MEDS: CEROVITE ADV FORMULA TAB PO SCH (09:06)
[2023-04-10] MEDS: PANTOprazole 40 MG in SYRINGE 0 ML IV SCH ×2 (09:06→20:47)
[2023-04-10] MEDS: HEPARIN SOD 5,000 UNIT/0.5 ML VIAL SQ SCH (09:51)
[2023-04-10] MEDS: ENOXAPARIN INJ 40 MG/0.4 ML SYR SQ SCH (10:38)
--- NOTE | 2023-04-10 10:56 | Nephrology Progress Note ---
Date of Service April 10, 2023 Assessment & Plan (1) Hyponatremia: Plan: improving and all but resolved; responded initially as hypovolemic now more a euvolemic picture c/w emphysema/COPD hx. >continue daily bmp >continue to maintain eukalemia -no further therapy indicated at this time Will sign off; pls call if ? 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 LN biopsy and/or neck CT -f/u LN Bx > deferred; ?gen surg eval for same -f/u HIV test Admission and Anticipated Discharge Date Admission Date: April 04, 2023 Physical Exam Constitutional: well developed, + cachectic, + frail appearing and cooperative; no acute distress Eyes: EOM intact bilaterally ENMT: Ears: no external ear abnormality Nose: no external nose abnormality Mouth: + dry oral mucous membranes Neck: no nuchal rigidity Respiratory: normal respiratory effort Auscultation: + diminished lung so unds and + crackles (fine bibasilar) Cardiovascular: RRR, no murmur, no edema Rate/Rhythm: regular rhythm and + tachycardic Extremities: no edema Gastrointestinal (Abdomen): Inspection/Auscultation: normal bowel sounds Percussion/Palpation: abdomen soft; abdomen nontender Musculoskeletal: Extremities: strength 5/5 throughout Skin: no rashes, warm and dry Psychiatric: Orientation: alert and oriented x 3 Results & Data Vital Signs (Past 12 Hours) Vital Signs Temp Pulse Pulse Resp BP Pulse Ox O2 Del Method 04/10/23 08:05 36.8 C 80 18 102/66 94 Room Air 04/09/23 23:00 71 04/10/23 03:04 36.5 C 75 18 90/55 L 95 Room Air 04/09/23 23:12 36.7 C 73 18 91/59 L 94 Room Air Laboratory Results 04/10/23 06:30 04/10/23 06:30
--- NOTE | 2023-04-10 14:00 | Hospitalist Progress Note ---
Date of Service April 10, 2023 Assessment & Plan (1) Severe sepsis: Plan: Severe Sepsis likely 2/2 enteritis in setting of Whipple's disease H/O Whipple disease ongoing antibiotic Rx with Bactrim prior to getting worse with sepsis --CT ABD:Large and small bowel air-fluid levels may be physiologic or represent a nonspecific enteritis/diarrheal illness. There is improvement of the previously described bowel wall thickening. Persistent adenopathy of the lower chest, retroperitoneum and mesentery, stable from 03/02/2023. Normal appendix. --Leukocytosis with left shift and elevated procalcitonin on admission in support of bacterial sepsis --CXR:No acute process. --Blood Cx: No growth to date --Urine Cx:Negative --Stool PCR:Negative --HIV: Nonreactive Zosyn was started empirically and per ID doxycycline and HCQ were added in place of Bactrim which also may have somewhat contributed to LISS Given persistent lymphadenopathy, consulted IR for US biopsy to rule out malignancy which was unsuccessful 04/08 No clear inciting infection at this time. Transitioning Zosyn, Doxy and hydroxychloroquine-> Rocephin 04/08; If he worsens, consider carbapenem. Will consult ID for further antibiotic recommendation for discharge- Bactrim for maintenance phase with close treatment versus doxycycline/hydroxychloroquine Severe protein calorie malnutrition 2/2 poor PO intake in the last few weeks and ongoing diarrhea (poor absorption) BMI now 16, Patient is now reliably eating and diarrhea has slowed down. Acute kidney injury-resolved, creatinine back to baseline Cr:2.2>1.8>1.5>0.99 NAGMA 2/2 ongoing diarrhea- resolved Anemia-likely related to chronic disease and recent hospitalization with frequent phlebotomy. Hb relatively stable -EGD On 03/03/23: Mucosal nodule found in the esophagus. Biopsied. Small hiatal hernia. Normal stomach. Biopsied. Normal examined duodenum. Biopsied. (Path negative for H. pylori, malignancy) Thrombocytosis- Plt count noted to be increasing. Will monitor. Will consider hematology eval if continues to worsen Basal cell carcinoma, suspected- Seen by derm in past. Has OP appt with dermatology DVT Px: sc Heparin Dispo-Anticipate discharge home in the next 2-3 days if remains stable. Admission and Anticipated Discharge Date Admission Date: April 04, 2023 Subjective Patient was seen and examined at bedside. He continues to feel better. Tolerating oral intake without issues. Also having solid bowel movements. No fever, chills, shortness of breath, nausea or vomiting. Review of Systems Review of Systems: All systems reviewed & are unremarkable except as noted in Subjective Physical Exam Physical Exam: General: Thin, cachectic, sitting comfortably in bed, not in distress, on room air HEENT: EOMI, KAREN, MMM, poor dentition Chest: Clear breath sounds bilaterally, no wheezes or crackles CVS: Regular rate and rhythm, normal heart sounds, no murmur Abdomen: Soft, nontender, not distended, normal bowel sounds Neuro: Awake, alert, oriented, conversing well, non focal Extremities: No cyanosis, clubbing or edema Skin: Nodules suspected to be BCC noted on face Results & Data Results & Data Vital Signs (Past 12 Hours) Vital Signs Temp Pulse Resp BP Pulse Ox O2 Del Method 04/10/23 11:46 37.3 C 46 L 16 96/66 L 97 Room Air 04/10/23 08:05 36.8 C 80 18 102/66 94 Room Air 04/10/23 03:04 36.5 C 75 18 90/55 L 95 Room Air Laboratory Results Short CBC 04/10/23 Range/Units 06:30 WBC 12.37 H (4.8-10.8) K/ul Hgb 9.8 L (14.0-18.0) g/dl Hct 29.7 L (42.0-52.0) % Plt Count 627 H (130-400) K/uL BMP 04/10/23 06:30 Sodium 135 L Potassium 4.6 Chloride 102 Carbon Dioxide 29 BUN 8 Creatinine 0.94 Glucose 93 Calcium 8.4 L Liver Function 04/10/23 Range/Units 06:30 Total Bilirubin 0.1 L (0.2-1.0) mg/dl AST 11 L (13-39) U/L ALT 7 (7-52) U/L Alkaline Phosphatase 38 (34-104) U/L Albumin 2.3 L (3.4-5.0) gm/dl Medications Administered Current Inpatient Medications Acetaminophen (Acetaminophen 325 Mg Tab) 650 mg PO Q4H PRN PRN Reason: Pain or Fever Stop: 05/04/23 22:03 Last Admin: 04/08/23 23:08 Dose: 650 mg Buspirone HCl (Buspirone 5 Mg Tab) 10 mg PO BID [facility] Stop: 05/09/23 08:59 Last Admin: 04/10/23 09:06 Dose: 10 mg Doxycycline Hyclate (Doxycycline Hyclate 100 Mg Cap) 100 mg PO BID [facility] Stop: 04/15/23 08:59 Last Admin: 04/07/23 09:00 Dose: 100 mg Enoxaparin Sodium (Enoxaparin Inj 40 Mg/0.4 Ml Syr) 40 mg SQ QAM [facility] Stop: 05/10/23 09:29 Last Admin: 04/10/23 10:38 Dose: 40 mg Hydroxychloroquine Sulfate (Hydroxychloroquine Sulfate 200 Mg Tab) 200 mg PO TID [facility] Stop: 05/04/23 22:44 Last Admin: 04/07/23 15:30 Dose: 200 mg Promethazine HCl 6.25 mg/ (Sodium Chloride) 50.25 mls @ 201 mls/hr IV Q6H PRN PRN Reason: Nausea And Vomiting Stop: 05/04/23 20:39 Pantoprazole Sodium 40 mg/ (Syringe) 10 mls @ 5 mls/min IV BID [facility] Stop: 05/05/23 08:59 Last Admin: 04/10/23 09:06 Dose: 5 mls/min Ceftriaxone Sodium 2,000 mg/ (Dextrose) 70 mls @ 100 mls/hr IV Q24H [facility]; Protocol Stop: 04/17/23 16:59 Last Infusion: 04/09/23 17:56 Dose: Infused Lamotrigine (Lamotrigine 25 Mg Tab) 25 mg PO HS [facility] Stop: 05/09/23 20:59 Last Admin: 04/09/23 21:20 Dose: 25 mg Loperamide HCl (Loperamide Hcl 2 Mg Cap) 2 mg PO UD PRN PRN Reason: Diarrhea Stop: 05/07/23 15:50 Last Admin: 04/08/23 21:07 Dose: 2 mg Menthol (Cough Drop (Sugar Free) Darren 24 Darren/1 Box) 1 darren BUCCAL Q8H PRN PRN Reason: Sore Throat Stop: 05/05/23 20:08 Last Admin: 04/05/23 20:32 Dose: 1 darren Mirtazapine (Mirtazapine Tab 15 Mg Tab) 30 mg PO HS [facility] Stop: 05/09/23 20:59 Last Admin: 04/09/23 21:20 Dose: 30 mg Multivitamins/Minerals (Cerovite Adv Formula Tab) 1 tab PO DAILY [facility] Stop: 05/05/23 08:59 Last Admin: 04/10/23 09:06 Dose: 1 tab Oxycodone HCl (Oxycodone Hcl Ir 5 Mg Tab (Immediate Release)) 5 mg PO Q4H PRN PRN Reason: Pain Stop: 04/18/23 20:39 Last Admin: 04/09/23 22:12 Dose: 5 mg Phenol (Chloraseptic 1.4% Soln 180 Ml Btl) 2 sprays MT QID [facility] Stop: 05/07/23 16:59 Last Admin: 04/10/23 13:56 Dose: 2 sprays Saccharomyces Boulardii (Saccharomyces Boulardii 250 Mg Cap) 250 mg PO Q24H [facility] Stop: 05/07/23 16:59 Last Admin: 04/09/23 17:11 Dose: 250 mg
--- NOTE | 2023-04-10 16:14 | 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 Note ---
Date of Service: April 10, 2023 electrolytes stable x several days, IVF off. Will sign off. Pls call if ?. No specific post hospital nephro f/u needed. thx
[2023-04-10] MEDS: cefTRIAXone SODIUM 2,000 MG in DEXTROSE 5% 50 ML IV SCH (16:20)
[2023-04-10] MEDS: SACCHAROMYCES BOULARDII 250 MG CAP PO SCH (16:21)
[2023-04-10] MEDS: lamoTRIgine 25 MG TAB PO SCH (20:46)
[2023-04-10] MEDS: MIRTAZAPINE TAB 15 MG TAB PO SCH (20:46)
[2023-04-10] MEDS: oxyCODONE HCL IR 5 MG TAB (IMMEDIATE RELEASE) PO PRN (22:43)
[2023-04-11 06:05] LABS: Hematocrit (blood only) 30.9 % (42.0-52.0); Hemoglobin 10.3 g/dl (14.0-18.0); Mean Corpuscular Hemoglobin 28.7 pg (25.0-34.0); Mean Corpuscular Hgb Conc 33.3 g/dL (32.0-36.0); Mean Corpuscular Volume 86.1 fL (80.0-100.0); Mean Platelet Volume 8.8 fL (9.4-12.4); Platelet Count 650 K/uL (130-400); RDW Standard Deviation 56.6 fL (36.4-46.3); Red Blood Count 3.59 M/uL (4.70-6.10); White Blood Count 12.51 K/ul (4.8-10.8)
[2023-04-11 06:23] LABS: BUN Creatinine Ratio 11.5 (10-20); Calcium 8.5 mg/dl (8.6-10.3); Creatinine Clr Calc Pharmacy 56.4 ml/min; Est GFR (African American) 106.4 ml/min; Est GFR (Non-African American) 91.8 ml/min; Magnesium 1.8 mg/dl (1.7-2.4); Potassium 3.9 mmol/L (3.5-5.1)
[2023-04-11] MEDS: busPIRone 5 MG TAB PO SCH ×2 (08:15→20:50)
[2023-04-11] MEDS: CEROVITE ADV FORMULA TAB PO SCH (08:15)
[2023-04-11] MEDS: ENOXAPARIN INJ 40 MG/0.4 ML SYR SQ SCH (08:15)
[2023-04-11] MEDS: PANTOprazole 40 MG in SYRINGE 0 ML IV SCH ×2 (08:16→20:48)
[2023-04-11] MEDS: CHLORASEPTIC 1.4% SOLN 180 ML BTL MT SCH ×4 (08:16→20:51)
--- NOTE | 2023-04-11 14:27 | Electrocardiogram Report ---
Test Reason : Blood Pressure : / mmHG Vent. Rate : 085 BPM Atrial Rate : 085 BPM P-R Int : 140 ms QRS Dur : 094 ms QT Int : 382 ms P-R-T Axes : 039 048 033 degrees QTc Int : 454 ms Normal sinus rhythm Diffuse Minor Nonspecific T wave abnormality Abnormal ECG When compared with ECG of 04-APR-2023 18:53, Nonspecific T wave abnormality, worse in Inferior leads Nonspecific T wave abnormality now evident in Lateral leads Confirmed by German Otero ([id number] on 04/11/2023 2:27:10 PM Referred By: REFERRED SELF Confirmed By:German Otero
[2023-04-11] MEDS: metroNIDAZOLE 500 MG TAB PO SCH ×2 (14:45→20:49)
--- NOTE | 2023-04-11 14:49 | Hospitalist Progress Note ---
Date of Service April 11, 2023 Assessment & Plan (1) Severe sepsis: Plan: Severe Sepsis likely 2/2 enteritis in setting of Whipple's disease H/O Whipple disease ongoing antibiotic Rx with Bactrim prior to getting worse with sepsis --CT ABD:Large and small bowel air-fluid levels may be physiologic or represent a nonspecific enteritis/diarrheal illness. There is improvement of the previously described bowel wall thickening. Persistent adenopathy of the lower chest, retroperitoneum and mesentery, stable from 03/02/2023. Normal appendix. --Leukocytosis with left shift and elevated procalcitonin on admission in support of bacterial sepsis --CXR:No acute process. --Blood Cx: No growth to date --Urine Cx:Negative --Stool PCR:Negative --HIV: Nonreactive Zosyn was started empirically and per ID doxycycline and HCQ were added in place of Bactrim which also may have somewhat contributed to LISS Given persistent lymphadenopathy, consulted IR for US biopsy to rule out malignancy which was unsuccessful 04/08 No clear inciting infection at this time. Transitioning Zosyn, Doxy and hydroxychloroquine-> Rocephin 04/08. Spoke with ID Dr. Patel today who recommended continuing IV rocephin and flagyl for at least 2 weeks and follow up with ID as OP for further antibiotic management. Recommended seeing oral surgeon in the meantime regarding his extensive periodontal disease. Spoke with CM to set up home antibiotic. Mid line order placed. Severe protein calorie malnutrition 2/2 poor PO intake in the last few weeks and ongoing diarrhea (poor absorption) Patient is now reliably eating and diarrhea has resolved. Acute kidney injury-resolved, creatinine back to baseline Cr:2.2>1.8>1.5>0.99 NAGMA 2/2 ongoing diarrhea- resolved Anemia-likely related to chronic disease and recent hospitalization with frequent phlebotomy. Hb relatively stable -EGD On 03/03/23: Mucosal nodule found in the esophagus. Biopsied. Small hiatal hernia. Normal stomach. Biopsied. Normal examined duodenum. Biopsied. (Path negative for H. pylori, malignancy) Thrombocytosis- Plt count noted to be increasing. Will monitor. Hematology eval. Basal cell carcinoma, suspected- Seen by derm in past. Has OP appt with dermatology Chest tightness- ECG and tele reviewed. Will check serial trop. DVT Px: sc Heparin Dispo-Anticipate discharge home tomorrow Admission and Anticipated Discharge Date Admission Date: April 04, 2023 Subjective Patient was seen and examined at bedside. No new issues. Still has tightness below bilateral lower ribcage. No fever, chills, chest pain or shortness of breath nausea vomiting. Appetite improving. Tolerating diet well. Regular bowel movements. He is wondering when he can go home Review of Systems Review of Systems: All systems reviewed & are unremarkable except as noted in Subjective Physical Exam Physical Exam: General: Thin, cachectic, sitting comfortably in bed, not in distress, on room air HEENT: EOMI, KAREN, MMM, poor dentition Chest: Clear breath sounds bilaterally, no wheezes or crackles CVS: Regular rate and rhythm, normal heart sounds, no murmur Abdomen: Soft, nontender, not distended, normal bowel sounds Neuro: Awake, alert, oriented, conversing well, non focal Extremities: No cyanosis, clubbing or edema Skin: Nodules suspected to be BCC noted on face Results & Data Results & Data Vital Signs (Past 12 Hours) Vital Signs Temp Pulse Resp BP Pulse Ox O2 Del Method 04/11/23 11:48 36.8 C 86 18 94/58 L 96 Room Air 04/11/23 08:07 36.8 C 96 H 18 95/62 L 96 Room Air Laboratory Results Short CBC 04/11/23 Range/Units 05:50 WBC 12.51 H (4.8-10.8) K/ul Hgb 10.3 L (14.0-18.0) g/dl Hct 30.9 L (42.0-52.0) % Plt Count 650 H (130-400) K/uL BMP 04/11/23 05:50 Sodium 134 L Potassium 3.9 Chloride 100 Carbon Dioxide 30 BUN 11 Creatinine 0.96 Glucose 133 H Calcium 8.5 L Medications Administered Current Inpatient Medications Acetaminophen (Acetaminophen 325 Mg Tab) 650 mg PO Q4H PRN PRN Reason: Pain or Fever Stop: 05/04/23 22:03 Last Admin: 04/08/23 23:08 Dose: 650 mg Buspirone HCl (Buspirone 5 Mg Tab) 10 mg PO BID [facility] Stop: 05/09/23 08:59 Last Admin: 04/11/23 08:15 Dose: 10 mg Doxycycline Hyclate (Doxycycline Hyclate 100 Mg Cap) 100 mg PO BID [facility] Stop: 04/15/23 08:59 Last Admin: 04/07/23 09:00 Dose: 100 mg Enoxaparin Sodium (Enoxaparin Inj 40 Mg/0.4 Ml Syr) 40 mg SQ QAM [facility] Stop: 05/10/23 09:29 Last Admin: 04/11/23 08:15 Dose: 40 mg Hydroxychloroquine Sulfate (Hydroxychloroquine Sulfate 200 Mg Tab) 200 mg PO TID [facility] Stop: 05/04/23 22:44 Last Admin: 04/07/23 15:30 Dose: 200 mg Promethazine HCl 6.25 mg/ (Sodium Chloride) 50.25 mls @ 201 mls/hr IV Q6H PRN PRN Reason: Nausea And Vomiting Stop: 05/04/23 20:39 Pantoprazole Sodium 40 mg/ (Syringe) 10 mls @ 5 mls/min IV BID [facility] Stop: 05/05/23 08:59 Last Admin: 04/11/23 08:16 Dose: 5 mls/min Ceftriaxone Sodium 2,000 mg/ (Dextrose) 70 mls @ 100 mls/hr IV Q24H [facility]; Protocol Stop: 04/17/23 16:59 Last Infusion: 04/10/23 17:26 Dose: Infused Lamotrigine (Lamotrigine 25 Mg Tab) 25 mg PO [facility] Stop: 05/09/23 20:59 Last Admin: 04/10/23 20:46 Dose: 25 mg Loperamide HCl (Loperamide Hcl 2 Mg Cap) 2 mg PO UD PRN PRN Reason: Diarrhea Stop: 05/07/23 15:50 Last Admin: 04/08/23 21:07 Dose: 2 mg Menthol (Cough Drop (Sugar Free) Darren 24 Darren/1 Box) 1 darren BUCCAL Q8H PRN PRN Reason: Sore Throat Stop: 05/05/23 20:08 Last Admin: 04/05/23 20:32 Dose: 1 darren Metronidazole (Metronidazole 500 Mg Tab) 500 mg PO TID [facility]; Protocol Stop: 04/18/23 13:59 Last Admin: 04/11/23 14:45 Dose: 500 mg Mirtazapine (Mirtazapine Tab 15 Mg Tab) 30 mg PO HS [facility] Stop: 05/09/23 20:59 Last Admin: 04/10/23 20:46 Dose: 30 mg Multivitamins/Minerals (Cerovite Adv Formula Tab) 1 tab PO DAILY [facility] Stop: 05/05/23 08:59 Last Admin: 04/11/23 08:15 Dose: 1 tab Oxycodone HCl (Oxycodone Hcl Ir 5 Mg Tab (Immediate Release)) 5 mg PO Q4H PRN PRN Reason: Pain Stop: 04/18/23 20:39 Last Admin: 04/10/23 22:43 Dose: 5 mg Phenol (Chloraseptic 1.4% Soln 180 Ml Btl) 2 sprays MT QID [facility] Stop: 05/07/23 16:59 Last Admin: 04/11/23 12:25 Dose: 2 sprays Saccharomyces Boulardii (Saccharomyces Boulardii 250 Mg Cap) 250 mg PO Q24H [facility] Stop: 05/07/23 16:59 Last Admin: 04/10/23 16:21 Dose: 250 mg
[2023-04-11] MEDS: cefTRIAXone SODIUM 2,000 MG in DEXTROSE 5% 50 ML IV SCH (16:21)
[2023-04-11] MEDS: SACCHAROMYCES BOULARDII 250 MG CAP PO SCH (16:21)
[2023-04-11] MEDS: MIRTAZAPINE TAB 15 MG TAB PO SCH (20:49)
[2023-04-11] MEDS: lamoTRIgine 25 MG TAB PO SCH (20:50)
[2023-04-11] MEDS: oxyCODONE HCL IR 5 MG TAB (IMMEDIATE RELEASE) PO PRN (21:26)
[2023-04-12 03:04] LABS: Basophils % (auto) 0.8 %; Eosinophils # (auto) 0.31 K/uL (0-0.50); Eosinophils % (auto) 2.3 %; Hematocrit (blood only) 35.3 % (42.0-52.0); Hemoglobin 11.7 g/dl (14.0-18.0); Immature Granulocytes % (auto) 4.5 %; Lymphocytes # (auto) 2.11 K/uL (1.2-3.4); Lymphocytes % (auto) 15.9 %; Mean Corpuscular Hemoglobin 28.3 pg (25.0-34.0); Mean Corpuscular Hgb Conc 33.1 g/dL (32.0-36.0); Mean Corpuscular Volume 85.5 fL (80.0-100.0); Mean Platelet Volume 9.1 fL (9.4-12.4); Monocytes # (auto) 0.86 K/uL (0.11-0.59); Monocytes % (auto) 6.5 %; Platelet Count 752 K/uL (130-400); RDW Coefficient of Variation 18.2 % (11.5-14.5); RDW Standard Deviation 56.7 fL (36.4-46.3); Red Blood Count 4.13 M/uL (4.70-6.10); White Blood Count 13.28 K/ul (4.8-10.8)
[2023-04-12 03:06] LABS: BUN Creatinine Ratio 11.2 (10-20); Calcium 8.7 mg/dl (8.6-10.3); Creatinine Clr Calc Pharmacy 50.6 ml/min; Est GFR (African American) 93.3 ml/min; Est GFR (Non-African American) 80.5 ml/min; Potassium 4.2 mmol/L (3.5-5.1)
--- NOTE | 2023-04-12 05:32 | Hospitalist Progress Note ---
Date of Service April 12, 2023 Assessment & Plan Admission and Anticipated Discharge Date Admission Date: April 04, 2023 Subjective Patient with evolving thrombocytosis in the context of borderline iron deficiency and acute inflammatory/sepsis presentation. He is unaware of any personal or family history of blood disorders previously. 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 Improving with aggressive treatment. A recent smoker he feels he will be able to give that up as a result of this illness. He has no history of venous thromboembolism other than possible superficial thrombosis and a venous access site in the cephalic vein during his previous admission Physical Exam Physical Exam: Thin, nutritionally depleted but alert and seems in no acute distress Vital signs are stable Results & Data Results & Data Vital Signs (Past 12 Hours) Vital Signs Temp Pulse Pulse Resp BP Pulse Ox O2 Del Method 04/12/23 04:22 36.7 C 85 18 113/63 95 Room Air 04/11/23 23:00 88 04/11/23 23:08 36.9 C 93 H 18 98/61 L 93 Room Air 04/11/23 21:01 37.2 C 04/11/23 19:03 38 C H 94 H 18 102/62 94 Room Air PG Care Time/CCT Total # of Minutes Spent Total Time Spent with Patient: Total time spent is greater than 50% in coordination of care (as documented) at patient's floor/unit and/or counseling patient: Coding Diagnoses
--- NOTE | 2023-04-12 05:52 | Consultation ---
Date of Consultation April 12, 2023 Assessment & Plan (1) Thrombocytosis: His multiple other medical issues have been well addressed by the hospitalist, nephrology, GI, and ID teams and I will focus on the issue for which we were consulted, thrombocytosis. 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 He does have a mild iron deficiency with low percent saturation and a modest decrease in total body red cell iron, but not sufficiently to require intravenous iron therapy. He is taking p.o. and anticipates doing so even after discharge. That iron deficiency itself could exacerbate an evolving thrombocytosis In the acute inflammatory setting, he could certainly have an element of reactive thrombocytosis as well. Under moderate to severe conditions, a reactive thrombocytosis can reach into the 1 million range at least temporarily. We note that his spleen size is normal which further suggests against a myelop roliferative disorder though does not completely exclude it. Even if he were diagnosed with essential thrombocytosis, at a young age and without a clear pathologic thrombosis history he would be considered "low risk." There might be some consideration for low-dose aspirin therapy especially if he had a V617F JAK2 mutation but there would be no indications for cytoreductive therapy. Overall, this is much more likely a reactive process but it is easy enough to further exclude the V617F JAK2 mutation and that study has been sent. If positive he would be counseled to consider low-dose aspirin prophylaxis as an outpatient but for now we would monitor his counts rather than intervening with cytotoxic's. If that specific mutation is negative, rather than extend work-up further just yet I would have his PCP follow-up as an outpatient to assure he becomes iron replete and monitor the platelet counts over time. 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 With double-digit hemoglobins he needs no intervention other than GI assurance that there are no further reversible sources of blood loss and oral iron supplementation Plan 1. Would continue with iron supplementation 2. He is on appropriate DVT prophylaxis is an inpatient 3. V617F JAK2 mutation screen has been submitted and if positive will prompt a discussion as to the role for low-dose aspirin prophylaxis 4. If that study is negative would indicate to whoever is following up as an outpatient that they should monitor his iron studies and once he reaches iron repletion discontinue his oral iron therapy and monitor further. In the course of doing so, should monitor serial CBCs. If those do not return to normal as he is iron deficiency and Whipple's disease or successfully treated, could refer to hematology as an outpatient for further review I will "sign off" but I am happy to address additional questions or concerns that arise as an inpatient or an outpatient History of Present Illness Reason for Consultation: Thrombocytosis Attending Physician: Jeremias Ferrer MD History of Present Illness Patient with evolving thrombocytosis in the context of borderline iron deficiency and acute inflammatory/sepsis presentation. He is unaware of any personal or family history of blood disorders previously. 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 Improving with aggressive treatment. A recent smoker he feels he will be able to give that up as a result of this illness. He has no history of venous thromboembolism other than possible superficial thrombosis and a venous access site in the cephalic vein during his previous admission Allergies Allergy/AdvReac Type Severity Reaction Status Date / Time No Known Allergies Allergy Verified 03/16/23 11:11 Home Medications Medication Instructions Recorded Confirmed Type vddiqhzvwstk-zinircuq-mqnnvz tablet 1 tab PO DAILY 03/02/23 04/04/23 History sodium sul 1.479 gram-potas ch See Rx Instructions PO .COMPLEX 03/16/23 04/04/23 Rx 0.188 gram-magnes sul 0.225 gram #24 tabs tablet (Sutab) omeprazole 20 mg capsule,delayed 20 mg PO DAILYBB 04/04/23 04/04/23 History release sulfamethoxazole 800 1 tab PO AMHS 04/04/23 04/04/23 History mg-trimethoprim 160 mg tablet Lamictal 25 mg PO HS 04/08/23 04/08/23 History Remeron 30 mg PO HS 04/08/23 04/08/23 History buspirone 10 mg PO BID 04/08/23 04/08/23 History Patient History Medical History (Updated 04/12/23 @ 05:36 by Scott Ghosh MD) Bipolar 1 disorder Encounter for pre-operative examination Neoplasm of unspecified behavior of bone, soft tissue, and skin Whipple's disease Surgical History No history of previous surgery Family History Father Colorectal cancer Grandfather (Paternal) Colorectal cancer Uncle Colorectal cancer Uncle Colorectal cancer Uncle Colorectal cancer Social History Smoking Status: Former smoker Tobacco Type: Cigarettes Age Started Using Tobacco: 22; packs per day: 1; Cigarettes Per Day: 1PPD; Hx Alcohol Use: No Hx Substance Use: No Preferred Language: Japanese 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 Ability: Effective System Engineer Required: No Beliefs That Will Affect Care: None Current Living Situation: Alone Other Information That Helps Us Care for You: No Feels Safe at Home: Yes Safety Concerns: Feels Safe At This Time Assistive Devices: None Physical Exam Physical Exam: Thin, nutritionally depleted but alert and seems in no acute distress Vital signs are stable There is no pathologic adenopathy in the cervical supraclavicular or axillary regions. Lungs currently seem clear and he is not tachypneic nor is he using accessory muscles of respiration Cardiac rhythm is regular without pathological murmur The abdomen currently shows no guarding or rigidity. There is no suggestion of splenomegaly Results & Data Vital Signs (Past 12 Hours) Vital Signs Temp Pulse Pulse Resp BP Pulse Ox O2 Del Method 04/12/23 04:22 36.7 C 85 18 113/63 95 Room Air 04/11/23 23:00 88 04/11/23 23:08 36.9 C 93 H 18 98/61 L 93 Room Air 04/11/23 21:01 37.2 C 04/11/23 19:03 38 C H 94 H 18 102/62 94 Room Air Laboratory Results Laboratory Results - last 24 hr 04/11/23 04/11/23 04/11/23 05:50 05:50 15:03 WBC 12.51 H RBC 3.59 L Hgb 10.3 L Hct 30.9 L MCV 86.1 MCH 28.7 MCHC 33.3 RDW Std Deviation 56.6 H RDW Coeff of Kingsley 18.0 H Plt Count 650 H MPV 8.8 L Immature Gran % (Auto) Neut % (Auto) Lymph % (Auto) [place] % (Auto) Eos % (Auto) Baso % (Auto) Neut # (Auto) Lymph # (Auto) [place] # (Auto) Eos # (Auto) Baso # (Auto) Immature Gran # (Auto) Sodium 134 L Potassium 3.9 Chloride 100 Carbon Dioxide 30 Anion Gap 4 BUN 11 Creatinine 0.96 Est Cr Clr Drug Dosing 56.4 Est GFR ( Amer) 106.4 Est GFR (Non-Af Amer) 91.8 BUN/Creatinine Ratio 11.5 Glucose 133 H Calcium 8.5 L Magnesium 1.8 Troponin I High Sens 2.4 04/11/23 04/12/23 04/12/23 20:46 02:38 02:38 WBC 13.28 H RBC 4.13 L Hgb 11.7 L Hct 35.3 L MCV 85.5 MCH 28.3 MCHC 33.1 RDW Std Deviation 56.7 H RDW Coeff of [place] 18.2 H Plt Count 752 H MPV 9.1 L Immature Gran % (Auto) 4.5 Neut % (Auto) 70.0 Lymph % (Auto) 15.9 [place] % (Auto) 6.5 Eos % (Auto) 2.3 Baso % (Auto) 0.8 Neut # (Auto) 9.30 H Lymph # (Auto) 2.11 [place] # (Auto) 0.86 H Eos # (Auto) 0.31 Baso # (Auto) 0.10 Immature Gran # (Auto) 0.60 H Sodium Potassium Chloride Carbon Dioxide Anion Gap BUN Creatinine Est Cr Clr Drug Dosing Est GFR ( Amer) Est GFR (Non-Af Amer) BUN/Creatinine Ratio Glucose Calcium Magnesium Troponin I High Sens 5.6 2.4 04/12/23 02:38 WBC RBC Hgb Hct MCV MCH MCHC RDW Std Deviation RDW Coeff of [place] Plt Count MPV Immature Gran % (Auto) Neut % (Auto) Lymph % (Auto) [place] % (Auto) Eos % (Auto) Baso % (Auto) Neut # (Auto) Lymph # (Auto) [place] # (Auto) Eos # (Auto) Baso # (Auto) Immature Gran # (Auto) Sodium 133 L Potassium 4.2 Chloride 100 Carbon Dioxide 29 Anion Gap 4 BUN 12 Creatinine 1.07 Est Cr Clr Drug Dosing 50.6 Est GFR ( Amer) 93.3 Est GFR (Non-Af Amer) 80.5 BUN/Creatinine Ratio 11.2 Glucose 99 Calcium 8.7 Magnesium Troponin I High Sens Diagnostic Findings Abdomen/Pelvis CT 04/04/23 18:[address] WITHOUT CONTRAST CT DOSE: 379.94 mGy.cm HISTORY: Acute generalized abdominal pain abd pain TECHNIQUE: Multiaxial CT images of the abdomen and pelvis were performed without contrast. A dose lowering technique was utilized adhering to the principles of ALARA. COMPARISON STUDY: 03/02/2023 FINDINGS: The lung bases. No pneumatosis or pneumoperitoneum. Study without the use of contrast. The unenhanced spleen, pancreas, adrenal glands contracted gallbladder and liver appear unremarkable. Kidneys are within normal limits. No hydronephrosis. Urinary bladder wall thickening with partial distention. Prostatomegaly. Atherosclerosis of the aorta. There is persistent lymphadenopathy identified within the lower chest, retroperitoneum and mesentery with a 1.6 cm index mesenteric node on image 161. Stable from prior. No bowel obstruction. Fluid-filled loops of large and small bowel without obstruction or significant wall thickening. The visualized appendix is noninflamed. No acute fracture. No destructive bone lesion. IMPRESSION: 1. Large and small bowel air-fluid levels may be physiologic or represent a nonspecific enteritis/diarrheal illness. 2. There is improvement of the previously described bowel wall thickening. 3. Persistent adenopathy of the lower chest, retroperitoneum and mesentery, stable from 03/02/2023. 4. Normal appendix. ACT 112: Negative or not required by law. The above report was generated using voice recognition software. It may contain grammatical, syntax or spelling errors. Electronically signed by: Mukul Martinez M.D. 04/04/2023 7:02 PM Chest X-Ray 04/04/23 19:27 XR chest 1V portable HISTORY: 52 years-old Male renal failure acute shortness breath with renal failure COMPARISON: CTA chest 03/04/2023 TECHNIQUE: AP view of the chest FINDINGS: Cardiomediastinal and hilar silhouettes are within normal limits. No pneumothorax, large pleural effusion, or overt pulmonary edema or lobar airspace consolidation. Mild levoscoliosis of the upper thoracic spine. Bones appear grossly intact. IMPRESSION: No acute process. ACT 112: Negative or not required by law. The above report was generated using voice recognition software. It may contain grammatical, syntax or spelling errors. Electronically signed by: Mukul Martinez M.D. 04/05/2023 7:42 AM Soft Tissue Neck CT 04/06/23 11:59 CT soft tissue neck wo con HISTORY: 52 years-old Male dysphagia COMPARISON: Chest CT 03/02/2023 TECHNIQUE: Multiple axial CT images of the soft tissues of the neck were obtained without the use of IV contrast. A dose lowering technique was used consistent with the principals of ALA. FINDINGS: The imaged intracranial structures demonstrate no acute abnormality. Unremarkable orbits. Patent airway. Preserved parapharyngeal fat planes without acute inflammatory changes. Unremarkable appearance of the parotid, subarticular and thyroid glands. Subcentimeter upper mediastinal lymph nodes. Supraclavicular and cervical chain lymph nodes measure up to 8-9 mm. No pathologically enlarged lymph nodes identified. Unremarkable appearance of the glottis and subglottic airway. No pneumothorax. Mild pulmonary emphysema. No acute fracture. Mastoid air cells are clear. Minimal mucosal thickening of the paranasal sinuses. Leftward bowing and spurring of the nasal septum. Numerous dental caries with periapical cysts. IMPRESSION: 1. No acute inflammatory changes. 2. Subcentimeter lymph nodes of the neck and upper chest. 3. Extensive odontogenic disease. 4. Mild pulmonary emphysema. ACT 112: Negative or not required by law. The above report was generated using voice recognition software. It may contain grammatical, syntax or spelling errors. Electronically signed by: Mukul Martinez M.D. 04/06/2023 1:38 PM Axilla US 04/07/23 13:30 LEFT AXILLARY ULTRASOUND CLINICAL HISTORY: Lymphadenopathy. COMPARISON STUDY: Chest CT March 04, 2023. FINDINGS: The patient presented today for possible biopsy of left axillary lymph nodes. Sonography of the left axilla demonstrated several benign-appearing left axillary lymph nodes. Each node contained a fatty hilum. Index node measured 1.1 x 0.5 x 0.9 cm. No suspicious nodes were identified by sonography. Therefore, no biopsy was performed at this time. This was discussed with the patient. IMPRESSION: No suspicious left axillary lymph nodes, as described above. Therefore, no biopsy was performed. These nodes can be assessed on follow-up exams to ensure stability. ACT 112: Negative or not required by law. Electronically signed by: Gary Chau M.D. 04/07/2023 2:04 PM PG Care Time/CCT Total # of Minutes Spent Total Time Spent with Patient: Total time spent is greater than 50% in coordination of care (as documented) at patient's floor/unit and/or counseling patient: [place] [address] IN/OBS CONSULT LVL 3,45M Patient Type New History Problem Focused Exam Problem Focused Medical Decision Making Moderate Complexity Diagnoses Thrombocytosis D75.839 Anemia D64.9
[2023-04-12] MEDS: metroNIDAZOLE 500 MG TAB PO SCH ×2 (08:14→13:51)
[2023-04-12] MEDS: busPIRone 5 MG TAB PO SCH (08:14)
[2023-04-12] MEDS: ENOXAPARIN INJ 40 MG/0.4 ML SYR SQ SCH (08:14)
[2023-04-12] MEDS: CHLORASEPTIC 1.4% SOLN 180 ML BTL MT SCH ×3 (08:15→16:32)
[2023-04-12] MEDS: CEROVITE ADV FORMULA TAB PO SCH (08:15)
[2023-04-12] MEDS: PANTOprazole 40 MG in SYRINGE 0 ML IV SCH (08:15)
--- NOTE | 2023-04-12 12:24 | Discharge Summary ---
Date of Service April 12, 2023 Admission HPI Per Admitting Provider History obtained from patient, family, and records. 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 Recent confinement March 02 to 2022 for Whipple disease. Patient presented with 1 month history of weight loss,, night sweats and diarrhea symptoms. CT imaging showed enterocolitis, possible disease. CT chest showed subtle groundglass densities left lower lobe for which 3 to 6- month chest CT follow-up recommended to exclude possibility of low-grade malignancy. Whipple disease noted on EGD biopsy. CSF PCR obtained via LP excluded S[facility]IOR [facility] involvement. ID recommended 4 week course of IV ceftriaxone and 1 year course of Bactrim. Repeat CT chest abdomen pelvis recommended after 1 month to follow-up on lymphadenopathy on imaging. Diarrhea symptoms resolved at time of discharge. Arrangements made to follow-up with [facility] specialists on discharge as per patient/family preference. Inpatient Dermatology consultation for skin lesion on patient's left baptist done during confinement. Impression was nonmelanoma skin cancer unrelated to patient's Whipple disease. Outpatient dermatology recommended. Patient currently scheduled to see local [facility] consulting analyst June,. [facility] ID specialist on consultation 3 weeks ago recommended stopping ceftriaxone after completing 3 weeks of therapy with subsequent removal of midline catheter. Outpatient screening colonoscopy at [facility] 2 weeks ago showed internal hemorrhoids. Few days ago, patient noted achy upper abdominal pain with nausea, blood-tinged emesis and watery diarrhea. Poor appetite. No fever, some chills. No chest pain, no cough, no SOB. No OTC NSAID intake. Patient brought to the ER for evaluation. IV Zosyn administered for sepsis. 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 Exam Per Admitting Provider GENERAL: Comfortable, pleasant, underweight, no respiratory distress SKIN: Pallor, warm HEENT: Bespectacled, pink palpebral conjunctivae, no ptosis, dry buccal mucosa, crusty lesion left baptist NECK : Supple, no tenderness CHEST : Decreased breath sounds, no tenderness HEART : RRR, no obvious murmurs ABDOMEN: Some distention, minimal epigastric tenderness EXTREMITIES : No LE swelling/tenderness, no other conspicuous deformities noted NEUROLOGIC : Coherent, no facial asymmetry, no other gross focality Principal Diagnosis Whipple's disease with lymphadenopathy, odontogenic infection, LISS, Hyponatremia, Thrombocytosis Discharge Exam General: Thin, cachectic, sitting comfortably in bed, not in distress, on room air HEENT: EOMI, KAREN, MMM, poor dentition Chest: Clear breath sounds bilaterally, no wheezes or crackles CVS: Regular rate and rhythm, normal heart sounds, no murmur Abdomen: Soft, nontender, not distended, normal bowel sounds Neuro: Awake, alert, oriented, conversing well, non focal Extremities: No cyanosis, clubbing or edema Skin: Nodules suspected to be BCC noted on face Discharge Data Allergies Allergy/AdvReac Type Severity Reaction Status Date / Time No Known Allergies Allergy Verified 03/16/23 11:11 Consultations 04/04/23 19:17 ED Decision to Admit Stat 04/04/23 22:04 Consult Gastroenterology Routine 04/04/23 22:44 Consult Infectious Diseases Routine Consult Nephrology Routine 04/11/23 07:38 Consult Oncology Routine Ordered Studies 04/04/23 18:19 CT abd pelvis wo con Stat 04/06/23 11:59 CT neck soft tissues [CT soft tissue neck wo con] Routine 04/07/23 13:30 US axilla LT Routine Laboratory Results WBC 13.28 K/ul (4.8-10.8) H 04/12/23 02:38 RBC 4.13 M/uL (4.70-6.10) L 04/12/23 02:38 Hgb 11.7 g/dl (14.0-18.0) L 04/12/23 02:38 Hct 35.3 % (42.0-52.0) L 04/12/23 02:38 MCV 85.5 fL (80.0-100.0) 04/12/23 02:38 MCH 28.3 pg (25.0-34.0) 04/12/23 02:38 MCHC 33.1 g/dL (32.0-36.0) 04/12/23 02:38 RDW Std Deviation 56.7 fL (36.4-46.3) H 04/12/23 02:38 RDW Coeff of Kingsley 18.2 % (11.5-14.5) H 04/12/23 02:38 Plt Count 752 K/uL (130-400) H 04/12/23 02:38 MPV 9.1 fL (9.4-12.4) L 04/12/23 02:38 Immature Gran % (Auto) 4.5 % 04/12/23 02:38 Neut % (Auto) 70.0 % 04/12/23 02:38 Lymph % (Auto) 15.9 % 04/12/23 02:38 [place]pin % (Auto) 6.5 % 04/12/23 02:38 Eos % (Auto) 2.3 % 04/12/23 02:38 Baso % (Auto) 0.8 % 04/12/23 02:38 Neut # (Auto) 9.30 K/uL (1.40-6.50) H 04/12/23 02:38 Lymph # (Auto) 2.11 K/uL (1.2-3.4) 04/12/23 02:38 [place] # (Auto) 0.86 K/uL (0.11-0.59) H 04/12/23 02:38 Eos # (Auto) 0.31 K/uL (0-0.50) 04/12/23 02:38 Baso # (Auto) 0.10 K/uL (0-0.2) 04/12/23 02:38 Immature Gran # (Auto) 0.60 K/uL (0.01-0.20) H 04/12/23 02:38 Polychromasia 1+ 04/05/23 06:15 Echinocytes 2+ 04/05/23 06:15 ESR 93 mm/hr (0-20) H 04/09/23 06:07 VBG pH 7.37 (7.36-7.41) 04/08/23 06:22 VBG pCO2 42 mmHg (38-50) 04/04/23 22:49 VBG pO2 21 mmHg 04/04/23 22:49 VBG HCO3 18 mmol/L 04/04/23 22:49 VBG O2 Saturation < 60.0 % 04/04/23 22:49 VBG Base Excess -9.0 mEq/L 04/04/23 22:49 Sodium 133 mmol/L (136-145) L 04/12/23 02:38 Potassium 4.2 mmol/L (3.5-5.1) 04/12/23 02:38 Chloride 100 mmol/L (98-107) 04/12/23 02:38 Carbon Dioxide 29 mmol/L (21-32) 04/12/23 02:38 Anion Gap 4 (3-11) 04/12/23 02:38 BUN 12 mg/dl (6-23) 04/12/23 02:38 Creatinine 1.07 mg/dl (0.6-1.4) 04/12/23 02:38 Est Cr Clr Drug Dosing 50.6 ml/min 04/12/23 02:38 Est GFR ( Amer) 93.3 ml/min 04/12/23 02:38 Est GFR (Non-Af Amer) 80.5 ml/min 04/12/23 02:38 BUN/Creatinine Ratio 11.2 (10-20) 04/12/23 02:38 Glucose 99 mg/dl (70-99(Fasting)) 04/12/23 02:38 Estimat Average Glucose 111 mg/dl 04/04/23 17:28 Hemoglobin A1c 5.5 % (4.5-5.6) 04/04/23 17:28 Osmolality 281 mOsm/kg (280-300) 04/04/23 17:28 Lactate 1.6 mmol/L (0.4-2.0) 04/04/23 19:10 Calcium 8.7 mg/dl (8.6-10.3) 04/12/23 02:38 Phosphorus 4.0 mg/dl (2.5-4.9) 04/10/23 06:30 Magnesium 1.8 mg/dl (1.7-2.4) 04/11/23 05:50 Total Bilirubin 0.1 mg/dl (0.2-1.0) L 04/10/23 06:30 AST 11 U/L (13-39) L 04/10/23 06:30 ALT 7 U/L (7-52) 04/10/23 06:30 Alkaline Phosphatase 38 U/L (34-104) 04/10/23 06:30 Troponin I High Sens 2.4 pg/ml (0-20) 04/12/23 02:38 C-Reactive Protein 8.41 mg/dl (0-0.5) H 04/10/23 06:30 Total Protein 5.8 gm/dl (6.0-8.3) L 04/10/23 06:30 Albumin 2.3 gm/dl (3.4-5.0) L 04/10/23 06:30 Globulin 3.5 gm/dl (2.5-4.0) 04/10/23 06:30 Albumin/Globulin Ratio 0.7 (0.9-2) L 04/10/23 06:30 Procalcitonin 1.27 ng/ml (0-0.5) H 04/06/23 07:14 Urine Color Dark Yellow 04/04/23 21:40 Urine Appearance Cloudy (Clear) A 04/04/23 21:40 Urine pH 5.5 (4.5-7.5) 04/04/23 21:40 Ur Specific [place] 1.024 (1.000-1.030) 04/04/23 21:40 Urine Protein 2+ (Negative) H 04/04/23 21:40 Urine Glucose (UA) Negative (Negative) 04/04/23 21:40 Urine Ketones Negative (Negative) 04/04/23 21:40 Urine Blood Negative (Negative) 04/04/23 21:40 Urine Nitrite Negative (Negative) 04/04/23 21:40 Urine Bilirubin Negative (Negative) 04/04/23 21:40 Urine Urobilinogen Negative (Negative) 04/04/23 21:40 Ur Leukocyte Esterase Negative (Negative) 04/04/23 21:40 Urine WBC (Auto) 5-10 /hpf (0-5) H 04/04/23 21:40 Urine RBC (Auto) 0-4 /hpf (0-4) 04/04/23 21:40 U Hyaline Cast (Auto) 1-5 /lpf (0-5) 04/04/23 21:40 U Epithel Cells (Auto) >30 /lpf (0-5) H 04/04/23 21:40 Urine Bacteria (Auto) Negative (Negative) 04/04/23 21:40 Ur Renal Epithelial Cell Not Reportable 04/04/23 21:40 Granular Casts 5-10 /lpf (0) H 04/04/23 21:40 Urine Yeast Not Reportable 04/04/23 21:40 Urine Osmolality 615 mOsm/kg (500-800) 04/04/23 21:40 Ur Random Creatinine 41.1 mg/dl 04/10/23 04:16 U Random Total Protein < 4.0 mg/dl (0-11.9) 04/10/23 04:16 Ur Random Sodium 36 mmol/L 04/04/23 21:40 Protein/Creatinin Ratio TNP 04/10/23 04:16 Stl C. cayetanensis PCR Not Detected (NotDetected) 04/05/23 Unknown Stool Rotavirus A PCR Not Detected (NotDetected) 04/05/23 Unknown Stl Adenov F 40/41 PCR Not Detected (NotDetected) 04/05/23 Unknown Stool Astrovirus (PCR) Not Detected (NotDetected) 04/05/23 Unknown Stool Campylobacter PCR Not Detected (NotDetected) 04/05/23 Unknown Stl C. diff Tox B Gene Negative Cdiff Gene (Neg) 04/07/23 Unknown Stool Cryptosporidium PCR Not Detected (NotDetected) 04/05/23 Unknown Stl E.coli Shiga Tox PCR Not Detected (NotDetected) 04/05/23 Unknown Stl Enterotoxigenic E PCR Not Detected (NotDetected) 04/05/23 Unknown Stool EPEC (PCR) Not Detected (NotDetected) 04/05/23 Unknown Stool EAEC (PCR) Not Detected (NotDetected) 04/05/23 Unknown Stl E. histolytica PCR Not Detected (NotDetected) 04/05/23 Unknown Stool Giardia Lamblia PCR Not Detected (NotDetected) 04/05/23 Unknown Stool Salmonella PCR Not Detected (NotDetected) 04/05/23 Unknown Stool Sapovirus (PCR) Not Detected (NotDetected) 04/05/23 Unknown Stl P. shigelloides PCR Not Detected (NotDetected) 04/05/23 Unknown Stl Shigella/EIEC PCR Not Detected (NotDetected) 04/05/[address].enterocolitica PCR Not Detected (NotDetected) 04/05/23 Unknown Stool Vibrio (PCR) Not Detected (NotDetected) 04/05/23 Unknown Stl Vibrio cholerae PCR Not Detected (NotDetected) 04/05/23 Unknown Stl Norovirus GI/GII PCR Not Detected (NotDetected) 04/05/23 Unknown HIV (1&2) Ag & Ab Conf NON-REACTIVE (NON-REACTIVE) 04/07/23 06:39 SARS-CoV-2, RNA, NAAT NEGATIVE (NEGATIVE) 04/04/23 19:00 Group A Strep (PCR) NOT DETECTED (NotDetected) 04/04/23 18:15 Blood Type A Positive 04/04/23 22:49 Antibody Screen NEGATIVE 04/04/23 22:49 Impressions Abdomen/Pelvis CT 04/04/23 18:[address] WITHOUT CONTRAST CT DOSE: 379.94 mGy.cm HISTORY: Acute generalized abdominal pain abd pain TECHNIQUE: Multiaxial CT images of the abdomen and pelvis were performed without contrast. A dose lowering technique was utilized adhering to the principles of ALARA. COMPARISON STUDY: 03/02/2023 FINDINGS: The lung bases. No pneumatosis or pneumoperitoneum. Study without the use of contrast. The unenhanced spleen, pancreas, adrenal glands contracted gallbladder and liver appear unremarkable. Kidneys are within normal limits. No hydronephrosis. Urinary bladder wall thickening with partial distention. Prostatomegaly. Atherosclerosis of the aorta. There is persistent lymphadenopathy identified within the lower chest, retroperitoneum and mesentery with a 1.6 cm index mesenteric node on image 161. Stable from prior. No bowel obstruction. Fluid-filled loops of large and small bowel without obstruction or significant wall thickening. The visualized appendix is noninflamed. No acute fracture. No destructive bone lesion. IMPRESSION: 1. Large and small bowel air-fluid levels may be physiologic or represent a nonspecific enteritis/diarrheal illness. 2. There is improvement of the previously described bowel wall thickening. 3. Persistent adenopathy of the lower chest, retroperitoneum and mesentery, stable from 03/02/2023. 4. Normal appendix. ACT 112: Negative or not required by law. The above report was generated using voice recognition software. It may contain grammatical, syntax or spelling errors. Electronically signed by: Mukul Martinez M.D. 04/04/2023 7:02 PM Chest X-Ray 04/04/23 19:27 XR chest 1V portable HISTORY: 52 years-old Male renal failure acute shortness breath with renal failure COMPARISON: CTA chest 03/04/2023 TECHNIQUE: AP view of the chest FINDINGS: Cardiomediastinal and hilar silhouettes are within normal limits. No pneumothorax, large pleural effusion, or overt pulmonary edema or lobar airspace consolidation. Mild levoscoliosis of the upper thoracic spine. Bones appear grossly intact. IMPRESSION: No acute process. ACT 112: Negative or not required by law. The above report was generated using voice recognition software. It may contain grammatical, syntax or spelling errors. Electronically signed by: Mukul Martinez M.D. 04/05/2023 7:42 AM Soft Tissue Neck CT 04/06/23 11:59 CT soft tissue neck wo con HISTORY: 52 years-old Male dysphagia COMPARISON: Chest CT 03/02/2023 TECHNIQUE: Multiple axial CT images of the soft tissues of the neck were obtained without the use of IV contrast. A dose lowering technique was used consistent with the principals of ALARA. FINDINGS: The imaged intracranial structures demonstrate no acute abnormality. Unremarkable orbits. Patent airway. Preserved parapharyngeal fat planes without acute inflammatory changes. Unremarkable appearance of the parotid, subarticular and thyroid glands. Subcentimeter upper mediastinal lymph nodes. Supraclavicular and cervical chain lymph nodes measure up to 8-9 mm. No pathologically enlarged lymph nodes identified. Unremarkable appearance of the glottis and subglottic airway. No pneumothorax. Mild pulmonary emphysema. No acute fracture. Mastoid air cells are clear. Minimal mucosal thickening of the paranasal sinuses. Leftward bowing and spurring of the nasal septum. Numerous dental caries with periapical cysts. IMPRESSION: 1. No acute inflammatory changes. 2. Subcentimeter lymph nodes of the neck and upper chest. 3. Extensive odontogenic disease. 4. Mild pulmonary emphysema. ACT 112: Negative or not required by law. The above report was generated using voice recognition software. It may contain grammatical, syntax or spelling errors. Electronically signed by: Mukul Martinez M.D. 04/06/2023 1:38 PM Axilla US 04/07/23 13:30 LEFT AXILLARY ULTRASOUND CLINICAL HISTORY: Lymphadenopathy. COMPARISON STUDY: Chest CT March 04, 2023. FINDINGS: The patient presented today for possible biopsy of left axillary lymph nodes. Sonography of the left axilla demonstrated several benign-appearing left axillary lymph nodes. Each node contained a fatty hilum. Index node measured 1.1 x 0.5 x 0.9 cm. No suspicious nodes were identified by sonography. Therefore, no biopsy was performed at this time. This was discussed with the patient. IMPRESSION: No suspicious left axillary lymph nodes, as described above. Therefore, no biopsy was performed. These nodes can be assessed on follow-up exams to ensure stability. ACT 112: Negative or not required by law. Electronically signed by: Gary Chau M.D. 04/07/2023 2:04 PM Hospital Course (1) Severe sepsis: Severe Sepsis likely 2/2 enteritis in setting of Whipple's disease H/O Whipple disease ongoing antibiotic Rx with Bactrim prior to getting worse with sepsis --CT ABD:Large and small bowel air-fluid levels may be physiologic or represent a nonspecific enteritis/diarrheal illness. There is improvement of the previously described bowel wall thickening. Persistent adenopathy of the lower chest, retroperitoneum and mesentery, stable from 03/02/2023. Normal appendix. --CT soft tissue neck 04/06- 1. No acute inflammatory changes. 2. Subcentimeter lymph nodes of the neck and upper chest. 3. Extensive odontogenic disease. 4. Mild pulmonary emphysema. --Leukocytosis with left shift and elevated procalcitonin on admission in support of bacterial sepsis --CXR:No acute process --Blood Cx: No growth to date --Urine Cx:Negative --Stool PCR:Negative --HIV: Nonreactive On admission, Bactrim was held and he was started on Zosyn plus doxycycline and HCQ after discussion with ID. It was switched to Ceftriaxone on 04/07. He has improved clinically on ceftriaxone. His appetite is improved and his bowel movements are normal. I spoke to ID Dr. Patel yesterday 04/11 who recommended continuing IV rocephin and flagyl for at least 2 weeks and follow up with ID as OP for further antibiotic management. He also recommended seeing oral surgeon in the meantime regarding his extensive periodontal disease. Mid line was ordered and home ABx were arranged. He will follow up with [facility] for line care and weekly labs. He is comfortable and stable for discharge home. Severe protein calorie malnutrition 2/2 poor PO intake in the last few weeks and ongoing diarrhea (poor absorption)- Patient is now reliably eating and diarrhea has resolved. Acute kidney injury-resolved, creatinine back to baseline Cr:2.2>1.8>1.5>0.99 NAGMA 2/2 ongoing diarrhea- resolved Anemia-likely related to chronic disease and recent hospitalization with [facility] phlebot[facility]. Hb relatively stable -EGD On 03/03/23: Mucosal nodule found in the esophagus. Biopsied. Small hiatal hernia. Normal stomach. Biopsied. Normal examined duodenum. Biopsied. (Path negative for H. pylori, malignancy) Thrombocytosis- Plt count noted to be increasing. Seen by hematology- recommendations noted as below - continue with iron supplementation - [id number] JAK2 mutation screen has been submitted and if positive will prompt a discussion as to the role for low-dose aspirin prophylaxis - If that study is negative would indicate to whoever is following up as an outp atient that they should monitor his iron studies and once he reaches iron repletion discontinue his oral iron therapy and monitor further. In the course of doing so, should monitor serial CBCs. If those do not return to normal as he is iron deficiency and Whipple's disease or successfully treated, could refer to hematology as an outpatient for further review Basal cell carcinoma, suspected- Seen by derm in past. Has OP appt with dermatology Total Time Total Time Spent Total Time Spent (In Minutes): 50 Discharge Plan Discharge Items Patient Disposition: Home - Self-Care Reason For Visit: HYPONATREMAI, UGIB Discharge Diagnosis: Whipple's disease with lymphadenopathy, odontogenic infection, LISS, Hyponatremia, Thrombocytosis Activity: Resume your previous activity Non-emergency contact: Primary Care Provider Call non-emergency contact if: you have any medication questions, your symptoms worsen and you have a fever Follow-up/Referrals: Nhi Greenfield MD [Primary Care Provider] - Diet: Regular Addtl Attending Provider Instructions: Continue ceftriaxone every 24 hrs for at least 2 weeks per ID along with flagyl. Please see dentist/oral surgeon as soon as possible. ID will see you within two weeks and determine if the IV ceftriaxone needs to be extended or can be switched to oral medicine for your Whipple's. You will need repeat blood work while on antibiotics and follow up with PCP or ID with the results Will need follow up on your increasing platelet count and the pending JAK2 mutation test. Recommend repeat CT chest in 2 months for follow up on your lymph nodes and ground glass opacities in the lungs as seen in February. Will need follow up on your lymph nodes- if worsening, will need to consider biopsy if amenable. Pending Studies at Discharge: Yes (JAK2 mutation) Stand-Alone Forms: [facility], Smoking Cessation Medications and DC Order Prescriptions: New metronidazole 500 mg Tablet 500 mg PO TID 14 Days Qty: 42 0RF Saccharomyces boulardii [Florastor] 250 mg Capsule 250 mg PO Q24H 14 Days Qty: 14 0RF Continued Sutab 1.479-0.188- 0.225 gram tablet See Rx Instructions PO .COMPLEX Qty: 24 0RF Rx Instructions: TAKE DIRECTED PER SPLIT DOSE INSTRUCTIONS. PLEASE USE COUPON BIN: [id number] PCN: ZENIA GROUP#: [id number] Tablet 1 tab PO DAILY Lamictal 25 mg PO HS Remeron 30 mg PO HS buspirone 10 mg PO BID Changed omeprazole 20 mg capsule,delayed release(DR/EC) 20 mg PO BID Qty: 60 0RF Discontinued sulfamethoxazole-trimethoprim 800-160 mg tablet 1 tab PO [facility] Discharge Orders: Discharge Order (Routine); Ordered 04/12/23 Ordered By: Jeremias Ferrer Admission Data Admit Date/Time: 04/04/23 20:39 Attending Provider: Jeremias Ferrer Admit Provider: Ranjan Flores Primary Care Provider: Nhi Greenfield Other Providers: Ranjan Flores ; Juan A Peraza ; Syed Ayala ; Rema Dillon ; Hallie Redd ; Berta Galvan ; Patti Hansen ; Eligio Mensah ; Jamal Loera ; Kaya Whitfield ; Beatris Lujan ; Marko Avila ; Hanh Casas ; Denice Sanchez ; Darling Pulliam ; Alicia Lara ; Luz Palmer ; Sj Coyle ; Srinivas Thompson ; Catherine Cyr ; Lance Ybarra Jr ; Horacio Wesley ; Niranjan Taylor ; Deejay Coffman I. ; Cristiano Quintero II ; Eduarda Stewart ; Scott Clemons ; Ministerio Patel ; Lorenzo Cameron ; Christina Rogel ; Miah Greenfield ; Vaishali Montilla ; Kym Huerta ; Zara Munoz ; Eduarda Corrales ; Scott Ghosh ; Drea,Anne
[2023-04-12] MEDS: cefTRIAXone SODIUM 2,000 MG in DEXTROSE 5% 50 ML IV SCH (16:07)
[2023-04-12] MEDS: SACCHAROMYCES BOULARDII 250 MG CAP PO SCH (16:32)
== END 2023-04-12 17:22 | disposition home or self-care (01) | DRG 871 ==
LOC: ED 16:42 → 2N 20:39 → SUATTDRO 20:39 → 2N 21:49 → 2E 04-06 12:18

== ENCOUNTER 2023-04-19 14:34 | Inpatient (IN) ==
--- NOTE | 2023-04-19 14:58 | ED Triage Note ---
Date of Service April 19, 2023 History of Present Illness This patient was briefly evaluated while in triage. An abbreviated physical exam was performed. This patient is a 52-year-old Male history of Whipple disease who presents to the ED for evaluation of concern for relapse. Having diffuse abdominal pain and chest pains (normal for him) nausea, difficulty eating, concern for dehydration. Has been admitted multiple times. Is receiving IV antibiortics. Physical Exam CONSTITUTIONAL: uncomfortable and weak appearing SKIN: pink, warm, dry CARDIAC: regular rate and rhythm RESPIRATORY: in no respiratory distress, lungs clear to auscultation ABDOMEN: diffuse tenderness Initial orders for labs and / or imaging were placed and patient was placed in the waiting area until a bed is available. Please see further documentation for the full ED course.
--- NOTE | 2023-04-19 15:31 | XRay Report ---
KUB HISTORY: Whipple disease, concern for relapse COMPARISON: Abdomen and pelvis CT 04/04/2023. FINDINGS: The bowel gas pattern is unremarkable. There are no dilated loops of small bowel to suggest an obstruction. No renal calculi. No ureteral calculi. Calcifications in the deep pelvis likely rep resent phleboliths. The lung bases are clear. No pneumoperitoneum or pneumatosis. IMPRESSION: Nonobstructive bowel gas pattern. ACT 112: Negative or not required by law. Electronically signed by: Abdelrahman Rod M.D. 04/19/2023 3:29 PM
--- NOTE | 2023-04-19 15:34 | XRay Report ---
XR chest 1V not portable CLINICAL HISTORY: Chest and abdominal pain TECHNIQUE: Single frontal radiograph of the chest was obtained. Comparison: Comparison is made to chest radiograph 04/04/2023 FINDINGS: No lines and tubes are seen. The cardiomediastinal silhouette is normal. The lungs are clear. No evid ence of pleural effusion or pneumothorax. IMPRESSION: No acute chest disease. ACT 112: Negative or not required by law. Electronically signed by: Edin Sanabria M.D. 04/19/2023 3:32 PM
[2023-04-19 16:10] LABS: Basophils # (auto) 0.06 K/uL (0-0.2); Basophils % (auto) 0.4 %; Eosinophils # (auto) 0.05 K/uL (0-0.50); Eosinophils % (auto) 0.3 %; Hematocrit (blood only) 32.8 % (42.0-52.0); Hemoglobin 11.4 g/dl (14.0-18.0); Immature Granulocytes # (auto) 0.31 K/uL (0.01-0.20); Immature Granulocytes % (auto) 1.9 %; Lymphocytes # (auto) 1.11 K/uL (1.2-3.4); Lymphocytes % (auto) 6.9 %; Mean Corpuscular Hemoglobin 27.9 pg (25.0-34.0); Mean Corpuscular Hgb Conc 34.8 g/dL (32.0-36.0); Mean Corpuscular Volume 80.2 fL (80.0-100.0); Mean Platelet Volume 10.2 fL (9.4-12.4); Monocytes # (auto) 1.08 K/uL (0.11-0.59); Monocytes % (auto) 6.7 %; Neutrophils # (auto) 13.46 K/uL (1.40-6.50); Neutrophils % (auto) 83.8 %; Platelet Count 507 K/uL (130-400); RDW Coefficient of Variation 17.2 % (11.5-14.5); RDW Standard Deviation 50.1 fL (36.4-46.3); Red Blood Count 4.09 M/uL (4.70-6.10); White Blood Count 16.07 K/ul (4.8-10.8)
[2023-04-19 16:26] LABS: Albumin Globulin Ratio 0.7 (0.9-2); Albumin Level 2.9 gm/dl (3.4-5.0); BUN Creatinine Ratio 24.8 (10-20); Bilirubin,Total 0.3 mg/dl (0.2-1.0); Creatinine Clr Calc Pharmacy 46.7 ml/min; Est GFR (African American) 95.5 ml/min; Est GFR (Non-African American) 82.4 ml/min; Globulin 4.4 gm/dl (2.5-4.0); Potassium 3.1 mmol/L (3.5-5.1); Total Protein 7.3 gm/dl (6.0-8.3)
[2023-04-19 16:32] LABS: Troponin I High Sensitivity 8.2 pg/ml (0-20)
[2023-04-19 16:34] LABS: Calcium 8.9 mg/dl (8.6-10.3); Magnesium 2.1 mg/dl (1.7-2.4)
[2023-04-19] MEDS ORDERED: SODIUM CHLORIDE 0.9% 1000ML 2,000 ML IV ONE (16:42)
[2023-04-19] MEDS ORDERED: THIAMINE HCL 100 MG in SYRINGE 9 ML IV STA (16:42)
[2023-04-19] MEDS ORDERED: POTASSIUM CHLORIDE / WTR 10 MEQ/100 ML PLCT IV ONE ×2 (16:43→21:45)
--- NOTE | 2023-04-19 16:55 | Emergency Department Note ---
Impression & Plan Whipple's disease, Acute hyponatremia, Hypokalemia, Dehydration ED Provider Note NAME: LIZBETH JASMINE AGE: 52 SEX: M : 1970 ARRIVES VIA: Walk-In INFORMANT: Patient, ED PROVIDER(S): Chaim Turner DO CHIEF COMPLAINT: Dehydration HPI: The patient is a 52-year-old male who presented to the emergency department for an evaluation of decreased p.o. intake. The patient has a history of Whipple syndrome. He states that he was admitted to our facility last week for similar complaints. The patient denies having any fever. He presented to the emergency department today for the possibility of being readmitted to the hospital because he is not tolerating liquids at home. ROS: See above HPI for pertinent positives & negatives. A total of 10 systems reviewed and were otherwise negative. PAST MEDICAL HISTORY: See Below PAST SURGICAL HISTORY: See Below FAMILY HISTORY: See Below SOCIAL HISTORY: See Below HOME MEDICATIONS: See Below ALLERGIES: See Below VITALS: See Below PHYSICAL EXAMINATION: GENERAL: The patient is very frail. The patient is cachectic appearing. EYES: The conjunctivae are clear. The pupils are round and reactive. EARS, NOSE, MOUTH AND THROAT: The nose is without any evidence of any deformity. Mucous membranes are dry. NECK: The neck is nontender and supple. RESPIRATORY: Normal respiratory effort is noted there is no evidence of wheezing rhonchi or rales CARDIOVASCULAR: Regular rate and rhythm noted there no murmurs rubs or gallops normal S1 normal S2. GASTROINTESTINAL: The abdomen is soft. Abdomen is nontender. MUSCULOSKELETAL/EXTREMITIES: There is no evidence of gross deformity full range of motion is noted in the hips and shoulders. SKIN: There is no obvious evidence of any rash. There are no petechiae, pallor or cyanosis noted. NEUROLOGIC: Patient is awake alert and oriented x3 MEDICAL DECISION MAKING: The patient is a 52-year-old male who presented to the emergency department for an evaluation of decreased p.o. intake. The patient has a history of malnourishment as well as Whipple's. The patient was treated with IV fluids in the emergency department. I discussed the patient's laboratory and radiographic studies with him. Given his presentation I do not feel the patient would do well as an outpatient. For this reason I discussed his condition with the on- call [facility] hospitalist. They have agreed to evaluate the patient in the emergency department for further management and disposition. Triage Nursing notes reviewed. Prior medical records reviewed Vital Signs: reviewed and remarkable for hypotension. Differential diagnosis: Infection, dehydration, metabolic abnormality, hypo/hyperglycemia, electrolyte disturbance, anemia, hypoxia, cardiac sources, intracerebral event, toxicologic, neurologic, as well as other pathologies. ER treatment provided: See below Diagnostics interpreted by me: ECG: EKG was obtained in the emergency department. My interpretation is normal sinus rhythm at 79 bpm. There were no acute ST segment abnormalities noted. There is no ectopy. This was compared to a tracing from April 11, 2023. No changes were noted. Cardiac Monitoring: An order was placed for continuous cardiac monitoring. The monitor shows a rate of 96 bpm with sinus rhythm. Laboratory studies: As stated above and show below. Imaging studies: See below. Radiographic imaging was reviewed by myself Consultation(s): I discussed this case with Dr. Starkey who is on-call for the [facility] Past Med/Surg History Medical History Bipolar 1 disorder Encounter for pre-operative examination Neoplasm of unspecified behavior of bone, soft tissue, and skin Whipple's disease Surgical History No history of previous surgery Family History Father Colorectal cancer Grandfather (Paternal) Colorectal cancer Uncle Colorectal cancer Uncle Colorectal cancer Uncle Colorectal cancer Social History Smoking Status: Current every day smoker Tobacco Type: Cigarettes Age Started Using Tobacco: 22; packs per day: 1; Cigarettes Per Day: 1PPD; Hx Alcohol Use: No Hx Substance Use: No Preferred Language: Cameroonian 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 Ability: Effective 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 Beliefs That Will Affect Care: None Current Living Situation: Alone Feels Safe at Home: Yes Assistive Devices: None Allergies Allergies Allergy/AdvReac Type Severity Reaction Status Date / Time No Known Allergies Allergy Verified 03/16/23 11:11 Home Meds Home Medications Medication Instructions Recorded Confirmed smjvgrvyspat-xggcyeee-saadgf tablet 1 tab PO DAILY 03/02/23 04/19/23 Lamictal 25 mg PO HS 04/08/23 04/19/23 Remeron 30 mg PO HS 04/08/23 04/19/23 buspirone 10 mg PO BID 04/08/23 04/19/23 Previous Rx's Medication Instructions Recorded sodium sul 1.479 gram-potas ch See Rx Instructions PO .COMPLEX 03/16/23 0.188 gram-magnes sul 0.225 gram #24 tabs tablet (Sutab) Saccharomyces boulardii 250 mg 250 mg PO Q24H 14 days #14 caps 04/12/23 capsule (Florastor) ferrous gluconate 324 mg (38 mg 324 mg PO DAILY #30 tabs 04/12/23 iron) tablet metronidazole 500 mg tablet 500 mg PO TID 14 days #42 tabs 04/12/23 omeprazole 20 mg capsule,delayed 20 mg PO BID #60 caps 04/12/23 release Results & Data (ED) Vital Signs Vital Signs - 24 hr 04/19/23 14:51 04/19/23 17:25 04/19/23 19:00 Temperature 36.0 C L Temperature Source Temporal Artery Scan Pulse Rate 97 H 86 Pulse Rate [Apical] 96 H Pulse Rhythm Regular Pulse Strength Normal Respiratory Rate 20 22 Respiratory Effort / Characteristics Non-Labored Spontaneous Non-Labored Spontaneous Respiratory Depth Normal Normal Respiratory Pattern Regular Blood Pressure 106/68 Blood Pressure [Right Arm] 98/61 L Blood Pressure Mean 80 Blood Pressure Mean [Right Arm] 73 Blood Pressure Position Sitting Pulse Oximetry 98 100 Oxygen Delivery Method Room Air Room Air Sepsis Recent Fever Within 48 Hours No Sepsis New/Unexplained Change in Mental Status No Sepsis Action Taken by Nursing No Action Required Home Medications Current Medication List: was personally reviewed by me Laboratory Data Attestation: I reviewed the patient's lab results. 04/19/23 15:53 04/19/23 15:53 Lab Results 04/19/23 04/19/23 04/19/23 Range/Units 15:53 15:53 15:57 WBC 16.07 H (4.8-10.8) K/ul RBC 4.09 L (4.70-6.10) M/uL Hgb 11.4 L (14.0-18.0) g/dl Hct 32.8 L (42.0-52.0) % MCV 80.2 (80.0-100.0) fL MCH 27.9 (25.0-34.0) pg MCHC 34.8 (32.0-36.0) g/dL RDW Std Deviation 50.1 H (36.4-46.3) fL RDW Coeff of Kingsley 17.2 H (11.5-14.5) % Plt Count 507 H (130-400) K/uL MPV 10.2 (9.4-12.4) fL Immature Gran % (Auto) 1.9 % Neut % (Auto) 83.8 % Lymph % (Auto) 6.9 % Payette % (Auto) 6.7 % Eos % (Auto) 0.3 % Baso % (Auto) 0.4 % Neut # (Auto) 13.46 H (1.40-6.50) K/uL Lymph # (Auto) 1.11 L (1.2-3.4) K/uL Payette # (Auto) 1.08 H (0.11-0.59) K/uL Eos # (Auto) 0.05 (0-0.50) K/uL Baso # (Auto) 0.06 (0-0.2) K/uL Immature Gran # (Auto) 0.31 H (0.01-0.20) K/uL Sodium 123 L (136-145) mmol/L Potassium 3.1 L (3.5-5.1) mmol/L Chloride 92 L (98-107) mmol/L Carbon Dioxide 20 L (21-32) mmol/L Anion Gap 11 (3-11) BUN 26 H (6-23) mg/dl Creatinine 1.05 (0.6-1.4) mg/dl Est Cr Clr Drug Dosing 46.7 ml/min Est GFR ( Amer) 95.5 ml/min Est GFR (Non-Af Amer) 82.4 ml/min BUN/Creatinine Ratio 24.8 H (10-20) Glucose 99 (70-99(Fasting)) mg/dl Osmolality 266 L (280-300) mOsm/kg Calcium 8.9 (8.6-10.3) mg/dl Magnesium 2.1 (1.7-2.4) mg/dl Total Bilirubin 0.3 (0.2-1.0) mg/dl AST 15 (13-39) U/L ALT 7 (7-52) U/L Alkaline Phosphatase 45 (34-104) U/L Troponin I High Sens 8.2 (0-20) pg/ml Total Protein 7.3 (6.0-8.3) gm/dl Albumin 2.9 L (3.4-5.0) gm/dl Globulin 4.4 H (2.5-4.0) gm/dl Albumin/Globulin Ratio 0.7 L (0.9-2) Lipase 22 (11-82) U/L Administered Medications Discontinued Medications Sodium Chloride (Nss 1000ml) 2,000 mls @ 999 mls/hr IV .Q2H1M ONE Stop: 04/19/23 18:42 Last Admin: 04/19/23 16:57 Dose: 999 mls/hr Documented By: ACC Thiamine HCl 100 mg/ Syringe 10 mls @ 2 mls/min IV NOW STA Stop: 04/19/23 16:46 Last Admin: 04/19/23 17:30 Dose: 2 mls/min Documented By: ACC Potassium Chloride (K Stevan / Wtr) 10 meq in 100 mls @ 100 mls/hr IV ONE ONE Stop: 04/19/23 17:42 Last Admin: 04/19/23 16:56 Dose: 100 mls/hr Documented By: ACC Imaging Data Attestation: I personally reviewed and interpreted this imaging study as follows: My Impression: KUB was obtained in the emergency department. My interpretation is no free air or definite obstruction, final report below. 1 view chest x-ray was obtained in the emergency department. My interpretation is no free air or definite infiltrate, final report below. Radiologist's Impression: KUB X-Ray 04/19/23 14:56 KUB HISTORY: Whipple disease, concern for relapse COMPARISON: Abdomen and pelvis CT 04/04/2023. FINDINGS: The bowel gas pattern is unremarkable. There are no dilated loops of small bowel to suggest an obstruction. No renal calculi. No ureteral calculi. Calcifications in the deep pelvis likely represent phleboliths. The lung bases are clear. No pneumoperitoneum or pneumatosis. IMPRESSION: Nonobstructive bowel gas pattern. ACT 112: Negative or not required by law. Electronically signed by: Abdelrahman Rod M.D. 04/19/2023 3:29 PM Chest X-Ray 04/19/23 14:58 XR chest 1V not portable CLINICAL HISTORY: Chest and abdominal pain TECHNIQUE: Single frontal radiograph of the chest was obtained. Comparison: Comparison is made to chest radiograph 04/04/2023 FINDINGS: No lines and tubes are seen. The cardiomediastinal silhouette is normal. The lungs are clear. No evidence of pleural effusion or pneumothorax. IMPRESSION: No acute chest disease. ACT 112: Negative or not required by law. Electronically signed by: Edin Sanabria M.D. 04/19/2023 3:32 PM Discharge Plan Visit Data Chief Complaint: Illness Stated Complaint: WHIMPPLES DISEASE, BAD SHAPE ED Provider: Chaim Turner Discharge Problem: Whipple's disease, Acute hyponatremia, Hypokalemia, Dehydration Patient Disposition: Being Evaluated by Hospitalist Forms Stand Alone Forms: My [facility] Prescriptions Prescriptions: No Action Sutab 1.479-0.188- 0.225 gram tablet See Rx Instructions PO .COMPLEX Qty: 24 0RF Rx Instructions: TAKE DIRECTED PER SPLIT DOSE INSTRUCTIONS. PLEASE USE COUPON BIN: [id number] PCN: ZENIA GROUP#: [id number] Tablet 1 tab PO DAILY Lamictal 25 mg PO HS Remeron 30 mg PO HS buspirone 10 mg PO BID metronidazole 500 mg Tablet 500 mg PO TID 14 Days Qty: 42 0RF Saccharomyces boulardii [Florastor] 250 mg Capsule 250 mg PO Q24H 14 Days Qty: 14 0RF omeprazole 20 mg capsule,delayed release(DR/EC) 20 mg PO BID Qty: 60 0RF ferrous gluconate 324 mg (38 mg iron) tablet 324 mg PO DAILY Qty: 30 0RF Referrals Referrals: Nhi Greenfield MD [Primary Care Provider] -
--- NOTE | 2023-04-19 17:10 | History & Physical Report ---
Date of Service April 19, 2023 Assessment & Plan (1) Acute hyponatremia: Plan: Whipple's disease Severe protein calorie malnutrition Hypokalemia BMI 14 Continue Rocephin, Flagyl as recommended by ID on prior admission ID, Dietitian consulted Replete electrolytes as needed Continue thiamine Monitor for refeeding syndrome Acute on Chronic hyponatremia Likely hypovolemic, hypoosmolar hyponatremia due to significant dehydration from poor oral intake, nausea, vomiting Sodium 123 Serum osmolality 266 Continue gentle IV fluids Check urine sodium and osmolality Monitor sodium levels closely Nephrology consulted Non-anion gap metabolic acidosis Likely due to GI losses Monitor BMP Thrombocytosis Chronic Likely reactive Chronic anemia Monitor platelet count Hemoglobin at baseline Atypical chest pain Abnormal EKG Trend cardiac enzymes Check resting echo GERD Continue PPI H/O basal cell carcinoma Follows with dermatology as outpatient Anxiety/mood disorder Continue home medication DVT Px: Heparin SQ History of Present Illness Chief Complaint: Hyponatremia, Dehydration Primary Care Provider: Nhi Greenfield MD Patient is a 52-year-old male with history of Whipple's disease, nonmelanoma skin cancer, GERD, chronic anemia, mood disorder, past tobacco abuse, thrombocytosis and other medical problems who was recently admitted at [facility] for management of Whipple's disease with lymphadenopathy, acute kidney injury, hyponatremia presents with history of generalized weakness and tiredness, significantly poor oral intake, weight loss, chills, intermittent shortness of breath and chest pain with exertion. Also admits to have lower abdominal discomfort intermittently. Patient's family also states noted patient to be intermittently slow to respond and also has been having balance issues with ambulation. He admits to continuing Rocephin, Flagyl for Whipple's disease which he was discharged on from last confinement. Patient also states having nausea associated with vomiting 2 days ago associated with sore throat and " mouth feels salty". He describes his bowel movements to be yellowish watery and slimy but denies any significant diarrhea currently. He believes to have lost weight due to poor poor oral intake which he could not quantify currently. Allergies Allergy/AdvReac Type Severity Reaction Status Date / Time No Known Allergies Allergy Verified 03/16/23 11:11 Home Medications Medication Instructions Recorded Confirmed Type [id number]-jdmnhixl-fnvhhl tablet 1 tab PO DAILY 03/02/23 04/19/23 History sodium sul 1.479 gram-potas ch See Rx Instructions PO .COMPLEX 03/16/23 04/19/23 Rx 0.188 gram-magnes sul 0.225 gram #24 tabs tablet (Sutab) Lamictal 25 mg PO HS 04/08/23 04/19/23 History Remeron 30 mg PO HS 04/08/23 04/19/23 History buspirone 10 mg PO BID 04/08/23 04/19/23 History Saccharomyces boulardii 250 mg 250 mg PO Q24H 14 days #14 caps 04/12/23 04/19/23 Rx capsule (Florastor) ferrous gluconate 324 mg (38 mg 324 mg PO DAILY #30 tabs 04/12/23 04/19/23 Rx iron) tablet metronidazole 500 mg tablet 500 mg PO TID 14 days #42 tabs 04/12/23 04/19/23 Rx omeprazole 20 mg capsule,delayed 20 mg PO BID #60 caps 04/12/23 04/19/23 Rx release Past Med/Surg History Medical History Bipolar 1 disorder Encounter for pre-operative examination Neoplasm of unspecified behavior of bone, soft tissue, and skin Whipple's disease Surgical History No history of previous surgery Family History Father Colorectal cancer Grandfather (Paternal) Colorectal cancer Uncle Colorectal cancer Uncle Colorectal cancer Uncle Colorectal cancer Social History Smoking Status: Current every day smoker Tobacco Type: Cigarettes Age Started Using Tobacco: 22; packs per day: 1; Cigarettes Per Day: 1PPD; Hx Alcohol Use: No Hx Substance Use: No Preferred Language: Omani 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 Ability: Effective Social Work Instructor Required: No Beliefs That Will Affect Care: None Current Living Situation: Alone Feels Safe at Home: Yes Assistive Devices: None Review of Systems Review of Systems: All systems reviewed & are unremarkable except as noted in Subjective Physical Exam Physical Exam: Physical Exam: Vitals signs as noted above General Appearance:Thin, frail, Chronic ill appearing, no apparent distress Head: normocephalic, Atraumatic, +Left facial skin lesion Eyes: normal inspection, EOMI Neck: supple, Trachea midline Respiratory/Chest: Normal breath sounds, CTA, +mild tender, No accessory muscle use Cardiovascular: S1, S2, No murmur Abdomen/GI:Soft, mild tender, Bowel sounds present Extremities/Musculoskeletal:normal inspection, no edema Neurologic/Psych:AAOX3, grossly no focal neurological deficits Skin: normal color, warm Results & Data Results & Data Vital Signs (Past 12 Hours) Vital Signs Temp Pulse Resp BP Pulse Ox O2 Del Method 04/19/23 14:51 36.0 C L 97 H 20 106/68 98 Room Air Laboratory Results Short CBC 04/19/23 Range/Units 15:53 WBC 16.07 H (4.8-10.8) K/ul Hgb 11.4 L (14.0-18.0) g/dl Hct 32.8 L (42.0-52.0) % Plt Count 507 H (130-400) K/uL BMP 04/19/23 15:53 Sodium 123 L Potassium 3.1 L Chloride 92 L Carbon Dioxide 20 L BUN 26 H Creatinine 1.05 Glucose 99 Calcium 8.9 Liver Function 04/19/23 Range/Units 15:53 Total Bilirubin 0.3 (0.2-1.0) mg/dl AST 15 (13-39) U/L ALT 7 (7-52) U/L Alkaline Phosphatase 45 (34-104) U/L Albumin 2.9 L (3.4-5.0) gm/dl Diagnostic Findings --CXR:No acute chest disease. --KUB:Nonobstructive bowel gas pattern. ECG Additional Comments: EKG: Normal sinus rhythm, nonspecific ST-T wave changes in inferior leads, QTc 451
[2023-04-19] MEDS ORDERED: ONDANSETRON INJ 2 MG/ML 2 ML VIAL IV PRN (21:26)
[2023-04-19] MEDS ORDERED: POLYETHYLENE (MIRALAX) 17 GM PACK PO PRN (21:26)
[2023-04-19] MEDS ORDERED: CHLORASEPTIC 1.4% SOLN 180 ML BTL MT PRN (21:26)
[2023-04-19] MEDS ORDERED: ACETAMINOPHEN 325 MG TAB PO PRN (21:26)
[2023-04-19] MEDS ORDERED: POTASSIUM CHLORIDE CRTAB 20 MEQ TABCR PO ONE (21:26)
[2023-04-19] MEDS: MIRTAZAPINE TAB 15 MG TAB PO SCH (22:16)
[2023-04-19] MEDS: busPIRone 5 MG TAB PO SCH (22:16)
[2023-04-19] MEDS: lamoTRIgine 25 MG TAB PO SCH (22:16)
[2023-04-19] MEDS: HEPARIN SOD 5,000 UNIT/0.5 ML VIAL SQ SCH (22:17)
[2023-04-19] MEDS: NSS + 20MEQ KCL 20 MEQ/1,000 ML BAG IV SCH (22:24)
[2023-04-19] MEDS: cefTRIAXone SODIUM 2,000 MG in DEXTROSE 5% 50 ML IV SCH (22:27)
[2023-04-19] MEDS: metroNIDAZOLE 500 MG/100 ML BAG IV SCH (23:40)
[2023-04-20 00:05] LABS: Troponin I High Sensitivity 5.5 pg/ml (0-20)
[2023-04-20 00:18] LABS: Calcium 8.2 mg/dl (8.6-10.3); Potassium 3.4 mmol/L (3.5-5.1)
[2023-04-20 00:24] LABS: BUN Creatinine Ratio 24.7 (10-20); Creatinine Clr Calc Pharmacy 53.9 ml/min; Est GFR (African American) 105.1 ml/min; Est GFR (Non-African American) 90.7 ml/min
[2023-04-20 00:32] LABS: Adenovirus F 40/41 PCR Not Detected (NotDetected); Astrovirus PCR Not Detected (NotDetected); Campylobacter PCR Not Detected (NotDetected); Cryptosporidium PCR Not Detected (NotDetected); Cyclospora cayetanensis PCR Not Detected (NotDetected); Entamoeba histolytica PCR Not Detected (NotDetected); Enteroaggregative E.coli(EAEC) Not Detected (NotDetected); Enteropathogenic E.coli (EPEC) Not Detected (NotDetected); Enterotoxigenic E.coli (ETEC) Not Detected (NotDetected); Giardia lamblia PCR Not Detected (NotDetected); Norovirus GI/GII PCR Not Detected (NotDetected); Plesiomonas shigelloides PCR Not Detected (NotDetected); Rotavirus A PCR Not Detected (NotDetected); Salmonella PCR Not Detected (NotDetected); Sapovirus PCR Not Detected (NotDetected); Shiga-like Toxin E.coli (STEC) Not Detected (NotDetected); Shigella/Enteroinvasive E.coli Not Detected (NotDetected); Vibrio cholerae PCR Not Detected (NotDetected); Vibrio species PCR Not Detected (NotDetected); Yersinia enterocolitica PCR Not Detected (NotDetected)
[2023-04-20] MEDS: metroNIDAZOLE 500 MG/100 ML BAG IV SCH ×3 (05:33→22:57)
[2023-04-20 06:41] LABS: Albumin Globulin Ratio 0.7 (0.9-2); Albumin Level 2.3 gm/dl (3.4-5.0); BUN Creatinine Ratio 21.6 (10-20); Bilirubin,Total 0.2 mg/dl (0.2-1.0); Calcium 7.9 mg/dl (8.6-10.3); Creatinine Clr Calc Pharmacy 59.5 ml/min; Est GFR (African American) 116.1 ml/min; Est GFR (Non-African American) 100.2 ml/min; Globulin 3.4 gm/dl (2.5-4.0); Magnesium 1.8 mg/dl (1.7-2.4); Potassium 3.6 mmol/L (3.5-5.1); Total Protein 5.7 gm/dl (6.0-8.3)
[2023-04-20 06:47] LABS: Troponin I High Sensitivity 5.5 pg/ml (0-20)
[2023-04-20 06:48] LABS: Basophils # (auto) 0.06 K/uL (0-0.2); Basophils % (auto) 0.5 %; Eosinophils # (auto) 0.09 K/uL (0-0.50); Eosinophils % (auto) 0.7 %; Hematocrit (blood only) 33.5 % (42.0-52.0); Hemoglobin 10.9 g/dl (14.0-18.0); Immature Granulocytes # (auto) 0.24 K/uL (0.01-0.20); Immature Granulocytes % (auto) 1.9 %; Lymphocytes # (auto) 1.36 K/uL (1.2-3.4); Lymphocytes % (auto) 10.5 %; Mean Corpuscular Hemoglobin 27.7 pg (25.0-34.0); Mean Corpuscular Hgb Conc 32.5 g/dL (32.0-36.0); Mean Corpuscular Volume 83.1 fL (80.0-100.0); Mean Platelet Volume 10.3 fL (9.4-12.4); Monocytes % (auto) 9.3 %; Neutrophils % (auto) 77.1 %; Platelet Count 462 K/uL (130-400); RDW Coefficient of Variation 16.5 % (11.5-14.5); RDW Standard Deviation 51.5 fL (36.4-46.3); Red Blood Count 3.93 M/uL (4.70-6.10); White Blood Count 12.95 K/ul (4.8-10.8)
[2023-04-20] MEDS: CEROVITE ADV FORMULA TAB PO SCH (08:18)
[2023-04-20] MEDS: ADVANCED PROBIOTIC 1250 MG CAPSULE PO SCH (08:18)
[2023-04-20] MEDS: PANTOprazole 40 MG TAB PO SCH ×2 (08:18→20:51)
[2023-04-20] MEDS: FERROUS GLUCONATE 324 MG TAB PO SCH (08:18)
[2023-04-20] MEDS: THIAMINE HCL 100 MG TAB PO SCH (08:19)
[2023-04-20] MEDS: busPIRone 5 MG TAB PO SCH ×3 (08:19→21:08)
[2023-04-20] MEDS: HEPARIN SOD 5,000 UNIT/0.5 ML VIAL SQ SCH ×3 (08:19→21:08)
--- NOTE | 2023-04-20 09:23 | Nephrology Consultation ---
Date of Consultation April 20, 2023 Assessment & Plan (1) Hyponatremia: presenting sNA 123, this am 129. presenting sodium not acute drop which is defined as happening in less than 48 hrs. this is recurrence of chronic hyponatremia in the setting of hypovolemia from protein calorie malnutrition and dehydration. goal sNa for this evening is 129 > he is already there SBP has been 80-90s as OP consistently -changed IVF to 1/2 NS w/ 40 mEq of K /L -recheck bmp 1600 >> plateay'd > will resume NS w/ K eval buspar and mirtazepine can contribute to hyponatremia > ? if psych eval reasonable to consider changing meds to lower GI side effects and (to lesser extent) w/ consideration for hyponatremia History of Present Illness Reason for Consultation: hyopnatremia Requesting Physician: Dr Starkey Attending Physician: Joel Marlow MD History of Present Illness 52 y/o M whom I'm asked to see for hyponatremia was admitted yesterday 1700 for worsening hyponatremia w/ presenting sodium 123. PMH includes Whipple's disease, protein/calorie malnutrition w/ BMI 15, nonmelanoma skin cancer, GERD, chronic anemia, mood disorder, past tobacco abuse, thrombocytosis. He was recently admitted at [facility] for management of Whipple's disease with lymphadenopathy, acute kidney injury, hyponatremia. He was d/c on ceftriaxone and flagyl for Whipple's per ID recs. he was started on NS w/ 20 mEq/L K at 75 ml/hr after receiving 2L NS and several K supplements. He endorses ongoing generalized weakness and fatigue. Also describes barriers to po intake including significant N and periodic emesis whcih then leaves his oropharynx sore and his "saliva salty" making swallowing painful. no diarrhea. Enodrses weight loss, chills, intermittent exertional shortness of breath and chest pain, and periodic lower abdominal discomfort. Also noted by family to have balance issues and less mental sharpness. tells me he currently feels imprved today w/ less throat pain. 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 Allergies Allergy/AdvReac Type Severity Reaction Status Date / Time No Known Allergies Allergy Verified 03/16/23 11:11 Home Medications Medication Instructions Recorded Confirmed Type ennfnirnbuiw-rsmuwkui-eunuwu tablet 1 tab PO DAILY 03/02/23 04/19/23 History sodium sul 1.479 gram-potas ch See Rx Instructions PO .COMPLEX 03/16/23 04/19/23 Rx 0.188 gram-magnes sul 0.225 gram #24 tabs tablet (Sutab) Lamictal 25 mg PO HS 04/08/23 04/19/23 History Remeron 30 mg PO HS 04/08/23 04/19/23 History buspirone 10 mg PO BID 04/08/23 04/19/23 History Saccharomyces boulardii 250 mg 250 mg PO Q24H 14 days #14 caps 04/12/23 04/19/23 Rx capsule (Florastor) ferrous gluconate 324 mg (38 mg 324 mg PO DAILY #30 tabs 04/12/23 04/19/23 Rx iron) tablet metronidazole 500 mg tablet 500 mg PO TID 14 days #42 tabs 04/12/23 04/19/23 Rx omeprazole 20 mg capsule,delayed 20 mg PO BID #60 caps 04/12/23 04/19/23 Rx release Patient History Medical History Bipolar 1 disorder Encounter for pre-operative examination Malnourished Neoplasm of unspecified behavior of bone, soft tissue, and skin Whipple's disease Surgical History No history of previous surgery Family History Father Colorectal cancer Grandfather (Paternal) Colorectal cancer Uncle Colorectal cancer Uncle Colorectal cancer Uncle Colorectal cancer Social History Smoking Status: Former smoker Tobacco Type: Cigarettes Age Started Using Tobacco: 22; packs per day: 1; Cigarettes Per Day: 1PPD; Smoking End Date: february 2023; Hx Alcohol Use: No (quit in february 2023) Hx Substance Use: No Preferred Language: Belizean 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 Ability: Effective Medical Billing Instructor Required: No Beliefs That Will Affect Care: None Current Living Situation: Alone Other Information That Helps Us Care for You: No Feels Safe at Home: Yes Safety Concerns: Feels Safe At This Time Assistive Devices: Glasses Review of Systems Review of Systems: All systems reviewed & are unremarkable except as noted in HPI & below Physical Exam Constitutional: well developed, + cachectic, + frail appearing and cooperative Eyes: EOM intact bilaterally ENMT: Ears: no external ear abnormality Nose: no external nose abnormality Mouth: + dry oral mucous membranes Neck: no nuchal rigidity Respiratory: normal respiratory effort Auscultation: + diminished lung sounds and + crackles (bibasilar R>L) Cardiovascular: Rate/Rhythm: regular rate and regular rhythm Heart Sounds: + murmur Extremities: no edema Gastrointestinal (Abdomen): Inspection/Auscultation: normal bowel sounds Percussion/Palpation: abdomen soft; abdomen nontender Musculoskeletal: Extremities: strength 5/5 throughout Skin: no rashes, warm and dry Neurologic: abad, fluent speech, no tremor Results & Data Vital Signs (Past 12 Hours) Vital Signs Temp Pulse Pulse Resp BP Pulse Ox O2 Del Method 04/20/23 07:00 76 04/20/23 07:54 36.8 C 72 18 83/55 L 100 Room Air 04/20/23 03:32 36.8 C 85 19 97/59 L 98 Room Air 04/19/23 23:46 93 H 04/19/23 21:49 36.9 C 85 20 99/62 L 98 Room Air 04/19/23 21:27 79 Laboratory Results 04/20/23 05:31 04/20/23 05:31 Diagnostic Findings kub, cxr w/o active /acute disease
[2023-04-20] MEDS ORDERED: POTASSIUM CHLORIDE 40 MEQ in SODIUM CHLORIDE 0.45 % 1,000 ML IV SCH (09:48)
--- NOTE | 2023-04-20 12:10 | Hospitalist Progress Note ---
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 Improved to 129 today. Labs reviewed; urine osmolarity high with low urine sodium consistent with hypovolemic hyponatremia. Sodium improved with IV hydration. Nephrology on board; fluid changed to half-normal saline with KCl. Non-anion gap metabolic acidosis Likely due to GI losses Monitor BMP Thrombocytosis Chronic Likely reactive Chronic anemia Monitor platelet count Hemoglobin at baseline Seen by hematology last admission Atypical chest pain EKG personally reviewed; normal sinus rhythm with no ST or T wave changes Echocardiogram shows EF of 55 to 60%; small loculated posterior pericardial effusion seen. No valvular pathology GERD Continue PPI H/O basal cell carcinoma Follows with dermatology as outpatient Anxiety/mood disorder Consult psychiatry to review medication. Patient reports that he was placed on medications 3 years back over phone consultation. DVT Px: Heparin SQ Time spent evaluating patient, direct bedside care, chart review, placing orders, interpretation of diagnostic studies, discussion with consultants, patient, and family members, as well as other required patient management activities is 60 minutes. Please note the above document was generated using voice recognition software. It may contain grammatical, syntax or spelling errors. Any formal questions or concerns about the content, text or information contained within the body of this dictation should be directly addressed to the provider for clarification Admission and Anticipated Discharge Date Admission Date: April 19, 2023 Subjective Patient seen and examined at bedside. He reports that he is feeling better compared to yesterday. Reports that he is feeling hydrated. Reports that his appetite has improved as well. Review of Systems Review of Systems: All systems reviewed & are unremarkable except as noted in Subjective Physical Exam Physical Exam: Physical Exam: Vitals signs as noted above General Appearance:Thin, frail, Chronic ill appearing, no apparent distress Head: normocephalic, Atraumatic, +Left facial skin lesion Eyes: normal inspection, EOMI Neck: supple, Trachea midline Respiratory/Chest: Normal breath sounds, CTA, +mild tender, No accessory muscle use Cardiovascular: S1, S2, No murmur Abdomen/GI:Soft, mild tender, Bowel sounds present Extremities/Musculoskeletal:normal inspection, no edema Neurologic/Psych:AAOX3, grossly no focal neurological deficits Skin: normal color, warm Results & Data Results & Data Vital Signs (Past 12 Hours) Vital Signs Temp Pulse Pulse Resp BP Pulse Ox O2 Del Method 04/20/23 12:02 36.1 C L 81 18 89/59 L 100 Room Air 04/20/23 07:00 76 04/20/23 07:54 36.8 C 72 18 83/55 L 100 Room Air 04/20/23 03:32 36.8 C 85 19 97/59 L 98 Room Air Laboratory Results Laboratory Results WBC 12.95 K/ul (4.8-10.8) H 04/20/23 05:31 RBC 3.93 M/uL (4.70-6.10) L 04/20/23 05:31 Hgb 10.9 g/dl (14.0-18.0) L 04/20/23 05:31 Hct 33.5 % (42.0-52.0) L 04/20/23 05:31 MCV 83.1 fL (80.0-100.0) 04/20/23 05:31 MCH 27.7 pg (25.0-34.0) 04/20/23 05:31 MCHC 32.5 g/dL (32.0-36.0) 04/20/23 05:31 RDW Std Deviation 51.5 fL (36.4-46.3) H 04/20/23 05:31 RDW Coeff of Kingsley 16.5 % (11.5-14.5) H 04/20/23 05:31 Plt Count 462 K/uL (130-400) H 04/20/23 05:31 MPV 10.3 fL (9.4-12.4) 04/20/23 05:31 Immature Gran % (Auto) 1.9 % 04/20/23 05:31 Neut % (Auto) 77.1 % 04/20/23 05:31 Lymph % (Auto) 10.5 % 04/20/23 05:31 [place] % (Auto) 9.3 % 04/20/23 05:31 Eos % (Auto) 0.7 % 04/20/23 05:31 Baso % (Auto) 0.5 % 04/20/23 05:31 Neut # (Auto) 10.00 K/uL (1.40-6.50) H 04/20/23 05:31 Lymph # (Auto) 1.36 K/uL (1.2-3.4) 04/20/23 05:31 [place] # (Auto) 1.20 K/uL (0.11-0.59) H 04/20/23 05:31 Eos # (Auto) 0.09 K/uL (0-0.50) 04/20/23 05:31 Baso # (Auto) 0.06 K/uL (0-0.2) 04/20/23 05:31 Immature Gran # (Auto) 0.24 K/uL (0.01-0.20) H 04/20/23 05:31 Sodium 129 mmol/L (136-145) L 04/20/23 05:31 Potassium 3.6 mmol/L (3.5-5.1) 04/20/23 05:31 Chloride 101 mmol/L (98-107) 04/20/23 05:31 Carbon Dioxide 21 mmol/L (21-32) 04/20/23 05:31 Anion Gap 7 (3-11) 04/20/23 05:31 BUN 19 mg/dl (6-23) 04/20/23 05:31 Creatinine 0.88 mg/dl (0.6-1.4) 04/20/23 05:31 Est Cr Clr Drug Dosing 59.5 ml/min 04/20/23 05:31 Est GFR ( Amer) 116.1 ml/min 04/20/23 05:31 Est GFR (Non-Af Amer) 100.2 ml/min 04/20/23 05:31 BUN/Creatinine Ratio 21.6 (10-20) H 04/20/23 05:31 Glucose 89 mg/dl (70-99(Fasting)) 04/20/23 05:31 Osmolality 266 mOsm/kg (280-300) L 04/19/23 15:57 Calcium 7.9 mg/dl (8.6-10.3) L 04/20/23 05:31 Phosphorus 2.0 mg/dl (2.5-4.9) L 04/20/23 05:31 Magnesium 1.8 mg/dl (1.7-2.4) 04/20/23 05:31 Total Bilirubin 0.2 mg/dl (0.2-1.0) 04/20/23 05:31 AST 11 U/L (13-39) L 04/20/23 05:31 ALT 5 U/L (7-52) L 04/20/23 05:31 Alkaline Phosphatase 35 U/L (34-104) 04/20/23 05:31 Troponin I High Sens 5.5 pg/ml (0-20) 04/20/23 05:31 Total Protein 5.7 gm/dl (6.0-8.3) L D 04/20/23 05:31 Albumin 2.3 gm/dl (3.4-5.0) L 04/20/23 05:31 Globulin 3.4 gm/dl (2.5-4.0) 04/20/23 05:31 Albumin/Globulin Ratio 0.7 (0.9-2) L 04/20/23 05:31 Lipase 22 U/L (11-82) 04/19/23 15:53 Urine Osmolality 686 mOsm/kg (500-800) 04/19/23 Unknown Ur Random Sodium 17 mmol/L 04/19/23 Unknown Stl C. cayetanensis PCR Not Detected (NotDetected) 04/19/23 Unknown Stool Rotavirus A PCR Not Detected (NotDetected) 04/19/23 Unknown Stl Adenov F 40/41 PCR Not Detected (NotDetected) 04/19/23 Unknown Stool Astrovirus (PCR) Not Detected (NotDetected) 04/19/23 Unknown Stool Campylobacter PCR Not Detected (NotDetected) 04/19/23 Unknown Stl C. diff Tox B Gene Negative Cdiff Gene (Neg) 04/19/23 Unknown Stool Cryptosporidium PCR Not Detected (NotDetected) 04/19/23 Unknown Stl E.coli Shiga Tox PCR Not Detected (NotDetected) 04/19/23 Unknown Stl Enterotoxigenic E PCR Not Detected (NotDetected) 04/19/23 Unknown Stool EPEC (PCR) Not Detected (NotDetected) 04/19/23 Unknown Stool EAEC (PCR) Not Detected (NotDetected) 04/19/23 Unknown Stl E. histolytica PCR Not Detected (NotDetected) 04/19/23 Unknown Stool Giardia Lamblia PCR Not Detected (NotDetected) 04/19/23 Unknown Stool Salmonella PCR Not Detected (NotDetected) 04/19/23 Unknown Stool Sapovirus (PCR) Not Detected (NotDetected) 04/19/23 Unknown Stl P. shigelloides PCR Not Detected (NotDetected) 04/19/23 Unknown Stl Shigella/EIEC PCR Not Detected (NotDetected) 04/19/[address] Y.enterocolitica PCR Not Detected (NotDetected) 04/19/23 Unknown Stool Vibrio (PCR) Not Detected (NotDetected) 04/19/23 Unknown Stl Vibrio cholerae PCR Not Detected (NotDetected) 04/19/23 Unknown Stl Norovirus GI/GII PCR Not Detected (NotDetected) 04/19/23 Unknown SARS-CoV-2, RNA, NAAT NEGATIVE (NEGATIVE) 04/19/23 17:48 Impressions KUB X-Ray 04/19/23 14:56 KUB HISTORY: Whipple disease, concern for relapse COMPARISON: Abdomen and pelvis CT 04/04/2023. FINDINGS: The bowel gas pattern is unremarkable. There are no dilated loops of small bowel to suggest an obstruction. No renal calculi. No ureteral calculi. Calcifications in the deep pelvis likely represent phleboliths. The lung bases are clear. No pneumoperitoneum or pneumatosis. IMPRESSION: Nonobstructive bowel gas pattern. ACT 112: Negative or not required by law. Electronically signed by: Abdelrahman Rod M.D. 04/19/2023 3:29 PM Chest X-Ray 04/19/23 14:58 XR chest 1V not portable CLINICAL HISTORY: Chest and abdominal pain TECHNIQUE: Single frontal radiograph of the chest was obtained. Comparison: Comparison is made to chest radiograph 04/04/2023 FINDINGS: No lines and tubes are seen. The cardiomediastinal silhouette is normal. The lungs are clear. No evidence of pleural effusion or pneumothorax. IMPRESSION: No acute chest disease. ACT 112: Negative or not required by law. Electronically signed by: Edin Sanabria M.D. 04/19/2023 3:32 PM
[2023-04-20 17:06] LABS: Calcium 8.6 mg/dl (8.6-10.3); Potassium 3.9 mmol/L (3.5-5.1)
[2023-04-20 17:12] LABS: BUN Creatinine Ratio 24.4 (10-20); Creatinine Clr Calc Pharmacy 60.9 ml/min; Est GFR (African American) 117.2 ml/min; Est GFR (Non-African American) 101.1 ml/min
--- NOTE | 2023-04-20 20:16 | Psychiatric Progress Note ---
Date of Service April 20, 2023 Interval History Identifying Information LIZBETH JASMINE is a 52-year-old man with a history of whipple's disease, admitted on for wasting. Consult is by the hospitalist service for medication recommendations. Chief Complaint "[]". Subjective Subjective Patient was seen & assessed and interval progress reviewed with [treatment team] [nursing and social work] Physical Exam Vital Signs (Past 24 Hours) Last Vital Signs Temp 36.8 C 04/20/23 19:43 Pulse 95 H 04/20/23 19:43 Resp 19 04/20/23 19:43 BP 97/62 L 04/20/23 19:43 Pulse Ox 98 04/20/23 19:43 O2 Del Method Room Air 04/20/23 19:43 Results & Data ([facility]) Laboratory Results Laboratory Results - last 24 hr 04/19/23 04/19/23 04/19/23 23:28 Unknown Unknown WBC RBC Hgb Hct MCV MCH MCHC RDW Std Deviation RDW Coeff of Kingsley Plt Count MPV Immature Gran % (Auto) Neut % (Auto) Lymph % (Auto) [place] % (Auto) Eos % (Auto) Baso % (Auto) Neut # (Auto) Lymph # (Auto) [place] # (Auto) Eos # (Auto) Baso # (Auto) Immature Gran # (Auto) Sodium 124 L Potassium 3.4 L Chloride 96 L Carbon Dioxide 20 L Anion Gap 8 BUN 24 H Creatinine 0.97 Est Cr Clr Drug Dosing 53.9 Est GFR ( Amer) 105.1 Est GFR (Non-Af Amer) 90.7 BUN/Creatinine Ratio 24.7 H Glucose 123 H Calcium 8.2 L Phosphorus Magnesium Total Bilirubin AST ALT Alkaline Phosphatase Troponin I High Sens 5.5 Total Protein Albumin Globulin Albumin/Globulin Ratio Urine Osmolality Ur Random Sodium Stl C. cayetanensis PCR Not Detected Stool Rotavirus A PCR Not Detected Stl Adenov F 40/41 PCR Not Detected Stool Astrovirus (PCR) Not Detected Stool Campylobacter PCR Not Detected Stl C. diff Tox B Gene Negative Cdiff Gene Stool Cryptosporidium PCR Not Detected Stl E.coli Shiga Tox PCR Not Detected Stl Enterotoxigenic E PCR Not Detected Stool EPEC (PCR) Not Detected Stool EAEC (PCR) Not Detected Stl E. histolytica PCR Not Detected Stool Giardia Lamblia PCR Not Detected Stool Salmonella PCR Not Detected Stool Sapovirus (PCR) Not Detected Stl P. shigelloides PCR Not Detected Stl Shigella/EIEC PCR Not Detected St Y.enterocolitica PCR Not Detected Stool Vibrio (PCR) Not Detected Stl Vibrio cholerae PCR Not Detected Stl Norovirus GI/GII PCR Not Detected 04/19/23 04/19/23 04/20/23 Unknown Unknown 05:31 WBC 12.95 H RBC 3.93 L Hgb 10.9 L Hct 33.5 L MCV 83.1 MCH 27.7 MCHC 32.5 RDW Std Deviation 51.5 H RDW Coeff of Kingsley 16.5 H Plt Count 462 H MPV 10.3 Immature Gran % (Auto) 1.9 Neut % (Auto) 77.1 Lymph % (Auto) 10.5 [place] % (Auto) 9.3 Eos % (Auto) 0.7 Baso % (Auto) 0.5 Neut # (Auto) 10.00 H Lymph # (Auto) 1.36 [place] # (Auto) 1.20 H Eos # (Auto) 0.09 Baso # (Auto) 0.06 Immature Gran # (Auto) 0.24 H Sodium Potassium Chloride Carbon Dioxide Anion Gap BUN Creatinine Est Cr Clr Drug Dosing Est GFR ( Amer) Est GFR (Non-Af Amer) BUN/Creatinine Ratio Glucose Calcium Phosphorus Magnesium Total Bilirubin AST ALT Alkaline Phosphatase Troponin I High Sens Total Protein Albumin Globulin Albumin/Globulin Ratio Urine Osmolality 686 Ur Random Sodium 17 Stl C. cayetanensis PCR Stool Rotavirus A PCR Stl Adenov F 40/41 PCR Stool Astrovirus (PCR) Stool Campylobacter PCR Stl C. diff Tox B Gene Stool Cryptosporidium PCR Stl E.coli Shiga Tox PCR Stl Enterotoxigenic E PCR Stool EPEC (PCR) Stool EAEC (PCR) Stl E. histolytica PCR Stool Giardia Lamblia PCR Stool Salmonella PCR Stool Sapovirus (PCR) Stl P. shigelloides PCR Stl Shigella/EIEC PCR St Y.enterocolitica PCR Stool Vibrio (PCR) Stl Vibrio cholerae PCR Stl Norovirus GI/GII PCR 04/20/23 04/20/23 05:31 16:15 WBC RBC Hgb Hct MCV MCH MCHC RDW Std Deviation RDW Coeff of Kingsley Plt Count MPV Immature Gran % (Auto) Neut % (Auto) Lymph % (Auto) [place] % (Auto) Eos % (Auto) Baso % (Auto) Neut # (Auto) Lymph # (Auto) [place] # (Auto) Eos # (Auto) Baso # (Auto) Immature Gran # (Auto) Sodium 129 L 129 L Potassium 3.6 3.9 Chloride 101 100 Carbon Dioxide 21 21 Anion Gap 7 8 BUN 19 21 Creatinine 0.88 0.86 Est Cr Clr Drug Dosing 59.5 60.9 Est GFR ( Amer) 116.1 117.2 Est GFR (Non-Af Amer) 100.2 101.1 BUN/Creatinine Ratio 21.6 H 24.4 H Glucose 89 88 Calcium 7.9 L 8.6 Phosphorus 2.0 L Magnesium 1.8 Total Bilirubin 0.2 AST 11 L ALT 5 L Alkaline Phosphatase 35 Troponin I High Sens 5.5 Total Protein 5.7 L D Albumin 2.3 L Globulin 3.4 Albumin/Globulin Ratio 0.7 L Urine Osmolality Ur Random Sodium Stl C. cayetanensis PCR Stool Rotavirus A PCR Stl Adenov F 40/41 PCR Stool Astrovirus (PCR) Stool Campylobacter PCR Stl C. diff Tox B Gene Stool Cryptosporidium PCR Stl E.coli Shiga Tox PCR Stl Enterotoxigenic E PCR Stool EPEC (PCR) Stool EAEC (PCR) Stl E. histolytica PCR Stool Giardia Lamblia PCR Stool Salmonella PCR Stool Sapovirus (PCR) Stl P. shigelloides PCR Stl Shigella/EIEC PCR St Y.enterocolitica PCR Stool Vibrio (PCR) Stl Vibrio cholerae PCR Stl Norovirus GI/GII PCR Current Inpatient Medications Current Inpatient Medications: Current Inpatient Medications Acetaminophen (Acetaminophen 325 Mg Tab) 650 mg PO Q4H PRN PRN Reason: Pain or Fever Stop: 05/19/23 21:25 Buspirone HCl (Buspirone 5 Mg Tab) 10 mg PO BID [facility] Stop: 05/19/23 21:29 Last Admin: 04/20/23 08:19 Dose: Not Given Ferrous Gluconate (Ferrous Gluconate 324 Mg Tab) 324 mg PO DAILY [facility] Stop: 05/20/23 08:59 Last Admin: 04/20/23 08:18 Dose: 324 mg Heparin Sodium (Porcine) (Heparin Sod 5,000 Unit/0.5 Ml Vial) 5,000 units SQ Q12 [facility] Stop: 05/19/23 21:59 Last Admin: 04/20/23 08:19 Dose: 5,000 units Potassium Chloride/Sodium Chloride (Normal Saline W/20 Meq Kcl) 20 meq in 1,000 mls @ 75 mls/hr IV .[id number] [facility] Stop: 05/19/23 21:25 Last Infusion: 04/20/23 10:48 Dose: Infused Ceftriaxone Sodium 2,000 mg/ (Dextrose) 70 mls @ 100 mls/hr IV Q24H [facility]; Protocol Stop: 04/29/23 21:59 Last Infusion: 04/19/23 23:09 Dose: Infused Metronidazole (Flagyl) 500 mg in 100 mls @ 100 mls/hr IV Q8H [facility]; Protocol Stop: 04/29/23 21:59 Last Infusion: 04/20/23 16:24 Dose: Infused Potassium Chloride 40 meq/ (Sodium Chloride) 1,020 mls @ 80 mls/hr IV .[id number] [facility] Stop: 05/20/23 09:47 Last Admin: 04/20/23 10:47 Dose: 80 mls/hr Lactobacillus Acidophilus (Advanced Probiotic 1250 Mg Capsule) 2 cap PO DAILY [facility] Stop: 05/20/23 08:59 Last Admin: 04/20/23 08:18 Dose: 2 cap Lamotrigine (Lamotrigine 25 Mg Tab) 25 mg PO [facility] Stop: 05/19/23 21:29 Last Admin: 04/19/23 22:16 Dose: Not Given Mirtazapine (Mirtazapine Tab 15 Mg Tab) 30 mg PO HS [facility] Stop: 05/19/23 21:29 Last Admin: 04/19/23 22:16 Dose: Not Given Multivitamins/Minerals (Cerovite Adv Formula Tab) 1 tab PO DAILY [facility] Stop: 05/20/23 08:59 Last Admin: 04/20/23 08:18 Dose: 1 tab Ondansetron HCl (Ondansetron Inj 2 Mg/Ml 2 Ml Vial) 4 mg IV Q6H PRN PRN Reason: Nausea Stop: 05/19/23 21:25 Pantoprazole Sodium (Pantoprazole 40 Mg Tab) 40 mg PO BID [facility] Stop: 05/20/23 08:59 Last Admin: 04/20/23 08:18 Dose: 40 mg Phenol (Chloraseptic 1.4% Soln 180 Ml Btl) 2 sprays MT Q8H PRN PRN Reason: Sorethroat Stop: 05/19/23 21:25 Polyethylene Glycol (Polyethylene (Miralax) 17 Gm Pack) 17 gm PO DAILY PRN PRN Reason: Constipation Stop: 05/19/23 21:25 Thiamine HCl (Thiamine Hcl 100 Mg Tab) 100 mg PO QAM [facility] Stop: 05/20/23 08:59 Last Admin: 04/20/23 08:19 Dose: 100 mg
[2023-04-20] MEDS: MIRTAZAPINE TAB 15 MG TAB PO SCH (20:52)
[2023-04-20] MEDS: lamoTRIgine 25 MG TAB PO SCH ×2 (20:52→21:08)
[2023-04-20] MEDS: NSS + 20MEQ KCL 20 MEQ/1,000 ML BAG IV SCH (20:56)
[2023-04-20] MEDS: cefTRIAXone SODIUM 2,000 MG in DEXTROSE 5% 50 ML IV SCH (21:03)
--- NOTE | 2023-04-20 22:39 | Psychiatric Consultation ---
Date of Consultation April 20, 2023 Impression / Recommendations Impression 52 y/o man who seemingly carries a diagnosis of bipolar disorder but for no reason I can find. He denies a history consistent with this diagnosis or with major depression. He is a prescribed a number of medications that have very little chance of benefit if taken as prescribed (due to low doses for the most part) but none at all the way he's been using them. We discussed his goals at length and right now he's not sure he has any psychiatric symptoms for which he wants to take medication. He is intrigued that mirtazapine might help his appetite. Fortunately, none of these meds would require a taper if taken as prescribed (and it's not possible to take lower doses of doxepin or lamotrigine). (1) MELIZA (generalized anxiety disorder): Plan * Stop doxepin - TCA with black-box warnings, cardiotoxicity (at antidepressant doses) that could work for insomnia but which he says hasn't helped * Stop lamotrigine - apparently intended a "mood stabilizer" only likely to be of benefit at many multiples of the prescribed dose, and risky to stop and start repeatedly * Stop bupropion - occasionally effective if used BID, should be taken consistently TID for extended period in order to see benefit, which he's not going to do * Reduce mirtazapine to 15 mg QHS, use PRN insomnia or to boost appetite Psych History Identifying Data LIBZETH JASMINE is a 52-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 Consult is by the hospitalist service for medication recommendations. Chief Complaint "I don't know what I should take". History of Present Illness Pt tells me that 2 yr ago he consulted a psychiatrist via telemedicine seeking recommendation for a sleep aid and "after about 18 minutes" was told he had bipolar disorder, PTSD, and generalized anxiety disorder. He was given prescriptions for lamotrigine 25 mg daily (with, he says, no instructions to titrate), buspirone 15 mg BID, doxepine 25 mg QHS, and mirtazapine 30 mg QHS. He has taken them sporadically but "nowhere near every day". He thinks mirtazapine helps with sleep but sees no other benefit and denies any side effects. Pt reports he's "been yonathan fidgety" all his life and sometimes he'll feel happy but end up feeling sad or vice-versa. He denies any mood consistently for a 2- week period, let along elevated or depressed mood, and denies a history of typical depression symptoms. He says he's never had suicidal thoughts. He does say he's anxious a lot of the time. Right now, he says anxiety is not a big problem except that he worries about his health. Allergies Allergy/AdvReac Type Severity Reaction Status Date / Time No Known Allergies Allergy Verified 03/16/23 11:11 Home Medications Medication Instructions Recorded Confirmed Type zndzujhzisgp-zbtobhpt-szdtjn tablet 1 tab PO DAILY 03/02/23 04/19/23 History sodium sul 1.479 gram-potas ch See Rx Instructions PO .COMPLEX 03/16/23 04/19/23 Rx 0.188 gram-magnes sul 0.225 gram #24 tabs tablet (Sutab) Lamictal 25 mg PO HS 04/08/23 04/19/23 History Remeron 30 mg PO HS 04/08/23 04/19/23 History buspirone 10 mg PO BID 04/08/23 04/19/23 History Saccharomyces boulardii 250 mg 250 mg PO Q24H 14 days #14 caps 04/12/23 04/19/23 Rx capsule (Florastor) ferrous gluconate 324 mg (38 mg 324 mg PO DAILY #30 tabs 04/12/23 04/19/23 Rx iron) tablet metronidazole 500 mg tablet 500 mg PO TID 14 days #42 tabs 04/12/23 04/19/23 Rx omeprazole 20 mg capsule,delayed 20 mg PO BID #60 caps 04/12/23 04/19/23 Rx release Patient History Medical History Bipolar 1 disorder Encounter for pre-operative examination Malnourished Neoplasm of unspecified behavior of bone, soft tissue, and skin Whipple's disease Surgical History No history of previous surgery Family History Father Colorectal cancer Grandfather (Paternal) Colorectal cancer Uncle Colorectal cancer Uncle Colorectal cancer Uncle Colorectal cancer Social History Smoking Status: Former smoker Tobacco Type: Cigarettes Age Started Using Tobacco: 22; packs per day: 1; Cigarettes Per Day: 1PPD; Smoking End Date: february 2023; Hx Alcohol Use: No (quit in february 2023) Hx Substance Use: No Preferred Language: Swiss 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 Ability: Effective Coordinator Of Online Programs Required: No Beliefs That Will Affect Care: None Current Living Situation: Alone Other Information That Helps Us Care for You: No Feels Safe at Home: Yes Safety Concerns: Feels Safe At This Time Assistive Devices: Glasses Physical Exam Psychiatric: Orientation: alert, oriented to person, oriented to place, oriented to time and cooperative Apperance: appropriately dressed and appropriately groomed gaunt Eye Contact: good eye contact Motor Behavior: no abnormal motor movements Speech: normal rate/rhythm/volume of speech Affect: euthymic affect Mood: no depressed mood and no anxious mood Thought Process: linear/logical thought process Thought Content: reality based without delusions Suicidal Thoughts: denies suicidal thoughts, denies suicidal plan and denies suicidal intent Homicidal Thoughts: denies homicidal thoughts Hallucinations: no auditory hallucinations and no visual hallucinations Cognition: recent memory grossly intact, remote memory grossly intact and attention grossly intact Estimated Intelligence: average estimated intelligence Insight: good insight Judgment: good judgement Vital Signs (Past 24 Hours): Last Vital Signs Temp 36.8 C 04/20/23 19:43 Pulse 95 H 04/20/23 19:43 Resp 19 04/20/23 19:43 BP 97/62 L 04/20/23 19:43 Pulse Ox 98 04/20/23 19:43 O2 Del Method Room Air 04/20/23 19:43 Review of Systems Psychiatric: + abnormal sleep pattern (intermittent initial insomnia) and + anxiety; no depression, no anhedonia, no change in appetite (chronically poor), no suicidal ideation and no hallucinations Results & Data (PSY) Medications Administered Acetaminophen (Acetaminophen 325 Mg Tab) 650 mg PO Q4H PRN PRN Reason: Pain or Fever Stop: 05/19/23 21:25 Last Admin: 04/20/23 20:57 Dose: 650 mg Documented By: [facility] Buspirone HCl (Buspirone 5 Mg Tab) 10 mg PO BID VIOLETA Stop: 05/19/23 21:29 Last Admin: 04/20/23 21:08 Dose: Not Given Documented By: Admin: 04/20/23 08:19 Dose: Not Given Documented By: Admin: 04/19/23 22:16 Dose: Not Given Documented By: GH Ferrous Gluconate (Ferrous Gluconate 324 Mg Tab) 324 mg PO DAILY VIOLETA Stop: 05/20/23 08:59 Last Admin: 04/20/23 08:18 Dose: 324 mg Documented By: CA Heparin Sodium (Porcine) (Heparin Sod 5,000 Unit/0.5 Ml Vial) 5,000 units SQ Q12 VIOLETA Stop: 05/19/23 21:59 Last Admin: 04/20/23 21:08 Dose: Not Given Documented By: Admin: 04/20/23 08:19 Dose: 5,000 units Documented By: Admin: 04/19/23 22:17 Dose: Not Given Documented By: GH Potassium Chloride/Sodium Chloride (Normal Saline W/20 Meq Kcl) 20 meq in 1,000 mls @ 75 mls/hr IV .[id number] VIOLETA Stop: 05/19/23 21:25 Last Admin: 04/20/23 20:56 Dose: 75 mls/hr Documented By: Infusion: 04/20/23 10:48 Dose: 0 mls/hr Documented By: Admin: 04/19/23 22:24 Dose: 75 mls/hr Documented By: GH Ceftriaxone Sodium 2,000 mg/ (Dextrose) 70 mls @ 100 mls/hr IV Q24H VIOLETA; Protocol Stop: 04/29/23 21:59 Last Admin: 04/20/23 21:03 Dose: 100 mls/hr Documented By: Infusion: 04/19/23 23:09 Dose: 0 mls/hr Documented By: Admin: 04/19/23 22:27 Dose: 100 mls/hr Documented By: GH Metronidazole (Flagyl) 500 mg in 100 mls @ 100 mls/hr IV Q8H VIOLETA; Protocol Stop: 04/29/23 21:59 Last Infusion: 04/20/23 16:24 Dose: 0 mls/hr Documented By: Admin: 04/20/23 14:39 Dose: 100 mls/hr Documented By: Infusion: 04/20/23 06:27 Dose: 0 mls/hr Documented By: Admin: 04/20/23 05:33 Dose: 100 mls/hr Documented By: Infusion: 04/20/23 00:42 Dose: 0 mls/hr Documented By: Admin: 04/19/23 23:40 Dose: 100 mls/hr Documented By: GH Potassium Chloride 40 meq/ (Sodium Chloride) 1,020 mls @ 80 mls/hr IV .[id number] VIOLETA Stop: 05/20/23 09:47 Last Admin: 04/20/23 10:47 Dose: 80 mls/hr Documented By: LAISHA Lactobacillus Acidophilus (Advanced Probiotic 1250 Mg Capsule) 2 cap PO DAILY VIOLETA Stop: 05/20/23 08:59 Last Admin: 04/20/23 08:18 Dose: 2 cap Documented By: LAISHA Lamotrigine (Lamotrigine 25 Mg Tab) 25 mg PO HS VIOLETA Stop: 05/19/23 21:29 Last Admin: 04/20/23 21:08 Dose: Not Given Documented By: [facility] Admin: 04/19/23 22:16 Dose: Not Given Documented By: BRITT Mirtazapine (Mirtazapine Tab 15 Mg Tab) 30 mg PO HS VIOLETA Stop: 05/19/23 21:29 Last Admin: 04/20/23 20:52 Dose: 30 mg Documented By: [facility] Admin: 04/19/23 22:16 Dose: Not Given Documented By: BRITT Multivitamins/Minerals (Cerovite Adv Formula Tab) 1 tab PO DAILY VIOLETA Stop: 05/20/23 08:59 Last Admin: 04/20/23 08:18 Dose: 1 tab Documented By: LAISHA Pantoprazole Sodium (Pantoprazole 40 Mg Tab) 40 mg PO BID VIOLETA Stop: 05/20/23 08:59 Last Admin: 04/20/23 20:51 Dose: 40 mg Documented By: [facility] Admin: 04/20/23 08:18 Dose: 40 mg Documented By: LAISHA Thiamine HCl (Thiamine Hcl 100 Mg Tab) 100 mg PO QAM VIOLETA Stop: 05/20/23 08:59 Last Admin: 04/20/23 08:19 Dose: 100 mg Documented By: LAISHA Coding Level of Care Code 19758 IN/OBS CONSULT LVL 4,60M Diagnoses MELIZA (generalized anxiety disorder) F41.1 Time Spent (min) 80
[2023-04-21] MEDS: metroNIDAZOLE 500 MG/100 ML BAG IV SCH ×3 (05:26→21:03)
[2023-04-21 06:56] LABS: BUN Creatinine Ratio 19.5 (10-20); Calcium 8.3 mg/dl (8.6-10.3); Creatinine Clr Calc Pharmacy 69.8 ml/min; Est GFR (African American) 122.6 ml/min; Est GFR (Non-African American) 105.8 ml/min; Potassium 3.8 mmol/L (3.5-5.1)
[2023-04-21] MEDS: THIAMINE HCL 100 MG TAB PO SCH (09:08)
[2023-04-21] MEDS: FERROUS GLUCONATE 324 MG TAB PO SCH (09:08)
[2023-04-21] MEDS: PANTOprazole 40 MG TAB PO SCH ×2 (09:08→21:03)
[2023-04-21] MEDS: HEPARIN SOD 5,000 UNIT/0.5 ML VIAL SQ SCH ×2 (09:08→21:11)
[2023-04-21] MEDS: CEROVITE ADV FORMULA TAB PO SCH (09:08)
[2023-04-21] MEDS: ADVANCED PROBIOTIC 1250 MG CAPSULE PO SCH (09:08)
[2023-04-21] MEDS: busPIRone 5 MG TAB PO SCH ×2 (09:09→21:11)
--- NOTE | 2023-04-21 10:34 | Oral/Maxillofacial Consult ---
Date of Consultation April 21, 2023 History of Present Illness Attending Physician: Joel Marlow MD History of Present Illness I reviewed the recent CT scan specific for dental infection. Mr. Desir has a number of teeth that are decayed and others that have chronic apical pathology. I suspect this is of a chronic long standing condition. I will see Mr. Deisr at bedside later this afternoon and do a clinical exam to determine if there is any acute issues that need to be addressed while in the hospital. Recommended oral maxillofacial surgery evaluation. If no evidence of dental infection, will DC Flagyl. Based on the chronic dental findings w/o any acute findings I see no need to continue the Flagyl Oral Maxillofacial Surgery Exam Present Complaint: "my teeth are a mess" Symptoms have been ongoing for a while--on and off pain secondary to fractured and decaying teeth. At present NO DENTAL PAIN or SYMPTOMS Oral Exam: Finding--Many Teeth are fractured and decayed beyond repair and will require extraction in the future. No draining fistula are present, no periodontal abscess present. No dental treatment that needs emergency or urgent treatment. Imaging: Soft tissue: Floor of the mouth, tongue, hard/soft palate, posterior pharyngeal area all with in normal limits, no pathology or abnormal findings noted. No lesions noted that require follow up or Bx. Oral Care: Overall oral care is very poor Occlusion: Class I missing teeth TMJ exam: No pop, clicking, pain, good ROM, No history of TMJ injury or dysfunction Periodontal exam: Significant evidence of periodontal pathology, cervical carious lesions and fractured roots/teeth Head/Neck exam: Neck is supple, FROM, Able to extend and flex neck w/o difficulty, no masses, no abnormalities, no airway issues, Treatment Plan: I suggest that once Jeremiah is discharged and gains his strength back that he call my office to set up a follow up appointment so we can finalize a treatment plan and set him up for the necessary treatment in the OR. Medical clearance for GA will need to be given prior to set him up for the procedures. Set up with general anesthesia in hospital due to complexity of the procedure I reviewed the treatment plan and consent with the patient Understanding was expressed. Time was given for questions regarding the surgery, risks and post op care. Discussed alternative to treatment--procedure as planned, Do not do surgery The following teeth are decayed and fractured and removal is indicated - most all the teeth Risks discussed: Bleeding,Pain,swelling,infection, dry socket, delayed healing, nerve injury to face,lips,tongue,chin area which could be permanent (rare). TMJ, jaw stiffness, change in bite (rare), ear pain (referred). Sinus problems like fistula or infection. Need to leave a small root fragment in place to avoid injury to nerve or sinus. Relationship of wisdom teeth to nerve/sinus and risk of jaw fracture. Surgery to be set up in the future. Medical clearance needed to insure safe GA and procedures. Will need full dentures after 2-3 months healing. We will need to support this diet and nutritional status after the extractions and before he can get his dentures. Jeremiah has my office info and will call when he is ready to proceed. Allergies Allergy/AdvReac Type Severity Reaction Status Date / Time No Known Allergies Allergy Verified 03/16/23 11:11 Home Medications Medication Instructions Recorded Confirmed Type rfotrfovllcx-eqeaudtg-iofjuj tablet 1 tab PO DAILY 03/02/23 04/19/23 History sodium sul 1.479 gram-potas ch See Rx Instructions PO .COMPLEX 03/16/23 04/19/23 Rx 0.188 gram-magnes sul 0.225 gram #24 tabs tablet (Sutab) Lamictal 25 mg PO HS 04/08/23 04/19/23 History Remeron 30 mg PO HS 04/08/23 04/19/23 History buspirone 10 mg PO BID 04/08/23 04/19/23 History Saccharomyces boulardii 250 mg 250 mg PO Q24H 14 days #14 caps 04/12/23 04/19/23 Rx capsule (Florastor) ferrous gluconate 324 mg (38 mg 324 mg PO DAILY #30 tabs 04/12/23 04/19/23 Rx iron) tablet metronidazole 500 mg tablet 500 mg PO TID 14 days #42 tabs 04/12/23 04/19/23 Rx omeprazole 20 mg capsule,delayed 20 mg PO BID #60 caps 04/12/23 04/19/23 Rx release doxycycline hyclate 100 mg tablet 100 mg PO BID 28 days #56 tabs 04/21/23 Rx hydroxychloroquine 200 mg tablet 200 mg PO TID 28 days #84 tabs 04/21/23 Rx phenol 1.4 % mucosal aerosol spray 2 spray MT Q8H PRN sore throat 04/21/23 Rx (Sore Throat (phenol)) #177 mL thiamine HCl (vitamin B1) 100 mg 100 mg PO QAM #60 tabs 04/21/23 Rx tablet Patient History Medical History Bipolar 1 disorder Encounter for pre-operative examination Malnourished Neoplasm of unspecified behavior of bone, soft tissue, and skin Whipple's disease Surgical History No history of previous surgery Family History Father Colorectal cancer Grandfather (Paternal) Colorectal cancer Uncle Colorectal cancer Uncle Colorectal cancer Uncle Colorectal cancer Social History Smoking Status: Former smoker Tobacco Type: Cigarettes Age Started Using Tobacco: 22; packs per day: 1; Cigarettes Per Day: 1PPD; Smoking End Date: february 2023; Hx Alcohol Use: No (quit in february 2023) Hx Substance Use: No Preferred Language: Uruguayan 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 Ability: Effective Buyer Required: No Beliefs That Will Affect Care: None Current Living Situation: Alone Other Information That Helps Us Care for You: No Feels Safe at Home: Yes Safety Concerns: Feels Safe At This Time Assistive Devices: Glasses Results & Data Vital Signs (Past 12 Hours) Vital Signs Temp Pulse Pulse Resp BP Pulse Ox O2 Del Method 04/21/23 07:00 68 04/21/23 07:41 36.3 C L 83 18 88/55 L 99 Room Air 04/21/23 02:50 36.2 C L 70 16 91/57 L 96 Room Air 04/20/23 23:05 36.3 C L 81 16 93/54 L 96 Room Air PG Care Time/CCT Total # of Minutes Spent Total Time Spent with Patient: Total time spent is greater than 50% in coordination of care (as documented) at patient's floor/unit and/or counseling patient: Coding Level of Care Code 98487 INT INP/OBS CARE 2/55MIN Diagnoses
[2023-04-21] MEDS: NSS + 20MEQ KCL 20 MEQ/1,000 ML BAG IV SCH (12:49)
--- NOTE | 2023-04-21 13:02 | Hospitalist Progress Note ---
Date of Service April 21, 2023 Assessment & Plan (1) Acute hyponatremia: Plan: Per admitting hospitalist with addendum Whipple's disease Severe protein calorie malnutrition Hypokalemia BMI 14 Continue Rocephin, Flagyl as recommended by ID on prior admission Discussed with infectious disease; recommended switching over to p.o. Doxy plus hydroxychloroquine 200 mg 3 times daily. Also follow-up with infectious disease clinic. Recommended oral maxillofacial surgery evaluation. If no evidence of dental infection, will DC Flagyl. Replete electrolytes as needed Continue thiamine Monitor for refeeding syndrome Acute on Chronic hyponatremia Likely hypovolemic, hypoosmolar hyponatremia due to significant dehydration from poor oral intake, nausea, vomiting Sodium 123 on admission. Improved to 134 today. Labs reviewed; urine osmolarity high with low urine sodium consistent with hypovolemic hyponatremia. Sodium improved with IV hydration. Nephrology on board; Non-anion gap metabolic acidosis Likely due to GI losses Monitor BMP Thrombocytosis Chronic Likely reactive Chronic anemia Monitor platelet count Hemoglobin at baseline Seen by hematology last admission Atypical chest pain EKG personally reviewed; normal sinus rhythm with no ST or T wave changes Echocardiogram shows EF of 55 to 60%; small loculated posterior pericardial effusion seen. No valvular pathology GERD Continue PPI H/O basal cell carcinoma Follows with dermatology as outpatient Anxiety/mood disorder Consult psychiatry to review medication. Patient reports that he was placed on medications 3 years back over phone consul tation. Psychiatry evaluated the patient; recommended to reduce mirtazapine to 15 mg nightly; use as needed for insomnia and to boost appetite. DVT Px: Heparin SQ Time spent evaluating patient, direct bedside care, chart review, placing orders, interpretation of diagnostic studies, discussion with consultants, patient, and family members, as well as other required patient management activities is 60 minutes. Please note the above document was generated using voice recognition software. It may contain grammatical, syntax or spelling errors. Any formal questions or concerns about the content, text or information contained within the body of this dictation should be directly addressed to the provider for clarification Admission and Anticipated Discharge Date Admission Date: April 19, 2023 Subjective Patient seen and examined at bedside. He reports improvement in the energy. Reports that his appetite is getting better. Review of Systems Review of Systems: All systems reviewed & are unremarkable except as noted in Subjective Physical Exam Physical Exam: Physical Exam: Vitals signs as noted above General Appearance:Thin, frail, Chronic ill appearing, no apparent distress Head: normocephalic, Atraumatic, +Left facial skin lesion Eyes: normal inspection, EOMI Neck: supple, Trachea midline Respiratory/Chest: Normal breath sounds, CTA, +mild tender, No accessory muscle use Cardiovascular: S1, S2, No murmur Abdomen/GI:Soft, mild tender, Bowel sounds present Extremities/Musculoskeletal:normal inspection, no edema Neurologic/Psych:AAOX3, grossly no focal neurological deficits Skin: normal color, warm Results & Data Results & Data Vital Signs (Past 12 Hours) Vital Signs Temp Pulse Pulse Resp BP Pulse Ox O2 Del Method 04/21/23 07:00 68 04/21/23 07:41 36.3 C L 83 18 88/55 L 99 Room Air 04/21/23 02:50 36.2 C L 70 16 91/57 L 96 Room Air Laboratory Results Laboratory Results WBC 12.95 K/ul (4.8-10.8) H 04/20/23 05:31 RBC 3.93 M/uL (4.70-6.10) L 04/20/23 05:31 Hgb 10.9 g/dl (14.0-18.0) L 04/20/23 05:31 Hct 33.5 % (42.0-52.0) L 04/20/23 05:31 MCV 83.1 fL (80.0-100.0) 04/20/23 05:31 MCH 27.7 pg (25.0-34.0) 04/20/23 05:31 MCHC 32.5 g/dL (32.0-36.0) 04/20/23 05:31 RDW Std Deviation 51.5 fL (36.4-46.3) H 04/20/23 05:31 RDW Coeff of Kingsley 16.5 % (11.5-14.5) H 04/20/23 05:31 Plt Count 462 K/uL (130-400) H 04/20/23 05:31 MPV 10.3 fL (9.4-12.4) 04/20/23 05:31 Immature Gran % (Auto) 1.9 % 04/20/23 05:31 Neut % (Auto) 77.1 % 04/20/23 05:31 Lymph % (Auto) 10.5 % 04/20/23 05:31 Cedar % (Auto) 9.3 % 04/20/23 05:31 Eos % (Auto) 0.7 % 04/20/23 05:31 Baso % (Auto) 0.5 % 04/20/23 05:31 Neut # (Auto) 10.00 K/uL (1.40-6.50) H 04/20/23 05:31 Lymph # (Auto) 1.36 K/uL (1.2-3.4) 04/20/23 05:31 Cedar # (Auto) 1.20 K/uL (0.11-0.59) H 04/20/23 05:31 Eos # (Auto) 0.09 K/uL (0-0.50) 04/20/23 05:31 Baso # (Auto) 0.06 K/uL (0-0.2) 04/20/23 05:31 Immature Gran # (Auto) 0.24 K/uL (0.01-0.20) H 04/20/23 05:31 Sodium 134 mmol/L (136-145) L 04/21/23 05:48 Potassium 3.8 mmol/L (3.5-5.1) 04/21/23 05:48 Chloride 108 mmol/L (98-107) H 04/21/23 05:48 Carbon Dioxide 22 mmol/L (21-32) 04/21/23 05:48 Anion Gap 4 (3-11) 04/21/23 05:48 BUN 15 mg/dl (6-23) 04/21/23 05:48 Creatinine 0.77 mg/dl (0.6-1.4) 04/21/23 05:48 Est Cr Clr Drug Dosing 69.8 ml/min 04/21/23 05:48 Est GFR ( Amer) 122.6 ml/min 04/21/23 05:48 Est GFR (Non-Af Amer) 105.8 ml/min 04/21/23 05:48 BUN/Creatinine Ratio 19.5 (10-20) 04/21/23 05:48 Glucose 108 mg/dl (70-99(Fasting)) H 04/21/23 05:48 Osmolality 266 mOsm/kg (280-300) L 04/19/23 15:57 Calcium 8.3 mg/dl (8.6-10.3) L 04/21/23 05:48 Phosphorus 2.0 mg/dl (2.5-4.9) L 04/20/23 05:31 Magnesium 1.8 mg/dl (1.7-2.4) 04/20/23 05:31 Total Bilirubin 0.2 mg/dl (0.2-1.0) 04/20/23 05:31 AST 11 U/L (13-39) L 04/20/23 05:31 ALT 5 U/L (7-52) L 04/20/23 05:31 Alkaline Phosphatase 35 U/L (34-104) 04/20/23 05:31 Troponin I High Sens 5.5 pg/ml (0-20) 04/20/23 05:31 Total Protein 5.7 gm/dl (6.0-8.3) L D 04/20/23 05:31 Albumin 2.3 gm/dl (3.4-5.0) L 04/20/23 05:31 Globulin 3.4 gm/dl (2.5-4.0) 04/20/23 05:31 Albumin/Globulin Ratio 0.7 (0.9-2) L 04/20/23 05:31 Lipase 22 U/L (11-82) 04/19/23 15:53 Urine Osmolality 686 mOsm/kg (500-800) 04/19/23 Unknown Ur Random Sodium 17 mmol/L 04/19/23 Unknown Stl C. cayetanensis PCR Not Detected (NotDetected) 04/19/23 Unknown Stool Rotavirus A PCR Not Detected (NotDetected) 04/19/23 Unknown Stl Adenov F 40/41 PCR Not Detected (NotDetected) 04/19/23 Unknown Stool Astrovirus (PCR) Not Detected (NotDetected) 04/19/23 Unknown Stool Campylobacter PCR Not Detected (NotDetected) 04/19/23 Unknown Stl C. diff Tox B Gene Negative Cdiff Gene (Neg) 04/19/23 Unknown Stool Cryptosporidium PCR Not Detected (NotDetected) 04/19/23 Unknown Stl E.coli Shiga Tox PCR Not Detected (NotDetected) 04/19/23 Unknown Stl Enterotoxigenic E PCR Not Detected (NotDetected) 04/19/23 Unknown Stool EPEC (PCR) Not Detected (NotDetected) 04/19/23 Unknown Stool EAEC (PCR) Not Detected (NotDetected) 04/19/23 Unknown Stl E. histolytica PCR Not Detected (NotDetected) 04/19/23 Unknown Stool Giardia Lamblia PCR Not Detected (NotDetected) 04/19/23 Unknown Stool Salmonella PCR Not Detected (NotDetected) 04/19/23 Unknown Stool Sapovirus (PCR) Not Detected (NotDetected) 04/19/23 Unknown Stl P. shigelloides PCR Not Detected (NotDetected) 04/19/23 Unknown Stl Shigella/EIEC PCR Not Detected (NotDetected) 04/19/[address].enterocolitica PCR Not Detected (NotDetected) 04/19/23 Unknown Stool Vibrio (PCR) Not Detected (NotDetected) 04/19/23 Unknown Stl Vibrio cholerae PCR Not Detected (NotDetected) 04/19/23 Unknown Stl Norovirus GI/GII PCR Not Detected (NotDetected) 04/19/23 Unknown SARS-CoV-2, RNA, NAAT NEGATIVE (NEGATIVE) 04/19/23 17:48 Impressions KUB X-Ray 04/19/23 14:56 KUB HISTORY: Whipple disease, concern for relapse COMPARISON: Abdomen and pelvis CT 04/04/2023. FINDINGS: The bowel gas pattern is unremarkable. There are no dilated loops of small bowel to suggest an obstruction. No renal calculi. No ureteral calculi. Calcifications in the deep pelvis likely represent phleboliths. The lung bases are clear. No pneumoperitoneum or pneumatosis. IMPRESSION: Nonobstructive bowel gas pattern. ACT 112: Negative or not required by law. Electronically signed by: Abdelrahman Rod M.D. 04/19/2023 3:29 PM Chest X-Ray 04/19/23 14:58 XR chest 1V not portable CLINICAL HISTORY: Chest and abdominal pain TECHNIQUE: Single frontal radiograph of the chest was obtained. Comparison: Comparison is made to chest radiograph 04/04/2023 FINDINGS: No lines and tubes are seen. The cardiomediastinal silhouette is normal. The lungs are clear. No evidence of pleural effusion or pneumothorax. IMPRESSION: No acute chest disease. ACT 112: Negative or not required by law. Electronically signed by: Edin Sanabria M.D. 04/19/2023 3:32 PM
--- NOTE | 2023-04-21 16:41 | Nephrology Progress Note ---
Date of Service April 21, 2023 Assessment & Plan (1) Hyponatremia: Plan: hypovolemic hyponatremia which corrected at appropriate rate. presenting sNA 123, this am 134. presenting sodium not acute drop which is defined as happening in less than 48 hrs. this is recurrence of chronic hyponatremia in the setting of hypovolemia from protein calorie malnutrition and dehydration. SBP has been 80-90s as OP consistently -encourage consistent PO -will sign off -recommend hospital d/c appt w/in 2-3 wks w/ neprho and bmp 48-72 hrs before appt -recommend bmp at PCP hospital d/c appt w/in one week of hospital d/c and PCP can contact nephro if issues eval buspar and mirtazepine can contribute to hyponatremia (and he wasn't taking several prior to admission anyway) > ? if psych eval reasonable to consider changing meds to lower GI side effects and (to lesser extent) w/ consideration for hyponatremia Admission and Anticipated Discharge Date Admission Date: April 19, 2023 Subjective c/o pleuritic back pain; states he drank water ON b/c of salty taste back in his mouth. seen on early AM rounds. Review of Systems Review of Systems: All systems reviewed & are unremarkable except as noted in Subjective Physical Exam Constitutional: well developed, + cachectic, + frail appearing and cooperative Eyes: EOM intact bilaterally ENMT: Ears: no external ear abnormality Nose: no external nose abnormality Mouth: + dry oral mucous membranes Neck: no nuchal rigidity Respiratory: normal respiratory effort Auscultation: + diminished lung sounds and + crackles (bibasilar fine) Cardiovascular: Rate/Rhythm: regular rate and regular rhythm Heart Sounds: + murmur Extremities: no edema Gastrointestinal (Abdomen): Inspection/Auscultation: normal bowel sounds Percussion/Palpation: abdomen soft; abdomen nontender Musculoskeletal: Extremities: strength 5/5 throughout Skin: no rashes, warm and dry Results & Data Vital Signs (Past 12 Hours) Vital Signs Temp Pulse Pulse Resp BP Pulse Ox O2 Del Method 04/21/23 16:02 36.6 C 86 18 95/54 L 98 Room Air 04/21/23 07:00 68 04/21/23 07:41 36.3 C L 83 18 88/55 L 99 Room Air Laboratory Results 04/20/23 05:31 04/21/23 05:48
[2023-04-21] MEDS: MIRTAZAPINE TAB 15 MG TAB PO SCH (21:03)
[2023-04-21] MEDS: lamoTRIgine 25 MG TAB PO SCH (21:12)
[2023-04-21] MEDS: cefTRIAXone SODIUM 2,000 MG in DEXTROSE 5% 50 ML IV SCH (22:07)
--- NOTE | 2023-04-21 22:55 | Electrocardiogram Report ---
Test Reason : Blood Pressure : / mmHG Vent. Rate : 079 BPM Atrial Rate : 079 BPM P-R Int : 146 ms QRS Dur : 102 ms QT Int : 394 ms P-R-T Axes : 058 070 051 degrees QTc Int : 451 ms Normal sinus rhythm ST elevation, consider inferior injury When compared with ECG of 11-APR-2023 11:30, ST elevation now present in Inferior leads Confirmed by Isac Nick ([id number]) on 04/21/2023 10:55:07 PM Referred By: Confirmed By:Isac Nick
[2023-04-22] MEDS: NSS + 20MEQ KCL 20 MEQ/1,000 ML BAG IV SCH (03:05)
[2023-04-22] MEDS: metroNIDAZOLE 500 MG/100 ML BAG IV SCH ×2 (05:14→14:50)
--- NOTE | 2023-04-22 05:57 | Electrocardiogram Report ---
Test Reason : Blood Pressure : / mmHG Vent. Rate : 073 BPM Atrial Rate : 073 BPM P-R Int : 148 ms QRS Dur : 104 ms QT Int : 424 ms P-R-T Axes : 048 067 052 degrees QTc Int : 467 ms Normal sinus rhythm ST elevation, consider inferior injury When compared with ECG of 19-APR-2023 15:43, No significant change was found Confirmed by Isac Nick ([id number]) on 04/22/2023 5:57:06 AM Referred By: REFERRED SELF Confirmed By:Isac Nick
[2023-04-22 06:48] LABS: Hematocrit (blood only) 28.8 % (42.0-52.0); Hemoglobin 9.7 g/dl (14.0-18.0); Mean Corpuscular Hgb Conc 33.7 g/dL (32.0-36.0); Mean Corpuscular Volume 83.2 fL (80.0-100.0); Mean Platelet Volume 9.6 fL (9.4-12.4); Platelet Count 621 K/uL (130-400); RDW Coefficient of Variation 17.9 % (11.5-14.5); RDW Standard Deviation 54.2 fL (36.4-46.3); Red Blood Count 3.46 M/uL (4.70-6.10); White Blood Count 9.12 K/ul (4.8-10.8)
--- NOTE | 2023-04-22 06:54 | Electrocardiogram Report ---
Test Reason : Blood Pressure : / mmHG Vent. Rate : 070 BPM Atrial Rate : 070 BPM P-R Int : 152 ms QRS Dur : 096 ms QT Int : 428 ms P-R-T Axes : 049 057 038 degrees QTc Int : 462 ms Normal sinus rhythm Cannot rule out Anterior infarct , age undetermined Abnormal ECG When compared with ECG of 20-APR-2023 05:58, ST less elevated in Inferior leads Confirmed by Isac Nick ([id number]) on 04/22/2023 6:54:11 AM Referred By: REFERRED SELF Confirmed By:Isac Nick
[2023-04-22 07:02] LABS: BUN Creatinine Ratio 12.7 (10-20); Calcium 7.9 mg/dl (8.6-10.3); Creatinine Clr Calc Pharmacy 67.7 ml/min; Est GFR (African American) 121.4 ml/min; Est GFR (Non-African American) 104.7 ml/min; Potassium 3.7 mmol/L (3.5-5.1)
[2023-04-22 07:13] LABS: Basophils # (auto) 0.14 K/uL (0-0.2); Basophils % (auto) 1.5 %; Eosinophils # (auto) 0.24 K/uL (0-0.50); Eosinophils % (auto) 2.6 %; Immature Granulocytes # (auto) 0.46 K/uL (0.01-0.20); Lymphocytes % (auto) 26.3 %; Monocytes % (auto) 7.7 %; Neutrophils # (auto) 5.18 K/uL (1.40-6.50); Neutrophils % (auto) 56.9 %
[2023-04-22] MEDS: FERROUS GLUCONATE 324 MG TAB PO SCH (08:52)
[2023-04-22] MEDS: PANTOprazole 40 MG TAB PO SCH (08:52)
[2023-04-22] MEDS: CEROVITE ADV FORMULA TAB PO SCH (08:52)
[2023-04-22] MEDS: HEPARIN SOD 5,000 UNIT/0.5 ML VIAL SQ SCH (08:52)
[2023-04-22] MEDS: ADVANCED PROBIOTIC 1250 MG CAPSULE PO SCH (08:53)
[2023-04-22] MEDS: THIAMINE HCL 100 MG TAB PO SCH (08:53)
[2023-04-22] MEDS: busPIRone 5 MG TAB PO SCH (09:47)
--- NOTE | 2023-04-22 11:51 | Discharge Summary ---
Date of Service April 22, 2023 Admission HPI Per Admitting Provider Patient is a 52-year-old male with history of Whipple's disease, nonmelanoma skin cancer, GERD, chronic anemia, mood disorder, past tobacco abuse, thrombocytosis and other medical problems who was recently admitted at [facility] for management of Whipple's disease with lymphadenopathy, acute kidney injury, hyponatremia presents with history of generalized weakness and tiredness, significantly poor oral intake, weight loss, chills, intermittent shortness of breath and chest pain with exertion. Also admits to have lower abdominal discomfort intermittently. Patient's family also states noted patient to be intermittently slow to respond and also has been having balance issues with ambulation. He admits to continuing Rocío Aguero for Whipple's disease which he was discharged on from last confinement. Patient also states having nausea associated with vomiting 2 days ago associated with sore throat and " mouth feels salty". He describes his bowel movements to be yellowish watery and slimy but denies any significant diarrhea currently. He believes to have lost weight due to poor poor oral intake which he could not quantify currently. Admission Exam Per Admitting Provider General Appearance:Thin, frail, Chronic ill appearing, no apparent distress Head: normocephalic, Atraumatic, +Left facial skin lesion Eyes: normal inspection, EOMI Neck: supple, Trachea midline Respiratory/Chest: Normal breath sounds, CTA, +mild tender, No accessory muscle use Cardiovascular: S1, S2, No murmur Abdomen/GI:Soft, mild tender, Bowel sounds present Extremities/Musculoskeletal:normal inspection, no edema Neurologic/Psych:AAOX3, grossly no focal neurological deficits Skin: normal color, warm Principal Diagnosis Hyponatremia Whipple disease Discharge Exam Physical Exam: Constitutional: Alert oriented x3; cachetic Respiratory: normal respiratory effort, lungs clear to auscultation, no wheeze, rales, rhonchi. Normal insp/exp effort, no accessory muscle use Cardiovascular: RRR, no murmur, no edema Vessels: no JVD or carotid bruit Chest: normal inspection of chest Abdomen: normal bowel sounds, soft, nontender, no hepatosplenomegaly Musculoskeletal: no cyanosis or clubbing, extremities motor strength 5/5 Skin: no rashes, warm and dry normal turgor Neurologic: PERRL, EOMI, accommodation nl, no face palsy, no dysarthria CN's II- XI intact bilaterally and moves all extremities Psychiatric: A+Ox3, euthymic affect Discharge Data Allergies Allergy/AdvReac Type Severity Reaction Status Date / Time No Known Allergies Allergy Verified 03/16/23 11:11 Consultations 04/19/23 17:24 ED Decision to Admit Stat 04/19/23 18:42 Consult Infectious Diseases Routine 04/19/23 21:26 Consult Nephrology Routine 04/20/23 11:49 Consult Psychiatry Routine 04/20/23 15:58 Consult Oromaxillofacial Surgery Routine Hospital Course (1) Acute hyponatremia: Patient is a 52-year-old male with history of Whipple's disease, nonmelanoma skin cancer, GERD, chronic anemia, mood disorder, past tobacco abuse, thrombo cytosis and other medical problems who was recently admitted at [facility] for management of Whipple's disease with lymphadenopathy, acute kidney injury, hyponatremia presents with history of generalized weakness and tiredness, significantly poor oral intake, weight loss, chills, intermittent shortness of breath and chest pain with exertion. Patient was managed for following condition during the hospitalization: 1) Hyponatremia, likely hypovolemic hyponatremia Likely due to combination of medications and low oral intake Sodium on admission 123; at discharge 137. Psych medication discontinued. 2)Whipple's disease Patient was on ceftriaxone and Flagyl on admission. Infectious disease was reconsulted; recommended oral surgery consultation for dental caries. OMFS saw him in the hospital; no active infection present. Flagyl discontinued. Patient discharged home on doxycycline and hydroxychloroquine as per recomme ndation by infectious disease. Patient to follow-up with infectious disease as outpatient later in the month. 3) Mood disorder: Consulted psychiatry to review medication. Patient reports that he was placed on medications 3 years back over phone consultation. Psychiatry evaluated the patient; recommended to reduce mirtazapine to 15 mg nightly; use as needed for insomnia and to boost appetite. Other medication discontinued 4) Atypical chest pain EKG personally reviewed; normal sinus rhythm with no ST or T wave changes Echocardiogram shows EF of 55 to 60%; small loculated posterior pericardial effusion seen. No valvular pathology Patient to follow-up with PCP after discharge. Please note the above document was generated using voice recognition software. It may contain grammatical, syntax or spelling errors. Any formal questions or concerns about the content, text or information contained within the body of t his dictation should be directly addressed to the provider for clarification Total Time Total Time Spent Total Time Spent (In Minutes): 45 Total Time Includes: Examination of the Patient, Discharge Planning, Medication Reconciliation, 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 With Other Providers and Other Discharge Plan Discharge Items Patient Disposition: Home - Self-Care Reason For Visit: HYPONATREMIA Discharge Diagnosis: Acute hyponatremia Activity: Resume your previous activity Non-emergency contact: Primary Care Provider Call non-emergency contact if: you have any medication questions and your symptoms worsen Follow-up/Referrals: Nhi Greenfield MD [Primary Care Provider] - (Date & Time 04/28/2023 12:20 PM Provider Nhi Greenfield MD Department General Internal Medicine [facility] ) Ministerio Patel DO [Physician] - (Date & Time 05/10/2023 1:00 PM Provider Minister[facility]el [facility] Please note that this is a VIDEO APPOINTMENT. You will receive instruction via email. ) Diet: Regular Addtl Attending Provider Instructions: You were admitted to the hospital with low sodium level. The likely cause for it days due to dehydration and medications. You were evaluated by infectious disease during the hospitalization for the Whipple's disease. They recommended you to be on doxycycline 100 mg twice daily and hydroxychloroquine 200 mg 3 times a day. You have an appointment set up with Dr. Patel from infectious disease on May 10. Psychiatry saw you during the hospitalization. Dr. Gold recommended stopping BuSpar and Lamictal. A new prescription of mirtazapine 15 mg to be taken at night is prescribed to help with sleep and appetite stimulation. You are evaluated by from Oral surgery. Please set up appointment with him in the future for treatment of the dental caries. For the back pain, please start stretching exercises as tolerated. If the pain continues till you see your primary care doctor; you will need further evaluation. An appointment is set up with your PCP for April 28. Pending Studies at Discharge: No Stand-Alone Forms: My panOpen, Smoking Cessation Medications and DC Order Prescriptions: New thiamine HCl (vitamin B1) 100 mg Tablet 100 mg PO QAM Qty: 60 0RF Sore Throat (phenol) 1.4 % Aerosol,[place] 2 spray MT Q8H PRN (Reason: sore throat) Qty: 177 0RF doxycycline hyclate 100 mg tablet 100 mg PO BID 28 Days Qty: 56 0RF hydroxychloroquine 200 mg tablet 200 mg PO TID 28 Days Qty: 84 0RF mirtazapine 15 mg tablet 15 mg PO HS 30 Days Qty: 30 0RF Continued Sutab 1.479-0.188- 0.225 gram tablet See Rx Instructions PO .COMPLEX Qty: 24 0RF Rx Instructions: TAKE DIRECTED PER SPLIT DOSE INSTRUCTIONS. PLEASE USE COUPON BIN: [id number] PCN: [employer]#: [id number] Tablet 1 tab PO DAILY Saccharomyces boulardii [Florastor] 250 mg Capsule 250 mg PO Q24H 14 Days Qty: 14 0RF omeprazole 20 mg capsule,delayed release(DR/EC) 20 mg PO BID Qty: 60 0RF ferrous gluconate 324 mg (38 mg iron) tablet 324 mg PO DAILY Qty: 30 0RF Discontinued Lamictal 25 mg PO HS Remeron 30 mg PO HS buspirone 10 mg PO BID metronidazole 500 mg Tablet 500 mg PO TID 14 Days Qty: 42 0RF Discharge Orders: Discharge Order (Routine); Ordered 04/22/23 Ordered By: Joel Marlow Admission Data Admit Date/Time: 04/19/23 21:11 Attending Provider: Joel Marlow Admit Provider: Ryne Starkey Primary Care Provider: Nhi Greenfield Other Providers: Horacio Wesley ; Niranjan Taylor ; Deejay Coffman I. ; Cristiano Quintero II ; Eduarda Stewart ; Scott Clemons ; Ministerio Patel ; Lorenzo Cameron ; Ryne Starkey ; Suzette Castrejon ; Vonnie Aquino ; Scott Gold ; Alex Holland
== END 2023-04-22 16:10 | disposition home or self-care (01) | DRG 640 ==
LOC: ED 14:34 → 2E 17:34 → SUATTDRO 21:11